=== PATIENT | female | born 1935 | race African-American/Black ===

== ENCOUNTER 2016-07-21 09:09 | Day surgery (SDC) | payer OTHER ==
[~2016-07-21] VITALS: Ht 167 cm; Wt 75.7 kg
[2016-07-21] MEDS: MEPERIDINE HCL/PF 100 MG/ML AMP ONE ×3 (10:08→10:15)
[2016-07-21] MEDS: MIDAZOLAM HCL 5 MG/5 ML VIAL ONE ×3 (10:08→10:18)
[2016-07-21 11:40] VITALS: BP_SYST 102
== END 2016-07-21 11:45 ==
LOC: SDS 09:09
PROVIDERS: ATTEND Internal Medicine Gastroenterology
DX: D12.3 Benign neoplasm of transverse colon (principal); K64.8 Other hemorrhoids
CPT/HCPCS: 45380; 88305; J2175; J2250; J7030

== ENCOUNTER 2016-12-11 23:31 | Emergency (ER) | payer OTHER, MEDICAID ==
[~2016-12-11] VITALS: Ht 160 cm; Wt 79.4 kg
[2016-12-11 23:31] VITALS: BP_SYST 122
--- NOTE | 2016-12-11 23:40 | NUR ---
Placed in hallway.
--- NOTE | 2016-12-11 23:40 | NUR ---
Pt is here for G tube replacement. [facility] stated that it leakes. Will continue to monitor.
--- NOTE | 2016-12-11 23:55 | NUR ---
ER Dr. Booker at bedside examining patient. Dr. Booker to replace G tube.
[2016-12-12 00:30] VITALS: BP_SYST 122
--- NOTE | 2016-12-12 00:30 | NUR ---
Patient given written and verbal discharge instructions and verbalizes understanding. ER MD discussed with patient the results and treatment provided. Patient in stable condition. ID arm band removed. Patient educated on pain management and to follow up with PMD. Pain Scale 0/10. Opportunity for questions provided and answered. Pt unable to sign due to baseline confusion. Transported back to [facility] by [facility]. Addendum: 12/12/16 at 0535 by ROSIO No adverse reactions noted.
[2016-12-12] MEDS ORDERED: GASTROGRAFIN 120 ML ONE (00:37)
== END 2016-12-12 00:30 | disposition home or self-care (01) ==
LOC: SED 23:31
DX: K94.23 Gastrostomy malfunction (principal); Y84.8 Other medical procedures as the cause of abnormal reaction of the patient, or of later complication, without mention of misadventure at the time of the procedure
CPT/HCPCS: 43760; 74240; 99284; Q9963

== ENCOUNTER 2017-02-10 08:54 | Outpatient (CLI) | payer OTHER, MEDICAID | END 2017-02-10 17:25 | disposition home or self-care (01) | LOC: SCT 08:54 | PROVIDERS: ATTEND Specialist | DX: K57.90 Diverticulosis of intestine, part unspecified, without perforation or abscess without bleeding (principal); I70.90 Unspecified atherosclerosis; Z93.1 Gastrostomy status ==

== ENCOUNTER 2018-08-03 12:56 | Inpatient (IN) | payer OTHER, MEDICAID ==
[~2018-08-03] VITALS: Ht 157.5 cm; Wt 92.7 kg
[2018-08-03] VITALS (15 sets, daily range): BP systolic 100–177
[2018-08-03] MEDS ORDERED: methylPREDNISolone SOD SUCC/PF 62.5 MG/ML VIAL IVP ONE (13:15)
[2018-08-03] MEDS ORDERED: IPRATROPIUM/ALBUTEROL SULFATE 3 ML AMPUL.NEB (DUONEB) INH ONE (13:15)
[2018-08-03] MEDS ORDERED: NOR10 PO (13:28)
[2018-08-03] MEDS ORDERED: LOSA50TA3 PO (13:28)
[2018-08-03] MEDS ORDERED: ISO10 PO (13:28)
[2018-08-03] MEDS ORDERED: DOCU-144 GT (13:28)
[2018-08-03] MEDS ORDERED: LEVE1000 GT (13:28)
[2018-08-03] MEDS ORDERED: ALBU2.5V7 INH ×2 (13:28)
[2018-08-03] MEDS ORDERED: TYLL650 GT (13:28)
[2018-08-03] MEDS ORDERED: MULT-1117 GT (13:28)
[2018-08-03] MEDS ORDERED: HYDR-3606 PO (13:28)
[2018-08-03] MEDS ORDERED: ASCO500T20 GT (13:28)
[2018-08-03] MEDS ORDERED: CRAN1CAP5 GT (13:28)
[2018-08-03] MEDS ORDERED: HYDR-4038 PO (13:28)
[2018-08-03] MEDS ORDERED: LISI30TA36 PO (13:28)
[2018-08-03] MEDS ORDERED: LIP10 GT (13:28)
[2018-08-03 13:51] LABS: BASOPHILS % (AUTO) 0.1 % (0.0-2.0); EOSINOPHILS % (AUTO) 0.1 % (0.0-4.0); HEMATOCRIT 45.8 % (36-48); HEMOGLOBIN 14.7 g/dL (12.0-16.0); LYMPHOCYTES # (AUTO) 0.7 K/uL (1.0-5.5); LYMPHOCYTES % (AUTO) 2.4 % (20.5-51.5); MEAN CORPUSCULAR HEMOGLOBIN 28 pg (27-31); MEAN CORPUSCULAR HGB CONC 32 % (32-36); MEAN CORPUSCULAR VOLUME 88 fL (79.0-98.0); MONOCYTES # (AUTO) 1.1 K/uL (0.0-1.0); MONOCYTES % (AUTO) 3.6 % (1.7-9.3); NEUTROPHILS # (AUTO) 27.4 K/uL (1.8-7.7); NEUTROPHILS % (AUTO) 93.8 % (40.0-70.0); PLATELET COUNT (AUTO) 273 K/uL (130-430); WHITE BLOOD COUNT (AUTO) 29.2 K/uL (4.8-10.8)
[2018-08-03 14:06] LABS: ANION GAP 12 (5-15); CALCIUM 9.9 mg/dL (8.4-11.0); CHLORIDE 98 mmol/L (98-107); CREATININE 1.12 mg/dL (0.55-1.30); GLUCOSE 253 mg/dL (70-99); POTASSIUM 4.4 mmol/L (3.5-5.1); SODIUM SERUM 132 mmol/L (136-145); UREA NITROGEN, BLOOD 21 mg/dL (8-21)
[2018-08-03 14:11] LABS: INR 0.9 (0.8-1.2); PROTHROMBIN TIME 9.6 SECS (9.5-12.5)
[2018-08-03 14:14] LABS: ALANINE AMINOTRANSFERASE 42 U/L (12-78); ALBUMIN 2.8 g/dL (3.4-4.8); ASPARTATE AMINOTRANSFERASE 36 U/L (10-37); TOTAL BILIRUBIN 0.6 mg/dL (0.0-1.0)
[2018-08-03] MEDS ORDERED: NACL 0.9% 1,000 ML IV ONE (14:15)
[2018-08-03] MEDS ORDERED: VANCOMYCIN HCL 1,000 MG in NS 250 ML IV ONE (14:15)
[2018-08-03] MEDS ORDERED: cefTRIAXone 1 GM in D5W 50 ML IV ONE (14:15)
[2018-08-03] MEDS ORDERED: POTASSIUM CHLORIDE 20 MEQ in D5/0.45 NS 1,000 ML IV SCH (14:50)
[2018-08-03] MEDS ORDERED: cefTRIAXone 1 GM VIAL ONE (15:20)
[2018-08-03] MEDS ORDERED: VANCOMYCIN HCL 1000 MG/VIAL IV ONE (15:20)
[2018-08-03] MEDS ORDERED: IOHEXOL 350 mgI/mL, 150 ML INFUS..BTL IV ONE (16:08)
[2018-08-03] MEDS ORDERED: IPRATROPIUM BROM 0.5 MG/2.5 ML VIAL.NEB (ATROVENT) INH PRN (17:30)
[2018-08-03] MEDS ORDERED: LevALBUTEROL HCL 1.25 MG/0.5 ML *CONC.* VIAL.NEB (XOPENEX CONC.) INH PRN (17:30)
[2018-08-03] MEDS ORDERED: HYDROcodone/ACETAMIN 5-325 MG TAB (NORCO/ VICODIN) PO PRN (18:15)
[2018-08-03] MEDS ORDERED: ALBUTEROL SULFATE 0.083% 2.5 MG/3 ML VIAL.NEB INH PRN (18:15)
[2018-08-03] MEDS ORDERED: PIPERACILLIN/TAZOBACTAM 2.25 GM VIAL IV ONE (21:15)
[2018-08-03] MEDS: levETIRAcetam 500 MG TABLET GT SCH (21:41)
[2018-08-03] MEDS: hydrALAZINE HCL 25 MG TABLET PO SCH (21:42)
[2018-08-03] MEDS: LOSARTAN POTASSIUM 50 MG TABLET (COZAAR) PO SCH (21:43)
[2018-08-03] MEDS: ISOSORBIDE DINITRATE 10 MG TABLET (ISORDIL) PO SCH (21:43)
[2018-08-03] MEDS: DOCUSATE SODIUM 100 MG CAPSULE PO SCH (21:43)
[2018-08-03] MEDS: ATORVASTATIN 10 MG TABLET GT SCH (21:44)
[2018-08-03] MEDS: PIPERACILLIN/TAZO 2.25G/DEX-IS 50 ML IV SCH (21:45)
[2018-08-04] VITALS (34 sets, daily range): BP systolic 96–149
[2018-08-04] MEDS ORDERED: ALBUTEROL SULFATE 0.083% 2.5 MG/3 ML VIAL.NEB INH SCH (01:00)
[2018-08-04] MEDS ORDERED: POTASSIUM CHLORIDE 20 MEQ in 0.45% NACL 1,000 ML IV SCH (01:00)
[2018-08-04] MEDS ORDERED: KCL 20 mEq in 0.45% NS 1000 mL 1,000 ML IV ONE (01:04)
[2018-08-04] MEDS: INSULIN REGULAR, HUMAN 100 UNITS/ML, 10 ML VIAL (novoLIN R) SUBCUT PRN ×4 (01:08→18:20)
[2018-08-04] MEDS: IPRATROPIUM BROM 0.5 MG/2.5 ML VIAL.NEB (ATROVENT) INH SCH ×4 (01:09→19:49)
[2018-08-04 06:07] LABS: BASOPHILS # (AUTO) 0.1 K/uL (0.0-0.2); BASOPHILS % (AUTO) 0.3 % (0.0-2.0); EOSINOPHILS % (AUTO) 0.1 % (0.0-4.0); HEMATOCRIT 44.8 % (36-48); HEMOGLOBIN 14.3 g/dL (12.0-16.0); LYMPHOCYTES # (AUTO) 0.9 K/uL (1.0-5.5); LYMPHOCYTES % (AUTO) 4.6 % (20.5-51.5); MEAN CORPUSCULAR HEMOGLOBIN 28 pg (27-31); MEAN CORPUSCULAR HGB CONC 32 % (32-36); MEAN CORPUSCULAR VOLUME 88 fL (79.0-98.0); MONOCYTES # (AUTO) 1.1 K/uL (0.0-1.0); MONOCYTES % (AUTO) 5.2 % (1.7-9.3); NEUTROPHILS # (AUTO) 18.1 K/uL (1.8-7.7); NEUTROPHILS % (AUTO) 89.8 % (40.0-70.0); PLATELET COUNT (AUTO) 223 K/uL (130-430); RED BLOOD CELL COUNT(AUTO) 5.08 MIL/uL (4.2-6.2); RED CELL DISTRIBUTION WIDTH 14.6 % (9.0-15.0); WHITE BLOOD COUNT (AUTO) 20.2 K/uL (4.8-10.8)
[2018-08-04] MEDS: PIPERACILLIN/TAZO 2.25G/DEX-IS 50 ML IV SCH ×3 (06:18→18:12)
[2018-08-04] MEDS: hydrALAZINE HCL 25 MG TABLET PO SCH ×3 (06:19→21:06)
[2018-08-04 06:27] LABS: ANION GAP 12 (5-15); CALCIUM 9.4 mg/dL (8.4-11.0); CHLORIDE 99 mmol/L (98-107); SODIUM SERUM 131 mmol/L (136-145); UREA NITROGEN, BLOOD 38 mg/dL (8-21)
[2018-08-04 06:41] LABS: ALANINE AMINOTRANSFERASE 53 U/L (12-78); ALBUMIN 2.5 g/dL (3.4-4.8); ASPARTATE AMINOTRANSFERASE 44 U/L (10-37); TOTAL BILIRUBIN 0.3 mg/dL (0.0-1.0)
[2018-08-04 07:03] LABS: GLUCOSE 420 mg/dL (70-99); POTASSIUM 6.3 mmol/L (3.5-5.1)
[2018-08-04] MEDS ORDERED: SODIUM POLYSTYRENE SULFONATE 15 GM/60 ML UDBTL PO ONE (07:30)
[2018-08-04] MEDS ORDERED: SODIUM POLYSTYRENE SULFONATE 15 GM/60 ML UDBTL ONE (07:42)
[2018-08-04] MEDS: LevALBUTEROL HCL 1.25 MG/0.5 ML *CONC.* VIAL.NEB (XOPENEX CONC.) INH SCH ×3 (07:53→19:49)
[2018-08-04] MEDS ORDERED: MULTIVITAMINS,THERAPEUTIC 5 ML UDC GT SCH (09:00)
[2018-08-04] MEDS: levETIRAcetam 500 MG TABLET GT SCH ×2 (09:48→21:15)
[2018-08-04] MEDS: LISINOPRIL 10 MG TABLET (PRINIVIL) PO SCH (09:49)
[2018-08-04] MEDS: LOSARTAN POTASSIUM 50 MG TABLET (COZAAR) PO SCH ×2 (09:49→21:04)
[2018-08-04] MEDS: ISOSORBIDE DINITRATE 10 MG TABLET (ISORDIL) PO SCH ×3 (09:50→21:03)
[2018-08-04] MEDS: ASCORBIC ACID 500 MG TABLET GT SCH (09:50)
[2018-08-04] MEDS: FAMOTIDINE PF 20 MG/2 ML VIAL IVP SCH (09:51)
[2018-08-04] MEDS: amLODIPine BESYLATE 10 MG TABLET PO SCH (09:51)
[2018-08-04] MEDS: DOCUSATE SODIUM 100 MG CAPSULE PO SCH ×3 (09:51→21:03)
[2018-08-04] MEDS: ENOXAPARIN SODIUM 40 MG/0.4 ML SYRINGE SUBCUT SCH (09:52)
[2018-08-04] MEDS ORDERED: MULTIVITAMINS TAB 1 TABLET GT SCH (10:00)
[2018-08-04] MEDS: 0.45% NACL 1,000 ML IV SCH (10:09)
[2018-08-04 12:01] LABS: POTASSIUM 4.4 mmol/L (3.5-5.1)
[2018-08-04 12:22] LABS: CREATINE KINASE MB 4.2 ng/mL (0-3.6)
[2018-08-04] MEDS ORDERED: SODIUM POLYSTYRENE SULFONATE 15 GM/60 ML UDBTL GT ONE (13:00)
[2018-08-04] MEDS: LEVOFLOXACIN 250 MG/D5W 50 ML IV SCH (16:50)
[2018-08-04 19:00] LABS: BILIRUBIN,URINE NEGATIVE (NEGATIVE); CLARITY/URINE CLEAR (CLEAR); COLOR,URINE YELLOW (YELLOW); GLUCOSE,URINE NEGATIVE (NEGATIVE); KETONES,URINE NEGATIVE (NEGATIVE); LEUKOCYTE ESTERASE ,URINE NEGATIVE (NEGATIVE); NITRITE, URINE NEGATIVE (NEGATIVE); PROTEIN URINE 1+ (NEGATIVE); UROBILINOGEN,URINE 0.2 (0.2-1.0)
[2018-08-04 19:15] LABS: BLOOD, URINE TRACE (NEGATIVE)
[2018-08-04 19:16] LABS: RBC,URINE 0-3 /HPF (0-3); WBC,URINE 0-3 /HPF (0-3)
[2018-08-04 19:17] LABS: BACTERIA,URINE FEW /HPF (None Seen); MUCUS,URINE None Seen /LPF (None Seen)
[2018-08-04] MEDS: ATORVASTATIN 10 MG TABLET GT SCH (21:04)
[2018-08-05] VITALS (31 sets, daily range): BP systolic 102–156
[2018-08-05] MEDS: 0.45% NACL 1,000 ML IV SCH ×2 (00:02→18:28)
[2018-08-05] MEDS: PIPERACILLIN/TAZO 2.25G/DEX-IS 50 ML IV SCH ×5 (00:02→23:51)
[2018-08-05] MEDS: INSULIN REGULAR, HUMAN 100 UNITS/ML, 10 ML VIAL (novoLIN R) SUBCUT PRN ×5 (00:22→23:50)
[2018-08-05] MEDS: IPRATROPIUM BROM 0.5 MG/2.5 ML VIAL.NEB (ATROVENT) INH SCH ×4 (01:07→19:42)
[2018-08-05] MEDS: LevALBUTEROL HCL 1.25 MG/0.5 ML *CONC.* VIAL.NEB (XOPENEX CONC.) INH SCH ×4 (01:07→19:42)
[2018-08-05] MEDS ORDERED: VANCOMYCIN HCL 1,000 MG in NS 250 ML IV SCH (03:00)
[2018-08-05] MEDS: hydrALAZINE HCL 25 MG TABLET PO SCH ×2 (06:23→14:32)
[2018-08-05 06:52] LABS: BASOPHILS # (AUTO) 0.1 K/uL (0.0-0.2); BASOPHILS % (AUTO) 0.4 % (0.0-2.0); EOSINOPHILS # (AUTO) 0.4 K/uL (0.0-0.4); EOSINOPHILS % (AUTO) 2.5 % (0.0-4.0); HEMATOCRIT 37.1 % (36-48); HEMOGLOBIN 11.9 g/dL (12.0-16.0); LYMPHOCYTES % (AUTO) 6.5 % (20.5-51.5); MEAN CORPUSCULAR HEMOGLOBIN 28 pg (27-31); MEAN CORPUSCULAR HGB CONC 32 % (32-36); MEAN CORPUSCULAR VOLUME 87 fL (79.0-98.0); MONOCYTES # (AUTO) 0.6 K/uL (0.0-1.0); NEUTROPHILS # (AUTO) 13.4 K/uL (1.8-7.7); NEUTROPHILS % (AUTO) 86.6 % (40.0-70.0); PLATELET COUNT (AUTO) 162 K/uL (130-430); RED BLOOD CELL COUNT(AUTO) 4.27 MIL/uL (4.2-6.2); RED CELL DISTRIBUTION WIDTH 14.7 % (9.0-15.0)
[2018-08-05 07:13] LABS: ANION GAP 12 (5-15); CALCIUM 8.3 mg/dL (8.4-11.0); CHLORIDE 101 mmol/L (98-107); CREATININE 1.12 mg/dL (0.55-1.30); GLUCOSE 264 mg/dL (70-99); POTASSIUM 3.5 mmol/L (3.5-5.1); SODIUM SERUM 138 mmol/L (136-145); UREA NITROGEN, BLOOD 29 mg/dL (8-21)
[2018-08-05 07:14] LABS: WHITE BLOOD COUNT (AUTO) 15.5 K/uL (4.8-10.8)
[2018-08-05] MEDS: DOCUSATE SODIUM 100 MG CAPSULE PO SCH ×2 (09:00→15:00)
[2018-08-05] MEDS: LOSARTAN POTASSIUM 50 MG TABLET (COZAAR) PO SCH (09:28)
[2018-08-05] MEDS: levETIRAcetam 500 MG TABLET GT SCH ×2 (09:29→20:51)
[2018-08-05] MEDS: amLODIPine BESYLATE 10 MG TABLET PO SCH (09:29)
[2018-08-05] MEDS: ASCORBIC ACID 500 MG TABLET GT SCH (09:30)
[2018-08-05] MEDS: LISINOPRIL 10 MG TABLET (PRINIVIL) PO SCH (09:30)
[2018-08-05] MEDS: FAMOTIDINE PF 20 MG/2 ML VIAL IVP SCH (09:31)
[2018-08-05] MEDS: ISOSORBIDE DINITRATE 10 MG TABLET (ISORDIL) PO SCH ×2 (09:31→15:38)
[2018-08-05] MEDS: LEVOFLOXACIN 250 MG/D5W 50 ML IV SCH (09:32)
[2018-08-05] MEDS: ENOXAPARIN SODIUM 40 MG/0.4 ML SYRINGE SUBCUT SCH (09:35)
[2018-08-05 11:26] LABS: PROTHROMBIN TIME 10.3 SECS (9.5-12.5)
[2018-08-05] MEDS: ACETAMINOPHEN 650 MG/20.3 ML UDC GT PRN (14:43)
[2018-08-05] MEDS ORDERED: HYDROcodone/ACETAMIN 5-325 MG TAB (NORCO/ VICODIN) GT PRN (16:36)
[2018-08-05] MEDS ORDERED: CLOPIDOGREL BISULFATE 75 MG TABLET PO ONE (16:45)
[2018-08-05] MEDS ORDERED: CLOPIDOGREL BISULFATE 75 MG TABLET GT ONE (16:45)
[2018-08-05] MEDS: ATORVASTATIN 20 MG TABLET GT SCH (20:51)
[2018-08-05] MEDS: ISOSORBIDE DINITRATE 10 MG TABLET (ISORDIL) GT SCH (20:52)
[2018-08-05] MEDS: LOSARTAN POTASSIUM 50 MG TABLET (COZAAR) GT SCH (20:52)
[2018-08-05] MEDS: DOCUSATE SODIUM 100 MG/10 ML UDC GT SCH (21:00)
[2018-08-05] MEDS: hydrALAZINE HCL 25 MG TABLET GT SCH (21:56)
[2018-08-06] VITALS (29 sets, daily range): BP systolic 113–150
[2018-08-06] MEDS: LevALBUTEROL HCL 1.25 MG/0.5 ML *CONC.* VIAL.NEB (XOPENEX CONC.) INH SCH ×3 (01:05→19:53)
[2018-08-06] MEDS: IPRATROPIUM BROM 0.5 MG/2.5 ML VIAL.NEB (ATROVENT) INH SCH ×3 (01:06→19:53)
[2018-08-06] MEDS: PIPERACILLIN/TAZO 2.25G/DEX-IS 50 ML IV SCH ×4 (05:16→23:18)
[2018-08-06] MEDS: hydrALAZINE HCL 25 MG TABLET GT SCH ×3 (05:20→21:45)
[2018-08-06] MEDS: INSULIN REGULAR, HUMAN 100 UNITS/ML, 10 ML VIAL (novoLIN R) SUBCUT PRN ×4 (05:42→23:24)
[2018-08-06 06:54] LABS: ANION GAP 7 (5-15); CALCIUM 8.3 mg/dL (8.4-11.0); CHLORIDE 100 mmol/L (98-107); CREATININE 0.84 mg/dL (0.55-1.30); GLUCOSE 261 mg/dL (70-99); POTASSIUM 3.9 mmol/L (3.5-5.1); SODIUM SERUM 133 mmol/L (136-145); UREA NITROGEN, BLOOD 17 mg/dL (8-21)
[2018-08-06 07:06] LABS: ALANINE AMINOTRANSFERASE 55 U/L (12-78); ALBUMIN 2.2 g/dL (3.4-4.8); ASPARTATE AMINOTRANSFERASE 41 U/L (10-37); TOTAL BILIRUBIN 0.3 mg/dL (0.0-1.0)
[2018-08-06] MEDS: DOCUSATE SODIUM 100 MG/10 ML UDC GT SCH ×3 (09:00→20:46)
[2018-08-06] MEDS: levETIRAcetam 500 MG TABLET GT SCH ×2 (09:21→20:44)
[2018-08-06] MEDS: FAMOTIDINE PF 20 MG/2 ML VIAL IVP SCH (09:21)
[2018-08-06] MEDS: CLOPIDOGREL BISULFATE 75 MG TABLET GT SCH (09:22)
[2018-08-06] MEDS: ENOXAPARIN SODIUM 40 MG/0.4 ML SYRINGE SUBCUT SCH (09:22)
[2018-08-06] MEDS: MULTIVITAMINS TAB 1 TABLET GT SCH (09:23)
[2018-08-06] MEDS: ISOSORBIDE DINITRATE 10 MG TABLET (ISORDIL) GT SCH ×3 (09:23→20:46)
[2018-08-06] MEDS: amLODIPine BESYLATE 10 MG TABLET GT SCH (09:24)
[2018-08-06] MEDS: LISINOPRIL 10 MG TABLET (PRINIVIL) GT SCH (09:25)
[2018-08-06] MEDS: LOSARTAN POTASSIUM 50 MG TABLET (COZAAR) GT SCH ×2 (09:25→20:45)
[2018-08-06] MEDS: ASCORBIC ACID 500 MG TABLET GT SCH (09:26)
[2018-08-06] MEDS: LEVOFLOXACIN 250 MG/D5W 50 ML IV SCH (09:26)
[2018-08-06] MEDS ORDERED: FUROSEMIDE 20 MG/2 ML VIAL IVP ONE (09:30)
[2018-08-06 11:38] LABS: BASOPHILS % (AUTO) 0.4 % (0.0-2.0); EOSINOPHILS # (AUTO) 0.3 K/uL (0.0-0.4); HEMATOCRIT 33.5 % (36-48); HEMOGLOBIN 10.9 g/dL (12.0-16.0); LYMPHOCYTES # (AUTO) 0.8 K/uL (1.0-5.5); LYMPHOCYTES % (AUTO) 7.2 % (20.5-51.5); MEAN CORPUSCULAR HEMOGLOBIN 29 pg (27-31); MEAN CORPUSCULAR HGB CONC 33 % (32-36); MEAN CORPUSCULAR VOLUME 87 fL (79.0-98.0); MONOCYTES # (AUTO) 0.7 K/uL (0.0-1.0); MONOCYTES % (AUTO) 6.8 % (1.7-9.3); NEUTROPHILS % (AUTO) 82.6 % (40.0-70.0); PLATELET COUNT (AUTO) 133 K/uL (130-430); RED BLOOD CELL COUNT(AUTO) 3.84 MIL/uL (4.2-6.2); RED CELL DISTRIBUTION WIDTH 14.5 % (9.0-15.0); WHITE BLOOD COUNT (AUTO) 10.9 K/uL (4.8-10.8)
[2018-08-06] MEDS: 0.45% NACL 1,000 ML IV SCH (17:19)
[2018-08-06] MEDS: ATORVASTATIN 20 MG TABLET GT SCH (20:46)
[2018-08-07] VITALS (30 sets, daily range): BP systolic 99–143
[2018-08-07] MEDS: IPRATROPIUM BROM 0.5 MG/2.5 ML VIAL.NEB (ATROVENT) INH SCH ×4 (00:48→19:27)
[2018-08-07] MEDS: LevALBUTEROL HCL 1.25 MG/0.5 ML *CONC.* VIAL.NEB (XOPENEX CONC.) INH SCH ×4 (00:48→19:27)
[2018-08-07] MEDS: PIPERACILLIN/TAZO 2.25G/DEX-IS 50 ML IV SCH (05:17)
[2018-08-07] MEDS: hydrALAZINE HCL 25 MG TABLET GT SCH ×3 (05:19→20:58)
[2018-08-07] MEDS: INSULIN REGULAR, HUMAN 100 UNITS/ML, 10 ML VIAL (novoLIN R) SUBCUT PRN ×4 (05:27→23:38)
[2018-08-07 06:17] LABS: BASOPHILS % (AUTO) 0.4 % (0.0-2.0); EOSINOPHILS # (AUTO) 0.5 K/uL (0.0-0.4); EOSINOPHILS % (AUTO) 4.5 % (0.0-4.0); LYMPHOCYTES % (AUTO) 8.8 % (20.5-51.5); MEAN CORPUSCULAR HEMOGLOBIN 28 pg (27-31); MEAN CORPUSCULAR HGB CONC 32 % (32-36); MEAN CORPUSCULAR VOLUME 87 fL (79.0-98.0); MONOCYTES # (AUTO) 0.9 K/uL (0.0-1.0); MONOCYTES % (AUTO) 8.1 % (1.7-9.3); NEUTROPHILS # (AUTO) 8.7 K/uL (1.8-7.7); NEUTROPHILS % (AUTO) 78.2 % (40.0-70.0); PLATELET COUNT (AUTO) 131 K/uL (130-430); RED BLOOD CELL COUNT(AUTO) 3.92 MIL/uL (4.2-6.2); RED CELL DISTRIBUTION WIDTH 14.5 % (9.0-15.0); WHITE BLOOD COUNT (AUTO) 11.2 K/uL (4.8-10.8)
[2018-08-07 06:37] LABS: ANION GAP 8 (5-15); CALCIUM 8.5 mg/dL (8.4-11.0); CHLORIDE 99 mmol/L (98-107); CREATININE 0.75 mg/dL (0.55-1.30); GLUCOSE 227 mg/dL (70-99); POTASSIUM 3.8 mmol/L (3.5-5.1); SODIUM SERUM 134 mmol/L (136-145); UREA NITROGEN, BLOOD 12 mg/dL (8-21)
[2018-08-07] MEDS: DOCUSATE SODIUM 100 MG/10 ML UDC GT SCH ×3 (08:35→20:58)
[2018-08-07] MEDS: FAMOTIDINE PF 20 MG/2 ML VIAL IVP SCH (08:36)
[2018-08-07] MEDS: amLODIPine BESYLATE 10 MG TABLET GT SCH (08:45)
[2018-08-07] MEDS: ENOXAPARIN SODIUM 40 MG/0.4 ML SYRINGE SUBCUT SCH (08:46)
[2018-08-07] MEDS: ISOSORBIDE DINITRATE 10 MG TABLET (ISORDIL) GT SCH ×3 (08:47→20:57)
[2018-08-07] MEDS: LISINOPRIL 10 MG TABLET (PRINIVIL) GT SCH (08:47)
[2018-08-07] MEDS: MULTIVITAMINS TAB 1 TABLET GT SCH (08:47)
[2018-08-07] MEDS: LOSARTAN POTASSIUM 50 MG TABLET (COZAAR) GT SCH ×2 (08:47→20:57)
[2018-08-07] MEDS: CLOPIDOGREL BISULFATE 75 MG TABLET GT SCH (08:47)
[2018-08-07] MEDS: ASCORBIC ACID 500 MG TABLET GT SCH (08:47)
[2018-08-07] MEDS: levETIRAcetam 500 MG TABLET GT SCH ×2 (08:48→20:56)
[2018-08-07] MEDS: PIPERACILLIN/TAZO 3.375/DEX-IS 50 ML IV SCH ×3 (11:38→23:36)
[2018-08-07] MEDS: 0.45% NACL 1,000 ML IV SCH (17:20)
[2018-08-07] MEDS: ATORVASTATIN 20 MG TABLET GT SCH (20:57)
[2018-08-08] VITALS (23 sets, daily range): BP systolic 103–137
[2018-08-08] MEDS: LevALBUTEROL HCL 1.25 MG/0.5 ML *CONC.* VIAL.NEB (XOPENEX CONC.) INH SCH ×4 (00:11→19:30)
[2018-08-08] MEDS: IPRATROPIUM BROM 0.5 MG/2.5 ML VIAL.NEB (ATROVENT) INH SCH ×4 (00:11→19:30)
[2018-08-08] MEDS: PIPERACILLIN/TAZO 3.375/DEX-IS 50 ML IV SCH ×3 (05:22→17:15)
[2018-08-08] MEDS: hydrALAZINE HCL 25 MG TABLET GT SCH ×3 (05:31→22:00)
[2018-08-08] MEDS: INSULIN REGULAR, HUMAN 100 UNITS/ML, 10 ML VIAL (novoLIN R) SUBCUT PRN ×3 (05:33→17:41)
[2018-08-08 06:29] LABS: BASOPHILS % (AUTO) 0.3 % (0.0-2.0); EOSINOPHILS # (AUTO) 0.5 K/uL (0.0-0.4); EOSINOPHILS % (AUTO) 4.1 % (0.0-4.0); HEMATOCRIT 34.1 % (36-48); HEMOGLOBIN 11.1 g/dL (12.0-16.0); LYMPHOCYTES # (AUTO) 0.8 K/uL (1.0-5.5); LYMPHOCYTES % (AUTO) 6.9 % (20.5-51.5); MEAN CORPUSCULAR HEMOGLOBIN 28 pg (27-31); MEAN CORPUSCULAR HGB CONC 33 % (32-36); MEAN CORPUSCULAR VOLUME 87 fL (79.0-98.0); MONOCYTES # (AUTO) 0.9 K/uL (0.0-1.0); MONOCYTES % (AUTO) 8.3 % (1.7-9.3); NEUTROPHILS # (AUTO) 9.1 K/uL (1.8-7.7); NEUTROPHILS % (AUTO) 80.4 % (40.0-70.0); PLATELET COUNT (AUTO) 138 K/uL (130-430); RED BLOOD CELL COUNT(AUTO) 3.93 MIL/uL (4.2-6.2); RED CELL DISTRIBUTION WIDTH 14.4 % (9.0-15.0); WHITE BLOOD COUNT (AUTO) 11.3 K/uL (4.8-10.8)
[2018-08-08 06:54] LABS: ANION GAP 9 (5-15); CALCIUM 8.9 mg/dL (8.4-11.0); CHLORIDE 98 mmol/L (98-107); CREATININE 0.68 mg/dL (0.55-1.30); GLUCOSE 237 mg/dL (70-99); POTASSIUM 3.9 mmol/L (3.5-5.1); SODIUM SERUM 132 mmol/L (136-145); UREA NITROGEN, BLOOD 11 mg/dL (8-21)
[2018-08-08] MEDS: ISOSORBIDE DINITRATE 10 MG TABLET (ISORDIL) GT SCH ×3 (08:15→20:12)
[2018-08-08] MEDS: FAMOTIDINE PF 20 MG/2 ML VIAL IVP SCH (08:15)
[2018-08-08] MEDS: LISINOPRIL 10 MG TABLET (PRINIVIL) GT SCH (08:16)
[2018-08-08] MEDS: CLOPIDOGREL BISULFATE 75 MG TABLET GT SCH (08:16)
[2018-08-08] MEDS: LOSARTAN POTASSIUM 50 MG TABLET (COZAAR) GT SCH ×2 (08:16→20:11)
[2018-08-08] MEDS: amLODIPine BESYLATE 10 MG TABLET GT SCH (08:17)
[2018-08-08] MEDS: MULTIVITAMINS TAB 1 TABLET GT SCH (08:17)
[2018-08-08] MEDS: levETIRAcetam 500 MG TABLET GT SCH ×2 (08:17→20:12)
[2018-08-08] MEDS: ASCORBIC ACID 500 MG TABLET GT SCH (08:17)
[2018-08-08] MEDS: DOCUSATE SODIUM 100 MG/10 ML UDC GT SCH ×3 (08:19→20:11)
[2018-08-08] MEDS: ENOXAPARIN SODIUM 40 MG/0.4 ML SYRINGE SUBCUT SCH (08:19)
[2018-08-08] MEDS ORDERED: FUROSEMIDE 20 MG/2 ML VIAL IVP ONE (09:30)
[2018-08-08] MEDS ORDERED: hydrALAZINE HCL 25 MG TABLET ONE (15:02)
[2018-08-08] MEDS: 0.45% NACL 1,000 ML IV SCH (16:50)
[2018-08-08] MEDS: ATORVASTATIN 20 MG TABLET GT SCH (20:12)
[2018-08-09] MEDS: LevALBUTEROL HCL 1.25 MG/0.5 ML *CONC.* VIAL.NEB (XOPENEX CONC.) INH SCH ×4 (00:35→19:40)
[2018-08-09] MEDS: IPRATROPIUM BROM 0.5 MG/2.5 ML VIAL.NEB (ATROVENT) INH SCH ×4 (00:36→19:42)
[2018-08-09 00:58] VITALS: BP_SYST 122
[2018-08-09] MEDS: PIPERACILLIN/TAZO 3.375/DEX-IS 50 ML IV SCH ×5 (01:05→23:17)
[2018-08-09] MEDS: INSULIN REGULAR, HUMAN 100 UNITS/ML, 10 ML VIAL (novoLIN R) SUBCUT PRN ×5 (01:09→23:14)
[2018-08-09] MEDS: hydrALAZINE HCL 25 MG TABLET GT SCH ×3 (06:05→21:23)
[2018-08-09 06:34] LABS: BASOPHILS # (AUTO) 0.1 K/uL (0.0-0.2); BASOPHILS % (AUTO) 0.4 % (0.0-2.0); EOSINOPHILS # (AUTO) 0.5 K/uL (0.0-0.4); EOSINOPHILS % (AUTO) 3.6 % (0.0-4.0); HEMATOCRIT 33.2 % (36-48); HEMOGLOBIN 10.8 g/dL (12.0-16.0); LYMPHOCYTES # (AUTO) 0.7 K/uL (1.0-5.5); LYMPHOCYTES % (AUTO) 4.4 % (20.5-51.5); MEAN CORPUSCULAR HEMOGLOBIN 29 pg (27-31); MEAN CORPUSCULAR HGB CONC 33 % (32-36); MEAN CORPUSCULAR VOLUME 87 fL (79.0-98.0); MONOCYTES # (AUTO) 1.1 K/uL (0.0-1.0); MONOCYTES % (AUTO) 7.4 % (1.7-9.3); NEUTROPHILS # (AUTO) 12.7 K/uL (1.8-7.7); NEUTROPHILS % (AUTO) 84.2 % (40.0-70.0); PLATELET COUNT (AUTO) 155 K/uL (130-430); RED CELL DISTRIBUTION WIDTH 14.3 % (9.0-15.0)
[2018-08-09 06:51] LABS: ANION GAP 2 (5-15); CALCIUM 8.9 mg/dL (8.4-11.0); CHLORIDE 103 mmol/L (98-107); CREATININE 0.63 mg/dL (0.55-1.30); GLUCOSE 212 mg/dL (70-99); SODIUM SERUM 130 mmol/L (136-145); UREA NITROGEN, BLOOD 12 mg/dL (8-21)
[2018-08-09 08:44] VITALS: BP_SYST 142
[2018-08-09] MEDS: FAMOTIDINE PF 20 MG/2 ML VIAL IVP SCH (09:24)
[2018-08-09] MEDS: LOSARTAN POTASSIUM 50 MG TABLET (COZAAR) GT SCH ×2 (09:25→21:24)
[2018-08-09] MEDS: LISINOPRIL 10 MG TABLET (PRINIVIL) GT SCH (09:25)
[2018-08-09] MEDS: amLODIPine BESYLATE 10 MG TABLET GT SCH (09:26)
[2018-08-09] MEDS: ASCORBIC ACID 500 MG TABLET GT SCH (09:26)
[2018-08-09] MEDS: CLOPIDOGREL BISULFATE 75 MG TABLET GT SCH (09:26)
[2018-08-09] MEDS: ISOSORBIDE DINITRATE 10 MG TABLET (ISORDIL) GT SCH ×3 (09:27→21:24)
[2018-08-09] MEDS: DOCUSATE SODIUM 100 MG/10 ML UDC GT SCH ×3 (09:27→21:00)
[2018-08-09] MEDS: levETIRAcetam 500 MG TABLET GT SCH ×2 (09:27→21:23)
[2018-08-09] MEDS: MULTIVITAMINS TAB 1 TABLET GT SCH (09:28)
[2018-08-09] MEDS: ENOXAPARIN SODIUM 40 MG/0.4 ML SYRINGE SUBCUT SCH (09:29)
[2018-08-09] MEDS: ACETAMINOPHEN 650 MG/20.3 ML UDC GT PRN ×2 (11:36→23:15)
[2018-08-09 12:45] VITALS: BP_SYST 136
[2018-08-09] MEDS: 0.45% NACL 1,000 ML IV SCH (14:54)
[2018-08-09 17:33] VITALS: BP_SYST 107
[2018-08-09] MEDS: TOBRAMYCIN 300MG/5ML INH AMPUL.NEB INH SCH (19:00)
[2018-08-09 20:00] VITALS: BP_SYST 146
[2018-08-09] MEDS: ATORVASTATIN 20 MG TABLET GT SCH (21:23)
[2018-08-10 00:45] VITALS: BP_SYST 133
[2018-08-10] MEDS: LevALBUTEROL HCL 1.25 MG/0.5 ML *CONC.* VIAL.NEB (XOPENEX CONC.) INH SCH ×3 (01:08→13:30)
[2018-08-10] MEDS: IPRATROPIUM BROM 0.5 MG/2.5 ML VIAL.NEB (ATROVENT) INH SCH ×3 (01:09→13:30)
[2018-08-10] MEDS: PIPERACILLIN/TAZO 3.375/DEX-IS 50 ML IV SCH ×3 (05:35→17:12)
[2018-08-10] MEDS: hydrALAZINE HCL 25 MG TABLET GT SCH ×2 (05:36→14:42)
[2018-08-10] MEDS: INSULIN REGULAR, HUMAN 100 UNITS/ML, 10 ML VIAL (novoLIN R) SUBCUT PRN ×3 (05:45→17:20)
[2018-08-10 06:28] LABS: BASOPHILS # (AUTO) 0.1 K/uL (0.0-0.2); BASOPHILS % (AUTO) 0.3 % (0.0-2.0); EOSINOPHILS # (AUTO) 0.8 K/uL (0.0-0.4); EOSINOPHILS % (AUTO) 3.5 % (0.0-4.0); HEMATOCRIT 34.4 % (36-48); HEMOGLOBIN 11.3 g/dL (12.0-16.0); LYMPHOCYTES # (AUTO) 0.8 K/uL (1.0-5.5); LYMPHOCYTES % (AUTO) 3.6 % (20.5-51.5); MEAN CORPUSCULAR HEMOGLOBIN 28 pg (27-31); MEAN CORPUSCULAR HGB CONC 33 % (32-36); MEAN CORPUSCULAR VOLUME 87 fL (79.0-98.0); MONOCYTES # (AUTO) 1.9 K/uL (0.0-1.0); MONOCYTES % (AUTO) 8.7 % (1.7-9.3); NEUTROPHILS # (AUTO) 18.1 K/uL (1.8-7.7); NEUTROPHILS % (AUTO) 83.9 % (40.0-70.0); PLATELET COUNT (AUTO) 192 K/uL (130-430); RED BLOOD CELL COUNT(AUTO) 3.96 MIL/uL (4.2-6.2); RED CELL DISTRIBUTION WIDTH 14.8 % (9.0-15.0); WHITE BLOOD COUNT (AUTO) 21.5 K/uL (4.8-10.8)
[2018-08-10 06:45] LABS: ANION GAP 7 (5-15); CALCIUM 8.9 mg/dL (8.4-11.0); CHLORIDE 98 mmol/L (98-107); CREATININE 0.84 mg/dL (0.55-1.30); GLUCOSE 208 mg/dL (70-99); POTASSIUM 4.1 mmol/L (3.5-5.1); SODIUM SERUM 134 mmol/L (136-145); UREA NITROGEN, BLOOD 13 mg/dL (8-21)
[2018-08-10] MEDS: TOBRAMYCIN 300MG/5ML INH AMPUL.NEB INH SCH (07:00)
[2018-08-10 07:30] VITALS: BP_SYST 138
[2018-08-10 07:59] VITALS: BP_SYST 138
[2018-08-10] MEDS: DOCUSATE SODIUM 100 MG/10 ML UDC GT SCH ×2 (09:00→14:11)
[2018-08-10] MEDS: FAMOTIDINE PF 20 MG/2 ML VIAL IVP SCH (09:27)
[2018-08-10] MEDS: ENOXAPARIN SODIUM 40 MG/0.4 ML SYRINGE SUBCUT SCH (09:29)
[2018-08-10] MEDS: levETIRAcetam 500 MG TABLET GT SCH (09:30)
[2018-08-10] MEDS: ASCORBIC ACID 500 MG TABLET GT SCH (09:30)
[2018-08-10] MEDS: CLOPIDOGREL BISULFATE 75 MG TABLET GT SCH (09:30)
[2018-08-10] MEDS: LOSARTAN POTASSIUM 50 MG TABLET (COZAAR) GT SCH (09:30)
[2018-08-10] MEDS: MULTIVITAMINS TAB 1 TABLET GT SCH (09:30)
[2018-08-10] MEDS: LISINOPRIL 10 MG TABLET (PRINIVIL) GT SCH (09:31)
[2018-08-10] MEDS: ISOSORBIDE DINITRATE 10 MG TABLET (ISORDIL) GT SCH ×2 (09:31→14:41)
[2018-08-10] MEDS: amLODIPine BESYLATE 10 MG TABLET GT SCH (10:33)
[2018-08-10 13:05] VITALS: BP_SYST 129
[2018-08-10 16:10] VITALS: BP_SYST 145
[2018-08-10 18:18] VITALS: BP_SYST 140
== END 2018-08-10 18:00 | DRG 870 ==
LOC: SED 12:56 → SIC 14:50 → STU 08-08 17:21
PROVIDERS: ADMIT Family Medicine; ATTEND Family Medicine
PROC: 5A1955Z Respiratory Ventilation, Greater than 96 Consecutive Hours (ICD-10-PCS; principal; 2018-08-03)
PROC: 02HV33Z Insertion of Infusion Device into Superior Vena Cava, Percutaneous Approach (ICD-10-PCS; 2018-08-05)
DX: A41.9 Sepsis, unspecified organism (principal); J69.0 Pneumonitis due to inhalation of food and vomit; J96.21 Acute and chronic respiratory failure with hypoxia; E43 Unspecified severe protein-calorie malnutrition; J15.1 Pneumonia due to Pseudomonas; I21.9 Acute myocardial infarction, unspecified; E87.2 Acidosis; G93.40 Encephalopathy, unspecified; N39.0 Urinary tract infection, site not specified; Z99.11 Dependence on respirator [ventilator] status; N17.9 Acute kidney failure, unspecified; I50.30 Unspecified diastolic (congestive) heart failure; E11.9 Type 2 diabetes mellitus without complications; E78.5 Hyperlipidemia, unspecified; I95.9 Hypotension, unspecified; F03.90 Unspecified dementia, unspecified severity, without behavioral disturbance, psychotic disturbance, mood disturbance, and anxiety; Z96.652 Presence of left artificial knee joint; G40.909 Epilepsy, unspecified, not intractable, without status epilepticus; I11.0 Hypertensive heart disease with heart failure; I25.10 Atherosclerotic heart disease of native coronary artery without angina pectoris; J44.9 Chronic obstructive pulmonary disease, unspecified; E86.0 Dehydration; Z86.718 Personal history of other venous thrombosis and embolism; Z86.73 Personal history of transient ischemic attack (TIA), and cerebral infarction without residual deficits; I25.2 Old myocardial infarction; Z87.891 Personal history of nicotine dependence; Z90.710 Acquired absence of both cervix and uterus; Z93.1 Gastrostomy status; Z98.2 Presence of cerebrospinal fluid drainage device; Z74.01 Bed confinement status; Z68.37 Body mass index [BMI] 37.0-37.9, adult; Z88.6 Allergy status to analgesic agent; Z88.2 Allergy status to sulfonamides; Z79.899 Other long term (current) drug therapy; Z79.51 Long term (current) use of inhaled steroids; Z93.0 Tracheostomy status
CPT/HCPCS: 36415; 36600; 71045; 71275; 80048; 80053; 81000-TC; 82550-TC; 82553-TC; 82803-TC; 82962; 83605; 83735-TC; 83874; 83880; 84132-TC; 84484; 85025; 85379; 85610-TC; 85730-TC; 87040-TC; 87070-TC; 87081; 87186-TC; 87205-TC; 93005; 93306; 94003; 94640; 94760; 96365; 96368; 96375; 99291; C1751; G0378; J0696; J1650; J1815; J1940; J1956; J2543; J2930; J3370; J3480; J3490; J7050; J7120; J7612; J7613; J7620; Q9967

== ENCOUNTER 2020-01-28 18:24 | Inpatient (IN) | payer OTHER, MEDICAID, SELFPAY ==
[~2020-01-28] VITALS: Ht 170.2 cm; Wt 80.7 kg
[~2020-01-28 18:24] MED LIST: ALBU2.5V7 INH; ASCO500T20 GT; CRAN1CAP5 GT; DOCU-144 GT; HYDR-3607 PO; HYDR-4038 PO; ISO10 PO; LEVE1000 GT; LIP10 GT; LISI30TA36 PO; LOSA50TA3 PO; MULT-1117 GT; NOR10 PO; TYLL650 GT
--- NOTE | 2020-01-28 18:24 | NUR ---
RT NOTE @1810 TRACH TO VENT PT RECEIVED AND PLACE ON AC 10 VT 500 PEEP+5 ON 30%. PT APPEARS TO TOLERATE WELL. ALARMS ARE SET AND AUDIBLE WILL ENDORSE TO CARE TO NOC SHIFT.
[2020-01-28 18:28] VITALS: BP_SYST 166
--- NOTE | 2020-01-28 18:28 | NUR ---
Placed in room 01 . Placed on laboratory monitor, blood pressure machine and pulse oximeter. To gown for exam. Side rails up.
--- NOTE | 2020-01-28 18:41 | NUR ---
Pt in [facility] with side rails up and gown on. Pt is a tracheostomy pt on Ventilator. Pt is awake and alert.
--- NOTE | 2020-01-28 19:12 | NUR ---
Received report from ZAN Mejía.
--- NOTE | 2020-01-28 19:15 | NUR ---
Iv access obtained. Pt is awake and responsive. Pt continues on Ventilator. Pt is being monitored.
[2020-01-28 19:18] LABS: BASOPHILS # (AUTO) 0.1 K/uL (0.0-0.2); BASOPHILS % (AUTO) 0.7 % (0.0-2.0); EOSINOPHILS # (AUTO) 0.3 K/uL (0.0-0.4); EOSINOPHILS % (AUTO) 3.3 % (0.0-4.0); HEMATOCRIT 35.2 % (36-48); HEMOGLOBIN 11.4 g/dL (12.0-16.0); LYMPHOCYTES # (AUTO) 1.2 K/uL (1.0-5.5); LYMPHOCYTES % (AUTO) 14.3 % (20.5-51.5); MEAN CORPUSCULAR HEMOGLOBIN 27 pg (27-31); MEAN CORPUSCULAR HGB CONC 32 % (32-36); MEAN CORPUSCULAR VOLUME 84 fL (79.0-98.0); MONOCYTES # (AUTO) 0.8 K/uL (0.0-1.0); MONOCYTES % (AUTO) 9.3 % (1.7-9.3); NEUTROPHILS % (AUTO) 72.4 % (40.0-70.0); PLATELET COUNT (AUTO) 257 K/uL (130-430); RED BLOOD CELL COUNT(AUTO) 4.21 MIL/uL (4.2-6.2); RED CELL DISTRIBUTION WIDTH 16.2 % (9.0-15.0); WHITE BLOOD COUNT (AUTO) 8.3 K/uL (4.8-10.8)
[2020-01-28] MEDS ORDERED: ASCO500T20 GT (19:25)
[2020-01-28] MEDS ORDERED: FER300L GT (19:25)
[2020-01-28] MEDS ORDERED: LIP10 GT (19:25)
[2020-01-28] MEDS ORDERED: LEVE100034 GT (19:25)
[2020-01-28] MEDS ORDERED: TYLL650 GT (19:25)
[2020-01-28] MEDS ORDERED: METF1000 GT (19:25)
[2020-01-28] MEDS ORDERED: DOCU-144 GT (19:25)
[2020-01-28] MEDS ORDERED: HYDR-4039 GT (19:25)
[2020-01-28] MEDS ORDERED: INSU100V11 SQ (19:25)
[2020-01-28] MEDS ORDERED: SSNOVOLOG SUBCUT (19:25)
[2020-01-28] MEDS ORDERED: VITD400 GT (19:25)
[2020-01-28] MEDS ORDERED: MULT-1279 GT (19:25)
[2020-01-28] MEDS ORDERED: HYDR-4038 GT (19:25)
[2020-01-28] MEDS ORDERED: [UNRECOGNIZED DRUG - CODE] GT (19:25)
[2020-01-28] MEDS ORDERED: APIX2.5T GT (19:25)
[2020-01-28] MEDS ORDERED: sodium chloride GT (19:25)
[2020-01-28] MEDS ORDERED: ALBMDI INH (19:25)
[2020-01-28] MEDS ORDERED: Uti-stat GT (19:25)
--- NOTE | 2020-01-28 19:25 | NUR ---
Medication reconciliation completed with information provided by patient . Any prior medication reconciliation on file was reviewed and corrected.
[2020-01-28 19:30] LABS: ANION GAP 6 (5-15); CALCIUM 9.6 mg/dL (8.4-11.0); CHLORIDE 101 mmol/L (98-107); CREATININE 0.48 mg/dL (0.55-1.30); GLUCOSE 123 mg/dL (70-99); POTASSIUM 3.8 mmol/L (3.5-5.1); SODIUM SERUM 135 mmol/L (136-145); UREA NITROGEN, BLOOD 12 mg/dL (8-21)
[2020-01-28 19:36] LABS: PROTHROMBIN TIME 10.3 SECS (9.5-12.5)
[2020-01-28 19:37] LABS: ALANINE AMINOTRANSFERASE 19 U/L (12-78); ALBUMIN 3.2 g/dL (3.4-4.8); ASPARTATE AMINOTRANSFERASE 12 U/L (10-37); TOTAL BILIRUBIN 0.3 mg/dL (0.0-1.0)
--- NOTE | 2020-01-28 19:40 | NUR ---
Patient BIB by ALS from [facility]. C/O abnormal labs and R/O Pulmonary Embolism today. Hx ME, MCI, COPD, Respiratory Failure, CHF, DM, A-Flutter, ADHD, G-tube and Trach -Vent AC VT FiO2 30.
--- NOTE | 2020-01-28 19:50 | NUR ---
Swabbed MRSA and Covid --19 and sent to lab.
--- NOTE | 2020-01-28 20:28 | NUR ---
ER Dr. Brower at bedside examining patient.
--- NOTE | 2020-01-28 20:30 | NUR ---
In and out cath and sent to lab.
[2020-01-28 20:51] LABS: BILIRUBIN,URINE NEGATIVE (NEGATIVE); BLOOD, URINE NEGATIVE (NEGATIVE); CLARITY/URINE CLEAR (CLEAR); COLOR,URINE YELLOW (YELLOW); GLUCOSE,URINE NEGATIVE (NEGATIVE); KETONES,URINE NEGATIVE (NEGATIVE); LEUKOCYTE ESTERASE ,URINE NEGATIVE (NEGATIVE); NITRITE, URINE NEGATIVE (NEGATIVE); PROTEIN URINE 2+ (NEGATIVE); UROBILINOGEN,URINE 0.2 (0.2-1.0)
[2020-01-28 21:05] LABS: RBC,URINE NONE SEEN /HPF (0-3); WBC,URINE 0-3 /HPF (0-3)
[2020-01-28 21:06] LABS: BACTERIA,URINE FEW /HPF (None Seen)
[2020-01-28] MEDS ORDERED: IOHEXOL 350 mgI/mL, 150 ML INFUS..BTL IV ONE (21:16)
--- NOTE | 2020-01-28 21:34 | NUR ---
Patient transported to radiology via gurney, accompanied by RT and Radio Tech and RN. IV clot , Dr. Brower notified, transfer patient back to bed .
--- NOTE | 2020-01-28 22:20 | NUR ---
Note alinone in EDM - 01/28/20 at 2233 by [email or web address] # 22 gauge angiocath placed to left hand. Use of asceptic technique. Opsite placed over site. Blood return noted. Blood for lab drawn from site. Flushed with 10 cc of normal saline. No evidence of infiltration noted. Patient tolerated well.
--- NOTE | 2020-01-28 22:20 | NUR ---
# 22 gauge angiocath placed to left hand by ZAN Rodriguez. Use of asceptic technique. Opsite placed over site. Blood return noted. Blood for lab drawn from site. Flushed with 10 cc of normal saline. No evidence of infiltration noted. Patient tolerated well.
--- NOTE | 2020-01-28 22:25 | NUR ---
# 22 gauge angiocath placed to right hand by ZAN Rodriguez. Use of asceptic technique. Opsite placed over site. Blood return noted. Blood for lab drawn from site. Flushed with 10 cc of normal saline. No evidence of infiltration noted. Patient tolerated well.
--- NOTE | 2020-01-28 22:37 | NUR ---
RT spoke with Dr. Brower about concern IV line for CT with contrast.
--- NOTE | 2020-01-28 23:54 | NUR ---
RT at bedside for ABG.
[2020-01-29] VITALS (32 sets, daily range): BP systolic 116–184
--- NOTE | 2020-01-29 00:29 | NUR ---
Patient resting quietly. No acute distress noted. HR 38.
--- NOTE | 2020-01-29 00:31 | NUR ---
Patient will be admitted to care of Dr. Pool. Admitted to ICU unit. Will go to room 5. Belongings list completed. Complete and up to date summary report printed. SBAR report to be given at bedside with opportunity for questions.
--- NOTE | 2020-01-29 00:51 | NUR ---
rt notes 0051 transported pt from ER1 to ICU 5. vent and alarms functioning well. (AC 10, VT 500, PEEP 5 , 30% FIO2)pt stable. trach secured. no resp distress noted. HR 50, sat 99%. transport with RECORDING STUDIO SETUP WORKER Morena. will continue to monitor pt.
--- NOTE | 2020-01-29 00:55 | NUR ---
Opening note Received report from ER nurse and assumed care. Patient transferred from [facility] to bed and connected to monitor. IV sites verified by flush to BL hands g#[address] and locked at this time. patient connected to vent via trach Portex #7. Settings AC 10, TV 500, FIO2 30%, Peep 5+. Heart rate noted to be bradycardic 40-50 and BP elevated 184/96 after a normal previous reading. MD will be called if BP continues to be elevated.
--- NOTE | 2020-01-29 01:47 | NUR ---
CONSULTATION PAGED/CALLED Reason for Consultation: ELEVATED TROPONIN Person Who was Notified: QI Consulting Physician: DR. HUGHES/ DR. LOCKE IS WIND [employer]URBINE SERVICE TECHNICIAN Radiologic Therapist Specialty: CARDIOLOGY Ordering Physician: DR. AMADOR STAT CONSULTATION NEEDED FOR ORDERS, DR. LOCKE DID NOT ASSEMBLER GOLD FRAME, PER QI WE WILL TRY AGAIN IN 15 MINS.
--- NOTE | 2020-01-29 02:10 | NUR ---
DR. LOCKE - PAGE #[address] LOCKE WITH NO ANSWER. SPOKE WITH QI AT THE EXCHANGE.
--- NOTE | 2020-01-29 02:25 | NUR ---
DR. LOCKE - PAGE #[address] LOCKE WITH NO ANSWER. SPOKE WITH QI AT THE EXCHANGE.
--- NOTE | 2020-01-29 03:00 | NUR ---
DR. LOCKE - PAGE #4 SPOKE WITH QI AT THE EXCHANGE, SHE WAS ABLE TO REACH DR. LOCKE AND GAVE HIM THE INFORMATION FOR A STAT CONSULT. PER QI LOCKE WILL CALL US BACK ON THE UNIT. WILL AWAIT MD CALL BACK.
--- NOTE | 2020-01-29 03:40 | NUR ---
DR. CORNELIA LOCKE HAS NOT CALLED BACK ON THE UNIT. PT SBP REMAINS IN THE 170s AND 180s AND HR REMAINS BRADYCARDIC IN THE 30s AND 40s. DR. AMADOR PAGED FOR ORDERS.
--- NOTE | 2020-01-29 03:42 | NUR ---
PAGED DR. AMADOR FOR ORDERS DIALED: [phone] SPOKE TO: AUTOMATED EXCHANGE
--- NOTE | 2020-01-29 03:45 | NUR ---
DR. PERRY HADDAD PAGED FOR ORDERS AT THIS TIME AND MADE AWARE OF PT SBP SUSTAINING IN THE 170s AND 180s. ORDERS RECEIVED FOR HYDRALAZINE 10 MG IVP Q4H PRN, CONTINUE ALL HOME MEDS, AND CONTINUE G-TUBE FEEDING AND H2O FLUSH AT THE SAME RATE. WILL CARRY OUT ORDERED.
--- NOTE | 2020-01-29 04:00 | NUR ---
Hydralazine 10 mg IVP given for BP 184/[address] Bobby orders received.
[2020-01-29] MEDS ORDERED: ALBUTEROL MDI INHALATION 8 GM INH INH PRN (04:02)
[2020-01-29] MEDS ORDERED: hydrALAZINE HCL 25 MG TABLET GT PRN (04:15)
[2020-01-29] MEDS ORDERED: hydrALAZINE HCL 20 MG/ML VIAL IVP PRN (04:15)
[2020-01-29] MEDS ORDERED: ACETAMINOPHEN 650 MG/20.3 ML UDC GT PRN (04:15)
[2020-01-29] MEDS ORDERED: hydrALAZINE HCL 20 MG/ML VIAL ONE (04:22)
[2020-01-29] MEDS ORDERED: INSULIN ASPART 100 UNITS/ML, 10 ML VIAL (NovoLOG) SUBCUT PRN (05:00)
--- NOTE | 2020-01-29 05:50 | NUR ---
PAGED FOR CONSULT DR. RUIZ REASON FOR CONSULT: ON VENT ORDERING PHYSICIAN: DR. AMADOR DIALED: [phone] SPOKE TO: QI
--- NOTE | 2020-01-29 07:30 | NUR ---
OPENING NOTE Received SBAR report from off coming RN for continuity of care. Pt laying in bed, no s/s of acute distress noted. Tracheostomy in place on ventilator with oxygen saturations above 90%. PEG tube in place with tube feeding infusing. Will continue to monitor and assess.
--- NOTE | 2020-01-29 08:36 | NUR ---
Nutrition Update Cr scale 11 noted. Pt admitted for abnormal labs. Diet: Tube Feeding Glucerna 1.2 @ 45 ml/hr. FWF 10 ml BMI: 28.1 kg/m2 RD to follow per nutrition care standards.
[2020-01-29] MEDS: FERROUS SULFATE 300 MG/5 ML UDC GT SCH ×3 (08:53→20:23)
[2020-01-29] MEDS: LANSOPRAZOLE 30 MG CAPSULE.DR GT SCH (08:54)
[2020-01-29] MEDS: SODIUM CHLORIDE 500 MG TABLET GT SCH (08:54)
[2020-01-29] MEDS: metFORMIN HCL 500 MG TABLET GT SCH ×2 (08:55→17:50)
[2020-01-29] MEDS: MULTIVITAMINS TAB 1 TABLET GT SCH (08:56)
[2020-01-29] MEDS ORDERED: ASCORBIC ACID 500 MG TABLET GT SCH (09:00)
[2020-01-29] MEDS ORDERED: levETIRAcetam 1,000 MG IV BAG 100 ML IV SCH (09:00)
[2020-01-29] MEDS: APIXABAN 2.5 MG TABLET GT SCH ×2 (09:02→20:34)
[2020-01-29] MEDS ORDERED: GLUCOSE (DEXTROSE) ORAL GEL -Adults PO PRN (09:15)
[2020-01-29] MEDS ORDERED: D5W 1,000 ML IV PRN (09:15)
[2020-01-29] MEDS: INSULIN GLARGINE 100 UNITS/ML 10 ML VIAL SQ SCH ×2 (09:53→20:34)
[2020-01-29] MEDS ORDERED: ALBUTEROL SULFATE 0.083% 2.5 MG/3 ML VIAL.NEB INH PRN (10:15)
[2020-01-29] MEDS: THEOPHYLLINE ANHYDROUS 200 MG CAP.ER.24H PO SCH ×2 (11:44→20:26)
[2020-01-29] MEDS: DOCUSATE SODIUM 100 MG/10 ML UDC GT SCH ×3 (11:44→20:22)
[2020-01-29] MEDS: LevETIRAcetam 500 MG/5 ML UDC ORAL LIQUID GT SCH ×2 (11:44→20:28)
[2020-01-29] MEDS: hydrALAZINE HCL 25 MG TABLET GT SCH (20:24)
[2020-01-29] MEDS: ATORVASTATIN 10 MG TABLET GT SCH (20:24)
[2020-01-30] VITALS (23 sets, daily range): BP systolic 124–183
[2020-01-30 05:34] LABS: BASOPHILS # (AUTO) 0.1 K/uL (0.0-0.2); BASOPHILS % (AUTO) 0.8 % (0.0-2.0); EOSINOPHILS # (AUTO) 0.4 K/uL (0.0-0.4); EOSINOPHILS % (AUTO) 4.4 % (0.0-4.0); HEMATOCRIT 32.3 % (36-48); HEMOGLOBIN 10.4 g/dL (12.0-16.0); LYMPHOCYTES # (AUTO) 1.1 K/uL (1.0-5.5); LYMPHOCYTES % (AUTO) 13.1 % (20.5-51.5); MEAN CORPUSCULAR HEMOGLOBIN 27 pg (27-31); MEAN CORPUSCULAR HGB CONC 32 % (32-36); MEAN CORPUSCULAR VOLUME 85 fL (79.0-98.0); MONOCYTES # (AUTO) 0.8 K/uL (0.0-1.0); NEUTROPHILS # (AUTO) 6.2 K/uL (1.8-7.7); NEUTROPHILS % (AUTO) 72.7 % (40.0-70.0); PLATELET COUNT (AUTO) 246 K/uL (130-430); RED BLOOD CELL COUNT(AUTO) 3.81 MIL/uL (4.2-6.2); RED CELL DISTRIBUTION WIDTH 16.2 % (9.0-15.0); WHITE BLOOD COUNT (AUTO) 8.5 K/uL (4.8-10.8)
[2020-01-30 06:17] LABS: ALANINE AMINOTRANSFERASE 17 U/L (12-78); ALBUMIN 2.7 g/dL (3.4-4.8); ANION GAP 7 (5-15); ASPARTATE AMINOTRANSFERASE 12 U/L (10-37); CALCIUM 8.9 mg/dL (8.4-11.0); CHLORIDE 105 mmol/L (98-107); CREATININE 0.65 mg/dL (0.55-1.30); GLUCOSE 76 mg/dL (70-99); PHOSPHORUS 3.4 mg/dL (2.7-4.5); POTASSIUM 4.6 mmol/L (3.5-5.1); SODIUM SERUM 139 mmol/L (136-145); THYROID STIMULATING HORMONE 2.15 uIu/mL (0.36-3.74); TOTAL BILIRUBIN 0.1 mg/dL (0.0-1.0); UREA NITROGEN, BLOOD 15 mg/dL (8-21)
--- NOTE | 2020-01-30 07:05 | NUR ---
Troponin 0.163 for [address] Gonzlaes to inform lab value. No new orders received. Will continue to monitor.
--- NOTE | 2020-01-30 07:20 | NUR ---
Opening Note Patient report received via SBAR from endorsing RN
--- NOTE | 2020-01-30 07:25 | NUR ---
CLOSING NOTE Endorsed SBAR report to oncoming RN for continuity of care. Pt resting in bed, opens eyes to verbal stimuli. No changes were made to ventilator settings. No s/s of acute distress noted.
--- NOTE | 2020-01-30 07:45 | NUR ---
ROUND Dr. Gonzales in to see patient, physician entered orders
[2020-01-30] MEDS ORDERED: ATROPINE SULFATE 1 MG/10 ML SYRINGE IVP ONE (07:58)
[2020-01-30] MEDS: LevETIRAcetam 500 MG/5 ML UDC ORAL LIQUID GT SCH ×2 (08:01→22:25)
[2020-01-30] MEDS: FERROUS SULFATE 300 MG/5 ML UDC GT SCH ×3 (08:01→22:27)
[2020-01-30] MEDS: DOCUSATE SODIUM 100 MG/10 ML UDC GT SCH ×3 (08:01→22:25)
[2020-01-30] MEDS: metFORMIN HCL 500 MG TABLET GT SCH ×2 (08:02→16:59)
[2020-01-30] MEDS: ASCORBIC ACID 500 MG TABLET GT SCH (08:02)
[2020-01-30] MEDS: SODIUM CHLORIDE 500 MG TABLET GT SCH (08:02)
[2020-01-30] MEDS: MULTIVITAMINS TAB 1 TABLET GT SCH (08:02)
[2020-01-30] MEDS: LANSOPRAZOLE 30 MG CAPSULE.DR GT SCH (08:02)
[2020-01-30] MEDS: APIXABAN 2.5 MG TABLET GT SCH ×2 (08:03→22:27)
[2020-01-30] MEDS: INSULIN GLARGINE 100 UNITS/ML 10 ML VIAL SQ SCH ×2 (08:04→22:45)
[2020-01-30 08:26] LABS: CHOLESTEROL 132 mg/dL (<200); HDL CHOLESTEROL 47 mg/dL (>55); TRIGLYCERIDES 79 mg/dL (30-150)
[2020-01-30 08:27] LABS: LDL CHOLESTEROL 79 mg/dL (<100)
[2020-01-30] MEDS ORDERED: PROPANTHELINE BROMIDE 15 MG PO SCH (09:00)
--- NOTE | 2020-01-30 10:10 | NUR ---
Nursing Note Patient repositioned in bed, patient tolerated well
[2020-01-30] MEDS: DEXTROSE 50%-WATER 50 ML DISP.SYRIN IVP PRN ×2 (12:01→17:05)
[2020-01-30] MEDS: THEOPHYLLINE ANHYDROUS 200 MG CAP.ER.24H PO SCH ×2 (12:55→22:25)
--- NOTE | 2020-01-30 13:15 | NUR ---
IV PLACEMENT: # 20 gauge angiocath placed to right forearm. Use of asceptic technique. Opsite placed over site. Blood return noted. Flushed with 10 cc of normal saline. No evidence of infiltration noted. Patient tolerated well.
--- NOTE | 2020-01-30 15:00 | NUR ---
ROUND Dr. Bobby in to see patient, new orders to be entered
--- NOTE | 2020-01-30 15:14 | NUR ---
Dietitian Recommendations * Recommend Glucerna 1.2 at 45 ml/hr, Prosource daily, Free Water Flush: 100 ml Q6h via GT Provides: 1356 kcal/day, 80 gm protein/day, and 1269 ml free water/day Meets: 101% of estimated caloric needs and 93% of lower end of estimated protein needs LP, RD Please refer to Nutrition Assessment for details. Addendum: 01/30/20 at [address] Amended: Links added.
--- NOTE | 2020-01-30 15:30 | NUR ---
Nursing Note Patient given CHG bath, linens changed, gown changed, patient repositioned in bed, patient tolerated well
[2020-01-30] MEDS: ATROPINE SULFATE 1 MG/10 ML SYRINGE IVP PRN ×3 (15:44→22:31)
--- NOTE | 2020-01-30 15:50 | NUR ---
Nursing Note Patient to be transferred to Telemetry unit when possible, patient being monitored on Tele status
--- NOTE | 2020-01-30 18:00 | NUR ---
Opening Notes Received patient from ICU, stable at this time. Pt is awake, alert and oriented x0-1. Patient is able to follow simple commands. No resp distress noted. Breathing is even and unlabored. Pt is noted with trach to vent, portex #7 (AC 10, TV 500, FiO2 30%, PEEP 5.0), tolerating well. Two IV sites: right hand, 22 gauge saline lock. Right FA, 22 gauge intact at this time, flushing well. IVF: D5W @ 30 cc/hr. ICU nurse endorsed that pts blood sugar was noted at 68 mg/dL earlier in shift. DW5 given and D5W IV started. Reassessed BS at 1815: BS at 141 mg/dL, no coverage at this time. GTUBE site intact at this time. Tube feed: Glucerna 1.2 @ 45 cc/hr, infusing well at this time. HOB at 30 degrees. All needs met at this time. Safety and fall precautions in place. Bed in lowest position, alarm on, locked. Will continue to monitor.
--- NOTE | 2020-01-30 18:05 | NUR ---
PT TRANSFERRED Report given to receiving nurse at bedside via SBAR. Patient transferred via hospital bed, accompanied by RN and RT, attached to kier tender. Patient transferred to room 105B, patient's belongings, medications, and chart transferred to Telemetry unit.
--- NOTE | 2020-01-30 18:26 | NUR ---
Closing Notes Patient is laying in bed at this time. No resp distress noted. Breathing is even and unlabored at this time. No signs of distress or hypoglycemia at this time. Pt is awake, alert and oriented x0-1. Patient is able to follow simple commands. No resp distress noted. Breathing is even and unlabored. Pt is noted with trach to vent, portex #7 (AC 10, TV 500, FiO2 30%, PEEP 5.0), tolerating well. Two IV sites: right hand, 22 gauge saline lock. Right FA, 22 gauge intact at this time, flushing well. IVF: D5W @ 30 cc/hr. ICU nurse endorsed that pts blood sugar was noted at 68 mg/dL earlier in shift. DW5 given and D5W IV started. Reassessed BS at 1815: BS at 141 mg/dL, no coverage at this time. GTUBE site intact at this time. Tube feed: Glucerna 1.2 @ 45 cc/hr, infusing well at this time. HOB at 30 degrees. All needs met at this time. Safety and fall precautions in place. Bed in lowest position, alarm on, locked. Will continue to monitor.
--- NOTE | 2020-01-30 19:15 | NUR ---
OPENING NOTES Patient is resting, no signs of resp distress noted. Breathing is even and unlabored at this time. No signs of distress or hypoglycemia at this time. Pt is noted with trach to vent, portex #7 (AC 10, TV 500, FiO2 30%, PEEP 5.0), tolerating well. IV site patent, dressings c/d/i, IVF running. GTUBE site intact at this time, Glucerna 1.2 @ 45 cc/hr, infusing well at this time, no residual. HOB elevated. Bed at lowest position, bed alarm on, will continue to monitor.
[2020-01-30] MEDS: hydrALAZINE HCL 25 MG TABLET GT SCH (22:26)
[2020-01-30] MEDS: ATORVASTATIN 10 MG TABLET GT SCH (22:27)
--- NOTE | 2020-01-31 00:06 | NUR ---
Incontinence care provided, skin intact. IV site patent, dressings c/d/i, IVF running. Will continue to monitor.
[2020-01-31 00:19] VITALS: BP_SYST 145
[2020-01-31] MEDS: ATROPINE SULFATE 1 MG/10 ML SYRINGE IVP PRN ×4 (03:05→21:55)
--- NOTE | 2020-01-31 03:15 | NUR ---
PATIENT'S HEART RATE CONTINUES TO SUSTAIN UNDER 60, PRN MEDICATION PROVIDED, PATIENT TOLERATED WELL. WILL CONTINUE TO MONITOR.
[2020-01-31] MEDS: THEOPHYLLINE ANHYDROUS 200 MG CAP.ER.24H PO SCH ×3 (06:33→22:31)
--- NOTE | 2020-01-31 07:09 | NUR ---
CLOSING NOTES Patient is resting, no signs of respiratory distress noted. Breathing is even and unlabored at this time. No signs of distress or hypoglycemia at this time. Pt is noted with trach to vent, portex #7 (AC 10, TV 500, FiO2 30%, PEEP 5.0), tolerating well. IV site patent, dressings c/d/i, IVF running. GTUBE site intact at this time, Glucerna 1.2 @ 45 cc/hr, infusing well at this time, no residual. HOB elevated. Heart rate monitored throughout shift. Bed at lowest position, bed alarm on, all needs met throughout shift. Will endorse care to oncoming shift.
[2020-01-31 07:51] VITALS: BP_SYST 178
--- NOTE | 2020-01-31 07:51 | NUR ---
INITIAL ROUNDS Received pt awake, confused and moving her right arm around. No s/s resp distress, no s/s pain or discomfort. IVF infusing well to RFA at ordered rate with no s/s infiltration to site. Glucerna infusing well via G-tube at ordered rate with no residual noted. HOB elevated for aspiration precautions. Pt repositioned with pillow support and heels off-loaded for skin care. Side rails up x3, bed alarm on and room close to nursing station for safety.
--- NOTE | 2020-01-31 08:15 | NUR ---
HEART RATE Pt's heart rate decreased, between 43-52 bpm. Pt awake. Pt given Atropine as ordered
[2020-01-31] MEDS: DOCUSATE SODIUM 100 MG/10 ML UDC GT SCH ×3 (08:18→21:44)
[2020-01-31] MEDS: FERROUS SULFATE 300 MG/5 ML UDC GT SCH ×3 (08:19→21:44)
[2020-01-31] MEDS: MULTIVITAMINS TAB 1 TABLET GT SCH (08:20)
[2020-01-31] MEDS: LANSOPRAZOLE 30 MG CAPSULE.DR GT SCH (08:20)
[2020-01-31] MEDS: ASCORBIC ACID 500 MG TABLET GT SCH (08:20)
[2020-01-31] MEDS: metFORMIN HCL 500 MG TABLET GT SCH ×2 (08:20→18:15)
[2020-01-31] MEDS: SODIUM CHLORIDE 500 MG TABLET GT SCH (08:20)
[2020-01-31] MEDS: LevETIRAcetam 500 MG/5 ML UDC ORAL LIQUID GT SCH ×2 (08:21→21:59)
[2020-01-31] MEDS: INSULIN GLARGINE 100 UNITS/ML 10 ML VIAL SQ SCH ×2 (08:23→21:00)
[2020-01-31] MEDS: APIXABAN 2.5 MG TABLET GT SCH ×2 (08:24→21:47)
[2020-01-31 12:00] VITALS: BP_SYST 168
--- NOTE | 2020-01-31 12:05 | NUR ---
ROUNDS Pt resting quietly in bed with no s/s resp distress, no s/s pain or discomfort. Pt suctioned with small amount of thick, white sputum. Oral care given. Pt repositioned with pillow support and heels off-loaded. All precautions remain in place.
--- NOTE | 2020-01-31 15:05 | NUR ---
HEART RATE Pt's heart rate 47 bpm, pt awake, remains confused. Pt given Atropine as ordered.
--- NOTE | 2020-01-31 15:55 | NUR ---
HEART RATE Pt's heart rate now 62-75.
[2020-01-31 16:00] VITALS: BP_SYST 150
--- NOTE | 2020-01-31 18:23 | NUR ---
CLOSING NOTE Pt resting quietly in bed with no s/s resp distress, no s/s pain or discomfort. IVF infusing well to RFA at ordered rate with no s/s infiltration to site. Glucerna infusing well via G-tube at ordered rate. HOB elevated for aspiration precautions. Pt repositioned with pillow support and heels off-loaded for skin care. Side rails up x3, bed alarm on and room close to nursing station for safety.
--- NOTE | 2020-01-31 19:35 | NUR ---
ROUNDS PATIENT IN BED, AWAKE, NON VERBAL, ON MECHANICAL VENTILATOR, VITALS STABLE. NO SIGNS OF PAIN AND DISCOMFORT NOTED. ASSESSMENT DONE AND DOCUMENTED. SEE FLOWSHEET. NEEDS ATTENDED TO. SECRETIONS SUCTIONED. TURNED AND REPOSITIONED TO PREVENT SKIN BREAKDOWN. SAFETY MEASURES IN PLACED. WILL CONTINUE TO MONITOR.
--- NOTE | 2020-01-31 21:15 | NUR ---
MEDICATION DUE MEDICATIONS GIVEN PER G TUBE ORDERED, TOLERATED WELL. WILL CONTINUE TO MONITOR.
[2020-01-31] MEDS: ATORVASTATIN 10 MG TABLET GT SCH (21:45)
[2020-01-31] MEDS: hydrALAZINE HCL 25 MG TABLET GT SCH (21:45)
--- NOTE | 2020-01-31 22:00 | NUR ---
NOTES PATIENT'S HEART RATE SUSTAINING ON THE 40'S, ATROPINE SULFATE 0.5 MG IVP GIVEN ORDERED PRN FOR HR<60. WILL CONTINUE TO MONITOR.
[2020-02-01] VITALS: BP_SYST 149
--- NOTE | 2020-02-01 00:12 | NUR ---
ROUNDS PATIENT ASLEEP, EYES CLOSED, RESPIRATIONS EVEN AND UNLABORED, NO SIGNS OF ANY PAIN AND DISCOMFORT NOTED. WILL CONTINUE TO MONITOR.
[2020-02-01] MEDS: ATROPINE SULFATE 1 MG/10 ML SYRINGE IVP PRN ×3 (02:44→18:27)
--- NOTE | 2020-02-01 02:51 | NUR ---
NOTES PATIENT'S HEART RATE SUSTAINING ON THE 40'S-50'S, ATROPINE SULFATE 0.5 MG IVP GIVEN ORDERED PRN. WILL CONTINUE TO MONITOR.
--- NOTE | 2020-02-01 04:13 | NUR ---
PATIENT RESTING: Patient resting quietly. No acute distress noted. Vital signs within normal range.
[2020-02-01] MEDS: THEOPHYLLINE ANHYDROUS 200 MG CAP.ER.24H PO SCH (05:54)
[2020-02-01 06:22] LABS: BASOPHILS # (AUTO) 0.1 K/uL (0.0-0.2); BASOPHILS % (AUTO) 0.7 % (0.0-2.0); EOSINOPHILS # (AUTO) 0.4 K/uL (0.0-0.4); EOSINOPHILS % (AUTO) 5.5 % (0.0-4.0); HEMATOCRIT 31.1 % (36-48); LYMPHOCYTES # (AUTO) 1.1 K/uL (1.0-5.5); MEAN CORPUSCULAR HEMOGLOBIN 27 pg (27-31); MEAN CORPUSCULAR HGB CONC 32 % (32-36); MEAN CORPUSCULAR VOLUME 84 fL (79.0-98.0); MONOCYTES # (AUTO) 0.6 K/uL (0.0-1.0); NEUTROPHILS # (AUTO) 5.8 K/uL (1.8-7.7); NEUTROPHILS % (AUTO) 71.8 % (40.0-70.0); PLATELET COUNT (AUTO) 265 K/uL (130-430); RED BLOOD CELL COUNT(AUTO) 3.68 MIL/uL (4.2-6.2); RED CELL DISTRIBUTION WIDTH 16.4 % (9.0-15.0)
--- NOTE | 2020-02-01 06:52 | NUR ---
CLOSING NOTES PATIENT RESTING COMFORTABLY IN BED, NO SOB NOR PAIN AND DISCOMFORT NOTED. ALL NEEDS ATTENDED TO. SAFETY MEASURES MAINTAINED. MADE CLEAN AND COMFORTABLE. WILL ENDORSE TO INCOMING SHIFT NURSE.
[2020-02-01 07:03] LABS: ANION GAP 5 (5-15); CHLORIDE 103 mmol/L (98-107); CREATININE 0.61 mg/dL (0.55-1.30); GLUCOSE 91 mg/dL (70-99); POTASSIUM 4.3 mmol/L (3.5-5.1); SODIUM SERUM 137 mmol/L (136-145); UREA NITROGEN, BLOOD 13 mg/dL (8-21)
[2020-02-01 07:45] VITALS: BP_SYST 155
--- NOTE | 2020-02-01 08:00 | NUR ---
AM NOTES RECEIVED PT IN BED.AWAKE MOVING HER RT ARM AROUND. RES EVEN AND UNLABORED. VITALS STABLE. HR 56 BPM CONTINUE ON VENT WITH SAME SETTING. TOLERATING WELL. G TUBE GLUCERNA CONTINUE ORDERED RATE.NO RESIDUAL NOTED. HOB ELEVATED. NOT IN ACUTE DISTRESS. ON AIR MATTRESS. HEELS OFF.LOADED.REPOSITIONED WITH PILLOW.SAFETY PRECAUTIONS IN PLACE.WILL CONTINUE TO MONITOR
[2020-02-01] MEDS: INSULIN GLARGINE 100 UNITS/ML 10 ML VIAL SQ SCH ×2 (09:00→21:00)
[2020-02-01] MEDS: LANSOPRAZOLE 30 MG CAPSULE.DR GT SCH (09:17)
[2020-02-01] MEDS: MULTIVITAMINS TAB 1 TABLET GT SCH (09:17)
[2020-02-01] MEDS: ASCORBIC ACID 500 MG TABLET GT SCH (09:17)
[2020-02-01] MEDS: metFORMIN HCL 500 MG TABLET GT SCH ×2 (09:17→18:12)
[2020-02-01] MEDS: SODIUM CHLORIDE 500 MG TABLET GT SCH (09:17)
[2020-02-01] MEDS: DOCUSATE SODIUM 100 MG/10 ML UDC GT SCH ×3 (09:17→20:27)
[2020-02-01] MEDS: APIXABAN 2.5 MG TABLET GT SCH ×2 (09:18→20:29)
[2020-02-01 09:25] VITALS: BP_SYST 155
[2020-02-01] MEDS: FERROUS SULFATE 300 MG/5 ML UDC GT SCH ×3 (09:26→20:28)
[2020-02-01] MEDS: LevETIRAcetam 500 MG/5 ML UDC ORAL LIQUID GT SCH ×2 (09:27→20:33)
--- NOTE | 2020-02-01 09:30 | NUR ---
MEDS DUE MEDS GIVEN VIS G TUBE. ORDERED. PT TOLERATED WELL NOT IN ACUTE DISTRESS. RESTING COMFORTABLY
[2020-02-01 12:00] VITALS: BP_SYST 152
--- NOTE | 2020-02-01 12:30 | NUR ---
ROUNDS PT STABLE NOT IN ACUTE DISTRESS. VITALS STABLE. REPOSITIONED WITH PILLOW. HR 52.WILL CONITNUE TO MONITOR
--- NOTE | 2020-02-01 13:45 | NUR ---
ELLEN RAZO DR, DINESH AT [phone] SPOKE WITH MARCEL.
--- NOTE | 2020-02-01 13:58 | NUR ---
LOW HEART RATE PT'S HEART RATE BETWEEN 48-54 SUSTAINING. ATROPINE 0.5 MG IVP GIVEN ORDERED .
[2020-02-01] MEDS ORDERED: THEOPHYLLINE ANHYDROUS 300 MG TAB.SR.12H PO SCH (14:00)
--- NOTE | 2020-02-01 14:05 | NUR ---
HEART RATE. PT HEART RATE INCREASED TO 72 BPM. PT STABLE NOTIN ACUTE DISTRESS. RESTING COMFORTABLEY.
[2020-02-01] MEDS: THEOPHYLLINE ANHYDROUS 80 MG/15 ML UDC GT SCH ×3 (14:56→23:58)
[2020-02-01 16:00] VITALS: BP_SYST 146
--- NOTE | 2020-02-01 16:26 | NUR ---
Nutrition F/U RD reviewed pt's current EMR record including diet Hx, physician notes, nursing notes, pertinent labs/meds/procedures, care trends, and care activity. Admission Dx: Abnormal labs PMH: HTN, DM, chronic respiratory failure, intracranial hemorrhage per physician notes Pt also found w/ episodes of bradycardia per physician notes SARS-CoV-2 g (Rapid) Negative 01/27 Current Diet Order/Nutrition Support: Glucerna 1.2 at 45 ml/hr, Prosource daily, Free Water Flush: 100 ml Q6h via GT Subjective Info: Per EMR review, pt was transferred out of ICU 01/29; TF has been ongoing and pt has been tolerating TF well; minimal residuals noted. Pt may benefit from increasing TF rate to better meet nutritional demands. Pertinent Labs/Meds: Reviewed Skin Integrity Comment: Cr scale: 13; skin intact per EMR review NEW Estimated Energy Expenditure (kcals/day) 3234-2697 kcal/day (30-35 kcal/kg Adj IBW for chronic respiratory failure on vent support) Estimated Protein Required (g/day) 86-132 gm/day (1.3-2 gm/kg Adj IBW for chronic respiratory failure) Estimated Fluid Required (l/day) 1.3 L/day (1 ml/kcal/day for maintenance) Problem/Etiology/Signs/Symptoms Inadequate protein intake related to metabolic demands as evidenced by estimated nutritional requirements for chronic respiratory failure. *ongoing Expected Outcomes/Goals - Monitor tolerance to EN support w/ goal of pt meeting at least 80% of estimated nutritional needs, labs trending WNL, normal GI function, and skin integrity/wt maintenance Dietitian Recommendations * Recommend Glucerna 1.2 at 65 ml/hr, Prosource daily, Free Water Flush: 100 ml Q6h via GT Provides: 1932 kcal/day, 109 gm protein/day, and 1656 ml free water/day Meets: 98% of lower end of estimated caloric needs and 83% of upper end of estimated protein needs Follow Up High Risk: F/U in 2-3 days Addendum: 02/01/20 at [address] CORRECTION: Estimated Fluid Required (l/day) 1.9-2.3 L/day (1 ml/kcal/day for maintenance) Addendum: 02/01/20 at [address] RD called pt's primary RN's phone to relay RD rec for TF rate increase -- no response.
--- NOTE | 2020-02-01 16:31 | NUR ---
Dietitian Recommendations * Recommend Glucerna 1.2 at 65 ml/hr, Prosource daily, Free Water Flush: 100 ml Q6h via GT Provides: 1932 kcal/day, 109 gm protein/day, and 1656 ml free water/day Meets: 98% of lower end of estimated caloric needs and 83% of upper end of estimated protein needs LP, RD Please refer to Nutrition F/U for details.
--- NOTE | 2020-02-01 17:39 | NUR ---
HIGH ALERT NOTE: Dr. STOCK HERE GAVE T/O ORDER FOR LANTUS . VERIFIED LANTUS DOSE WITH DR STOCK.ORDER ENTERED.
--- NOTE | 2020-02-01 18:30 | NUR ---
LOW PT'S HR 49-54 . ATROPINE 0.5 MG IVP GIVEN ORDERED. HR INCREASED TO 68 BPM. PT STABLE CONTINUE ON VENT. G TUBE FEEDING CONTINUE ORDERED. HOB ELEVATED. NO S/S OF PAIN OR DISTRESS NOTED. SAFETY AND FALL PRECAUTIONS MAINTAINED. [facility] ONITNUE TO MONITRO
--- NOTE | 2020-02-01 18:52 | NUR ---
CLOSING NOTES PT STABLE NOT IN ACUTE DISTRESS. HR 88 BPM. CONTINUE ON VENT.WILL ENDORSE TO NIGHT NURSE
--- NOTE | 2020-02-01 19:35 | NUR ---
ROUNDS PATIENT IN BED AWAKE, ON MECHANICAL VENTILATOR TO TRACH, RESPIRATIONS EVEN AND UNLABORED, VITALS STABLE. ASSESSMENT DONE AND DOCUMENTED. SEE FLOWSHEET. NEEDS ATTENDED TO. SAFETY MEASURES IN PLACED. BED IN LOW AND LOCKED POSITION. WILL CONTINUE TO MONITOR.
[2020-02-01] MEDS: ATORVASTATIN 10 MG TABLET GT SCH (20:25)
[2020-02-01] MEDS: hydrALAZINE HCL 25 MG TABLET GT SCH (20:27)
--- NOTE | 2020-02-01 21:10 | NUR ---
MEDICATION DUE MEDICATIONS GIVEN ORDERED PER G TUBE, TOLERATED WELL. WILL CONTINUE TO MONITOR.
[2020-02-02] VITALS: BP_SYST 149
--- NOTE | 2020-02-02 00:12 | NUR ---
PATIENT RESTING: Patient resting quietly. No acute distress noted. Vital signs within normal range.
--- NOTE | 2020-02-02 02:15 | NUR ---
ROUNDS PATIENT ASLEEP, RESPIRATIONS EVEN AND UNLABORED, NO SIGNS OF ANY PAIN AND DISCOMFORT NOTED. WILL CONTINUE TO MONITOR.
--- NOTE | 2020-02-02 04:17 | NUR ---
ROUNDS PATIENT ASLEEP, NO SIGNS OF ANY RESPIRATORY DISTRESS NOR PAIN AND DISCOMFORT NOTED. WILL CONTINUE TO MONITOR.
[2020-02-02] MEDS: THEOPHYLLINE ANHYDROUS 80 MG/15 ML UDC GT SCH ×4 (05:40→23:43)
--- NOTE | 2020-02-02 06:57 | NUR ---
CLOSING NOTES PATIENT STILL SLEEPING AT THIS TIME, VITALS STABLE, ALL NEEDS ATTENDED TO. SAFETY MEASURES MAINTAINED. MADE CLEAN AND COMFORTABLE. WILL ENDORSE TO INCOMING SHIFT NURSE.
--- NOTE | 2020-02-02 07:55 | NUR ---
INITIAL NOTE RECEIVED PT IN BED, NO S/S OF DISTRESS OR SOB NOTED, PT HAS NO FACIAL GRIMACING NOTED FOR PAIN AT THIS TIME, PT IN STABLE CONDITION, PT AAOX1, NONVERBAL, PROVIDED PT WITH REALITY ORIENTATION. IV CATHETER PATENT, NO SIGNS OF INFECTION OR INFILTRATION NOTED, SALINE LOCK. BED AT LOWEST POSITION, CALL LIGHT WITHIN REACH, WILL CONTINUE TO MONITOR PT FOR ANY CHANGES, FALL, SEIZURE AND ASPIRATION AND SAFETY PRECAUTIONS IN PLACE. PT HAS A G TUBE, FLUSHES AND PLACEMENT VERIFIED, TOLERATING FEEDINGS ORDERED. PT HAS A VENT AT PRESCRIBED SETTINGS.
[2020-02-02 08:40] VITALS: BP_SYST 141
[2020-02-02] MEDS: DOCUSATE SODIUM 100 MG/10 ML UDC GT SCH ×3 (08:53→20:53)
[2020-02-02] MEDS: metFORMIN HCL 500 MG TABLET GT SCH ×2 (08:54→17:03)
[2020-02-02] MEDS: ASCORBIC ACID 500 MG TABLET GT SCH (08:54)
[2020-02-02] MEDS: LANSOPRAZOLE 30 MG CAPSULE.DR GT SCH (08:54)
[2020-02-02] MEDS: MULTIVITAMINS TAB 1 TABLET GT SCH (08:54)
[2020-02-02] MEDS: SODIUM CHLORIDE 500 MG TABLET GT SCH (08:54)
[2020-02-02] MEDS: FERROUS SULFATE 300 MG/5 ML UDC GT SCH ×3 (08:54→20:53)
[2020-02-02] MEDS: APIXABAN 2.5 MG TABLET GT SCH ×2 (08:55→20:50)
[2020-02-02] MEDS: INSULIN GLARGINE 100 UNITS/ML 10 ML VIAL SQ SCH ×2 (08:56→20:52)
[2020-02-02] MEDS: LevETIRAcetam 500 MG/5 ML UDC ORAL LIQUID GT SCH ×2 (09:28→20:53)
--- NOTE | 2020-02-02 10:20 | NUR ---
ROUNDS PT IN BED, NO S/S OF DISTRESS OR SOB NOTED, PT HAS NO FACIAL GRIMACING NOTED FOR PAIN, PT IN STABLE CONDITION, PT RESTING COMFORTABLY, WILL CONTINUE TO MONITOR PT FOR ANY CHANGES.
[2020-02-02] MEDS: INSULIN LISPRO SLIDING SCALE 100 UNITS/ML VIAL (humaLOG) SUBCUT PRN ×2 (11:23→17:02)
[2020-02-02 11:36] VITALS: BP_SYST 134
[2020-02-02 15:13] VITALS: BP_SYST 140
--- NOTE | 2020-02-02 18:31 | NUR ---
CLOSING NOTE PT IN BED, NO S/S OF DISTRESS OR SOB NOTED, PT HAS NO FACIAL GRIMACING NOTED FOR PAIN AT THIS TIME, PT IN STABLE CONDITION, PT AAOX1, NONVERBAL. IV CATHETER PATENT, NO SIGNS OF INFECTION OR INFILTRATION NOTED, SALINE LOCK. BED AT LOWEST POSITION, CALL LIGHT WITHIN REACH, WILL ENDORSE CARE OF PT TO INCOMING NURSE, FALL, SEIZURE AND ASPIRATION AND SAFETY PRECAUTIONS IN PLACE. PT HAS A G TUBE, TOLERATING FEEDINGS ORDERED. PT HAS A VENT AT PRESCRIBED SETTINGS. NEEDS MET THROUGHOUT SHIFT.
--- NOTE | 2020-02-02 19:30 | NUR ---
ROUNDS PATIENT IN BED, ON MECHANICAL VENT TO TRACH, NO SOB NOR PAIN AND DISCOMFORT NOTED. ASSESSMENT DONE AND DOCUMENTED. SEE FLOWSHEET. NEEDS ATTENDED TO. SECRETIONS SUCTIONED. SAFETY MEASURES IN PLACED. WILL CONTINUE TO MONITOR.
[2020-02-02 20:00] VITALS: BP_SYST 135
[2020-02-02] MEDS: ATORVASTATIN 10 MG TABLET GT SCH (20:52)
[2020-02-02] MEDS: hydrALAZINE HCL 25 MG TABLET GT SCH (20:58)
--- NOTE | 2020-02-02 21:13 | NUR ---
MEDICATIONS DUE MEDICATIONS GIVEN PER G TUBE ORDERED, TOLERATED WELL. WILL CONTINUE TO MONITOR
[2020-02-03] VITALS: BP_SYST 127
--- NOTE | 2020-02-03 00:12 | NUR ---
PATIENT RESTING: Patient resting quietly. No acute distress noted. Vital signs within normal range.
--- NOTE | 2020-02-03 02:16 | NUR ---
ROUNDS PATIENT ASLEEP, RESPIRATIONS EVEN AND UNLABORED, WILL CONTINUE TO MONITOR.
--- NOTE | 2020-02-03 04:09 | NUR ---
PATIENT RESTING: Patient resting quietly. No acute distress noted. Vital signs within normal range.
[2020-02-03] MEDS: THEOPHYLLINE ANHYDROUS 80 MG/15 ML UDC GT SCH ×2 (05:11→12:23)
--- NOTE | 2020-02-03 06:52 | NUR ---
CLOSING NOTES PATIENT RESTING IN BED, EYES CLOSED, NOT IN DISTRESS, NO SIGNS OF ANY PAIN NOTED. ALL NEEDS ATTENDED TO. SAFETY MEASURES MAINTAINED. WILL ENDORSE TO INCOMING SHIFT NURSE.
--- NOTE | 2020-02-03 08:00 | NUR ---
AM ASSESSMENT. PT AWAKE, SHE SPEAKS WHEN APPROACHED, TRACH TO VENTILATOR, ORAL CARE DONE, SUCTIONED VIA TRACH, LARGE WHITISH SECRETIONS OBTAINED, TURNED PT TO HER SIDE, FEEDING VIA GTUBE, HEAD OF BED ELEVATED AT 35 DEGREE ANGLES, MOVES HER RIGHT ARM WHEN TURNING, WILL CONTINUE TO MONITOR PT.
[2020-02-03] MEDS: INSULIN GLARGINE 100 UNITS/ML 10 ML VIAL SQ SCH (09:04)
[2020-02-03] MEDS: APIXABAN 2.5 MG TABLET GT SCH (09:11)
[2020-02-03] MEDS: LANSOPRAZOLE 30 MG CAPSULE.DR GT SCH (09:12)
[2020-02-03] MEDS: DOCUSATE SODIUM 100 MG/10 ML UDC GT SCH ×2 (09:12→14:36)
[2020-02-03] MEDS: metFORMIN HCL 500 MG TABLET GT SCH (09:12)
[2020-02-03] MEDS: ASCORBIC ACID 500 MG TABLET GT SCH (09:12)
[2020-02-03] MEDS: MULTIVITAMINS TAB 1 TABLET GT SCH (09:12)
[2020-02-03] MEDS: SODIUM CHLORIDE 500 MG TABLET GT SCH (09:12)
[2020-02-03] MEDS: FERROUS SULFATE 300 MG/5 ML UDC GT SCH ×2 (09:13→14:37)
[2020-02-03] MEDS: LevETIRAcetam 500 MG/5 ML UDC ORAL LIQUID GT SCH (09:18)
[2020-02-03 11:27] VITALS: BP_SYST 155
--- NOTE | 2020-02-03 11:55 | NUR ---
Discharge Planning: DCP faxed pt referral to [facility] ([phone]) DCP to follow up Addendum: 02/03/20 at 1527 by Ambar Lancaster DP DCP followed up with John at [facility] ([phone]) [facility] transportation arranged with [facility] [phone] [facility] with RT trach/vent 5:00pm. Patient packet taken to nurse station.
--- NOTE | 2020-02-03 12:00 | NUR ---
WOUND CARE. DRESSING REMOVED FROM RIGHT FOREARM, SKIN TEAR , 1.5 CM X 0.4 CM, WOUND TISSUE RED 100%, NO BLEEDING, CLEANSED WITH SALINE, OIL EMULSION DRESSING AND NON ABSORBENT PAD TO COVER AND WRAPPED ARM WITH GABRIELE GAUZE, PT TOLERATED WELL.
--- NOTE | 2020-02-03 12:42 | NUR ---
Nutrition F/U RD reviewed pt's current EMR record including diet Hx, physician notes, nursing notes, pertinent labs/meds/procedures, care trends, and care activity. Admission Dx: Abnormal labs PMH: HTN, DM, chronic respiratory failure, intracranial hemorrhage per physician notes Pt also found w/ episodes of bradycardia per physician notes SARS-CoV-2 g (Rapid) Negative 01/27 Current Diet Order/Nutrition Support: Glucerna 1.2 at 65 ml/hr, Prosource daily, Free Water Flush: 100 ml Q6h via GT Subjective Info: Pt seen in bed, eyes opened, non-verbal. RN reported that EN has been well tolerated, no residuals this am. EN noted to be infusing as ordered. No EN issues. A/w discharge per Case Management. Pertinent Meds: Insulin, Keppra, VIT C, MVI, Eliquis, Colace, Metformin Pertinent Labs: Reviewed Skin Integrity Comment: Cr scale: 13; skin intact per EMR review Estimated Energy Expenditure (kcals/day) 8791-9286 kcal/day (30-35 kcal/kg Adj IBW for chronic respiratory failure on vent support) Estimated Protein Required (g/day) 86-132 gm/day (1.3-2 gm/kg Adj IBW for chronic respiratory failure) Estimated Fluid Required (l/day) 1.9-2.3 L/day (1 ml/kcal/day for maintenance) Problem/Etiology/Signs/Symptoms Inadequate protein intake related to metabolic demands as evidenced by estimated nutritional requirements for chronic respiratory failure. *ongoing Expected Outcomes/Goals - Monitor tolerance to EN support w/ goal of pt meeting at least 80% of estimated nutritional needs, labs trending WNL, normal GI function, and skin integrity/wt maintenance Dietitian Recommendations * Recommend continuing Glucerna 1.2 at 65 ml/hr, Prosource daily, Free Water Flush: 100 ml Q6h via GT Provides: 1932 kcal/day, 109 gm protein/day, and 1656 ml free water/day Meets: 98% of lower end of estimated caloric needs and 83% of upper end of estimated protein needs Follow Up High Risk: F/U in 2-3 days
--- NOTE | 2020-02-03 12:46 | NUR ---
Dietitian Recommendations * Recommend continuing Glucerna 1.2 at 65 ml/hr, Prosource daily, Free Water Flush: 100 ml Q6h via GT Provides: 1932 kcal/day, 109 gm protein/day, and 1656 ml free water/day Meets: 98% of lower end of estimated caloric needs and 83% of upper end of estimated protein needs Please see Nutrition F/U note for details. SEN[facility]IV[facility], RD
--- NOTE | 2020-02-03 13:05 | NUR ---
SWAB. REPEAT NASAL SWAB COLLECTED PER REQUEST OF PHYSIOTHERAPY ASSISTANT FOR COVID TEST.
--- NOTE | 2020-02-03 14:50 | NUR ---
DISCHARGE PLANNING Called & discussed discharge plan with Dr Bobby, gave ph order to dc back to SNF. Spoke with pt @ bedside, unable to speak has trach/vent. Informed of order & nodded yes agreeable with plan to discharge back to [facility]. Nodded yes, ok to call dtr Fernando. Called & left msg with Fernando Krause, ph [phone], that order to dc back to SNF to return call. Did not leave name of pt or SNF in msg.
[2020-02-03 15:36] VITALS: BP_SYST 159
[2020-02-03 16:37] VITALS: BP_SYST 159
--- NOTE | 2020-02-03 16:45 | NUR ---
FAMILY. ATTEMPTED TO REACH VIKTOR OROZCO, PT'S DAUGHTER, UNABLE TO LEAVE MESSAGE, VOICE MAIL BOX FULL.
--- NOTE | 2020-02-03 17:06 | NUR ---
REPORT. CALLED REPORT TO [facility], SPOKE TO ZAN XAVIER. PT WILL BE GOING TO ROOM 42.
--- NOTE | 2020-02-03 18:29 | NUR ---
AMBULANCE PT TRANSPORTED BY [facility] TO [facility].
== END 2020-02-03 18:30 | DRG 308 ==
LOC: SED 18:24 → SIC 23:21 → STU 01-30 17:58
PROVIDERS: ADMIT Family Medicine; ATTEND Family Medicine
PROC: 5A1955Z Respiratory Ventilation, Greater than 96 Consecutive Hours (ICD-10-PCS; principal; 2020-01-28)
DX: R00.1 Bradycardia, unspecified (principal); G82.50 Quadriplegia, unspecified; J96.10 Chronic respiratory failure, unspecified whether with hypoxia or hypercapnia; J98.11 Atelectasis; Z99.11 Dependence on respirator [ventilator] status; E11.65 Type 2 diabetes mellitus with hyperglycemia; G40.909 Epilepsy, unspecified, not intractable, without status epilepticus; I11.9 Hypertensive heart disease without heart failure; Z20.828 Contact with and (suspected) exposure to other viral communicable diseases; I25.10 Atherosclerotic heart disease of native coronary artery without angina pectoris; I25.2 Old myocardial infarction; Z79.4 Long term (current) use of insulin; Z86.73 Personal history of transient ischemic attack (TIA), and cerebral infarction without residual deficits; Z87.440 Personal history of urinary (tract) infections; Z87.891 Personal history of nicotine dependence; Z93.1 Gastrostomy status; Z98.2 Presence of cerebrospinal fluid drainage device; Z88.6 Allergy status to analgesic agent; Z88.2 Allergy status to sulfonamides; Z79.899 Other long term (current) drug therapy; Z93.0 Tracheostomy status
CPT/HCPCS: 36415; 71045; 80048; 80053; 80061; 81000-TC; 82803-TC; 82962; 83735-TC; 83880; 84100-TC; 84443-TC; 84484; 85025; 85379; 85610-TC; 85730-TC; 87081; 93005; 93306; 93970; 94002; 94003; 94760; 99285; G0378; J0360; J0461; J1815; J1953; J7060; Q9967

== ENCOUNTER 2020-04-05 19:06 | Inpatient (IN) | payer OTHER, MEDICAID, SELFPAY ==
[~2020-04-05] VITALS: Ht 170.2 cm; Wt 81.6 kg
[~2020-04-05 19:06] MED LIST changes: +ALBMDI INH; -ALBU2.5V7 INH; +APIX2.5T GT; -CRAN1CAP5 GT; +FER300L GT; -HYDR-3607 PO; +HYDR-4038 GT; -HYDR-4038 PO; +HYDR-4039 GT; +INSU100V11 SQ; -ISO10 PO; -LEVE1000 GT; +LEVE100034 GT; -LISI30TA36 PO; -LOSA50TA3 PO; +METF1000 GT; -MULT-1117 GT; +MULT-1279 GT; -NOR10 PO; +SSNOVOLOG SUBCUT; +Uti-stat GT; +VITD400 GT; +[UNRECOGNIZED DRUG - CODE] GT; +sodium chloride GT
[2020-04-05 19:20] VITALS: BP_SYST 186
[2020-04-05] MEDS ORDERED: DEXAMETHASONE SOD PHOSPHATE 4 MG/ML VIAL IVP ONE (20:45)
[2020-04-05] MEDS ORDERED: NACL 0.9% 1,000 ML IV ONE (20:45)
[2020-04-05] MEDS ORDERED: VANCOMYCIN HCL 1,000 MG in NS 250 ML IV ONE (20:45)
[2020-04-05] MEDS ORDERED: AZITHROMYCIN 500 MG in NS 250 ML IV ONE (20:45)
[2020-04-05 21:13] LABS: HEMATOCRIT 44.2 % (36-48); HEMOGLOBIN 13.9 g/dL (12.0-16.0); MEAN CORPUSCULAR HEMOGLOBIN 27 pg (27-31); MEAN CORPUSCULAR HGB CONC 31 % (32-36); MEAN CORPUSCULAR VOLUME 84 fL (79.0-98.0); PLATELET COUNT (AUTO) 323 K/uL (130-430); RED BLOOD CELL COUNT(AUTO) 5.24 MIL/uL (4.2-6.2); RED CELL DISTRIBUTION WIDTH 17.8 % (9.0-15.0); WHITE BLOOD COUNT (AUTO) 26.5 K/uL (4.8-10.8)
[2020-04-05 21:53] LABS: ANION GAP 13 (5-15); CALCIUM 9.3 mg/dL (8.4-11.0); CHLORIDE 99 mmol/L (98-107); GLUCOSE 248 mg/dL (70-99); POTASSIUM 4.1 mmol/L (3.5-5.1); SODIUM SERUM 134 mmol/L (136-145); UREA NITROGEN, BLOOD 21 mg/dL (8-21)
[2020-04-05 22:08] LABS: ALANINE AMINOTRANSFERASE 26 U/L (12-78); ASPARTATE AMINOTRANSFERASE 28 U/L (10-37); BAND % (MANUAL) 13 % (0-6); BASOPHILS % (MANUAL) 0 % (0-2); EOSINOPHILS % (MANUAL) 0 % (0-7); LYMPHOCYTES % (MANUAL) 4 % (20-46); MONOCYTES % (MANUAL) 8 % (0-11); TOTAL BILIRUBIN 0.4 mg/dL (0.0-1.0)
[2020-04-05 22:15] LABS: C-REACTIVE PROTEIN QUANT 3.1 mg/dL (0-0.5)
[2020-04-05 22:50] LABS: FIBRINOGEN 673 mg/dL (200-400)
[2020-04-06] VITALS (7 sets, daily range): BP systolic 149–178
[2020-04-06] MEDS ORDERED: DEXAMETHASONE SOD PHOSPHATE 4 MG/ML VIAL ONE (00:35)
[2020-04-06 00:36] LABS: BILIRUBIN,URINE NEGATIVE (NEGATIVE); BLOOD, URINE 2+ (NEGATIVE); COLOR,URINE YELLOW (YELLOW); GLUCOSE,URINE NEGATIVE (NEGATIVE); KETONES,URINE NEGATIVE (NEGATIVE); LEUKOCYTE ESTERASE ,URINE NEGATIVE (NEGATIVE); NITRITE, URINE NEGATIVE (NEGATIVE); PH,URINE 5.5 (5.0-8.0); PROTEIN URINE 3+ (NEGATIVE); UROBILINOGEN,URINE 0.2 (0.2-1.0)
[2020-04-06] MEDS ORDERED: AZITHROMYCIN 500 MG/VIAL (ZITHROMAX) IV ONE (00:37)
[2020-04-06 00:39] LABS: CLARITY/URINE HAZY (CLEAR)
[2020-04-06] MEDS ORDERED: VANCOMYCIN HCL 1000 MG/VIAL IV ONE (00:45)
[2020-04-06 00:59] LABS: BACTERIA,URINE FEW /HPF (None Seen); WBC,URINE 0-3 /HPF (0-3)
[2020-04-06 01:00] LABS: URINE AMORPHOUS URATE 2+ /HPF (None Seen)
[2020-04-06] MEDS ORDERED: hydrALAZINE HCL 20 MG/ML VIAL IVP ONE (01:45)
[2020-04-06] MEDS ORDERED: cefTRIAXone 1 GM IVPB PREMIX 50 ML IV SCH (01:45)
[2020-04-06] MEDS ORDERED: ENALAPRILAT DIHYDRATE 1.25 MG/ML VIAL IVP ONE (01:45)
[2020-04-06] MEDS ORDERED: NACL 0.9% 1,500 ML IV ONE (01:45)
[2020-04-06] MEDS ORDERED: ENALAPRILAT DIHYDRATE 1.25 MG/ML VIAL ONE (02:20)
[2020-04-06] MEDS ORDERED: PIPERACILLIN/TAZO 3.375/DEX-IS 50 ML IV ONE (02:30)
[2020-04-06] MEDS: NACL 0.9% 1,000 ML IV SCH ×3 (02:42→20:55)
[2020-04-06] MEDS ORDERED: THEO200C4 PO (03:02)
[2020-04-06] MEDS ORDERED: ASCO500T20 PO (03:07)
[2020-04-06] MEDS ORDERED: ACETAMINOPHEN 650 MG/20.3 ML UDC GT SCH (03:15)
[2020-04-06] MEDS ORDERED: INSULIN Lispro 100 UNITS/ML VIAL (humaLOG) ONE (05:54)
[2020-04-06] MEDS: INSULIN LISPRO SLIDING SCALE 100 UNITS/ML VIAL (humaLOG) SUBCUT PRN ×2 (05:58→19:26)
[2020-04-06] MEDS ORDERED: LEVOFLOXACIN 500 MG/D5W 100 ML IV SCH (07:00)
[2020-04-06] MEDS: IPRATROPIUM/ALBUTEROL SULFATE 3 ML AMPUL.NEB (DUONEB) INH SCH ×5 (07:00→23:00)
[2020-04-06] MEDS ORDERED: FERROUS SULFATE 300 MG/5 ML UDC GT SCH (09:00)
[2020-04-06] MEDS ORDERED: AZITHROMYCIN 500 MG in NS 250 ML IV SCH (09:00)
[2020-04-06] MEDS ORDERED: ASCORBIC ACID 500 MG TABLET GT SCH (09:00)
[2020-04-06] MEDS ORDERED: PANTOPRAZOLE GRANULES PACKET 40 MG GT SCH (09:00)
[2020-04-06] MEDS: levETIRAcetam 1,000 MG IV BAG 100 ML IV SCH ×2 (09:00→21:35)
[2020-04-06] MEDS ORDERED: PIPERACILLIN/TAZO 3.375/DEX-IS 50 ML IV SCH (10:00)
[2020-04-06] MEDS ORDERED: MEROPENEM 500 MG VIAL IV ONE ×2 (14:26→14:27)
[2020-04-06] MEDS: LANSOPRAZOLE 30 MG CAPSULE.DR GT SCH (14:47)
[2020-04-06] MEDS: ASCORBIC ACID 500 MG TABLET GT SCH (14:48)
[2020-04-06] MEDS: THEOPHYLLINE ANHYDROUS 200 MG CAP.ER.24H PO SCH (14:48)
[2020-04-06] MEDS: APIXABAN 2.5 MG TABLET GT SCH ×2 (14:48→20:53)
[2020-04-06] MEDS: MULTIVITAMINS TAB 1 TABLET GT SCH (14:48)
[2020-04-06] MEDS: MEROPENEM 500 MG in NS 50 ML IV SCH ×2 (14:49→20:56)
[2020-04-06] MEDS: FERROUS SULFATE 300 MG/5 ML UDC GT SCH ×2 (14:50→20:54)
[2020-04-06] MEDS: hydrALAZINE HCL 25 MG TABLET GT SCH (20:52)
[2020-04-06] MEDS: ATORVASTATIN 10 MG TABLET GT SCH (20:52)
[2020-04-07] MEDS: INSULIN LISPRO SLIDING SCALE 100 UNITS/ML VIAL (humaLOG) SUBCUT PRN ×5 (00:56→23:26)
[2020-04-07 01:27] LABS: BASOPHILS # (AUTO) 0.1 K/uL (0.0-0.2); BASOPHILS % (AUTO) 0.3 % (0.0-2.0); EOSINOPHILS # (AUTO) 0.2 K/uL (0.0-0.4); EOSINOPHILS % (AUTO) 0.8 % (0.0-4.0); HEMATOCRIT 40.3 % (36-48); HEMOGLOBIN 12.5 g/dL (12.0-16.0); LYMPHOCYTES % (AUTO) 3.9 % (20.5-51.5); MEAN CORPUSCULAR HEMOGLOBIN 26 pg (27-31); MEAN CORPUSCULAR HGB CONC 31 % (32-36); MEAN CORPUSCULAR VOLUME 84 fL (79.0-98.0); MONOCYTES # (AUTO) 1.9 K/uL (0.0-1.0); MONOCYTES % (AUTO) 7.8 % (1.7-9.3); NEUTROPHILS # (AUTO) 21.3 K/uL (1.8-7.7); NEUTROPHILS % (AUTO) 87.2 % (40.0-70.0); PLATELET COUNT (AUTO) 294 K/uL (130-430); RED CELL DISTRIBUTION WIDTH 17.7 % (9.0-15.0); WHITE BLOOD COUNT (AUTO) 24.4 K/uL (4.8-10.8)
[2020-04-07 01:48] LABS: ALANINE AMINOTRANSFERASE 31 U/L (12-78); ALBUMIN 2.5 g/dL (3.4-4.8); ANION GAP 9 (5-15); CHLORIDE 104 mmol/L (98-107); CREATININE 0.82 mg/dL (0.55-1.30); GLUCOSE 195 mg/dL (70-99); POTASSIUM 4.6 mmol/L (3.5-5.1); SODIUM SERUM 137 mmol/L (136-145); TOTAL BILIRUBIN 0.4 mg/dL (0.0-1.0); UREA NITROGEN, BLOOD 19 mg/dL (8-21)
[2020-04-07 01:51] LABS: ASPARTATE AMINOTRANSFERASE 69 U/L (10-37)
[2020-04-07] MEDS: IPRATROPIUM/ALBUTEROL SULFATE 3 ML AMPUL.NEB (DUONEB) INH SCH ×6 (03:00→22:37)
[2020-04-07] MEDS: MEROPENEM 500 MG in NS 50 ML IV SCH ×3 (05:01→21:19)
[2020-04-07 07:31] VITALS: BP_SYST 183
[2020-04-07] MEDS: NACL 0.9% 1,000 ML IV SCH ×2 (07:45→17:42)
[2020-04-07 08:40] LABS: ALANINE AMINOTRANSFERASE 30 U/L (12-78); ALBUMIN 2.5 g/dL (3.4-4.8); ANION GAP 12 (5-15); ASPARTATE AMINOTRANSFERASE 67 U/L (10-37); CALCIUM 9.3 mg/dL (8.4-11.0); CHLORIDE 103 mmol/L (98-107); GLUCOSE 211 mg/dL (70-99); POTASSIUM 4.3 mmol/L (3.5-5.1); SODIUM SERUM 135 mmol/L (136-145); TOTAL BILIRUBIN 0.5 mg/dL (0.0-1.0); UREA NITROGEN, BLOOD 18 mg/dL (8-21)
[2020-04-07 08:42] LABS: BASOPHILS % (AUTO) 0.2 % (0.0-2.0); EOSINOPHILS % (AUTO) 0.1 % (0.0-4.0); HEMATOCRIT 42.4 % (36-48); HEMOGLOBIN 13.3 g/dL (12.0-16.0); LYMPHOCYTES # (AUTO) 0.7 K/uL (1.0-5.5); LYMPHOCYTES % (AUTO) 3.1 % (20.5-51.5); MEAN CORPUSCULAR HEMOGLOBIN 26 pg (27-31); MEAN CORPUSCULAR HGB CONC 31 % (32-36); MEAN CORPUSCULAR VOLUME 84 fL (79.0-98.0); MONOCYTES # (AUTO) 1.6 K/uL (0.0-1.0); MONOCYTES % (AUTO) 7.3 % (1.7-9.3); NEUTROPHILS % (AUTO) 89.3 % (40.0-70.0); PLATELET COUNT (AUTO) 275 K/uL (130-430); RED BLOOD CELL COUNT(AUTO) 5.06 MIL/uL (4.2-6.2); RED CELL DISTRIBUTION WIDTH 18.4 % (9.0-15.0); WHITE BLOOD COUNT (AUTO) 22.4 K/uL (4.8-10.8)
[2020-04-07] MEDS: levETIRAcetam 1,000 MG IV BAG 100 ML IV SCH ×2 (09:00→21:19)
[2020-04-07] MEDS: FERROUS SULFATE 300 MG/5 ML UDC GT SCH ×3 (09:38→21:18)
[2020-04-07] MEDS: APIXABAN 2.5 MG TABLET GT SCH ×2 (09:38→21:18)
[2020-04-07] MEDS: LANSOPRAZOLE 30 MG CAPSULE.DR GT SCH (09:38)
[2020-04-07] MEDS: MULTIVITAMINS TAB 1 TABLET GT SCH (09:39)
[2020-04-07] MEDS: ASCORBIC ACID 500 MG TABLET GT SCH (09:39)
[2020-04-07] MEDS: THEOPHYLLINE ANHYDROUS 200 MG CAP.ER.24H PO SCH (09:39)
[2020-04-07 11:17] VITALS: BP_SYST 179
[2020-04-07] MEDS ORDERED: INSULIN NPH/REGULAR 70-30, 100 UNITS/ML, 10 ML VIAL ONE (11:59)
[2020-04-07 15:29] VITALS: BP_SYST 162
[2020-04-07 20:04] VITALS: BP_SYST 187
[2020-04-07] MEDS: ATORVASTATIN 10 MG TABLET GT SCH (21:18)
[2020-04-07] MEDS: hydrALAZINE HCL 25 MG TABLET GT SCH (21:18)
[2020-04-08] MEDS ORDERED: IPRATROPIUM/ALBUTEROL SULFATE 3 ML AMPUL.NEB (DUONEB) ONE (02:24)
[2020-04-08] MEDS: NACL 0.9% 1,000 ML IV SCH ×2 (03:45→20:40)
[2020-04-08 04:16] VITALS: BP_SYST 128
[2020-04-08] MEDS: MEROPENEM 500 MG in NS 50 ML IV SCH ×3 (06:05→21:10)
[2020-04-08] MEDS: INSULIN LISPRO SLIDING SCALE 100 UNITS/ML VIAL (humaLOG) SUBCUT PRN ×3 (06:07→18:01)
[2020-04-08 07:26] VITALS: BP_SYST 186
[2020-04-08] MEDS: IPRATROPIUM/ALBUTEROL SULFATE 3 ML AMPUL.NEB (DUONEB) INH SCH ×5 (07:26→23:30)
[2020-04-08] MEDS: THEOPHYLLINE ANHYDROUS 200 MG CAP.ER.24H PO SCH (08:39)
[2020-04-08] MEDS: ASCORBIC ACID 500 MG TABLET GT SCH (08:39)
[2020-04-08] MEDS: MULTIVITAMINS TAB 1 TABLET GT SCH (08:39)
[2020-04-08] MEDS: LANSOPRAZOLE 30 MG CAPSULE.DR GT SCH (08:39)
[2020-04-08] MEDS: FERROUS SULFATE 300 MG/5 ML UDC GT SCH ×3 (08:39→21:10)
[2020-04-08] MEDS: APIXABAN 2.5 MG TABLET GT SCH ×2 (08:41→21:09)
[2020-04-08] MEDS: LevETIRAcetam 500 MG/5 ML UDC ORAL LIQUID GT SCH ×2 (09:30→21:10)
[2020-04-08 11:25] VITALS: BP_SYST 177
[2020-04-08 14:30] VITALS: BP_SYST 140; BP_SYST 164
[2020-04-08 20:07] VITALS: BP_SYST 151
[2020-04-08] MEDS: hydrALAZINE HCL 25 MG TABLET GT SCH (21:09)
[2020-04-08] MEDS: ATORVASTATIN 10 MG TABLET GT SCH (21:10)
[2020-04-08 23:30] VITALS: BP_SYST 143
[2020-04-09] MEDS: NACL 0.9% 1,000 ML IV SCH ×3 (00:14→20:06)
[2020-04-09] MEDS: INSULIN LISPRO SLIDING SCALE 100 UNITS/ML VIAL (humaLOG) SUBCUT PRN ×4 (01:15→18:14)
[2020-04-09] MEDS: IPRATROPIUM/ALBUTEROL SULFATE 3 ML AMPUL.NEB (DUONEB) INH SCH ×6 (03:00→23:45)
[2020-04-09] MEDS: MEROPENEM 500 MG in NS 50 ML IV SCH ×3 (06:00→22:38)
[2020-04-09 06:02] VITALS: BP_SYST 160
[2020-04-09 07:13] LABS: BASOPHILS % (AUTO) 0.3 % (0.0-2.0); EOSINOPHILS # (AUTO) 0.3 K/uL (0.0-0.4); EOSINOPHILS % (AUTO) 1.8 % (0.0-4.0); HEMATOCRIT 36.8 % (36-48); HEMOGLOBIN 11.7 g/dL (12.0-16.0); LYMPHOCYTES # (AUTO) 0.7 K/uL (1.0-5.5); LYMPHOCYTES % (AUTO) 4.3 % (20.5-51.5); MEAN CORPUSCULAR HEMOGLOBIN 27 pg (27-31); MEAN CORPUSCULAR HGB CONC 32 % (32-36); MEAN CORPUSCULAR VOLUME 83 fL (79.0-98.0); MONOCYTES # (AUTO) 1.2 K/uL (0.0-1.0); MONOCYTES % (AUTO) 7.1 % (1.7-9.3); NEUTROPHILS # (AUTO) 14.2 K/uL (1.8-7.7); NEUTROPHILS % (AUTO) 86.5 % (40.0-70.0); PLATELET COUNT (AUTO) 258 K/uL (130-430); RED BLOOD CELL COUNT(AUTO) 4.41 MIL/uL (4.2-6.2); RED CELL DISTRIBUTION WIDTH 18.3 % (9.0-15.0); WHITE BLOOD COUNT (AUTO) 16.5 K/uL (4.8-10.8)
[2020-04-09 07:20] VITALS: BP_SYST 186
[2020-04-09 08:37] VITALS: BP_SYST 161
[2020-04-09] MEDS: FERROUS SULFATE 300 MG/5 ML UDC GT SCH ×3 (10:15→21:25)
[2020-04-09] MEDS: LANSOPRAZOLE 30 MG CAPSULE.DR GT SCH (10:15)
[2020-04-09] MEDS: APIXABAN 2.5 MG TABLET GT SCH ×2 (10:15→21:25)
[2020-04-09] MEDS: MULTIVITAMINS TAB 1 TABLET GT SCH (10:15)
[2020-04-09] MEDS: LevETIRAcetam 500 MG/5 ML UDC ORAL LIQUID GT SCH ×2 (10:15→21:26)
[2020-04-09] MEDS: ASCORBIC ACID 500 MG TABLET GT SCH (10:16)
[2020-04-09] MEDS: THEOPHYLLINE ANHYDROUS 200 MG CAP.ER.24H PO SCH (10:16)
[2020-04-09 13:40] VITALS: BP_SYST 184
[2020-04-09] MEDS: cloNIDine HCL 0.1 MG TABLET PO PRN (17:16)
[2020-04-09] MEDS ORDERED: cloNIDine HCL 0.1 MG TABLET ONE ×2 (17:18→23:19)
[2020-04-09] MEDS ORDERED: INSULIN REGULAR, HUMAN 10 UNITS/0.1 ML INJ ONE (18:11)
[2020-04-09 20:27] VITALS: BP_SYST 112
[2020-04-09] MEDS: hydrALAZINE HCL 25 MG TABLET GT SCH (21:23)
[2020-04-09] MEDS: ATORVASTATIN 10 MG TABLET GT SCH (21:26)
[2020-04-10 01:17] VITALS: BP_SYST 130
[2020-04-10] MEDS: IPRATROPIUM/ALBUTEROL SULFATE 3 ML AMPUL.NEB (DUONEB) INH SCH ×6 (03:01→23:03)
[2020-04-10] MEDS ORDERED: cloNIDine HCL 0.1 MG TABLET ONE (04:22)
[2020-04-10] MEDS ORDERED: traMADol HCL HCL 50 MG TABLET (ULTRAM) ONE ×2 (04:37→16:30)
[2020-04-10 04:46] VITALS: BP_SYST 121
[2020-04-10] MEDS: traMADol HCL HCL 50 MG TABLET (ULTRAM) GT PRN ×2 (04:53→16:27)
[2020-04-10 05:33] LABS: BASOPHILS # (AUTO) 0.1 K/uL (0.0-0.2); BASOPHILS % (AUTO) 0.6 % (0.0-2.0); EOSINOPHILS # (AUTO) 0.3 K/uL (0.0-0.4); EOSINOPHILS % (AUTO) 1.9 % (0.0-4.0); HEMOGLOBIN 11.4 g/dL (12.0-16.0); LYMPHOCYTES # (AUTO) 0.9 K/uL (1.0-5.5); LYMPHOCYTES % (AUTO) 6.2 % (20.5-51.5); MEAN CORPUSCULAR HEMOGLOBIN 27 pg (27-31); MEAN CORPUSCULAR HGB CONC 32 % (32-36); MEAN CORPUSCULAR VOLUME 84 fL (79.0-98.0); MONOCYTES # (AUTO) 0.9 K/uL (0.0-1.0); MONOCYTES % (AUTO) 5.9 % (1.7-9.3); NEUTROPHILS # (AUTO) 12.7 K/uL (1.8-7.7); NEUTROPHILS % (AUTO) 85.4 % (40.0-70.0); PLATELET COUNT (AUTO) 242 K/uL (130-430); RED CELL DISTRIBUTION WIDTH 18.1 % (9.0-15.0); WHITE BLOOD COUNT (AUTO) 14.9 K/uL (4.8-10.8)
[2020-04-10] MEDS: NACL 0.9% 1,000 ML IV SCH ×2 (05:57→16:26)
[2020-04-10] MEDS ORDERED: INSULIN REGULAR, HUMAN 10 UNITS/0.1 ML INJ ONE ×3 (05:58→18:21)
[2020-04-10] MEDS: MEROPENEM 500 MG in NS 50 ML IV SCH ×2 (06:18→13:41)
[2020-04-10 07:18] LABS: ALANINE AMINOTRANSFERASE 33 U/L (12-78); ASPARTATE AMINOTRANSFERASE 46 U/L (10-37); CALCIUM 8.1 mg/dL (8.4-11.0); CHLORIDE 112 mmol/L (98-107); CREATININE 1.15 mg/dL (0.55-1.30); GLUCOSE 250 mg/dL (70-99); PHOSPHORUS 3.1 mg/dL (2.7-4.5); POTASSIUM 3.5 mmol/L (3.5-5.1); SODIUM SERUM 145 mmol/L (136-145); TOTAL BILIRUBIN 0.5 mg/dL (0.0-1.0); UREA NITROGEN, BLOOD 23 mg/dL (8-21)
[2020-04-10 07:40] VITALS: BP_SYST 136
[2020-04-10 07:55] LABS: ANION GAP 13 (5-15)
[2020-04-10] MEDS: LANSOPRAZOLE 30 MG CAPSULE.DR GT SCH (08:50)
[2020-04-10] MEDS: MULTIVITAMINS TAB 1 TABLET GT SCH (08:50)
[2020-04-10] MEDS: ASCORBIC ACID 500 MG TABLET GT SCH (08:50)
[2020-04-10] MEDS: THEOPHYLLINE ANHYDROUS 200 MG CAP.ER.24H PO SCH (08:50)
[2020-04-10] MEDS: LevETIRAcetam 500 MG/5 ML UDC ORAL LIQUID GT SCH ×2 (08:52→21:56)
[2020-04-10] MEDS: FERROUS SULFATE 300 MG/5 ML UDC GT SCH ×3 (08:52→21:56)
[2020-04-10] MEDS: APIXABAN 2.5 MG TABLET GT SCH ×2 (08:53→21:55)
[2020-04-10 12:06] VITALS: BP_SYST 145
[2020-04-10] MEDS: INSULIN LISPRO SLIDING SCALE 100 UNITS/ML VIAL (humaLOG) SUBCUT PRN ×2 (13:43→18:14)
[2020-04-10 15:13] VITALS: BP_SYST 87
[2020-04-10] MEDS: hydrALAZINE HCL 25 MG TABLET GT SCH (21:49)
[2020-04-10] MEDS: ATORVASTATIN 10 MG TABLET GT SCH (21:56)
[2020-04-10] MEDS: metroNIDAZOLE 250 mg/NS 50 ML IV SCH (22:07)
[2020-04-10] MEDS: CEFEPIME 0.5 GM in D5W 50 ML IV SCH (22:25)
[2020-04-11] MEDS ORDERED: INSULIN Lispro 100 UNITS/ML VIAL (humaLOG) ONE ×2 (00:02→12:03)
[2020-04-11] MEDS: INSULIN LISPRO SLIDING SCALE 100 UNITS/ML VIAL (humaLOG) SUBCUT PRN ×3 (00:02→22:40)
[2020-04-11] MEDS: NACL 0.9% 1,000 ML IV SCH ×3 (02:23→22:10)
[2020-04-11] MEDS: IPRATROPIUM/ALBUTEROL SULFATE 3 ML AMPUL.NEB (DUONEB) INH SCH ×3 (07:00→16:13)
[2020-04-11 07:40] VITALS: BP_SYST 128
[2020-04-11] MEDS: FERROUS SULFATE 300 MG/5 ML UDC GT SCH ×3 (08:42→22:30)
[2020-04-11] MEDS: APIXABAN 2.5 MG TABLET GT SCH ×2 (08:42→22:30)
[2020-04-11] MEDS: ASCORBIC ACID 500 MG TABLET GT SCH (08:43)
[2020-04-11] MEDS: LANSOPRAZOLE 30 MG CAPSULE.DR GT SCH (08:43)
[2020-04-11] MEDS: LevETIRAcetam 500 MG/5 ML UDC ORAL LIQUID GT SCH ×2 (08:43→22:00)
[2020-04-11] MEDS: MULTIVITAMINS TAB 1 TABLET GT SCH (08:43)
[2020-04-11] MEDS: metroNIDAZOLE 250 mg/NS 50 ML IV SCH ×2 (08:44→23:30)
[2020-04-11] MEDS: THEOPHYLLINE ANHYDROUS 200 MG CAP.ER.24H PO SCH (08:44)
[2020-04-11] MEDS: CEFEPIME 0.5 GM in D5W 50 ML IV SCH ×2 (09:56→22:30)
[2020-04-11] MEDS: traMADol HCL HCL 50 MG TABLET (ULTRAM) GT PRN ×2 (10:12→16:40)
[2020-04-11 11:25] VITALS: BP_SYST 147
[2020-04-11 15:40] VITALS: BP_SYST 160
[2020-04-11] MEDS: cloNIDine HCL 0.1 MG TABLET PO PRN (17:04)
[2020-04-11] MEDS ORDERED: cloNIDine HCL 0.1 MG TABLET ONE (17:04)
[2020-04-11] MEDS ORDERED: hydrALAZINE HCL 25 MG TABLET ONE (18:02)
[2020-04-11 19:00] VITALS: BP_SYST 116
[2020-04-11 21:00] VITALS: BP_SYST 145
[2020-04-11] MEDS: ATORVASTATIN 10 MG TABLET GT SCH (22:30)
[2020-04-11] MEDS: hydrALAZINE HCL 25 MG TABLET GT SCH (22:30)
[2020-04-11 23:30] VITALS: BP_SYST 144
[2020-04-12] VITALS: BP_SYST 140
[2020-04-12] MEDS: INSULIN LISPRO SLIDING SCALE 100 UNITS/ML VIAL (humaLOG) SUBCUT PRN ×3 (06:30→19:10)
[2020-04-12 07:30] LABS: BASOPHILS # (AUTO) 0.1 K/uL (0.0-0.2); BASOPHILS % (AUTO) 0.4 % (0.0-2.0); EOSINOPHILS # (AUTO) 0.1 K/uL (0.0-0.4); EOSINOPHILS % (AUTO) 0.3 % (0.0-4.0); HEMATOCRIT 41.3 % (36-48); HEMOGLOBIN 12.8 g/dL (12.0-16.0); LYMPHOCYTES # (AUTO) 0.7 K/uL (1.0-5.5); LYMPHOCYTES % (AUTO) 3.4 % (20.5-51.5); MEAN CORPUSCULAR HEMOGLOBIN 26 pg (27-31); MEAN CORPUSCULAR HGB CONC 31 % (32-36); MEAN CORPUSCULAR VOLUME 85 fL (79.0-98.0); MONOCYTES # (AUTO) 1.3 K/uL (0.0-1.0); MONOCYTES % (AUTO) 6.8 % (1.7-9.3); NEUTROPHILS # (AUTO) 17.4 K/uL (1.8-7.7); NEUTROPHILS % (AUTO) 89.1 % (40.0-70.0); PLATELET COUNT (AUTO) 308 K/uL (130-430); RED BLOOD CELL COUNT(AUTO) 4.85 MIL/uL (4.2-6.2); RED CELL DISTRIBUTION WIDTH 18.9 % (9.0-15.0); WHITE BLOOD COUNT (AUTO) 19.5 K/uL (4.8-10.8)
[2020-04-12] MEDS: IPRATROPIUM/ALBUTEROL SULFATE 3 ML AMPUL.NEB (DUONEB) INH SCH ×7 (07:41→23:51)
[2020-04-12 07:59] LABS: ANION GAP 16 (5-15); CALCIUM 9.5 mg/dL (8.4-11.0); CHLORIDE 113 mmol/L (98-107); CREATININE 0.92 mg/dL (0.55-1.30); GLUCOSE 204 mg/dL (70-99); POTASSIUM 4.3 mmol/L (3.5-5.1); SODIUM SERUM 149 mmol/L (136-145); UREA NITROGEN, BLOOD 24 mg/dL (8-21)
[2020-04-12 08:00] VITALS: BP_SYST 162
[2020-04-12] MEDS: NACL 0.9% 1,000 ML IV SCH ×2 (09:30→19:08)
[2020-04-12] MEDS: LevETIRAcetam 500 MG/5 ML UDC ORAL LIQUID GT SCH ×2 (09:30→21:23)
[2020-04-12] MEDS: ASCORBIC ACID 500 MG TABLET GT SCH (09:40)
[2020-04-12] MEDS: FERROUS SULFATE 300 MG/5 ML UDC GT SCH ×3 (09:40→20:54)
[2020-04-12] MEDS: MULTIVITAMINS TAB 1 TABLET GT SCH (09:40)
[2020-04-12] MEDS: LANSOPRAZOLE 30 MG CAPSULE.DR GT SCH (09:40)
[2020-04-12] MEDS: metroNIDAZOLE 250 mg/NS 50 ML IV SCH ×2 (09:41→20:54)
[2020-04-12] MEDS: CEFEPIME 0.5 GM in D5W 50 ML IV SCH ×2 (09:41→20:54)
[2020-04-12] MEDS: THEOPHYLLINE ANHYDROUS 200 MG CAP.ER.24H PO SCH (09:48)
[2020-04-12] MEDS: APIXABAN 2.5 MG TABLET GT SCH ×2 (09:49→20:48)
[2020-04-12 12:00] VITALS: BP_SYST 150
[2020-04-12 20:52] VITALS: BP_SYST 157
[2020-04-12] MEDS: ATORVASTATIN 10 MG TABLET GT SCH (20:54)
[2020-04-12] MEDS: hydrALAZINE HCL 25 MG TABLET GT SCH (20:55)
[2020-04-13] VITALS: BP_SYST 179
[2020-04-13] MEDS: INSULIN LISPRO SLIDING SCALE 100 UNITS/ML VIAL (humaLOG) SUBCUT PRN ×4 (00:30→17:20)
[2020-04-13] MEDS: hydrALAZINE HCL 25 MG TABLET GT PRN ×3 (00:52→17:24)
[2020-04-13] MEDS: IPRATROPIUM/ALBUTEROL SULFATE 3 ML AMPUL.NEB (DUONEB) INH SCH ×5 (03:12→23:21)
[2020-04-13] MEDS: NACL 0.9% 1,000 ML IV SCH ×2 (03:45→09:26)
[2020-04-13 07:08] LABS: BASOPHILS # (AUTO) 0.1 K/uL (0.0-0.2); BASOPHILS % (AUTO) 0.4 % (0.0-2.0); EOSINOPHILS % (AUTO) 0.3 % (0.0-4.0); HEMATOCRIT 36.5 % (36-48); HEMOGLOBIN 11.3 g/dL (12.0-16.0); LYMPHOCYTES # (AUTO) 0.5 K/uL (1.0-5.5); LYMPHOCYTES % (AUTO) 3.6 % (20.5-51.5); MEAN CORPUSCULAR HEMOGLOBIN 26 pg (27-31); MEAN CORPUSCULAR HGB CONC 31 % (32-36); MEAN CORPUSCULAR VOLUME 85 fL (79.0-98.0); MONOCYTES # (AUTO) 1.1 K/uL (0.0-1.0); MONOCYTES % (AUTO) 7.7 % (1.7-9.3); NEUTROPHILS # (AUTO) 12.3 K/uL (1.8-7.7); PLATELET COUNT (AUTO) 258 K/uL (130-430); RED BLOOD CELL COUNT(AUTO) 4.29 MIL/uL (4.2-6.2); RED CELL DISTRIBUTION WIDTH 18.2 % (9.0-15.0)
[2020-04-13 07:45] VITALS: BP_SYST 164
[2020-04-13 07:49] LABS: ANION GAP 11 (5-15); CALCIUM 8.5 mg/dL (8.4-11.0); CHLORIDE 116 mmol/L (98-107); CREATININE 0.99 mg/dL (0.55-1.30); POTASSIUM 4.2 mmol/L (3.5-5.1); SODIUM SERUM 149 mmol/L (136-145); UREA NITROGEN, BLOOD 24 mg/dL (8-21)
[2020-04-13 09:04] LABS: GLUCOSE 262 mg/dL (70-99)
[2020-04-13] MEDS: CEFEPIME 0.5 GM in D5W 50 ML IV SCH ×2 (09:27→21:20)
[2020-04-13] MEDS: FERROUS SULFATE 300 MG/5 ML UDC GT SCH ×3 (09:27→21:18)
[2020-04-13] MEDS: LANSOPRAZOLE 30 MG CAPSULE.DR GT SCH (09:30)
[2020-04-13] MEDS: ASCORBIC ACID 500 MG TABLET GT SCH (09:30)
[2020-04-13] MEDS: MULTIVITAMINS TAB 1 TABLET GT SCH (09:30)
[2020-04-13] MEDS: metroNIDAZOLE 250 mg/NS 50 ML IV SCH ×2 (09:34→21:17)
[2020-04-13] MEDS: THEOPHYLLINE ANHYDROUS 200 MG CAP.ER.24H PO SCH (09:59)
[2020-04-13] MEDS: LevETIRAcetam 500 MG/5 ML UDC ORAL LIQUID GT SCH ×2 (09:59→21:18)
[2020-04-13] MEDS: APIXABAN 2.5 MG TABLET GT SCH ×2 (10:00→21:22)
[2020-04-13 11:50] VITALS: BP_SYST 157
[2020-04-13 16:34] VITALS: BP_SYST 159
[2020-04-13] MEDS ORDERED: MENTHOL/ZINC OXIDE 113 GM OINT. TP PRN (19:00)
[2020-04-13 20:00] VITALS: BP_SYST 162
[2020-04-13] MEDS: ATORVASTATIN 10 MG TABLET GT SCH (21:19)
[2020-04-13] MEDS: hydrALAZINE HCL 25 MG TABLET PO SCH (21:19)
[2020-04-14] MEDS ORDERED: cloNIDine HCL 0.1 MG TABLET ONE (00:33)
[2020-04-14] MEDS: cloNIDine HCL 0.1 MG TABLET PO PRN (00:33)
[2020-04-14 01:25] VITALS: BP_SYST 198
[2020-04-14 02:19] VITALS: BP_SYST 158
[2020-04-14] MEDS: IPRATROPIUM/ALBUTEROL SULFATE 3 ML AMPUL.NEB (DUONEB) INH SCH ×5 (03:34→23:04)
[2020-04-14] MEDS: INSULIN LISPRO SLIDING SCALE 100 UNITS/ML VIAL (humaLOG) SUBCUT PRN ×4 (05:28→17:36)
[2020-04-14] MEDS: hydrALAZINE HCL 25 MG TABLET PO SCH ×3 (05:29→22:00)
[2020-04-14] MEDS: NACL 0.9% 1,000 ML IV SCH (06:49)
[2020-04-14 08:00] VITALS: BP_SYST 151
[2020-04-14] MEDS: CEFEPIME 0.5 GM in D5W 50 ML IV SCH ×2 (08:52→21:38)
[2020-04-14] MEDS: MULTIVITAMINS TAB 1 TABLET GT SCH (09:02)
[2020-04-14] MEDS: FERROUS SULFATE 300 MG/5 ML UDC GT SCH ×3 (09:02→21:34)
[2020-04-14] MEDS: LevETIRAcetam 500 MG/5 ML UDC ORAL LIQUID GT SCH ×2 (09:02→21:37)
[2020-04-14] MEDS: THEOPHYLLINE ANHYDROUS 200 MG CAP.ER.24H PO SCH (09:02)
[2020-04-14] MEDS: ASCORBIC ACID 500 MG TABLET GT SCH (09:02)
[2020-04-14] MEDS: LANSOPRAZOLE 30 MG CAPSULE.DR GT SCH (09:02)
[2020-04-14] MEDS: APIXABAN 2.5 MG TABLET GT SCH ×2 (09:04→21:36)
[2020-04-14] MEDS: BALSAM PERU/CASTOR OIL 60 GM OINT...G. TP SCH (09:05)
[2020-04-14] MEDS: metroNIDAZOLE 250 mg/NS 50 ML IV SCH ×2 (09:14→22:03)
[2020-04-14 12:16] VITALS: BP_SYST 163
[2020-04-14 16:13] VITALS: BP_SYST 139
[2020-04-14 21:30] VITALS: BP_SYST 111
[2020-04-14] MEDS: ATORVASTATIN 10 MG TABLET GT SCH (21:35)
[2020-04-15] MEDS: INSULIN LISPRO SLIDING SCALE 100 UNITS/ML VIAL (humaLOG) SUBCUT PRN ×5 (00:19→23:20)
[2020-04-15 04:00] VITALS: BP_SYST 139
[2020-04-15] MEDS: hydrALAZINE HCL 25 MG TABLET PO SCH ×3 (05:50→22:09)
[2020-04-15] MEDS: NACL 0.9% 1,000 ML IV SCH ×2 (05:53→22:13)
[2020-04-15 07:38] LABS: ANION GAP 8 (5-15); CALCIUM 8.4 mg/dL (8.4-11.0); CHLORIDE 115 mmol/L (98-107); CREATININE 0.88 mg/dL (0.55-1.30); GLUCOSE 219 mg/dL (70-99); POTASSIUM 4.1 mmol/L (3.5-5.1); SODIUM SERUM 149 mmol/L (136-145); UREA NITROGEN, BLOOD 23 mg/dL (8-21)
[2020-04-15 07:52] LABS: BASOPHILS # (AUTO) 0.1 K/uL (0.0-0.2); BASOPHILS % (AUTO) 0.5 % (0.0-2.0); EOSINOPHILS # (AUTO) 0.3 K/uL (0.0-0.4); EOSINOPHILS % (AUTO) 2.3 % (0.0-4.0); HEMATOCRIT 33.7 % (36-48); HEMOGLOBIN 10.5 g/dL (12.0-16.0); LYMPHOCYTES # (AUTO) 0.7 K/uL (1.0-5.5); LYMPHOCYTES % (AUTO) 6.7 % (20.5-51.5); MEAN CORPUSCULAR HEMOGLOBIN 26 pg (27-31); MEAN CORPUSCULAR HGB CONC 31 % (32-36); MEAN CORPUSCULAR VOLUME 85 fL (79.0-98.0); MONOCYTES # (AUTO) 0.8 K/uL (0.0-1.0); MONOCYTES % (AUTO) 7.3 % (1.7-9.3); NEUTROPHILS # (AUTO) 9.2 K/uL (1.8-7.7); NEUTROPHILS % (AUTO) 83.2 % (40.0-70.0); PLATELET COUNT (AUTO) 247 K/uL (130-430); RED BLOOD CELL COUNT(AUTO) 3.99 MIL/uL (4.2-6.2); RED CELL DISTRIBUTION WIDTH 18.8 % (9.0-15.0)
[2020-04-15 08:17] VITALS: BP_SYST 135
[2020-04-15] MEDS: IPRATROPIUM/ALBUTEROL SULFATE 3 ML AMPUL.NEB (DUONEB) INH SCH ×5 (10:00→23:50)
[2020-04-15 12:42] VITALS: BP_SYST 151
[2020-04-15] MEDS: MULTIVITAMINS TAB 1 TABLET GT SCH (12:46)
[2020-04-15] MEDS: ASCORBIC ACID 500 MG TABLET GT SCH (12:47)
[2020-04-15] MEDS: LevETIRAcetam 500 MG/5 ML UDC ORAL LIQUID GT SCH ×2 (12:47→22:07)
[2020-04-15] MEDS: THEOPHYLLINE ANHYDROUS 200 MG CAP.ER.24H PO SCH (12:47)
[2020-04-15] MEDS: metroNIDAZOLE 250 mg/NS 50 ML IV SCH ×2 (12:48→22:13)
[2020-04-15] MEDS: FERROUS SULFATE 300 MG/5 ML UDC GT SCH ×3 (12:51→22:08)
[2020-04-15] MEDS: APIXABAN 2.5 MG TABLET GT SCH ×2 (12:53→22:12)
[2020-04-15] MEDS: BALSAM PERU/CASTOR OIL 60 GM OINT...G. TP SCH (12:55)
[2020-04-15] MEDS: LANSOPRAZOLE 30 MG CAPSULE.DR GT SCH (12:59)
[2020-04-15] MEDS: CEFEPIME 0.5 GM in D5W 50 ML IV SCH ×2 (13:05→22:07)
[2020-04-15 13:06] VITALS: BP_SYST 151
[2020-04-15 17:10] VITALS: BP_SYST 163
[2020-04-15 20:00] VITALS: BP_SYST 136
[2020-04-15] MEDS: ATORVASTATIN 10 MG TABLET GT SCH (22:07)
[2020-04-16] VITALS (7 sets, daily range): BP systolic 146–188
[2020-04-16] MEDS: IPRATROPIUM/ALBUTEROL SULFATE 3 ML AMPUL.NEB (DUONEB) INH SCH ×4 (04:18→16:06)
[2020-04-16] MEDS: hydrALAZINE HCL 25 MG TABLET PO SCH ×2 (05:41→13:55)
[2020-04-16] MEDS: INSULIN LISPRO SLIDING SCALE 100 UNITS/ML VIAL (humaLOG) SUBCUT PRN ×3 (05:47→16:34)
[2020-04-16 07:02] LABS: BASOPHILS # (AUTO) 0.1 K/uL (0.0-0.2); BASOPHILS % (AUTO) 0.5 % (0.0-2.0); EOSINOPHILS # (AUTO) 0.3 K/uL (0.0-0.4); HEMATOCRIT 38.3 % (36-48); HEMOGLOBIN 11.9 g/dL (12.0-16.0); LYMPHOCYTES # (AUTO) 1.1 K/uL (1.0-5.5); MEAN CORPUSCULAR HEMOGLOBIN 27 pg (27-31); MEAN CORPUSCULAR HGB CONC 31 % (32-36); MEAN CORPUSCULAR VOLUME 85 fL (79.0-98.0); MONOCYTES # (AUTO) 1.1 K/uL (0.0-1.0); MONOCYTES % (AUTO) 7.2 % (1.7-9.3); NEUTROPHILS # (AUTO) 12.7 K/uL (1.8-7.7); NEUTROPHILS % (AUTO) 83.3 % (40.0-70.0); PLATELET COUNT (AUTO) 321 K/uL (130-430); RED BLOOD CELL COUNT(AUTO) 4.49 MIL/uL (4.2-6.2); RED CELL DISTRIBUTION WIDTH 18.6 % (9.0-15.0); WHITE BLOOD COUNT (AUTO) 15.3 K/uL (4.8-10.8)
[2020-04-16 07:10] LABS: ANION GAP 10 (5-15); CALCIUM 8.5 mg/dL (8.4-11.0); CHLORIDE 110 mmol/L (98-107); CREATININE 0.86 mg/dL (0.55-1.30); GLUCOSE 231 mg/dL (70-99); POTASSIUM 4.5 mmol/L (3.5-5.1); SODIUM SERUM 145 mmol/L (136-145); UREA NITROGEN, BLOOD 22 mg/dL (8-21)
[2020-04-16] MEDS ORDERED: levETIRAcetam 500 MG TABLET ONE (08:46)
[2020-04-16] MEDS: FERROUS SULFATE 300 MG/5 ML UDC GT SCH ×2 (09:08→14:05)
[2020-04-16] MEDS: LANSOPRAZOLE 30 MG CAPSULE.DR GT SCH (09:10)
[2020-04-16] MEDS: LevETIRAcetam 500 MG/5 ML UDC ORAL LIQUID GT SCH (09:10)
[2020-04-16] MEDS: APIXABAN 2.5 MG TABLET GT SCH (09:10)
[2020-04-16] MEDS: BALSAM PERU/CASTOR OIL 60 GM OINT...G. TP SCH (09:11)
[2020-04-16] MEDS: MULTIVITAMINS TAB 1 TABLET GT SCH (09:11)
[2020-04-16] MEDS: ASCORBIC ACID 500 MG TABLET GT SCH (09:11)
[2020-04-16] MEDS: THEOPHYLLINE ANHYDROUS 200 MG CAP.ER.24H PO SCH (09:11)
[2020-04-16] MEDS: CEFEPIME 0.5 GM in D5W 50 ML IV SCH (09:11)
[2020-04-16] MEDS: metroNIDAZOLE 250 mg/NS 50 ML IV SCH (09:12)
[2020-04-16] MEDS ORDERED: FLUCONAZOLE 100 mg/ NS 50 ML IV SCH (12:00)
[2020-04-16] MEDS ORDERED: cloNIDine HCL 0.1 MG TABLET ONE (12:13)
[2020-04-16] MEDS: cloNIDine HCL 0.1 MG TABLET PO PRN (12:16)
== END 2020-04-16 19:15 | DRG 870 ==
LOC: SED 19:06 → SIC 04-06 01:45 → STU 04-11 20:02
PROVIDERS: ADMIT Internal Medicine; ATTEND Internal Medicine
PROC: 5A1955Z Respiratory Ventilation, Greater than 96 Consecutive Hours (ICD-10-PCS; principal; 2020-04-06)
PROC: 02HV33Z Insertion of Infusion Device into Superior Vena Cava, Percutaneous Approach (ICD-10-PCS; 2020-04-06)
DX: A41.9 Sepsis, unspecified organism (principal); J15.9 Unspecified bacterial pneumonia; J96.20 Acute and chronic respiratory failure, unspecified whether with hypoxia or hypercapnia; N39.0 Urinary tract infection, site not specified; E87.2 Acidosis; Z99.11 Dependence on respirator [ventilator] status; E11.9 Type 2 diabetes mellitus without complications; R65.20 Severe sepsis without septic shock; G40.909 Epilepsy, unspecified, not intractable, without status epilepticus; Z20.822 Contact with and (suspected) exposure to COVID-19; I50.9 Heart failure, unspecified; R00.1 Bradycardia, unspecified; I11.0 Hypertensive heart disease with heart failure; Z86.73 Personal history of transient ischemic attack (TIA), and cerebral infarction without residual deficits; Z88.0 Allergy status to penicillin; Z93.1 Gastrostomy status; Z98.2 Presence of cerebrospinal fluid drainage device; Z88.2 Allergy status to sulfonamides; Z88.6 Allergy status to analgesic agent; Z88.8 Allergy status to other drugs, medicaments and biological substances; Z79.899 Other long term (current) drug therapy; Z93.0 Tracheostomy status
CPT/HCPCS: 36415; 36600; 71045; 80048; 80053; 81000-TC; 82728; 82803-TC; 82962; 83605; 83735-TC; 84100-TC; 85007; 85025; 85027; 85379; 85384-TC; 86140; 87040-TC; 87081; 93005; 94002; 94003; 94640; 94760; 96361; 96365; 96367; 96375; 99291; G0378; J0360; J0456; J0692; J0696; J1100; J1450; J1815; J1953; J1956; J2185; J2543; J3370; J3490; J7030; J7050; J7060; U0003

== ENCOUNTER 2021-07-31 22:57 | Inpatient (IN) | payer OTHER, MEDICAID ==
[~2021-07-31] VITALS: Ht 165.1 cm; Wt 102.2 kg
[~2021-07-31 22:57] MED LIST changes: +ASCO500T20 PO; -LEVE100034 GT; -METF1000 GT; +THEO200C4 PO; -VITD400 GT
[2021-07-31 22:58] VITALS: BP_SYST 152
--- NOTE | 2021-07-31 23:02 | NUR ---
Placed in room 06 . Placed on environmental monitoring technician, blood pressure machine and pulse oximeter. To gown for exam. Side rails up. Report given to ZAN COOPER
[2021-07-31] MEDS ORDERED: ACETAMINOPHEN 650 MG SUPP.RECT RC PRN (23:15)
[2021-07-31] MEDS ORDERED: CEFEPIME 1 GM in D5W 50 ML IV ONE (23:15)
[2021-07-31] MEDS ORDERED: VANCOMYCIN HCL 1,000 MG in NS 250 ML IV ONE (23:15)
--- NOTE | 2021-07-31 23:30 | NUR ---
INITIAL ASSESSMENT NON VERBAL, CONTRACTED, BUE,NO SEDATION, WITHDRAWS TO PAIN,TRACHE TO VENT ON AC MOVE AT 40%, AC-15,PEEP-5 TV 500, HOOKED TO MONITOR AT BEDSIDE, VS FOLOWS BP98/60, SATS-100 HR-63, RATE-15, TEMP-97.7 INCONTINENT, WITH PEG IN PLACED CLAMP.
--- NOTE | 2021-07-31 23:37 | NUR ---
COVID JACOB done at bedside
[2021-08-01] VITALS (21 sets, daily range): BP systolic 98–169
[2021-08-01] MEDS ORDERED: NACL 0.9% 2,000 ML IV ONE
[2021-08-01] MEDS ORDERED: CIPROFLOXACIN LACT 400 MG/D5W 200 ML IV SCH ×2
[2021-08-01 00:04] LABS: BASOPHILS # (AUTO) 0.1 K/uL (0.0-0.2); BASOPHILS % (AUTO) 0.6 % (0.0-2.0); EOSINOPHILS # (AUTO) 0.1 K/uL (0.0-0.4); EOSINOPHILS % (AUTO) 0.6 % (0.0-4.0); HEMATOCRIT 33.9 % (36-48); HEMOGLOBIN 11.6 g/dL (12.0-16.0); LYMPHOCYTES # (AUTO) 1.4 K/uL (1.0-5.5); LYMPHOCYTES % (AUTO) 15.6 % (20.5-51.5); MEAN CORPUSCULAR HEMOGLOBIN 34 pg (27-31); MEAN CORPUSCULAR HGB CONC 34 % (32-36); MEAN CORPUSCULAR VOLUME 100 fL (79.0-98.0); MONOCYTES # (AUTO) 1.1 K/uL (0.0-1.0); MONOCYTES % (AUTO) 12.7 % (1.7-9.3); NEUTROPHILS # (AUTO) 6.3 K/uL (1.8-7.7); NEUTROPHILS % (AUTO) 70.5 % (40.0-70.0); PLATELET COUNT (AUTO) 227 K/uL (130-430); RED CELL DISTRIBUTION WIDTH 14.3 % (9.0-15.0)
[2021-08-01 00:09] LABS: ANION GAP 10 (5-15); CHLORIDE 96 mmol/L (98-107); CREATININE 1.11 mg/dL (0.55-1.30); GLUCOSE 124 mg/dL (70-99); POTASSIUM 4.9 mmol/L (3.5-5.1); SODIUM SERUM 131 mmol/L (136-145); UREA NITROGEN, BLOOD 41 mg/dL (8-21)
[2021-08-01 00:17] LABS: ALANINE AMINOTRANSFERASE 17 U/L (12-78); ALBUMIN 2.9 g/dL (3.4-4.8); ASPARTATE AMINOTRANSFERASE 28 U/L (10-37); TOTAL BILIRUBIN 0.3 mg/dL (0.0-1.0)
[2021-08-01] MEDS ORDERED: CEFEPIME 1 GM/VIAL (MAXIPIME) ONE (00:19)
[2021-08-01] MEDS ORDERED: VANCOMYCIN HCL 1000 MG/VIAL IV ONE (00:21)
[2021-08-01] MEDS ORDERED: ASPIRIN 325 MG TABLET GT ONE (00:30)
--- NOTE | 2021-08-01 00:30 | NUR ---
IV N/S 2L BOLUS RUNNING AND IV MAXIPIME GIVEN 1 GM IV PGB
--- NOTE | 2021-08-01 00:57 | NUR ---
0055 IV CIPRO 400MG IV RUNNING
--- NOTE | 2021-08-01 01:34 | NUR ---
IV VANCOMYCIN 1 GM INFUSING VIA IVPGB
--- NOTE | 2021-08-01 03:00 | NUR ---
MD AYALA IN SERTED IV AT [place] [id number]
--- NOTE | 2021-08-01 03:42 | NUR ---
LAB CALLED FOR CRIRICAL VALUE TROPONIN-372 MD AYALA AWARE NO FURTHER ORDERS ITS TRENDING DOWN.
--- NOTE | 2021-08-01 03:55 | NUR ---
[address] HENDERSON FOR ORDERS AWAITING TO CALL MAYLIN. [address] DR HENDERSON CALLED WITH ORDERS MADE FOR ADMIT TO TELEPlaidFOR CONSULT TO PULMONOLOGY AND ID TO BE DONE IN AM. Addendum: 08/01/21 at 0601 by [email or web address] ORDERS FOR WRONG PATIENT
--- NOTE | 2021-08-01 04:37 | NUR ---
Note undone in ED - 08/01/21 at 0600 by [email or web address] Admit bed requested Patient will be admitted to care of . Admitted to MST unit. Diagnosis SEPSIS PNEUMONIA Inpatient (Yes or No) Y Observation (Yes or No) N Orientation concerns or request close to nursing station (Yes or No) N Covid Status N On vent or bipap Y Isolation requirements N Needs a sitter N From Home (Yes or if No enter name of facility) N FROM SN[facility] Requires Dialysis (Yes or No) N Med Rec Completed (Yes of No) Y Addendum: 08/01/21 at 0558 by [email or web address] Amendment undone in ED - 08/01/21 at 0600 by [email or web address] Admit bed requested Patient will be admitted to care of . Admitted to ICU unit. Diagnosis CHRIS PNEUMONIA Inpatient (Yes or No) Y Observation (Yes or No) Y Orientation concerns or request close to nursing station (Yes or No) N Covid Status N On vent or bipap Y Isolation requirements N Needs a sitter N From Home (Yes or if No enter name of facility) N FROM [facility] Requires Dialysis (Yes or No) N Med Rec Completed (Yes of No) Y
--- NOTE | 2021-08-01 06:01 | NUR ---
0500 DR AMADOR CALLED ORDERS MADE AND CARRIED OUT SEE CPOE.
[2021-08-01] MEDS: NACL 0.9% 1,000 ML IV SCH ×2 (06:19→17:55)
[2021-08-01] MEDS: ALBUTEROL SULFATE 0.083% 2.5 MG/3 ML VIAL.NEB INH SCH ×3 (07:42→15:22)
[2021-08-01 07:46] LABS: INR 1.1 (0.8-1.2); PROTHROMBIN TIME 10.7 SECS (9.5-12.5)
--- NOTE | 2021-08-01 07:51 | NUR ---
callaway placed and urine obtained for lab, also MRSA swab sent
--- NOTE | 2021-08-01 07:55 | NUR ---
pt. incontinent of urine, callaway placed to obtain urine sample, well repositoned pt. noted dressing to left buttocks for wound that is packed with a wick, circular in shape approx. 1 x 1 cm, no reddness around edges. also noted circular wound to right husam of forehead 1 x 1 cm
[2021-08-01 08:12] LABS: BILIRUBIN,URINE NEGATIVE (NEGATIVE); CLARITY/URINE CLEAR (CLEAR); COLOR,URINE YELLOW (YELLOW); GLUCOSE,URINE NEGATIVE (NEGATIVE); KETONES,URINE NEGATIVE (NEGATIVE); LEUKOCYTE ESTERASE ,URINE NEGATIVE (NEGATIVE); NITRITE, URINE NEGATIVE (NEGATIVE); PH,URINE 6.5 (5.0-8.0); PROTEIN URINE NEGATIVE (NEGATIVE); UROBILINOGEN,URINE 0.2 (0.2-1.0)
[2021-08-01 08:16] LABS: BLOOD, URINE TRACE (NEGATIVE)
[2021-08-01] MEDS ORDERED: FER300L GT (08:24)
[2021-08-01] MEDS ORDERED: CHLO118L PO (08:24)
[2021-08-01] MEDS ORDERED: HYDR100T25 GT (08:24)
[2021-08-01] MEDS ORDERED: ALBU90AE2 ENDO ×2 (08:24)
[2021-08-01] MEDS ORDERED: CLON0.1T GT (08:24)
[2021-08-01] MEDS ORDERED: ATOR10TA68 GT (08:24)
[2021-08-01] MEDS ORDERED: APIX2.5T GT (08:24)
[2021-08-01] MEDS ORDERED: ACET160S3 GT (08:24)
[2021-08-01] MEDS ORDERED: FLEET RC (08:24)
--- NOTE | 2021-08-01 08:27 | NUR ---
Admit bed requested Patient will be admitted to care of . Admitted to ICU unit. Diagnosis bilateral pneomonia Inpatient (Yes or No) in pt. Observation (Yes or No) no Orientation concerns or request close to nursing station (Yes or No) no Covid Status negative On vent or bipap vent Isolation requirements standard Needs a sitter no From Home (Yes or if No enter name of facility) [facility] Requires Dialysis (Yes or No) no Med Rec Completed (Yes of No) no
[2021-08-01] MEDS ORDERED: LANS30CA56 GT (08:49)
[2021-08-01] MEDS ORDERED: SODI1TAB3 GT (08:49)
[2021-08-01] MEDS ORDERED: INSU100I56 (08:49)
[2021-08-01] MEDS ORDERED: DULR10 RC (08:49)
[2021-08-01] MEDS ORDERED: DOCU-159 GT (08:49)
[2021-08-01] MEDS ORDERED: VALP250S3 GT (08:49)
[2021-08-01] MEDS ORDERED: TRAM50TA2 GT (08:49)
[2021-08-01] MEDS ORDERED: POTA20LI25 GT (08:49)
[2021-08-01] MEDS ORDERED: MINO30 GT (08:49)
[2021-08-01] MEDS ORDERED: FOLI0.8T2 GT (08:49)
[2021-08-01] MEDS ORDERED: DOXY100C GT (08:49)
[2021-08-01] MEDS ORDERED: THEO80SO4 GT (08:49)
[2021-08-01] MEDS ORDERED: CRAN1POW3 GT (08:49)
[2021-08-01] MEDS ORDERED: LEVO25CA4 GT (08:49)
[2021-08-01] MEDS ORDERED: LISI20TA GT (08:49)
[2021-08-01] MEDS ORDERED: FURO-149 GT (08:49)
[2021-08-01] MEDS ORDERED: LEVE100S GT (08:49)
[2021-08-01 08:50] LABS: BACTERIA,URINE RARE /HPF (None Seen); RBC,URINE 0-3 /HPF (0-3); WBC,URINE NONE SEEN /HPF (0-3)
--- NOTE | 2021-08-01 08:50 | NUR ---
Medication reconciliation completed with information provided by FACILITY. Any prior medication reconciliation on file was reviewed and corrected.
--- NOTE | 2021-08-01 09:20 | NUR ---
RT NOTE: 919 Pt transported with ZAN Bullock and arrived in ICU 8. Transported with vent, no issues and vitals were stable during transport. Pt was set up on charted settings. Once in ICU room vent was plugged on to red outlet, BVM at bedside, back up trach (portex 7) at bedside, and suction is available. Will continue to monitor and continue treatments as ordered. Addendum: 08/01/21 at 0951 by Priya Santos RT Amended: Links added.
--- NOTE | 2021-08-01 09:25 | NUR ---
Patient will be admitted to care of . Admitted to ICU unit. Will go to room 8. Belongings list completed. Complete and up to date summary report printed. SBAR report given at bedside with Nixon opportunity for questions.
--- NOTE | 2021-08-01 11:00 | NUR ---
MANGO GOMEZ RN IS NURSE FOR THIS PATIENT//MW
[2021-08-01] MEDS ORDERED: BISACODYL 10 MG/SUPPOSITORY RC PRN (11:15)
[2021-08-01] MEDS ORDERED: THEOPHYLLINE ANHYDROUS 200 MG CAP.ER.24H PO ONE (12:30)
[2021-08-01] MEDS: LevETIRAcetam 500 MG/5 ML UDC ORAL LIQUID GT SCH ×2 (14:26→23:59)
[2021-08-01] MEDS: VALPROIC ACID ORAL SYRUP 250 MG/5 ML UDC GT SCH ×2 (14:27→18:11)
[2021-08-01] MEDS: hydrALAZINE HCL 25 MG TABLET GT SCH ×2 (15:00→21:00)
--- NOTE | 2021-08-01 19:20 | NUR ---
Opening Notes: Received bedside report from Alejandro, patient is A&O X 0, NS running at 75 mL/hr, AIDA 22 G, L Hand 22 G saline locked both clean and dry. Patient is needing a PICC will call family to get consent. Patient has a G-tube , Alejandro unable to find feeding pump has been administering 80 cc every 4 hours. Patient trached with AC 16, 500, 40%, 5. Patient has healed buttocks and head wound. suction working, bed at the lowest level, brakes are locked, appropriate side rails up, call light within reach.
[2021-08-01] MEDS: ATORVASTATIN 10 MG TABLET GT SCH (20:03)
[2021-08-01] MEDS: FERROUS SULFATE 300 MG/5 ML UDC GT SCH (20:03)
[2021-08-01] MEDS: FUROSEMIDE 40 MG TABLET GT SCH (20:03)
[2021-08-01] MEDS: VANCOMYCIN HCL 1,000 MG in NS 250 ML IV SCH (20:04)
[2021-08-01] MEDS: THEOPHYLLINE ANHYDROUS 200 MG CAP.ER.24H PO SCH (20:05)
[2021-08-01] MEDS: APIXABAN 2.5 MG TABLET GT SCH (20:05)
[2021-08-01] MEDS ORDERED: hydrALAZINE HCL 25 MG TABLET GT SCH (21:00)
--- NOTE | 2021-08-01 21:00 | NUR ---
Got consent for PICC from patients daughter, Solitario was my second nurse for the phone consent.
--- NOTE | 2021-08-01 21:45 | NUR ---
PICC was placed, flushed with NS and got blood return.
[2021-08-02] VITALS (29 sets, daily range): BP systolic 89–161
[2021-08-02] MEDS: NACL 0.9% 1,000 ML IV SCH ×2 (01:21→20:33)
[2021-08-02] MEDS: VALPROIC ACID ORAL SYRUP 250 MG/5 ML UDC GT SCH ×3 (04:09→19:18)
[2021-08-02] MEDS: ALBUTEROL SULFATE 0.083% 2.5 MG/3 ML VIAL.NEB INH SCH ×5 (06:12→17:12)
[2021-08-02 07:17] LABS: ANION GAP 11 (5-15); CALCIUM 8.9 mg/dL (8.4-11.0); CHLORIDE 105 mmol/L (98-107); CREATININE 1.23 mg/dL (0.55-1.30); GLUCOSE 174 mg/dL (70-99); POTASSIUM 4.1 mmol/L (3.5-5.1); SODIUM SERUM 137 mmol/L (136-145); UREA NITROGEN, BLOOD 27 mg/dL (8-21)
[2021-08-02 07:32] LABS: ALANINE AMINOTRANSFERASE 11 U/L (12-78); ALBUMIN 2.1 g/dL (3.4-4.8); ASPARTATE AMINOTRANSFERASE 31 U/L (10-37); THYROID STIMULATING HORMONE 2.42 uIu/mL (0.36-3.74); TOTAL BILIRUBIN 0.4 mg/dL (0.0-1.0)
--- NOTE | 2021-08-02 07:37 | NUR ---
Endorsed patient to Nixon
--- NOTE | 2021-08-02 07:46 | NUR ---
CALLED TO CONFIRM CONSULT CANCELLED SPOKE TO EXCHANGE TO CONFIRM CONSULT CANCELLATION. NO MORE CONSULT FOR
--- NOTE | 2021-08-02 07:50 | NUR ---
NOTIFIED OF CONSULT ORDERING PHY: REASON FOR CONSULT: CHRIS PNEUMONIA DIALED: [phone] SPOKE TO: LIBRADO
[2021-08-02 08:07] LABS: BASOPHILS # (AUTO) 0.1 K/uL (0.0-0.2); BASOPHILS % (AUTO) 0.5 % (0.0-2.0); EOSINOPHILS # (AUTO) 0.1 K/uL (0.0-0.4); EOSINOPHILS % (AUTO) 0.6 % (0.0-4.0); HEMATOCRIT 34.8 % (36-48); HEMOGLOBIN 11.3 g/dL (12.0-16.0); LYMPHOCYTES # (AUTO) 0.9 K/uL (1.0-5.5); MEAN CORPUSCULAR HEMOGLOBIN 33 pg (27-31); MEAN CORPUSCULAR HGB CONC 33 % (32-36); MEAN CORPUSCULAR VOLUME 102 fL (79.0-98.0); MONOCYTES # (AUTO) 1.3 K/uL (0.0-1.0); MONOCYTES % (AUTO) 5.3 % (1.7-9.3); NEUTROPHILS # (AUTO) 21.5 K/uL (1.8-7.7); PLATELET COUNT (AUTO) 215 K/uL (130-430); RED BLOOD CELL COUNT(AUTO) 3.42 MIL/uL (4.2-6.2); RED CELL DISTRIBUTION WIDTH 14.6 % (9.0-15.0); WHITE BLOOD COUNT (AUTO) 23.9 K/uL (4.8-10.8)
[2021-08-02] MEDS: FUROSEMIDE 40 MG TABLET GT SCH ×2 (09:00→20:13)
[2021-08-02] MEDS ORDERED: THEOPHYLLINE ANHYDROUS 200 MG CAP.ER.24H PO SCH (09:00)
[2021-08-02] MEDS: hydrALAZINE HCL 25 MG TABLET GT SCH ×3 (09:00→20:32)
[2021-08-02] MEDS: LEVOTHYROXINE SODIUM 0.025 MG TABLET GT SCH (09:00)
[2021-08-02] MEDS: FERROUS SULFATE 300 MG/5 ML UDC GT SCH ×2 (09:00→20:14)
[2021-08-02] MEDS: ASCORBIC ACID 500 MG TABLET GT SCH (09:00)
[2021-08-02] MEDS: NEPHROVITE, (FOLIC ACID/VITAMIN B COMP W-C 1 TAB) GT SCH (09:00)
[2021-08-02] MEDS: lisinopriL 20 MG TABLET GT SCH (09:00)
[2021-08-02] MEDS: MULTIVITAMINS TAB 1 TABLET GT SCH (09:00)
[2021-08-02] MEDS ORDERED: NON-FORMULARY MEDICATION (Multivitamin 1 TAB) GT SCH (09:00)
[2021-08-02] MEDS: THEOPHYLLINE ANHYDROUS 200 MG CAP.ER.24H PO SCH ×2 (09:00→20:13)
[2021-08-02] MEDS: APIXABAN 2.5 MG TABLET GT SCH ×2 (09:20→20:16)
[2021-08-02 09:25] LABS: CHOLESTEROL 139 mg/dL (<200); HDL CHOLESTEROL 44 mg/dL (>55); LDL CHOLESTEROL 75 mg/dL (<100); TRIGLYCERIDES 157 mg/dL (30-150)
--- NOTE | 2021-08-02 10:14 | NUR ---
SPOKE TO DR GOMEZ, ORDERS TAKEN, REPORTED ABNORMAL LABS (WBC AND TROPONIN)//MW
--- NOTE | 2021-08-02 10:15 | NUR ---
MANGO GOMEZ IS THE RN FOR THIS PATIENT//MW
[2021-08-02] MEDS: LevETIRAcetam 500 MG/5 ML UDC ORAL LIQUID GT SCH ×2 (11:15→23:24)
[2021-08-02] MEDS: FLUCONAZOLE 200 mg/ NS 100 ML IV SCH (12:00)
[2021-08-02] MEDS: AZTREONAM 1 GM in NS 50 ML IV SCH ×2 (14:03→21:21)
[2021-08-02 14:09] LABS: NEUTROPHILS % (AUTO) 89.6 % (40.0-70.0)
--- NOTE | 2021-08-02 16:40 | NUR ---
OBTAINED SPUTUM SAMPLE AND SENT TO THE LAB.
--- NOTE | 2021-08-02 19:20 | NUR ---
Opening Notes: Received bedside report from Nixon, patient is awake with eyes open but not tracking A&O X 0. SR, Right upper arm PICC with NS running at 75 ml/hr. Patient on tube feeding Glucerna 1.2 at 50 cc/hr. Patient has healed sacral and head wound. Trach setting at AC 16, 500, 30%, 5. Bed is at the lowest level, brakes are locked, appropriate side rails up, and call light within reach.
[2021-08-02] MEDS: ATORVASTATIN 10 MG TABLET GT SCH (20:14)
[2021-08-02] MEDS: VANCOMYCIN HCL 1,000 MG in NS 250 ML IV SCH (20:14)
[2021-08-02] MEDS ORDERED: LevETIRAcetam 500 MG/5 ML UDC ORAL LIQUID ONE (23:22)
[2021-08-03] VITALS (29 sets, daily range): BP systolic 96–158
[2021-08-03] MEDS: VALPROIC ACID ORAL SYRUP 250 MG/5 ML UDC GT SCH ×3 (03:14→20:29)
[2021-08-03] MEDS: ALBUTEROL SULFATE 0.083% 2.5 MG/3 ML VIAL.NEB INH SCH ×6 (06:10→20:17)
[2021-08-03 06:51] LABS: ALANINE AMINOTRANSFERASE 11 U/L (12-78); ALBUMIN 2.1 g/dL (3.4-4.8); ANION GAP 12 (5-15); ASPARTATE AMINOTRANSFERASE 24 U/L (10-37); CALCIUM 8.9 mg/dL (8.4-11.0); CHLORIDE 104 mmol/L (98-107); CREATININE 1.43 mg/dL (0.55-1.30); GLUCOSE 171 mg/dL (70-99); POTASSIUM 4.2 mmol/L (3.5-5.1); SODIUM SERUM 135 mmol/L (136-145); TOTAL BILIRUBIN 0.2 mg/dL (0.0-1.0); UREA NITROGEN, BLOOD 30 mg/dL (8-21)
[2021-08-03] MEDS: AZTREONAM 1 GM in NS 50 ML IV SCH ×3 (06:59→22:31)
--- NOTE | 2021-08-03 07:11 | NUR ---
Endorsed patient to Erinn.
--- NOTE | 2021-08-03 07:15 | NUR ---
OPENING NOTE: REPORT RC'VD FROM OUTGOING NOC RN, ALL CARES ASSUMED (ZAN SORENSEN)
--- NOTE | 2021-08-03 07:41 | NUR ---
DR. HUGHES MAKING ROUNDS, BEDSIDE REPORT GIVEN NO NEW ORDERS AT THIS TIME.
--- NOTE | 2021-08-03 08:00 | NUR ---
WOUND NOTED TO RIGHT TEMPORAL, CIRCULAR INDENTED SCAB WITH RED OPEN AREA. WOUND CONSULT WILL BE PLACED.
--- NOTE | 2021-08-03 08:01 | NUR ---
PHOTOS OF WOUNDS TAKEN AND PLACED INTO CHART, CHARGE AWARE.
[2021-08-03] MEDS: FERROUS SULFATE 300 MG/5 ML UDC GT SCH ×2 (08:35→22:31)
[2021-08-03] MEDS: MULTIVITAMINS TAB 1 TABLET GT SCH (08:35)
[2021-08-03] MEDS: APIXABAN 2.5 MG TABLET GT SCH ×2 (08:36→22:28)
[2021-08-03] MEDS: ASCORBIC ACID 500 MG TABLET GT SCH (08:36)
[2021-08-03] MEDS: FUROSEMIDE 40 MG TABLET GT SCH ×2 (08:36→22:28)
[2021-08-03] MEDS: NEPHROVITE, (FOLIC ACID/VITAMIN B COMP W-C 1 TAB) GT SCH (08:36)
[2021-08-03] MEDS: LEVOTHYROXINE SODIUM 0.025 MG TABLET GT SCH (08:36)
[2021-08-03] MEDS: lisinopriL 20 MG TABLET GT SCH (08:37)
[2021-08-03] MEDS: hydrALAZINE HCL 25 MG TABLET GT SCH ×3 (08:39→22:27)
[2021-08-03] MEDS: THEOPHYLLINE ANHYDROUS 200 MG CAP.ER.24H PO SCH ×2 (08:41→22:29)
[2021-08-03] MEDS: NACL 0.9% 1,000 ML IV SCH (08:42)
[2021-08-03 09:10] LABS: HEMATOCRIT 32.1 % (36-48); HEMOGLOBIN 10.2 g/dL (12.0-16.0); MEAN CORPUSCULAR HEMOGLOBIN 33 pg (27-31); MEAN CORPUSCULAR HGB CONC 32 % (32-36); MEAN CORPUSCULAR VOLUME 103 fL (79.0-98.0); PLATELET COUNT (AUTO) 208 K/uL (130-430); RED BLOOD CELL COUNT(AUTO) 3.13 MIL/uL (4.2-6.2); RED CELL DISTRIBUTION WIDTH 14.9 % (9.0-15.0)
--- NOTE | 2021-08-03 09:52 | NUR ---
IDT MEETING DONE AT BEDSIDE, ALL DISCIPLINES AWARE AND UPDATED
--- NOTE | 2021-08-03 11:00 | NUR ---
DR. NICE MAKING ROUNDS, REPORT GIVEN, TO REVIEW CHART.
[2021-08-03] MEDS: LevETIRAcetam 500 MG/5 ML UDC ORAL LIQUID GT SCH (11:21)
[2021-08-03] MEDS: FLUCONAZOLE 200 mg/ NS 100 ML IV SCH (11:22)
--- NOTE | 2021-08-03 12:00 | NUR ---
TEMP 99.5, COOLING MEASURES IMPLEMENTED.
--- NOTE | 2021-08-03 12:51 | NUR ---
URINE COLLECTED AND BROUGHT TO LAB PER DR. TEX ESTRADA.
--- NOTE | 2021-08-03 13:59 | NUR ---
Dietitian Recommendation Continue Glucerna 1.2 @50 mL/hr. Specify free water flush frequency, recommend 100 mL Q4h. Provides: 1440 kcals/day, 72 g protein/day and 1566 mL free water/day. Meets: 95% of kcal needs, 114% of lower protein needs and 98% of lower fluid needs. Please refer to nutrition assessment for details. Signed: 08/03/21 at 1400 by Libby VALENCIA <Co-Signature Required> Co-Signed: 08/03/21 at [address] Addendum: 08/03/21 at 1400 by Libby VALENCIA Amended: Links added.
[2021-08-03] MEDS: metroNIDAZOLE 250 mg/NS 50 ML IV SCH ×2 (15:46→23:00)
[2021-08-03 15:50] LABS: BAND % (MANUAL) 25 % (0-6); BASOPHILS % (MANUAL) 0 % (0-2); EOSINOPHILS % (MANUAL) 1 % (0-7); LYMPHOCYTES % (MANUAL) 7 % (20-46); METAMYELOCYTES % 7 % (0-0); MONOCYTES % (MANUAL) 11 % (0-11)
--- NOTE | 2021-08-03 16:12 | NUR ---
TYLENOL GIVEN FOR TEMP OF 100.9, COOLING MEASURES REMAIN IN PLACE.
--- NOTE | 2021-08-03 16:45 | NUR ---
TYLENOL EFFECTIVE, 98.7 TEMPORAL - MONITORING.
--- NOTE | 2021-08-03 18:15 | NUR ---
PAGED DR. AMADOR R/T LOW BP, PENDING RETURN CALL AT THIS TIME.
--- NOTE | 2021-08-03 20:00 | NUR ---
RECEIVED REPORT FROM OFFGOING RN, ASSUMED CARE, AND STARTED ASSESSMENT.
[2021-08-03] MEDS: ATORVASTATIN 10 MG TABLET GT SCH (22:28)
[2021-08-04] VITALS (32 sets, daily range): BP systolic 94–153
[2021-08-04] MEDS: ALBUTEROL SULFATE 0.083% 2.5 MG/3 ML VIAL.NEB INH SCH ×7 (00:14→22:55)
[2021-08-04] MEDS: LevETIRAcetam 500 MG/5 ML UDC ORAL LIQUID GT SCH ×2 (00:49→11:44)
[2021-08-04] MEDS: VALPROIC ACID ORAL SYRUP 250 MG/5 ML UDC GT SCH ×3 (04:00→20:23)
--- NOTE | 2021-08-04 04:30 | NUR ---
PATIENT HAD A LARGE LOOSE BOWEL MOVEMENT. COMPLETE BED BATH AND LINEN CHANGE GIVEN.
[2021-08-04] MEDS: AZTREONAM 1 GM in NS 50 ML IV SCH (06:29)
[2021-08-04] MEDS: metroNIDAZOLE 250 mg/NS 50 ML IV SCH ×2 (06:30→16:23)
[2021-08-04 07:05] LABS: ANION GAP 14 (5-15); CALCIUM 9.4 mg/dL (8.4-11.0); CHLORIDE 108 mmol/L (98-107); CREATININE 1.58 mg/dL (0.55-1.30); GLUCOSE 151 mg/dL (70-99); POTASSIUM 4.1 mmol/L (3.5-5.1); SODIUM SERUM 138 mmol/L (136-145); UREA NITROGEN, BLOOD 35 mg/dL (8-21)
[2021-08-04 07:25] LABS: BASOPHILS # (AUTO) 0.1 K/uL (0.0-0.2); BASOPHILS % (AUTO) 0.5 % (0.0-2.0); EOSINOPHILS # (AUTO) 0.5 K/uL (0.0-0.4); EOSINOPHILS % (AUTO) 1.7 % (0.0-4.0); HEMATOCRIT 33.4 % (36-48); HEMOGLOBIN 10.4 g/dL (12.0-16.0); LYMPHOCYTES # (AUTO) 1.2 K/uL (1.0-5.5); LYMPHOCYTES % (AUTO) 3.8 % (20.5-51.5); MEAN CORPUSCULAR HEMOGLOBIN 33 pg (27-31); MEAN CORPUSCULAR HGB CONC 31 % (32-36); MEAN CORPUSCULAR VOLUME 105 fL (79.0-98.0); MONOCYTES # (AUTO) 2.5 K/uL (0.0-1.0); MONOCYTES % (AUTO) 7.8 % (1.7-9.3); NEUTROPHILS # (AUTO) 27.8 K/uL (1.8-7.7); NEUTROPHILS % (AUTO) 86.2 % (40.0-70.0); PLATELET COUNT (AUTO) 206 K/uL (130-430); RED BLOOD CELL COUNT(AUTO) 3.18 MIL/uL (4.2-6.2); RED CELL DISTRIBUTION WIDTH 15.6 % (9.0-15.0)
--- NOTE | 2021-08-04 07:30 | NUR ---
RECEIVED PT FROM ZAN ABDUL. ASSUMED ALL CARE.
[2021-08-04 07:33] LABS: WHITE BLOOD COUNT (AUTO) 32.2 K/uL (4.8-10.8)
--- NOTE | 2021-08-04 07:34 | NUR ---
REORT GIVEN TO ZAN CISNEROS, AND CARE WAS TURNED OVER TO HIM.
--- NOTE | 2021-08-04 07:41 | NUR ---
REPORT GIVEN TO ZAN GUERRERO AND CARE WAS TURNED OVER TO HER.
--- NOTE | 2021-08-04 08:17 | NUR ---
DR. NICE PAGED TO REPORT WBC 32.2. AWAITING CALL BACK.
--- NOTE | 2021-08-04 08:38 | NUR ---
REPORTED TO DR. AMADOR PT HAS LUE NONPITTING UNILATERAL EDEMA, BLE 1+ EDEMA, WBC 32.2, PT B/P LABILE AT TIMES HYPOTENSIVE. RECEIVED ORDER FOR LEVOPHED DRIP PRN TO MAINTAIN SBP <65MMHG. ORDER CARRIED OUT.
[2021-08-04] MEDS ORDERED: NOREPINEPHRINE BITARTRATE 8 MG in D5W 242 ML IV PRN (08:45)
[2021-08-04] MEDS: FERROUS SULFATE 300 MG/5 ML UDC GT SCH ×2 (09:54→20:26)
[2021-08-04] MEDS: MULTIVITAMINS TAB 1 TABLET GT SCH (09:55)
[2021-08-04] MEDS: FUROSEMIDE 40 MG TABLET GT SCH (10:01)
[2021-08-04] MEDS: NEPHROVITE, (FOLIC ACID/VITAMIN B COMP W-C 1 TAB) GT SCH (10:01)
[2021-08-04] MEDS: hydrALAZINE HCL 25 MG TABLET GT SCH ×3 (10:01→21:00)
[2021-08-04] MEDS: ASCORBIC ACID 500 MG TABLET GT SCH (10:02)
[2021-08-04] MEDS: lisinopriL 20 MG TABLET GT SCH (10:02)
[2021-08-04] MEDS: LEVOTHYROXINE SODIUM 0.025 MG TABLET GT SCH (10:03)
[2021-08-04] MEDS: APIXABAN 2.5 MG TABLET GT SCH ×2 (10:04→20:25)
--- NOTE | 2021-08-04 10:07 | NUR ---
REPORTED TO DR. NICE WBC 32.2, PT HAS R ARM NONPITTING EDEMA (UNILATERAL). RECEIVED ORDER TO D/C IVF, DR. NICE STATED HE WILL CX ABT. ORDER CARRIED OUT.
[2021-08-04] MEDS: THEOPHYLLINE ANHYDROUS 200 MG CAP.ER.24H PO SCH ×2 (10:24→20:23)
--- NOTE | 2021-08-04 11:16 | NUR ---
Nutrition Consult received 08/03/21 3197 for Reese Hankins. Please refer to Nutritional Assessment Note on 08/03/21 for details and recommendations. RU, RD
[2021-08-04] MEDS: FLUCONAZOLE 200 mg/ NS 100 ML IV SCH (11:45)
--- NOTE | 2021-08-04 12:25 | NUR ---
REPORTED TO DR. AMADOR PT HAS RUQ UNILATERAL 3+ EDEMA. RECEIVED ORDER FOR STAT US VENOUS LUE TO R/O DVT. ORDER CARRIED OUT .
[2021-08-04] MEDS: MEROPENEM 500 MG in NS 50 ML IV SCH ×2 (16:22→21:37)
--- NOTE | 2021-08-04 18:44 | NUR ---
REPORTED TO DR. AMADOR PT HAS REDNESS THROUGH OUT BODY, PT U/O 350. HE STATED HE WILL ORDER BENEDRYL AND TO RESTART IVF. ORDERS CARRIED OUT. WOUND CARE COMPLETED. PT GIVEN PARTIAL BED BATH AND LINEN CX.
[2021-08-04] MEDS: NACL 0.9% 1,000 ML IV SCH (18:45)
[2021-08-04] MEDS ORDERED: DIPHENHYDRAMINE INJ 50 MG/ML VIAL IVP ONE (19:00)
--- NOTE | 2021-08-04 19:25 | NUR ---
RECEIVED PT FROM ZAN ABDUL. ASSUMED ALL CARE.
--- NOTE | 2021-08-04 19:26 | NUR ---
ENDORSED PT TO ZAN MAGDALENO. ALL QUESTIONS AND CONCERNS ADDRESSED.
--- NOTE | 2021-08-04 20:00 | NUR ---
Received report from Anitra ZULUAGA. PT received in stated condition. pt closes eyes tightly when trying to assess her pupils, but noted pt eyes open wide and watching every thing about her.
[2021-08-04] MEDS: ATORVASTATIN 10 MG TABLET GT SCH (20:26)
--- NOTE | 2021-08-04 23:15 | NUR ---
2315 pt was started on levophed because her map dropped to 60. bp [id number]. pt proved to be very sensitive to the medication . she was started at .01mcg.kg/minm the levophed was truned off [id number] map was 80 and restarted again at 0217 because her map dropped to 59 and her bp 90/48.
[2021-08-05] VITALS (55 sets, daily range): BP systolic 79–225
[2021-08-05] MEDS: metroNIDAZOLE 250 mg/NS 50 ML IV SCH ×2 (00:23→08:10)
[2021-08-05] MEDS: ALBUTEROL SULFATE 0.083% 2.5 MG/3 ML VIAL.NEB INH SCH ×7 (03:05→23:15)
--- NOTE | 2021-08-05 03:33 | NUR ---
report given to Jack ZULUAGA
--- NOTE | 2021-08-05 03:33 | NUR ---
Pt report received. Eyes open, moves head with tactile stimuli. Vent settings: A/C, 16, 500, 30%, 5. PICC ALEYDA patent and secure with NS at 75 mL/hr and Levophed at 0.1 mcg/kg/min. G-tube secure with no residual, Glucerna at 50 mL/hr. F/C secure draining rsuty urine. Contractures and generalized 2-3+ pitting edema to all extremities. Redness noted to BUE. 1.5cm x 1 cm scab to right temporal area, scant amount of serous drainage noted. Site cleaned with NS, pat dry, foam dsg applied.
--- NOTE | 2021-08-05 04:00 | NUR ---
Moderate brown and loose stool noted. Sacral dsg changed, skin appears red but intact, cleaned with NS, pat dry, Z-guard applied, and new foam dsg to site. Pt cleaned, fresh linens and gown applied. Skin noted to be sloughing to back, slightly moist to touch.
[2021-08-05] MEDS: LevETIRAcetam 500 MG/5 ML UDC ORAL LIQUID GT SCH ×3 (05:49→23:32)
[2021-08-05] MEDS: VALPROIC ACID ORAL SYRUP 250 MG/5 ML UDC GT SCH ×3 (05:52→21:24)
[2021-08-05] MEDS: MEROPENEM 500 MG in NS 50 ML IV SCH ×3 (05:52→22:06)
[2021-08-05 05:56] LABS: ANION GAP 13 (5-15); CALCIUM 9.1 mg/dL (8.4-11.0); CHLORIDE 111 mmol/L (98-107); CREATININE 1.75 mg/dL (0.55-1.30); GLUCOSE 134 mg/dL (70-99); POTASSIUM 3.6 mmol/L (3.5-5.1); SODIUM SERUM 141 mmol/L (136-145); UREA NITROGEN, BLOOD 41 mg/dL (8-21)
[2021-08-05 07:10] LABS: BASOPHILS # (AUTO) 0.1 K/uL (0.0-0.2); BASOPHILS % (AUTO) 0.2 % (0.0-2.0); EOSINOPHILS # (AUTO) 0.8 K/uL (0.0-0.4); LYMPHOCYTES % (AUTO) 2.7 % (20.5-51.5); MEAN CORPUSCULAR HEMOGLOBIN 33 pg (27-31); MEAN CORPUSCULAR HGB CONC 32 % (32-36); MEAN CORPUSCULAR VOLUME 104 fL (79.0-98.0); MONOCYTES # (AUTO) 3.1 K/uL (0.0-1.0); MONOCYTES % (AUTO) 8.1 % (1.7-9.3); NEUTROPHILS # (AUTO) 33.4 K/uL (1.8-7.7); PLATELET COUNT (AUTO) 234 K/uL (130-430); RED CELL DISTRIBUTION WIDTH 15.5 % (9.0-15.0)
--- NOTE | 2021-08-05 07:15 | NUR ---
Pt report given ZAN Wilder.
[2021-08-05] MEDS ORDERED: NS 500 ML IV ONE (08:00)
[2021-08-05] MEDS: lisinopriL 20 MG TABLET GT SCH (09:00)
[2021-08-05] MEDS: hydrALAZINE HCL 25 MG TABLET GT SCH ×3 (09:00→21:21)
[2021-08-05 09:08] LABS: WHITE BLOOD COUNT (AUTO) 38.4 K/uL (4.8-10.8)
[2021-08-05] MEDS: FERROUS SULFATE 300 MG/5 ML UDC GT SCH ×2 (09:31→21:20)
[2021-08-05] MEDS: NEPHROVITE, (FOLIC ACID/VITAMIN B COMP W-C 1 TAB) GT SCH (09:32)
[2021-08-05] MEDS: traMADol HCL HCL 50 MG TABLET (ULTRAM) GT SCH (09:34)
[2021-08-05] MEDS: MULTIVITAMINS TAB 1 TABLET GT SCH (09:35)
[2021-08-05] MEDS: LEVOTHYROXINE SODIUM 0.025 MG TABLET GT SCH (09:35)
[2021-08-05] MEDS: APIXABAN 2.5 MG TABLET GT SCH ×2 (09:39→21:22)
[2021-08-05] MEDS: THEOPHYLLINE ANHYDROUS 200 MG CAP.ER.24H PO SCH ×2 (09:59→21:21)
[2021-08-05] MEDS: ASCORBIC ACID 500 MG TABLET GT SCH (10:00)
[2021-08-05] MEDS: NACL 0.9% 1,000 ML IV SCH ×3 (10:06→21:35)
[2021-08-05] MEDS: FLUCONAZOLE 200 mg/ NS 100 ML IV SCH (11:00)
[2021-08-05] MEDS: ALBUMIN HUMAN 25% 50 ML IV SCH ×3 (12:00→21:41)
[2021-08-05] MEDS ORDERED: VANCOMYCIN HCL 1,000 MG in NS 250 ML IV ONE (12:00)
[2021-08-05] MEDS ORDERED: MENTHOL/ZINC OXIDE 113 GM OINT. TP PRN (14:45)
[2021-08-05] MEDS ORDERED: BALSAM PERU/CASTOR OIL 56.7 GM OINT...G. TP ONE (16:00)
--- NOTE | 2021-08-05 17:00 | NUR ---
WOUND EVALUATION: Late note for 08/05/21 at 1700 secondary to patient care. Wound Consult received from Dr. Bobby. Thank you, Dr. Bobby, for the consult. Patient received in a [place] Bed, nonverbal, nonresponsive to verbal commands. Patient is unable to turn in bed independently. Cr Score is a . Past Medical History: Chronic Respiratory Failure, Hypertension, Seizure disorder, Chronic Encephalopathy, Stroke, G-tube placement, Tracheostomy. Recent Labs: WBC 38.4, RBC 2.70, hemoglobin 9.0, hematocrit 28.0, chloride 111, BUN 41, creatinine 1.75, glucose 134, albumin 2.1. Microbiology: Blood culture results x2 negative. Tracheal aspirate sputum culture results not performed secondary to saliva contamination. MRSA screen results negative. Second tracheal aspirate culture results not performed secondary to saliva contamination. Urine culture results negative. New set of blood culture results x2 in progress. Intrinsic factors that delay wound healing: Chronic Respiratory Failure, Hypertension, Seizure disorder, Chronic Encephalopathy, Stroke, Hypoalbuminemia, Hyperglycemia. Extrinsic factors that delay wound healing: Immobility. Wound Assessment: 1. Right Lateral Congregation: Acute on chronic wound of unknown etiology, present on admission. Wound bed has 100% brown scab. No odor, scant yellow drainage. Periwound intact. Wound measures 1.7 cm x 1.5 cm. Recommend: Cleanse wound with normal saline. Apply Sureprep to periwound. Apply Venelex ointment to wound bed. Cover with foam dressing. Perform wound care daily, and as needed for dressing soiling or dislodgment. 2. Left Outer Buttock: Scar tissue with blanchable red erythema, present on admission. Site measures 6.3 cm x 5.9 cm. Recommend: Cleanse involved area with mild soap and water. Pat dry. Apply Calmoseptine cream to involved area. Perform site care 4 times daily and as needed for soiling. 3. General body: Dry flaky skin, present on admission. Recommend: Cleanse involved areas with mild soap and water. Pat dry. Apply Eucerin cream to involved areas. Perform site care twice daily. Also recommend: Reposition patient side to side only every 2 hours with pillow support and off-load pressure areas with pillows for pressure re-distribution. Offload, elevate and float bilateral heels with pillows. Perform skin care and monitor skin integrity Q shift. Use Calmoseptine cream on buttocks and other moisture susceptible areas QID and as needed for soiling. Place patient on a low air-loss mattress.
--- NOTE | 2021-08-05 19:00 | NUR ---
0800- RECEIVED PATIENT ON LEVO GTT 0.51 SEE TITRATION FOR THIS MEDICATION 0830- BP HIGH AFTER REPOSITIONING AND CONFIRMING PROPER CUFF PLACEMENT OF THE R LEG. WEANING DOWN LEVO GTT 0930- LEVO GTT HIGH 200S, WEANING ONGOING. 0945- LEVO GT OFF PER REQUEST BY HOTEL VALET ATTENDANT. 1200- DR HUGHES CALLED ABOUT THE BOLUS ORDER , HE WANTED TO PROCEED. ALBUMIN ALSO ORDERED TO HELP SHIFT FLUID. DR HUGHES WANT LEVO GTT DOUBLE CONCENTRATION NOT HIGHER THAN THAT IF NEEDED. 1430- WOUND CARE NURSE IN TO EVALUATE PATIENT FOR BED SOARS, ORDER VENELEX, CLAMOSEPTINE, WOUND CARE TREATMENT 1630- EXTENSIVE SKIN CARE DONE. JAMES LEAKING ADDED 5CC AFTER TROUBLE SHOOTING IT. 1830- COMPLETED LINEN CHANGED. 1900- DR STOCK IN TO SEE PATIENT AND UPDATED ON JAMES- UROLOGY TO SEE PATIENT MAY NEED SUPRAPUBIC CATHETER.
--- NOTE | 2021-08-05 19:30 | NUR ---
RECEIVED REPORT ON PATIENT FROM ZAN RIVAS, ASSUMED CARE AND STARTED ASSESSMENT.
--- NOTE | 2021-08-05 20:20 | NUR ---
RESPIRATORY THERAPIST AT THE BEDSIDE ASSESSING PATIENT. HE REPORTED THAT HE TURNED THE FIO2 UP TO 60%. WILL CONTINUE TO MONITOR AND ASSESS PATIENT FOR SAFETY AND COMFORT.
[2021-08-05] MEDS: ATORVASTATIN 10 MG TABLET GT SCH (21:23)
[2021-08-06] VITALS (34 sets, daily range): BP systolic 122–166
[2021-08-06] MEDS: ALBUTEROL SULFATE 0.083% 2.5 MG/3 ML VIAL.NEB INH SCH ×6 (03:07→23:35)
[2021-08-06] MEDS: NACL 0.9% 1,000 ML IV SCH ×4 (03:14→22:15)
[2021-08-06] MEDS: VALPROIC ACID ORAL SYRUP 250 MG/5 ML UDC GT SCH ×3 (03:18→19:44)
[2021-08-06] MEDS: MEROPENEM 500 MG in NS 50 ML IV SCH ×3 (06:28→21:11)
[2021-08-06 06:29] LABS: BASOPHILS # (AUTO) 0.1 K/uL (0.0-0.2); BASOPHILS % (AUTO) 0.5 % (0.0-2.0); EOSINOPHILS # (AUTO) 0.7 K/uL (0.0-0.4); EOSINOPHILS % (AUTO) 2.9 % (0.0-4.0); HEMATOCRIT 27.7 % (36-48); HEMOGLOBIN 8.7 g/dL (12.0-16.0); LYMPHOCYTES # (AUTO) 1.2 K/uL (1.0-5.5); LYMPHOCYTES % (AUTO) 5.2 % (20.5-51.5); MEAN CORPUSCULAR HEMOGLOBIN 33 pg (27-31); MEAN CORPUSCULAR HGB CONC 31 % (32-36); MEAN CORPUSCULAR VOLUME 104 fL (79.0-98.0); MONOCYTES % (AUTO) 8.8 % (1.7-9.3); NEUTROPHILS # (AUTO) 18.7 K/uL (1.8-7.7); PLATELET COUNT (AUTO) 185 K/uL (130-430); RED BLOOD CELL COUNT(AUTO) 2.65 MIL/uL (4.2-6.2); RED CELL DISTRIBUTION WIDTH 15.1 % (9.0-15.0); WHITE BLOOD COUNT (AUTO) 22.6 K/uL (4.8-10.8)
[2021-08-06 06:50] LABS: ALANINE AMINOTRANSFERASE 13 U/L (12-78); ALBUMIN 1.9 g/dL (3.4-4.8); ANION GAP 9 (5-15); ASPARTATE AMINOTRANSFERASE 25 U/L (10-37); CALCIUM 8.9 mg/dL (8.4-11.0); CHLORIDE 117 mmol/L (98-107); CREATININE 1.37 mg/dL (0.55-1.30); GLUCOSE 175 mg/dL (70-99); POTASSIUM 3.7 mmol/L (3.5-5.1); SODIUM SERUM 146 mmol/L (136-145); TOTAL BILIRUBIN 0.2 mg/dL (0.0-1.0); UREA NITROGEN, BLOOD 40 mg/dL (8-21)
--- NOTE | 2021-08-06 08:00 | NUR ---
REDUCE NS TO 100ML/HR PER DR ISAURA RUIZ AT BEDSIDE DURING MORNING ASSESSMENT
[2021-08-06 08:02] LABS: NEUTROPHILS % (AUTO) 82.6 % (40.0-70.0)
--- NOTE | 2021-08-06 09:04 | NUR ---
CALLED Kristen HUYNH WITH A CONSULT. SPOKE WITH FABRICE FROM [facility]ORS OFFICE
[2021-08-06] MEDS: LEVOTHYROXINE SODIUM 0.025 MG TABLET GT SCH (09:51)
[2021-08-06] MEDS: lisinopriL 20 MG TABLET GT SCH (09:52)
[2021-08-06] MEDS: ASCORBIC ACID 500 MG TABLET GT SCH (09:52)
[2021-08-06] MEDS: NEPHROVITE, (FOLIC ACID/VITAMIN B COMP W-C 1 TAB) GT SCH (09:53)
[2021-08-06] MEDS: MULTIVITAMINS TAB 1 TABLET GT SCH (09:53)
[2021-08-06] MEDS: hydrALAZINE HCL 25 MG TABLET GT SCH ×3 (09:53→21:13)
[2021-08-06] MEDS: APIXABAN 2.5 MG TABLET GT SCH ×2 (09:55→21:14)
[2021-08-06] MEDS: FLUCONAZOLE 200 mg/ NS 100 ML IV SCH (10:17)
[2021-08-06] MEDS: THEOPHYLLINE ANHYDROUS 200 MG CAP.ER.24H PO SCH ×2 (10:17→21:12)
[2021-08-06] MEDS: VANCOMYCIN HCL 1,000 MG in NS 250 ML IV SCH (10:18)
--- NOTE | 2021-08-06 10:39 | NUR ---
REQUEST VENECLEX AND FERROUS SULFATE FROM PHARMACY
--- NOTE | 2021-08-06 10:40 | NUR ---
REQUEST VENECLEX AND FERROUS SULFATE FROM PHARMACY
[2021-08-06] MEDS: FERROUS SULFATE 300 MG/5 ML UDC GT SCH ×2 (11:29→21:12)
[2021-08-06] MEDS: BALSAM PERU/CASTOR OIL 56.7 GM OINT...G. TP SCH (11:30)
[2021-08-06] MEDS: LevETIRAcetam 500 MG/5 ML UDC ORAL LIQUID GT SCH ×2 (11:34→23:38)
--- NOTE | 2021-08-06 19:47 | NUR ---
Received bedside report from ZAN Alicea. Assumed care.
[2021-08-06] MEDS: ATORVASTATIN 10 MG TABLET GT SCH (21:12)
[2021-08-07] VITALS (33 sets, daily range): BP systolic 128–175
[2021-08-07] MEDS: ALBUTEROL SULFATE 0.083% 2.5 MG/3 ML VIAL.NEB INH SCH ×6 (03:17→23:34)
[2021-08-07] MEDS: VALPROIC ACID ORAL SYRUP 250 MG/5 ML UDC GT SCH ×3 (03:40→19:11)
[2021-08-07] MEDS: NACL 0.9% 1,000 ML IV SCH ×3 (04:00→10:55)
[2021-08-07] MEDS: MEROPENEM 500 MG in NS 50 ML IV SCH ×3 (05:26→21:20)
[2021-08-07 06:50] LABS: BASOPHILS # (AUTO) 0.1 K/uL (0.0-0.2); BASOPHILS % (AUTO) 0.5 % (0.0-2.0); EOSINOPHILS # (AUTO) 0.3 K/uL (0.0-0.4); EOSINOPHILS % (AUTO) 2.2 % (0.0-4.0); HEMOGLOBIN 7.2 g/dL (12.0-16.0); LYMPHOCYTES # (AUTO) 1.7 K/uL (1.0-5.5); LYMPHOCYTES % (AUTO) 10.7 % (20.5-51.5); MEAN CORPUSCULAR HEMOGLOBIN 33 pg (27-31); MEAN CORPUSCULAR HGB CONC 31 % (32-36); MEAN CORPUSCULAR VOLUME 104 fL (79.0-98.0); MONOCYTES # (AUTO) 2.1 K/uL (0.0-1.0); MONOCYTES % (AUTO) 13.3 % (1.7-9.3); NEUTROPHILS # (AUTO) 11.4 K/uL (1.8-7.7); NEUTROPHILS % (AUTO) 73.3 % (40.0-70.0); PLATELET COUNT (AUTO) 175 K/uL (130-430); RED BLOOD CELL COUNT(AUTO) 2.21 MIL/uL (4.2-6.2); RED CELL DISTRIBUTION WIDTH 15.3 % (9.0-15.0); WHITE BLOOD COUNT (AUTO) 15.5 K/uL (4.8-10.8)
[2021-08-07 08:14] LABS: ALANINE AMINOTRANSFERASE 12 U/L (12-78); ALBUMIN 1.6 g/dL (3.4-4.8); ANION GAP 10 (5-15); ASPARTATE AMINOTRANSFERASE 24 U/L (10-37); CALCIUM 8.2 mg/dL (8.4-11.0); CHLORIDE 118 mmol/L (98-107); CREATININE 0.95 mg/dL (0.55-1.30); GLUCOSE 205 mg/dL (70-99); POTASSIUM 3.4 mmol/L (3.5-5.1); SODIUM SERUM 146 mmol/L (136-145); TOTAL BILIRUBIN 0.2 mg/dL (0.0-1.0); UREA NITROGEN, BLOOD 39 mg/dL (8-21)
[2021-08-07] MEDS: traMADol HCL HCL 50 MG TABLET (ULTRAM) GT SCH (08:34)
[2021-08-07] MEDS: NEPHROVITE, (FOLIC ACID/VITAMIN B COMP W-C 1 TAB) GT SCH (08:35)
[2021-08-07] MEDS: hydrALAZINE HCL 25 MG TABLET GT SCH ×3 (08:50→20:27)
[2021-08-07] MEDS: lisinopriL 20 MG TABLET GT SCH (08:51)
[2021-08-07] MEDS: FERROUS SULFATE 300 MG/5 ML UDC GT SCH ×2 (08:52→20:26)
[2021-08-07] MEDS: MULTIVITAMINS TAB 1 TABLET GT SCH (08:53)
[2021-08-07] MEDS: APIXABAN 2.5 MG TABLET GT SCH ×2 (08:53→20:29)
[2021-08-07] MEDS: LEVOTHYROXINE SODIUM 0.025 MG TABLET GT SCH (08:53)
[2021-08-07] MEDS: ASCORBIC ACID 500 MG TABLET GT SCH (08:53)
[2021-08-07] MEDS: THEOPHYLLINE ANHYDROUS 200 MG CAP.ER.24H PO SCH ×2 (08:54→20:29)
[2021-08-07] MEDS: FUROSEMIDE 20 MG/2 ML VIAL IVP SCH (08:55)
[2021-08-07] MEDS: BALSAM PERU/CASTOR OIL 56.7 GM OINT...G. TP SCH (08:55)
[2021-08-07] MEDS: VANCOMYCIN HCL 1,000 MG in NS 250 ML IV SCH (09:48)
[2021-08-07] MEDS: FLUCONAZOLE 200 mg/ NS 100 ML IV SCH (10:56)
[2021-08-07] MEDS: LevETIRAcetam 500 MG/5 ML UDC ORAL LIQUID GT SCH ×2 (10:56→23:56)
--- NOTE | 2021-08-07 14:16 | NUR ---
Nutrition F/U Admitting Diagnosis Sepsis, PNA Reviewed Pertinent Medical/Surgical Hx Medical Record RN Medical History Comment: Per EMR review, PMH includes COPD, chronic respiratory failure, seizures, HTN, CVA, T2DM. Pt is bedbound, extremity contractures, s/p trach & PEG. SARS-CoV-2 Ag (Rapid) Negative 07/31. Subjective Information Pt remains obtunded, extremities contracted, trach to vent, continues to tolerate GTF of Glucerna 1.2 @ goal rate of 50 ml/ h. RN reports G-tube flush of 100 ml q6h, last BM was today, loose although manageable. Per MD note, bilat PNA, GARRETT R/T ATN->improving, elevated troponin R/T demand ischemia. Current Diet Order/Nutrition Support Glucerna 1.2 @50 mL/hr, w/ 100 mL free water flush Q6H Patient/Significant Other Unable To Verbalize Education Provided Not Indicated Pertinent Medications Multivitamin, Nephrovite, vitamin C, iron sulfate, Lasix, Keppra, PRN Dulcolax-not given, loose BM Pertinent Labs BG 151 H, BUN 35 H, Cr 1.58 H Height (Feet) 5 feet Height (Inches) 5.00 inches Weight (Pounds) 180 pounds Weight (Calculated Kilograms) 81.124943 kilograms Patient Weight 81.647 kg Body Mass Index 29.95 kg/m2 %IBW 144 [place]/Adjusted Body Weight 125#/56.8 kg; AdjBW 139#/63 kg Recent Weight Change unable to verify Weight Status Overweight (may be R/T fluid status vs. adiposity) Food Allergies unable to verify Usual Diet At Home unable to verify Skin Integrity Comment: Cr score 9, sacrum wound/tear. Estimated Energy Expenditure (kcals/day) 1541 kcals/day (PSU 2009, Ve 11.3, Tmax 98.8 F) Estimated Protein Required (g/day) 63-95 g/day (1-1.5 g/kg AdjBW d/t overweight, COPD, respiratory failure) Estimated Fluid Required (l/day) 1.6-1.9 L/day (25-30 mL/kg AdjBW for maintenance or per MD discretion) Problem/Etiology/Signs/Symptoms Increased nutritional needs R/T physiological demands AEB estimated Nutritional requirements for COPD/respiratory failure. Expected Outcomes/Goals Monitor TF tolerance and intakes w/ goal of pt meeting more than 90% of estimated nutritional needs, labs trending WNL, normal GI function, skin integrity. Dietitian Recommendations 1) Continue Glucerna 1.2 @50 mL/h to provide 1440 Kcals/d, 72 gm protein/d, 966 ml free water/d (total volume 1200 ml/d) to meet 93% min Kcal need, 114% of min protein need. 2) Continue 100 mL G-tube flush Q6h (total 400 ml in 24 hours)->consider increase to 120 ml q6h as appropriate (hx renal compromise). 3) Suggest to DC multivitamin, continue Nephrovite. Follow Up Mod Risk: F/U in 3-5 days Follow Up By August 12, 2021 Alert Not Indicated
--- NOTE | 2021-08-07 19:10 | NUR ---
OPENING NOTE SBAR report received from Nixon ZULUAGA, all cares assumed. Pt trach to vent, AC 16, 500, 30%, 5. Bed in low, locked position.
--- NOTE | 2021-08-07 19:40 | NUR ---
REG NURSE MANGO GOMEZ RN FOR THIS PATIENT//MW
[2021-08-07] MEDS: ATORVASTATIN 10 MG TABLET GT SCH (20:27)
[2021-08-08] VITALS (33 sets, daily range): BP systolic 128–179
--- NOTE | 2021-08-08 02:00 | NUR ---
Bed bath given, wound care completed, new dressings applied. Generalized skin slough noted. Weeping of left upper extremity noted. VSS. Heels floating, left arm elevated.
[2021-08-08] MEDS: VALPROIC ACID ORAL SYRUP 250 MG/5 ML UDC GT SCH ×3 (03:58→21:08)
[2021-08-08] MEDS: ALBUTEROL SULFATE 0.083% 2.5 MG/3 ML VIAL.NEB INH SCH ×6 (04:14→23:10)
[2021-08-08] MEDS: MEROPENEM 500 MG in NS 50 ML IV SCH ×3 (06:15→22:49)
[2021-08-08 06:40] LABS: BASOPHILS # (AUTO) 0.1 K/uL (0.0-0.2); BASOPHILS % (AUTO) 0.5 % (0.0-2.0); EOSINOPHILS # (AUTO) 0.4 K/uL (0.0-0.4); EOSINOPHILS % (AUTO) 2.6 % (0.0-4.0); HEMATOCRIT 26.8 % (36-48); HEMOGLOBIN 8.4 g/dL (12.0-16.0); LYMPHOCYTES # (AUTO) 2.1 K/uL (1.0-5.5); MEAN CORPUSCULAR HEMOGLOBIN 33 pg (27-31); MEAN CORPUSCULAR HGB CONC 32 % (32-36); MEAN CORPUSCULAR VOLUME 105 fL (79.0-98.0); MONOCYTES # (AUTO) 2.2 K/uL (0.0-1.0); MONOCYTES % (AUTO) 14.7 % (1.7-9.3); NEUTROPHILS # (AUTO) 10.3 K/uL (1.8-7.7); NEUTROPHILS % (AUTO) 68.2 % (40.0-70.0); PLATELET COUNT (AUTO) 205 K/uL (130-430); RED BLOOD CELL COUNT(AUTO) 2.55 MIL/uL (4.2-6.2); RED CELL DISTRIBUTION WIDTH 15.7 % (9.0-15.0); WHITE BLOOD COUNT (AUTO) 15.1 K/uL (4.8-10.8)
[2021-08-08 07:36] LABS: ALANINE AMINOTRANSFERASE 14 U/L (12-78); ALBUMIN 1.6 g/dL (3.4-4.8); ANION GAP 9 (5-15); ASPARTATE AMINOTRANSFERASE 32 U/L (10-37); CALCIUM 8.5 mg/dL (8.4-11.0); CHLORIDE 119 mmol/L (98-107); CREATININE 0.85 mg/dL (0.55-1.30); GLUCOSE 247 mg/dL (70-99); POTASSIUM 3.5 mmol/L (3.5-5.1); SODIUM SERUM 147 mmol/L (136-145); TOTAL BILIRUBIN 0.2 mg/dL (0.0-1.0); UREA NITROGEN, BLOOD 31 mg/dL (8-21)
[2021-08-08] MEDS: APIXABAN 2.5 MG TABLET GT SCH ×2 (09:00→21:10)
[2021-08-08] MEDS: NEPHROVITE, (FOLIC ACID/VITAMIN B COMP W-C 1 TAB) GT SCH (10:01)
[2021-08-08] MEDS: LEVOTHYROXINE SODIUM 0.025 MG TABLET GT SCH (10:01)
[2021-08-08] MEDS: MULTIVITAMINS TAB 1 TABLET GT SCH (10:01)
[2021-08-08] MEDS: FERROUS SULFATE 300 MG/5 ML UDC GT SCH ×2 (10:06→21:11)
[2021-08-08] MEDS: ASCORBIC ACID 500 MG TABLET GT SCH (10:07)
[2021-08-08] MEDS: lisinopriL 20 MG TABLET GT SCH (10:08)
[2021-08-08] MEDS: hydrALAZINE HCL 25 MG TABLET GT SCH ×3 (10:09→21:09)
[2021-08-08] MEDS: FUROSEMIDE 20 MG/2 ML VIAL IVP SCH (10:11)
[2021-08-08] MEDS: THEOPHYLLINE ANHYDROUS 200 MG CAP.ER.24H PO SCH ×2 (10:12→21:12)
[2021-08-08] MEDS: VANCOMYCIN HCL 1,000 MG in NS 250 ML IV SCH (10:55)
[2021-08-08] MEDS: 0.45% NACL 1,000 ML IV SCH (11:00)
[2021-08-08] MEDS: BALSAM PERU/CASTOR OIL 56.7 GM OINT...G. TP SCH (11:00)
[2021-08-08] MEDS: LevETIRAcetam 500 MG/5 ML UDC ORAL LIQUID GT SCH ×2 (15:00→22:49)
[2021-08-08] MEDS: FLUCONAZOLE 200 mg/ NS 100 ML IV SCH (15:01)
[2021-08-08] MEDS: ATORVASTATIN 10 MG TABLET GT SCH (21:12)
[2021-08-09] VITALS (37 sets, daily range): BP systolic 126–163
[2021-08-09] MEDS: VALPROIC ACID ORAL SYRUP 250 MG/5 ML UDC GT SCH ×3 (03:18→19:20)
[2021-08-09] MEDS: ALBUTEROL SULFATE 0.083% 2.5 MG/3 ML VIAL.NEB INH SCH ×6 (03:28→23:10)
[2021-08-09] MEDS: 0.45% NACL 1,000 ML IV SCH ×2 (05:45→19:19)
[2021-08-09 06:10] LABS: HEMATOCRIT 26.1 % (36-48); HEMOGLOBIN 8.2 g/dL (12.0-16.0); MEAN CORPUSCULAR HEMOGLOBIN 33 pg (27-31); MEAN CORPUSCULAR HGB CONC 32 % (32-36); MEAN CORPUSCULAR VOLUME 104 fL (79.0-98.0); PLATELET COUNT (AUTO) 190 K/uL (130-430); RED BLOOD CELL COUNT(AUTO) 2.52 MIL/uL (4.2-6.2); RED CELL DISTRIBUTION WIDTH 15.5 % (9.0-15.0); WHITE BLOOD COUNT (AUTO) 12.8 K/uL (4.8-10.8)
[2021-08-09] MEDS: MEROPENEM 500 MG in NS 50 ML IV SCH ×3 (06:49→21:21)
[2021-08-09 07:04] LABS: ALANINE AMINOTRANSFERASE 18 U/L (12-78); ALBUMIN 1.6 g/dL (3.4-4.8); ANION GAP 8 (5-15); ASPARTATE AMINOTRANSFERASE 36 U/L (10-37); CALCIUM 8.4 mg/dL (8.4-11.0); CHLORIDE 119 mmol/L (98-107); GLUCOSE 209 mg/dL (70-99); POTASSIUM 3.3 mmol/L (3.5-5.1); SODIUM SERUM 148 mmol/L (136-145); TOTAL BILIRUBIN 0.2 mg/dL (0.0-1.0); UREA NITROGEN, BLOOD 23 mg/dL (8-21)
--- NOTE | 2021-08-09 08:00 | NUR ---
ON DUTY RECEIVED THIS PT ON VENT: [id number]. NO SEDATION. VS STABLE. PT WAS LETHARGIC. NEAR COMATOSE. RESPONSE ONLY TO DEEP STIMULI. GTUBE FEEDING GLUCERNA ON 50ML/HR.
[2021-08-09] MEDS: APIXABAN 2.5 MG TABLET GT SCH ×2 (08:31→20:12)
[2021-08-09] MEDS: FUROSEMIDE 20 MG/2 ML VIAL IVP SCH (08:32)
[2021-08-09] MEDS: FERROUS SULFATE 300 MG/5 ML UDC GT SCH ×2 (08:33→20:08)
[2021-08-09] MEDS: MULTIVITAMINS TAB 1 TABLET GT SCH (08:34)
[2021-08-09] MEDS: THEOPHYLLINE ANHYDROUS 200 MG CAP.ER.24H PO SCH ×2 (08:34→20:09)
[2021-08-09] MEDS: LEVOTHYROXINE SODIUM 0.025 MG TABLET GT SCH (08:35)
[2021-08-09] MEDS: hydrALAZINE HCL 25 MG TABLET GT SCH ×3 (08:35→20:09)
[2021-08-09] MEDS: ASCORBIC ACID 500 MG TABLET GT SCH (08:36)
[2021-08-09] MEDS: lisinopriL 20 MG TABLET GT SCH (08:36)
[2021-08-09] MEDS: BALSAM PERU/CASTOR OIL 56.7 GM OINT...G. TP SCH (08:37)
[2021-08-09] MEDS: PEG 400/HYPROMELLOSE/GLYCERIN 15 ML DROPS OP SCH ×4 (08:38→20:10)
[2021-08-09] MEDS: NEPHROVITE, (FOLIC ACID/VITAMIN B COMP W-C 1 TAB) GT SCH (08:39)
[2021-08-09] MEDS: VANCOMYCIN HCL 1,000 MG in NS 250 ML IV SCH (08:41)
[2021-08-09] MEDS ORDERED: POTASSIUM CHLORIDE 40 MEQ in 0.45% NS 250 ML IV ONE (09:30)
[2021-08-09] MEDS: FLUCONAZOLE 200 mg/ NS 100 ML IV SCH (10:22)
[2021-08-09 10:31] LABS: BAND % (MANUAL) 4 % (0-6); BASOPHILS % (MANUAL) 0 % (0-2)
[2021-08-09 10:37] LABS: EOSINOPHILS % (MANUAL) 3 % (0-7); LYMPHOCYTES % (MANUAL) 15 % (20-46); MONOCYTES % (MANUAL) 8 % (0-11)
[2021-08-09] MEDS: LevETIRAcetam 500 MG/5 ML UDC ORAL LIQUID GT SCH ×2 (12:06→22:54)
[2021-08-09] MEDS ORDERED: POTASSIUM CHLORIDE 20 MEQ/PKT PACKET GT ONE (16:45)
--- NOTE | 2021-08-09 19:15 | NUR ---
Opening notes: Received bedside report from Ronnie, patient is A&O X0, vent setting AC 16,500,30,5. Gtube with Glucerna running at 50 ml hr. R Picc with 1/2 NS running at 50 ml/hr. Sacral wound covered with foam dressing by day shift, both heels sloughing, back mild sloughing, skin is flaking with pitting edema. bed is at the lowest level, brakes are locked, appropriate side rails up.
[2021-08-09] MEDS: ATORVASTATIN 10 MG TABLET GT SCH (20:09)
[2021-08-09] MEDS: EMOLLIENT COMBINATION NO.73 78 GM CREAM..G. TP SCH (20:11)
[2021-08-10] VITALS (35 sets, daily range): BP systolic 121–149
[2021-08-10] MEDS: VALPROIC ACID ORAL SYRUP 250 MG/5 ML UDC GT SCH ×3 (03:09→17:47)
[2021-08-10] MEDS: ALBUTEROL SULFATE 0.083% 2.5 MG/3 ML VIAL.NEB INH SCH ×6 (03:26→23:58)
[2021-08-10 05:58] LABS: HEMATOCRIT 24.2 % (36-48); HEMOGLOBIN 7.9 g/dL (12.0-16.0); MEAN CORPUSCULAR HEMOGLOBIN 34 pg (27-31); MEAN CORPUSCULAR HGB CONC 33 % (32-36); MEAN CORPUSCULAR VOLUME 104 fL (79.0-98.0); PLATELET COUNT (AUTO) 179 K/uL (130-430); RED BLOOD CELL COUNT(AUTO) 2.34 MIL/uL (4.2-6.2); RED CELL DISTRIBUTION WIDTH 15.5 % (9.0-15.0); WHITE BLOOD COUNT (AUTO) 10.7 K/uL (4.8-10.8)
[2021-08-10] MEDS: MEROPENEM 500 MG in NS 50 ML IV SCH (06:15)
[2021-08-10 06:18] LABS: ALANINE AMINOTRANSFERASE 15 U/L (12-78); ALBUMIN 1.6 g/dL (3.4-4.8); ASPARTATE AMINOTRANSFERASE 38 U/L (10-37); CALCIUM 8.2 mg/dL (8.4-11.0); CREATININE 0.71 mg/dL (0.55-1.30); GLUCOSE 239 mg/dL (70-99); POTASSIUM 4.8 mmol/L (3.5-5.1); SODIUM SERUM 146 mmol/L (136-145); TOTAL BILIRUBIN 0.1 mg/dL (0.0-1.0); UREA NITROGEN, BLOOD 22 mg/dL (8-21)
[2021-08-10 07:19] LABS: ANION GAP 2 (5-15); CHLORIDE 120 mmol/L (98-107)
--- NOTE | 2021-08-10 07:30 | NUR ---
INITIAL SHIFT REPORT RECEIVED FROM NIGHT RN FOR CONTINUITY OF CARE
--- NOTE | 2021-08-10 08:07 | NUR ---
PAGED FOR ORDERS SPOKE TO: OMARI
[2021-08-10] MEDS: lisinopriL 20 MG TABLET GT SCH (09:00)
[2021-08-10] MEDS: FUROSEMIDE 20 MG/2 ML VIAL IVP SCH (09:06)
[2021-08-10] MEDS: APIXABAN 2.5 MG TABLET GT SCH ×2 (09:07→21:30)
[2021-08-10] MEDS: LEVOTHYROXINE SODIUM 0.025 MG TABLET GT SCH (09:07)
[2021-08-10] MEDS: NEPHROVITE, (FOLIC ACID/VITAMIN B COMP W-C 1 TAB) GT SCH (09:07)
[2021-08-10] MEDS: MULTIVITAMINS TAB 1 TABLET GT SCH (09:07)
[2021-08-10] MEDS: FERROUS SULFATE 300 MG/5 ML UDC GT SCH ×2 (09:08→21:26)
[2021-08-10] MEDS: VANCOMYCIN HCL 1,000 MG in NS 250 ML IV SCH (09:11)
[2021-08-10] MEDS: THEOPHYLLINE ANHYDROUS 200 MG CAP.ER.24H PO SCH ×2 (09:11→21:31)
[2021-08-10] MEDS: PEG 400/HYPROMELLOSE/GLYCERIN 15 ML DROPS OP SCH ×4 (09:12→21:36)
[2021-08-10] MEDS: EMOLLIENT COMBINATION NO.73 78 GM CREAM..G. TP SCH ×2 (09:13→21:36)
[2021-08-10] MEDS: BALSAM PERU/CASTOR OIL 56.7 GM OINT...G. TP SCH (09:14)
--- NOTE | 2021-08-10 10:09 | NUR ---
Dental Lab Technician In an effort to obtain information on patient's decision maker and family contacts, RO Bustillos reviewed patient notes and contacted Next of Kin on face sheet. The following was found: Fernando Mohann (patient's daughter, according to patient's son she currently makes decisions on care and has POA) Kenneth Moraes Voicemail was left for daughter, SPECIAL ASSETS OFFICER spoke to patient's son and provided him contact info for social work and ICU. SPECIAL ASSETS OFFICER will continue to be available as needed.
[2021-08-10] MEDS: D5W 1,000 ML IV SCH (10:12)
[2021-08-10] MEDS: FLUCONAZOLE 200 mg/ NS 100 ML IV SCH (10:13)
[2021-08-10] MEDS: hydrALAZINE HCL 25 MG TABLET GT SCH ×3 (10:14→21:28)
[2021-08-10] MEDS ORDERED: ASCORBIC ACID 500 MG TABLET GT ONE (10:15)
[2021-08-10] MEDS: LevETIRAcetam 500 MG/5 ML UDC ORAL LIQUID GT SCH (12:18)
[2021-08-10 14:47] LABS: BAND % (MANUAL) 18 % (0-6); BASOPHILS % (MANUAL) 0 % (0-2); EOSINOPHILS % (MANUAL) 2 % (0-7); LYMPHOCYTES % (MANUAL) 12 % (20-46); METAMYELOCYTES % 2 % (0-0); MONOCYTES % (MANUAL) 13 % (0-11)
--- NOTE | 2021-08-10 17:38 | NUR ---
PAGED FOR ORDERS SPOKE TO: YADIRA
--- NOTE | 2021-08-10 19:25 | NUR ---
ENDORSEMENT BEDSIDE SHIFT REPORT GIVEN TO NIGHT RN FOR CONTINUATION OF CARE
--- NOTE | 2021-08-10 19:30 | NUR ---
Assumed pt care report received from Karen ZULUAGA, updates at the bedside vent settings, all IV infusion, pt skin assessment, tube feeding rate, pt's assessment, awake eyes open not tracking nor able to follow command, moves her head from side to side, no movement in left upper extremities decerebrate, right upper arm contracted trace of movement noted, bilateral lower extremities flaccid, generalized skin dryness/flaky right feet wound noted, right side of the head also with open wound right parietal covered with foam, decub on the coccyx stage two, trach to vent a/c mode rate 16/TV 500, FIO2 30% peep 5 tolerating well O2 sat 97% scant secretions, oral care, ongoing tube feeding Glucerna 1.2@50m/hr residual checked <30ml callaway to gravity some urine noted. Will continue to monitor and treat as per care plan
--- NOTE | 2021-08-10 19:46 | NUR ---
Dr Wise and Lynnette visit at the bedside no new order received and no changes in care plan.
[2021-08-10] MEDS: ATORVASTATIN 10 MG TABLET GT SCH (21:30)
[2021-08-10] MEDS: CEFEPIME 2 GM in D5W 100 ML IV SCH (21:35)
[2021-08-10] MEDS: 0.45% NACL 1,000 ML IV SCH (21:45)
[2021-08-10] MEDS: ACETAMINOPHEN 650 MG/20.3 ML UDC GT PRN (22:24)
[2021-08-11] VITALS (34 sets, daily range): BP systolic 98–165
[2021-08-11] MEDS: ACETAMINOPHEN 650 MG/20.3 ML UDC GT PRN ×2 (00:02→00:05)
[2021-08-11] MEDS: LevETIRAcetam 500 MG/5 ML UDC ORAL LIQUID GT SCH ×3 (00:02→23:08)
[2021-08-11 01:03] LABS: BILIRUBIN,URINE NEGATIVE (NEGATIVE); BLOOD, URINE NEGATIVE (NEGATIVE); CLARITY/URINE CLEAR (CLEAR); COLOR,URINE YELLOW (YELLOW); GLUCOSE,URINE NEGATIVE (NEGATIVE); KETONES,URINE TRACE (NEGATIVE); LEUKOCYTE ESTERASE ,URINE TRACE (NEGATIVE); NITRITE, URINE NEGATIVE (NEGATIVE); PROTEIN URINE NEGATIVE (NEGATIVE); UROBILINOGEN,URINE 0.2 (0.2-1.0)
[2021-08-11 01:14] LABS: BACTERIA,URINE MODERATE /HPF (None Seen)
[2021-08-11] MEDS ORDERED: MORPHINE 2 MG/ML INJ. SYRINGE IVP PRN (01:45)
--- NOTE | 2021-08-11 02:30 | NUR ---
Complete bed bath given with CHG, lotion applied all pt's skin very dry flaky tolerated well with mild discomfort was restless tachypneic, body stiffness noted, Dr Church notified called about pt's condition order received Benadryl 25mg ivp Q6HR PRN for itching, and Morphine 1mg ivp Q4hr PRN for pain.
[2021-08-11] MEDS: DIPHENHYDRAMINE INJ 50 MG/ML VIAL IVP PRN (03:17)
[2021-08-11] MEDS: VALPROIC ACID ORAL SYRUP 250 MG/5 ML UDC GT SCH ×3 (03:18→20:12)
[2021-08-11] MEDS: D5W 1,000 ML IV SCH (03:18)
--- NOTE | 2021-08-11 03:50 | NUR ---
PICC LINE dressing done, both luer lock caps changed and primary IV lines. All lines flushed and patent with good blood return.
[2021-08-11] MEDS: ALBUTEROL SULFATE 0.083% 2.5 MG/3 ML VIAL.NEB INH SCH ×5 (03:54→23:20)
[2021-08-11 05:58] LABS: BASOPHILS # (AUTO) 0.1 K/uL (0.0-0.2); BASOPHILS % (AUTO) 0.8 % (0.0-2.0); EOSINOPHILS # (AUTO) 0.2 K/uL (0.0-0.4); EOSINOPHILS % (AUTO) 1.8 % (0.0-4.0); HEMATOCRIT 25.6 % (36-48); HEMOGLOBIN 8.1 g/dL (12.0-16.0); LYMPHOCYTES # (AUTO) 1.6 K/uL (1.0-5.5); LYMPHOCYTES % (AUTO) 11.7 % (20.5-51.5); MEAN CORPUSCULAR HEMOGLOBIN 33 pg (27-31); MEAN CORPUSCULAR HGB CONC 31 % (32-36); MEAN CORPUSCULAR VOLUME 106 fL (79.0-98.0); MONOCYTES # (AUTO) 1.6 K/uL (0.0-1.0); MONOCYTES % (AUTO) 11.7 % (1.7-9.3); NEUTROPHILS # (AUTO) 10.3 K/uL (1.8-7.7); PLATELET COUNT (AUTO) 181 K/uL (130-430); RED BLOOD CELL COUNT(AUTO) 2.42 MIL/uL (4.2-6.2); RED CELL DISTRIBUTION WIDTH 15.6 % (9.0-15.0)
[2021-08-11 06:23] LABS: ALANINE AMINOTRANSFERASE 20 U/L (12-78); ALBUMIN 1.5 g/dL (3.4-4.8); ANION GAP 8 (5-15); ASPARTATE AMINOTRANSFERASE 44 U/L (10-37); CALCIUM 8.1 mg/dL (8.4-11.0); CHLORIDE 116 mmol/L (98-107); CREATININE 0.97 mg/dL (0.55-1.30); GLUCOSE 295 mg/dL (70-99); POTASSIUM 4.9 mmol/L (3.5-5.1); SODIUM SERUM 144 mmol/L (136-145); TOTAL BILIRUBIN 0.2 mg/dL (0.0-1.0); UREA NITROGEN, BLOOD 22 mg/dL (8-21)
--- NOTE | 2021-08-11 07:25 | NUR ---
Change of shift report given to RAUL RN as at this time pt resting peacefully vitals signs stable no changes in pt's condition and care plan
[2021-08-11 08:08] LABS: TOTAL IRON BIND. CAPACITY 126 ug/dL (250-450)
[2021-08-11 08:45] LABS: WHITE BLOOD COUNT (AUTO) 13.9 K/uL (4.8-10.8)
[2021-08-11] MEDS: hydrALAZINE HCL 25 MG TABLET GT SCH ×3 (09:00→20:21)
[2021-08-11] MEDS: VANCOMYCIN HCL 1,000 MG in NS 250 ML IV SCH (09:41)
[2021-08-11] MEDS: CEFEPIME 2 GM in D5W 100 ML IV SCH ×2 (09:41→20:21)
[2021-08-11] MEDS: PEG 400/HYPROMELLOSE/GLYCERIN 15 ML DROPS OP SCH ×4 (09:42→20:23)
[2021-08-11] MEDS: APIXABAN 2.5 MG TABLET GT SCH ×2 (09:43→20:20)
[2021-08-11] MEDS: BALSAM PERU/CASTOR OIL 56.7 GM OINT...G. TP SCH (09:44)
[2021-08-11] MEDS: EMOLLIENT COMBINATION NO.73 78 GM CREAM..G. TP SCH ×2 (09:44→20:23)
[2021-08-11] MEDS: MULTIVITAMINS TAB 1 TABLET GT SCH (09:45)
[2021-08-11] MEDS: ASCORBIC ACID 500 MG TABLET GT SCH (09:45)
[2021-08-11] MEDS: LEVOTHYROXINE SODIUM 0.025 MG TABLET GT SCH (09:45)
[2021-08-11] MEDS: THEOPHYLLINE ANHYDROUS 200 MG CAP.ER.24H PO SCH ×2 (09:45→20:22)
[2021-08-11] MEDS: NEPHROVITE, (FOLIC ACID/VITAMIN B COMP W-C 1 TAB) GT SCH (09:45)
[2021-08-11] MEDS: lisinopriL 20 MG TABLET GT SCH (09:47)
[2021-08-11] MEDS: FUROSEMIDE 20 MG/2 ML VIAL IVP SCH (09:50)
[2021-08-11] MEDS: FERROUS SULFATE 300 MG/5 ML UDC GT SCH ×2 (11:59→20:20)
[2021-08-11] MEDS: FLUCONAZOLE 200 mg/ NS 100 ML IV SCH (12:00)
--- NOTE | 2021-08-11 14:12 | NUR ---
wound cleansed and cream applied per wound care nurse recommendation.photos taken and placed at the chart.
--- NOTE | 2021-08-11 19:05 | NUR ---
all needs mets, vital sign stable, afebrile. no s/s of distress, on trach to vent ac16, tv 500, fio2 30% peep 5. saturation 100%. g-tube feeding glucerna 1.2@ 50ml/hr new bottle hanged. no residual noted. generalized dry and flaky , hx of aubrey wallace syndrome. photos taken and placed at the chart. callaway catheter draining via gravity. hob elevated to prevent aspiration. bed is low and lock position.
--- NOTE | 2021-08-11 19:11 | NUR ---
Titrate levophed drip to 0.16mcg/kg/min bp 74/23, pulse 116. report given to je penny.
--- NOTE | 2021-08-11 19:15 | NUR ---
Opening notes Received report from endorsing morning shift RN for continuity of care. Patient is lying in bed in no signs of distress with IVF D5W @ 50mL/hr. Patient's vital signs blood pressure 114/48, heart rate 74, respirations 21, SPO2 100% on vent. Vent settings AC 16, tidal volume 500, FIO2 30%, and peep of 5. Escalante catheter is in place draining to gravity. Bed is locked and in lowest position, fall and safety precautions is in place.
[2021-08-11] MEDS: ATORVASTATIN 10 MG TABLET GT SCH (20:22)
--- NOTE | 2021-08-11 23:32 | NUR ---
MD Dr. Church is in the unit rounding on patient. Gave verbal report, no new order given.
[2021-08-12] VITALS (7 sets, daily range): BP systolic 114–154
[2021-08-12] MEDS: D5W 1,000 ML IV SCH ×2 (00:16→21:02)
--- NOTE | 2021-08-12 00:21 | NUR ---
Received call from [facility], patient will be transferred to room 118A when room ready. waiting for call back.
--- NOTE | 2021-08-12 01:00 | NUR ---
pt.received transfer icu.krys;rn provided pt's report/data.pt.presents stable status.v/s assessed values stable status.pt.presents trach/vent.vent settings;tv;500,fio2%:30%,a/c;12,p;5.02-sat%=100%.pt.presents picc line;location.rt.bicept.intact.pt.presents g-tube intact g-tube feed;glucerna;1,2.PT.PRsesnts JAMES CATH.INtACT.PT.presents CUTANEOUS ISSUEs;FLAKY,profound distribution.call light/telephone placed w/in access of the pt.
--- NOTE | 2021-08-12 01:00 | NUR ---
RT NOTES ASSISTED WITH TRANSFERING PT TO [facility]. TRACH IS SECURE AND INTACT. NO RESPIRATORY DISTRESS NOTED. Addendum: 08/12/21 at 0143 by Tk Doan RT Amended: Links added.
--- NOTE | 2021-08-12 01:00 | NUR ---
Transfer Transferred patient to [facility]. Gave SBAR report to ZAN Delgadillo.
[2021-08-12] MEDS: VALPROIC ACID ORAL SYRUP 250 MG/5 ML UDC GT SCH ×4 (03:35→20:55)
[2021-08-12] MEDS: ALBUTEROL SULFATE 0.083% 2.5 MG/3 ML VIAL.NEB INH SCH ×6 (03:47→23:33)
--- NOTE | 2021-08-12 04:00 | NUR ---
PT.ASSESSED.TRACH INTACT.I HaVE ATTENDED TO THE ORAL/TRACH CARE/SUCTION.O2-DUX=595%.PICC LINE INTACT IV FLUIDS INFUSING.JAMES CATH INTACT.G-TUBE INTACT G0-TUBE FFED INFUSING.PER FLACC PAIN MGX PT.ABSENT FACIAL GRIMACES/BODY POSTURING.PT.ASSESSED FOR CLEANLINESS.PT.REPOSITIONED.CALL LIGHT/TELEPHONE PLACED W/IN ACCESS OF THE PT.
--- NOTE | 2021-08-12 06:06 | NUR ---
pt.assessed.pt.cleaned.i have attended to the oral/trach care/suction.02-mon%=98%.i have attended to the dsg changes.call light/telephone placed w/in access of the pt.
[2021-08-12 06:28] LABS: BASOPHILS # (AUTO) 0.1 K/uL (0.0-0.2); BASOPHILS % (AUTO) 0.8 % (0.0-2.0); EOSINOPHILS # (AUTO) 0.5 K/uL (0.0-0.4); EOSINOPHILS % (AUTO) 3.2 % (0.0-4.0); HEMATOCRIT 24.1 % (36-48); LYMPHOCYTES # (AUTO) 1.6 K/uL (1.0-5.5); LYMPHOCYTES % (AUTO) 11.1 % (20.5-51.5); MEAN CORPUSCULAR HEMOGLOBIN 34 pg (27-31); MEAN CORPUSCULAR HGB CONC 32 % (32-36); MEAN CORPUSCULAR VOLUME 105 fL (79.0-98.0); MONOCYTES # (AUTO) 1.3 K/uL (0.0-1.0); MONOCYTES % (AUTO) 9.1 % (1.7-9.3); NEUTROPHILS % (AUTO) 75.8 % (40.0-70.0); RED BLOOD CELL COUNT(AUTO) 2.29 MIL/uL (4.2-6.2); RED CELL DISTRIBUTION WIDTH 15.5 % (9.0-15.0); WHITE BLOOD COUNT (AUTO) 14.5 K/uL (4.8-10.8)
[2021-08-12 06:51] LABS: ALANINE AMINOTRANSFERASE 22 U/L (12-78); ALBUMIN 1.4 g/dL (3.4-4.8); ANION GAP 10 (5-15); ASPARTATE AMINOTRANSFERASE 62 U/L (10-37); CALCIUM 8.1 mg/dL (8.4-11.0); CHLORIDE 113 mmol/L (98-107); CREATININE 1.07 mg/dL (0.55-1.30); GLUCOSE 290 mg/dL (70-99); POTASSIUM 5.4 mmol/L (3.5-5.1); SODIUM SERUM 143 mmol/L (136-145); TOTAL BILIRUBIN 0.2 mg/dL (0.0-1.0); UREA NITROGEN, BLOOD 25 mg/dL (8-21)
--- NOTE | 2021-08-12 08:00 | NUR ---
OPENING NOTES: PATIENT RESTING IN BED. BREATHING EVEN AND NON LABORED. TRACH IN PLACED. PICC LINE AND G TUBE IN PLACED AND INFUSING WELL. JAMES CATHETER IN PLACED AND DRAINING BY GRAVITY. FALL AND ASPIRATION MEASURES REINFORCED. BED LOCKED, ALARM ON AND IN LOWEST POSITION.
[2021-08-12 08:23] LABS: HEMOGLOBIN 7.7 g/dL (12.0-16.0)
[2021-08-12 08:24] LABS: PLATELET COUNT (AUTO) 175 K/uL (130-430)
[2021-08-12] MEDS ORDERED: SODIUM ZIRCONIUM CYCLOSILICATE 10 GM POWD.PACK PO ONE (09:00)
[2021-08-12 09:07] LABS: FOLATE (FOLIC ACID) >20.0 ng/mL (>3.0)
[2021-08-12] MEDS: FERROUS SULFATE 300 MG/5 ML UDC GT SCH (09:37)
[2021-08-12] MEDS: ASCORBIC ACID 500 MG TABLET GT SCH (09:38)
[2021-08-12] MEDS: lisinopriL 20 MG TABLET GT SCH (09:38)
[2021-08-12] MEDS: LEVOTHYROXINE SODIUM 0.025 MG TABLET GT SCH (09:38)
[2021-08-12] MEDS: NEPHROVITE, (FOLIC ACID/VITAMIN B COMP W-C 1 TAB) GT SCH (09:39)
[2021-08-12] MEDS: FUROSEMIDE 20 MG/2 ML VIAL IVP SCH (09:39)
[2021-08-12] MEDS: hydrALAZINE HCL 25 MG TABLET GT SCH ×3 (09:40→20:54)
[2021-08-12] MEDS: CEFEPIME 2 GM in D5W 100 ML IV SCH ×2 (09:41→21:01)
[2021-08-12] MEDS: APIXABAN 2.5 MG TABLET GT SCH ×2 (09:44→21:23)
[2021-08-12] MEDS: MULTIVITAMINS TAB 1 TABLET GT SCH (10:04)
[2021-08-12] MEDS: PEG 400/HYPROMELLOSE/GLYCERIN 15 ML DROPS OP SCH ×4 (10:05→21:04)
[2021-08-12] MEDS: BALSAM PERU/CASTOR OIL 56.7 GM OINT...G. TP SCH (10:05)
[2021-08-12] MEDS: EMOLLIENT COMBINATION NO.73 78 GM CREAM..G. TP SCH ×2 (10:05→21:03)
[2021-08-12] MEDS: THEOPHYLLINE ANHYDROUS 200 MG CAP.ER.24H PO SCH ×2 (10:06→20:54)
--- NOTE | 2021-08-12 11:00 | NUR ---
RN NOTES/ INCONTINENT AND WC DONE: INCONTINENT AND WOUND CARE DONE. NO S/S OF ACUTE DISTRESS NOTED.
[2021-08-12] MEDS: MICAFUNGIN SODIUM 100 MG in NS 100 ML IV SCH (11:50)
[2021-08-12] MEDS: LevETIRAcetam 500 MG/5 ML UDC ORAL LIQUID GT SCH ×2 (13:17→20:56)
[2021-08-12] MEDS: SOD FERRIC GLUC COMPLEX/SUC 125 MG in NS 100 ML IV SCH (17:01)
--- NOTE | 2021-08-12 17:11 | NUR ---
Nutrition F/U Admitting Diagnosis Sepsis, PNA Reviewed Pertinent Medical/Surgical Hx Medical Record RN Medical History Comment: Per EMR review, PMH includes COPD, chronic respiratory failure, seizures, HTN, CVA, T2DM. Pt is bedbound, extremity contractures, s/p trach & PEG. SARS-CoV-2 Ag (Rapid) Negative 07/31. Subjective Information: Nutrition Consult received d/t Reese Hankins 08/11/[address] rounded to pt's bedside earlier today. Witnessed TF infusing Glucerna 1.2 at 50 ml/hr w/ 271 ml infused, providing 325 kcal. Bedscale was not working. Pt appeared to have cracked/peeling skin throughout body. RD spoke w/ pt's primary RN at [facility]. She reported that pt has been tolerating TF well, w/ about 30 ml GRV this morning. She also reported that pt is receiving water flush of [address] reviewed pt's hard chart for wound photos. Per EMR review, pt is comatose on chronic vent therapy; Glucerna 1.2 TF formula noted 08/12; TF Rate: 50 ml/hr 08/12; GRV: 100 ml 08/12; TF Intakes: 50 ml 08/12; abd is distended and firm w/ hypoactive bowel sounds; LBM x1 08/12; Cr scale: 9 -- Metalworking Specialist note 08/05 revealed 1. Right Lateral Hindu: Acute on chronic wound of unknown etiology, present on admission. 2. Left Outer Buttock: Scar tissue with blanchable red erythema, present on admission. 3. General body: Dry flaky skin, present on admission; 2+ pitting edema to BLE and BUE. Pt is not yet meeting optimal nutritional needs. Current Diet Order/Nutrition Support: Glucerna 1.2 at 50 ml/hr, Free Water Flush: 300 ml q 8 hrs via GT x1 day Patient/Significant Other Unable To Verbalize Education Provided Not Indicated Pertinent Medications: MVI, nephrovite, VIT C, iron sulfate, lasix, keppra, synthroid, eliquis, D5%W IV at 50 ml/hr (204 kcal/day) Pertinent Labs: BG 290 H, BUN 25 H, CRE 1.07 WNL, K 5.4 H, WBC 14.5 H Height (Feet) 5 feet Height (Inches) 5.00 inches Weight (Pounds) 180 pounds (08/07); NEW WT: 210#/95.3 kg (08/12) -- up 30# within 5 days, likely r/t edema Patient Weight 81.647 kg Body Mass Index 29.95 kg/m2 %IBW 144 [place]/Adjusted Body Weight 125#/56.8 kg; AdjBW 139#/63 kg Recent Weight Change unable to verify Weight Status Overweight (may be R/T fluid status vs. adiposity) Food Allergies unable to verify Usual Diet At Home unable to verify NEW Estimated Energy Expenditure (kcals/day) 2898-1363 (30-35 kcal/kg Adj IBW d/t chronic vent/respiratory failure, wound healing) Estimated Protein Required (g/day) 63-95 g/day (1-1.5 g/kg AdjBW d/t overweight, COPD, respiratory failure, wound healing) Estimated Fluid Required (l/day) 1.6-1.9 L/day (25-30 mL/kg AdjBW for maintenance or per MD discretion) Problem/Etiology/Signs/Symptoms Increased nutritional needs R/T physiological demands AEB estimated Nutritional requirements for COPD/respiratory failure. *ONGOING Expected Outcomes/Goals Monitor TF tolerance and intakes w/ goal of pt meeting more than 90% of estimated nutritional needs, labs trending WNL, normal GI function, skin integrity. Dietitian Recommendations * Glucerna 1.2 at 50 ml/hr, Simon BID, Free Water Flush: 300 ml q 8 hrs via GT Provides: 1888 kcal/day, 95 gm protein/day, and 2166 ml free water/day Meets: 99% of lower end of estimated caloric needs and 95% of upper end of estimated protein needs * Consider D/C MVI and continue Nephrovite Follow Up Mod Risk: F/U in 3-5 days
--- NOTE | 2021-08-12 17:25 | NUR ---
Dietitian Recommendations * Glucerna 1.2 at 50 ml/hr, Simon BID, Free Water Flush: 300 ml q 8 hrs via GT Provides: 1888 kcal/day, 95 gm protein/day, and 2166 ml free water/day Meets: 99% of lower end of estimated caloric needs and 95% of upper end of estimated protein needs * Consider D/C MVI and continue Nephrovite LP, RD Please refer to Nutrition F/U for details.
--- NOTE | 2021-08-12 19:20 | NUR ---
CLOSING NOTES: PATIENT RESTING IN BED. NO S/S OF ACUTE DISTRESS NOTED. TRACH IN PLACED. G TUBE AND IV INFUSING WELL. JAMES IN PLACED AND DRAINING BY GRAVITY. NEEDS MET THROUGHOUT SHIFT. ENDORSED TO PC SUPPORT SPECIALIST RN.
[2021-08-12] MEDS: VANCOMYCIN HCL 750 MG in NS 250 ML IV SCH (20:57)
[2021-08-12] MEDS: ATORVASTATIN 10 MG TABLET GT SCH (21:02)
[2021-08-13] VITALS (7 sets, daily range): BP systolic 93–151
[2021-08-13] MEDS: ALBUTEROL SULFATE 0.083% 2.5 MG/3 ML VIAL.NEB INH SCH ×6 (03:25→23:37)
--- NOTE | 2021-08-13 08:00 | NUR ---
OPENING NOTES: PATIENT RESTING IN BED. BREATHING EVEN AND NON LABORED. TRACH IN PLACED. VENTILATOR SAME SETTINGS. PICC LINE AND G TUBE IN PLACED AND INFUSING WELL. JAMES CATHETER IN PLACED AND DRAINING BY GRAVITY. FALL AND ASPIRATION MEASURES REINFORCED. BED LOCKED, ALARM ON AND IN LOWEST POSITION.
[2021-08-13 08:31] LABS: ALANINE AMINOTRANSFERASE 33 U/L (12-78); ALBUMIN 1.1 g/dL (3.4-4.8); ANION GAP 16 (5-15); ASPARTATE AMINOTRANSFERASE 73 U/L (10-37); CALCIUM 8.1 mg/dL (8.4-11.0); CHLORIDE 111 mmol/L (98-107); CREATININE 0.99 mg/dL (0.55-1.30); GLUCOSE 388 mg/dL (70-99); SODIUM SERUM 145 mmol/L (136-145); TOTAL BILIRUBIN 0.4 mg/dL (0.0-1.0); UREA NITROGEN, BLOOD 28 mg/dL (8-21)
[2021-08-13] MEDS ORDERED: SODIUM POLYSTYRENE SULFONATE 15 GM/60 ML UDBTL GT ONE (09:15)
--- NOTE | 2021-08-13 09:15 | NUR ---
RN NOTES / SPOKE TO DR. NARANJO (RE: ELEVATED K): SPOKE TO DR. NARANJO WHILE DOING HIS ROUNDS REGARDING ELEVATED POTASSIUM(6). DR. NARANJO PUT NEW ORDER.
[2021-08-13] MEDS: hydrALAZINE HCL 25 MG TABLET GT SCH ×3 (09:44→21:00)
[2021-08-13] MEDS: NEPHROVITE, (FOLIC ACID/VITAMIN B COMP W-C 1 TAB) GT SCH (09:45)
[2021-08-13] MEDS: FUROSEMIDE 20 MG/2 ML VIAL IVP SCH (09:45)
[2021-08-13] MEDS: MULTIVITAMINS TAB 1 TABLET GT SCH (09:45)
[2021-08-13] MEDS: ASCORBIC ACID 500 MG TABLET GT SCH (09:46)
[2021-08-13] MEDS: LEVOTHYROXINE SODIUM 0.025 MG TABLET GT SCH (09:46)
[2021-08-13] MEDS: lisinopriL 20 MG TABLET GT SCH (09:46)
[2021-08-13] MEDS: APIXABAN 2.5 MG TABLET GT SCH ×2 (09:47→20:44)
[2021-08-13] MEDS: EMOLLIENT COMBINATION NO.73 78 GM CREAM..G. TP SCH ×2 (09:49→20:34)
[2021-08-13] MEDS: BALSAM PERU/CASTOR OIL 56.7 GM OINT...G. TP SCH (09:49)
[2021-08-13] MEDS: PEG 400/HYPROMELLOSE/GLYCERIN 15 ML DROPS OP SCH ×4 (09:50→20:34)
[2021-08-13 09:51] LABS: HEMATOCRIT 23.5 % (36-48); HEMOGLOBIN 7.6 g/dL (12.0-16.0); MEAN CORPUSCULAR HEMOGLOBIN 35 pg (27-31); MEAN CORPUSCULAR HGB CONC 33 % (32-36); MEAN CORPUSCULAR VOLUME 108 fL (79.0-98.0); PLATELET COUNT (AUTO) 247 K/uL (130-430); RED BLOOD CELL COUNT(AUTO) 2.18 MIL/uL (4.2-6.2); RED CELL DISTRIBUTION WIDTH 16.3 % (9.0-15.0); WHITE BLOOD COUNT (AUTO) 16.6 K/uL (4.8-10.8)
[2021-08-13] MEDS: CEFEPIME 2 GM in D5W 100 ML IV SCH ×2 (09:57→20:40)
[2021-08-13] MEDS: THEOPHYLLINE ANHYDROUS 200 MG CAP.ER.24H PO SCH ×2 (09:57→20:44)
--- NOTE | 2021-08-13 10:00 | NUR ---
INCONTINENT AND WOUND CARE DONE: INCONTINENT CARE AND WOUND CARE/ DRESSING CHANGED DONE.
[2021-08-13] MEDS ORDERED: SODIUM POLYSTYRENE SULFONATE 15 GM/60 ML UDBTL PO ONE (10:30)
--- NOTE | 2021-08-13 10:30 | NUR ---
SPOKE TO DR. HUGHES (RE: KAYEXALATE): SPOKE TO DR. HUGHES REGARDING THE KAYEXALATE. PER DR. HUGHES DONT GIVE THE SECOND ORDER IF THE FIRST ONE WAS ALREADY GIVEN.
[2021-08-13] MEDS: LevETIRAcetam 500 MG/5 ML UDC ORAL LIQUID GT SCH ×2 (12:17→22:57)
[2021-08-13] MEDS: VALPROIC ACID ORAL SYRUP 250 MG/5 ML UDC GT SCH ×2 (12:18→18:18)
[2021-08-13 12:19] LABS: BAND % (MANUAL) 14 % (0-6); BASOPHILS % (MANUAL) 0 % (0-2); EOSINOPHILS % (MANUAL) 4 % (0-7); LYMPHOCYTES % (MANUAL) 4 % (20-46); MONOCYTES % (MANUAL) 11 % (0-11)
[2021-08-13] MEDS: MICAFUNGIN SODIUM 100 MG in NS 100 ML IV SCH (12:19)
--- NOTE | 2021-08-13 14:31 | NUR ---
DISCHARGE PLANNING Order for LTAC. Discussed with Dr Bobby in nsg station pt a BPCI pt, no LTAC.
[2021-08-13] MEDS: D5W 1,000 ML IV SCH (16:31)
[2021-08-13] MEDS: SOD FERRIC GLUC COMPLEX/SUC 125 MG in NS 100 ML IV SCH (16:47)
--- NOTE | 2021-08-13 18:47 | NUR ---
CLOSING NOTES: PATIENT RESTING IN BED. NO S/S OF ACUTE DISTRESS NOTED. TRACH IN PLACED. VENTILATOR SAME SETTINGS. PICC LINE AND G TUBE IN PLACED AND INFUSING WELL. JAMES CATHETER IN PLACED AND DRAINING BY GRAVITY. FALL AND ASPIRATION MEASURES PROVIDED. NEEDS MET THROUGHOUT SHIFT. WILL CONTINUE MONITOR UNTIL ENDORSE TO POLICE CADET RN.
[2021-08-13] MEDS: VANCOMYCIN HCL 750 MG in NS 250 ML IV SCH (20:40)
[2021-08-13] MEDS: ATORVASTATIN 10 MG TABLET GT SCH (20:40)
--- NOTE | 2021-08-13 21:38 | NUR ---
Blood pressure 93/44 mmHg right forearm lying. Page to provider Doctor Diamante's via answering service for hold hydralazine at this time. Gerardo Cardoza RN
[2021-08-14] VITALS: BP_SYST 136
[2021-08-14] MEDS: VALPROIC ACID ORAL SYRUP 250 MG/5 ML UDC GT SCH ×3 (03:27→19:15)
[2021-08-14] MEDS: ALBUTEROL SULFATE 0.083% 2.5 MG/3 ML VIAL.NEB INH SCH ×5 (03:41→23:24)
[2021-08-14 07:00] VITALS: BP_SYST 90
[2021-08-14 07:04] LABS: BASOPHILS # (AUTO) 0.1 K/uL (0.0-0.2); BASOPHILS % (AUTO) 0.5 % (0.0-2.0); EOSINOPHILS # (AUTO) 0.3 K/uL (0.0-0.4); EOSINOPHILS % (AUTO) 2.3 % (0.0-4.0); HEMATOCRIT 24.1 % (36-48); HEMOGLOBIN 7.6 g/dL (12.0-16.0); LYMPHOCYTES # (AUTO) 1.2 K/uL (1.0-5.5); LYMPHOCYTES % (AUTO) 9.2 % (20.5-51.5); MEAN CORPUSCULAR HEMOGLOBIN 33 pg (27-31); MEAN CORPUSCULAR HGB CONC 31 % (32-36); MEAN CORPUSCULAR VOLUME 106 fL (79.0-98.0); MONOCYTES # (AUTO) 1.1 K/uL (0.0-1.0); MONOCYTES % (AUTO) 8.4 % (1.7-9.3); NEUTROPHILS # (AUTO) 10.3 K/uL (1.8-7.7); PLATELET COUNT (AUTO) 189 K/uL (130-430); RED BLOOD CELL COUNT(AUTO) 2.27 MIL/uL (4.2-6.2); RED CELL DISTRIBUTION WIDTH 16.2 % (9.0-15.0); WHITE BLOOD COUNT (AUTO) 12.9 K/uL (4.8-10.8)
[2021-08-14 07:31] LABS: ALANINE AMINOTRANSFERASE 26 U/L (12-78); ALBUMIN 1.3 g/dL (3.4-4.8); ANION GAP 10 (5-15); ASPARTATE AMINOTRANSFERASE 49 U/L (10-37); CALCIUM 8.3 mg/dL (8.4-11.0); CHLORIDE 109 mmol/L (98-107); CREATININE 1.36 mg/dL (0.55-1.30); GLUCOSE 399 mg/dL (70-99); SODIUM SERUM 139 mmol/L (136-145); TOTAL BILIRUBIN 0.4 mg/dL (0.0-1.0); UREA NITROGEN, BLOOD 29 mg/dL (8-21)
[2021-08-14 07:33] LABS: NEUTROPHILS % (AUTO) 79.6 % (40.0-70.0)
[2021-08-14] MEDS ORDERED: predniSONE 20 MG TABLET GT ONE (12:00)
[2021-08-14] MEDS ORDERED: FAMOTIDINE 20 MG TABLET PO ONE (12:00)
[2021-08-14 12:46] VITALS: BP_SYST 119
[2021-08-14] MEDS: NEPHROVITE, (FOLIC ACID/VITAMIN B COMP W-C 1 TAB) GT SCH (13:22)
[2021-08-14] MEDS: ASCORBIC ACID 500 MG TABLET GT SCH (13:23)
[2021-08-14] MEDS: LEVOTHYROXINE SODIUM 0.025 MG TABLET GT SCH (13:23)
[2021-08-14] MEDS: MICAFUNGIN SODIUM 100 MG in NS 100 ML IV SCH (13:23)
[2021-08-14] MEDS: MULTIVITAMINS TAB 1 TABLET GT SCH (13:23)
[2021-08-14] MEDS: APIXABAN 2.5 MG TABLET GT SCH ×2 (13:25→21:00)
[2021-08-14] MEDS: hydrALAZINE HCL 25 MG TABLET GT SCH ×3 (15:00→20:46)
[2021-08-14] MEDS: FUROSEMIDE 20 MG/2 ML VIAL IVP SCH (15:40)
[2021-08-14] MEDS: THEOPHYLLINE ANHYDROUS 200 MG CAP.ER.24H PO SCH ×2 (15:40→20:47)
[2021-08-14] MEDS: LevETIRAcetam 500 MG/5 ML UDC ORAL LIQUID GT SCH ×2 (15:41→23:17)
[2021-08-14] MEDS: CEFEPIME 2 GM in D5W 100 ML IV SCH ×2 (15:43→20:14)
[2021-08-14] MEDS: D5W 1,000 ML IV SCH (15:44)
[2021-08-14] MEDS: PEG 400/HYPROMELLOSE/GLYCERIN 15 ML DROPS OP SCH ×4 (15:44→20:42)
[2021-08-14] MEDS: EMOLLIENT COMBINATION NO.73 78 GM CREAM..G. TP SCH ×2 (15:45→20:47)
[2021-08-14] MEDS: BALSAM PERU/CASTOR OIL 56.7 GM OINT...G. TP SCH (15:45)
[2021-08-14 18:03] VITALS: BP_SYST 119
[2021-08-14] MEDS: SOD FERRIC GLUC COMPLEX/SUC 125 MG in NS 100 ML IV SCH (18:14)
[2021-08-14 19:48] VITALS: BP_SYST 99
[2021-08-14] MEDS: LINEZOLID 300 ML IV SCH (20:46)
[2021-08-14] MEDS: ATORVASTATIN 10 MG TABLET GT SCH (21:01)
[2021-08-15 00:05] VITALS: BP_SYST 128
[2021-08-15] MEDS: D5W 1,000 ML IV SCH (02:06)
[2021-08-15] MEDS: VALPROIC ACID ORAL SYRUP 250 MG/5 ML UDC GT SCH ×3 (02:58→21:14)
[2021-08-15] MEDS: ALBUTEROL SULFATE 0.083% 2.5 MG/3 ML VIAL.NEB INH SCH ×6 (03:25→23:46)
[2021-08-15 07:14] LABS: BASOPHILS % (AUTO) 0.2 % (0.0-2.0); HEMATOCRIT 23.9 % (36-48); HEMOGLOBIN 7.6 g/dL (12.0-16.0); LYMPHOCYTES # (AUTO) 0.6 K/uL (1.0-5.5); LYMPHOCYTES % (AUTO) 5.7 % (20.5-51.5); MEAN CORPUSCULAR HEMOGLOBIN 34 pg (27-31); MEAN CORPUSCULAR HGB CONC 32 % (32-36); MEAN CORPUSCULAR VOLUME 107 fL (79.0-98.0); MONOCYTES # (AUTO) 0.2 K/uL (0.0-1.0); NEUTROPHILS # (AUTO) 9.1 K/uL (1.8-7.7); PLATELET COUNT (AUTO) 193 K/uL (130-430); RED BLOOD CELL COUNT(AUTO) 2.25 MIL/uL (4.2-6.2); RED CELL DISTRIBUTION WIDTH 16.5 % (9.0-15.0); WHITE BLOOD COUNT (AUTO) 9.9 K/uL (4.8-10.8)
[2021-08-15 07:16] LABS: ALANINE AMINOTRANSFERASE 18 U/L (12-78); ALBUMIN 1.2 g/dL (3.4-4.8); ANION GAP 10 (5-15); ASPARTATE AMINOTRANSFERASE 33 U/L (10-37); CALCIUM 8.2 mg/dL (8.4-11.0); CHLORIDE 107 mmol/L (98-107); CREATININE 1.41 mg/dL (0.55-1.30); POTASSIUM 5.7 mmol/L (3.5-5.1); SODIUM SERUM 136 mmol/L (136-145); TOTAL BILIRUBIN 0.2 mg/dL (0.0-1.0); UREA NITROGEN, BLOOD 29 mg/dL (8-21)
[2021-08-15 07:40] LABS: GLUCOSE 456 mg/dL (70-99)
[2021-08-15 08:00] VITALS: BP_SYST 114
[2021-08-15 08:29] LABS: NEUTROPHILS % (AUTO) 92.1 % (40.0-70.0)
[2021-08-15] MEDS ORDERED: INSULIN LISPRO SLIDING SCALE 100 UNITS/ML VIAL (humaLOG) SUBCUT PRN (09:45)
[2021-08-15] MEDS: LINEZOLID 300 ML IV SCH ×2 (10:57→22:14)
[2021-08-15] MEDS: MICAFUNGIN SODIUM 100 MG in NS 100 ML IV SCH (10:57)
[2021-08-15] MEDS: CEFEPIME 2 GM in D5W 100 ML IV SCH ×2 (10:58→21:09)
[2021-08-15 12:00] VITALS: BP_SYST 131
[2021-08-15] MEDS ORDERED: SODIUM POLYSTYRENE SULFONATE 15 GM/60 ML UDBTL GT ONE (12:30)
[2021-08-15] MEDS: THEOPHYLLINE ANHYDROUS 200 MG CAP.ER.24H PO SCH ×2 (12:40→21:14)
[2021-08-15] MEDS: PEG 400/HYPROMELLOSE/GLYCERIN 15 ML DROPS OP SCH ×4 (12:41→21:09)
[2021-08-15] MEDS: EMOLLIENT COMBINATION NO.73 78 GM CREAM..G. TP SCH ×2 (12:42→21:09)
[2021-08-15] MEDS: BALSAM PERU/CASTOR OIL 56.7 GM OINT...G. TP SCH (12:42)
[2021-08-15] MEDS: FUROSEMIDE 20 MG/2 ML VIAL IVP SCH (12:43)
[2021-08-15] MEDS: ASCORBIC ACID 500 MG TABLET GT SCH (12:44)
[2021-08-15] MEDS: predniSONE 20 MG TABLET GT SCH (12:44)
[2021-08-15] MEDS: MULTIVITAMINS TAB 1 TABLET GT SCH (12:44)
[2021-08-15] MEDS: NEPHROVITE, (FOLIC ACID/VITAMIN B COMP W-C 1 TAB) GT SCH (12:44)
[2021-08-15] MEDS: FAMOTIDINE 20 MG TABLET GT SCH (12:45)
[2021-08-15] MEDS: APIXABAN 2.5 MG TABLET GT SCH ×2 (12:47→21:30)
[2021-08-15] MEDS: hydrALAZINE HCL 25 MG TABLET GT SCH ×3 (12:49→22:46)
[2021-08-15] MEDS: LEVOTHYROXINE SODIUM 0.025 MG TABLET GT SCH (13:22)
[2021-08-15 16:00] VITALS: BP_SYST 134
[2021-08-15] MEDS: LevETIRAcetam 500 MG/5 ML UDC ORAL LIQUID GT SCH ×2 (18:02→23:26)
[2021-08-15] MEDS: DIPHENHYDRAMINE INJ 50 MG/ML VIAL IVP PRN (18:03)
[2021-08-15] MEDS: SOD FERRIC GLUC COMPLEX/SUC 125 MG in NS 100 ML IV SCH (18:04)
[2021-08-15 19:33] VITALS: BP_SYST 116
[2021-08-15] MEDS: ATORVASTATIN 10 MG TABLET GT SCH (21:28)
--- NOTE | 2021-08-15 23:00 | NUR ---
pt.re-assigned.i have assumed the care of the pt.for the remainder of the shift.luis m has provided the pt's report/data. pt.presents trach/vent;settings;tv;500,fio2%:30%,a/c;16.p:5.02-sat%=100%.pt.presents picc line;location rt.bicept. iv fluids infusing.pt.presents g-tube intact g-tube feed;glucerna;1.2 infusing rate;60ml/hr.pt.presents callaway cath intact. call light/telephone w/in access of the pt.
--- NOTE | 2021-08-16 | NUR ---
pt.assessed.v/s assessed values wnl.oral/trach care/suction attended to.o2-sat%100%.picc line,g-tube,callaway cath intact . per flacc pain mgx pt.absent facial grimaces/body posturing.pt.assessed for cleanliness.pt.repositioned.call light/telephone placed w/in access of the pt.
[2021-08-16 00:15] VITALS: BP_SYST 136
--- NOTE | 2021-08-16 02:00 | NUR ---
pt.assessed.oral/trach care/suction attended to.02-sat%=100%.picc line,g-tube,callaway cath intact.per flacc pain mgx pt.absent facial grimaces/body posturing.pt.assessed for cleanliness.pt.repositioned.call light/telephone placed w/in access of the pt.
[2021-08-16] MEDS: ALBUTEROL SULFATE 0.083% 2.5 MG/3 ML VIAL.NEB INH SCH ×6 (03:27→23:58)
--- NOTE | 2021-08-16 04:00 | NUR ---
pt.assessed.oral/trach care/suction attended to.o2-sat%=100%.picc line,g-tube,callaway cath intact.per flacc pain mgx pt.absent facial grimaces/body posturing.pt.assessed for cleanliness.pt.repositioned.call light/telephone placed w/in access of the pt.
[2021-08-16] MEDS: D5W 1,000 ML IV SCH (05:31)
[2021-08-16] MEDS: VALPROIC ACID ORAL SYRUP 250 MG/5 ML UDC GT SCH ×3 (05:33→21:20)
--- NOTE | 2021-08-16 06:14 | NUR ---
pt.assessed.oral/trach care/suction attended to.02-sat%=100%.i have attended to the dsg changes;wound,g-tube. pt.cleaned/repositioned.call light/telephone placed w/in access of the pt.
--- NOTE | 2021-08-16 07:40 | NUR ---
RECEIVED PATIENT FROM OUTGOING NURSE, RESTING IN BED. NO DISTRESS OBSERVED, TRACH IN PLACE. PICC LINE AND G TUBE PATENT AND INFUSING WELL. JAMES CATHETER IN PLACE AND DRAINING BY GRAVITY. WILL ASSUME ALL CARE OF PATIENT
[2021-08-16 08:00] VITALS: BP_SYST 148
[2021-08-16 08:29] LABS: ALANINE AMINOTRANSFERASE 24 U/L (12-78); ALBUMIN 1.2 g/dL (3.4-4.8); ANION GAP 12 (5-15); ASPARTATE AMINOTRANSFERASE 31 U/L (10-37); CALCIUM 8.6 mg/dL (8.4-11.0); CHLORIDE 105 mmol/L (98-107); CREATININE 1.51 mg/dL (0.55-1.30); POTASSIUM 5.1 mmol/L (3.5-5.1); SODIUM SERUM 135 mmol/L (136-145); TOTAL BILIRUBIN 0.1 mg/dL (0.0-1.0); UREA NITROGEN, BLOOD 37 mg/dL (8-21)
[2021-08-16 08:38] LABS: GLUCOSE 655 mg/dL (70-99)
--- NOTE | 2021-08-16 08:48 | NUR ---
ATTENDING MD DR AMADOR WAS CALLED, RE: CRITICAL BS OF 650.
[2021-08-16] MEDS: THEOPHYLLINE ANHYDROUS 200 MG CAP.ER.24H PO SCH ×2 (09:00→21:19)
--- NOTE | 2021-08-16 09:00 | NUR ---
TELEPHONE CALL FROM LAB REPORTING PATIENTS BLOOD SUGAR 655, ORDERS OBTAINED FROM DR. AMADOR FOR 10 UNITS IV INSULIN, SLIDING SCALE, BLOOD SUGARS AC HS, DC D5NS AND START PATIENT ON NS FOR FLUIDS
[2021-08-16] MEDS ORDERED: INSULIN REGULAR, HUMAN 100 UNITS/ML, 10 ML VIAL IVP ONE (09:15)
[2021-08-16] MEDS ORDERED: INSULIN REGULAR, HUMAN 100 UNITS/ML, 10 ML VIAL (humuLIN R) SUBCUT PRN (09:15)
[2021-08-16] MEDS ORDERED: GLUCOSE (DEXTROSE) ORAL GEL -Adults PO PRN (09:15)
[2021-08-16] MEDS ORDERED: D5W 1,000 ML IV PRN (09:15)
[2021-08-16] MEDS ORDERED: DEXTROSE 50% JECT 50 ML DISP.SYRIN IVP PRN (09:15)
[2021-08-16] MEDS: NEPHROVITE, (FOLIC ACID/VITAMIN B COMP W-C 1 TAB) GT SCH (09:41)
[2021-08-16] MEDS: MULTIVITAMINS TAB 1 TABLET GT SCH (09:41)
[2021-08-16] MEDS: predniSONE 20 MG TABLET GT SCH (09:41)
[2021-08-16] MEDS: APIXABAN 2.5 MG TABLET GT SCH ×2 (09:42→21:29)
[2021-08-16] MEDS: ASCORBIC ACID 500 MG TABLET GT SCH (09:42)
[2021-08-16] MEDS: FAMOTIDINE 20 MG TABLET GT SCH (09:42)
[2021-08-16] MEDS: LEVOTHYROXINE SODIUM 0.025 MG TABLET GT SCH (09:42)
[2021-08-16] MEDS: CEFEPIME 2 GM in D5W 100 ML IV SCH ×2 (09:43→21:15)
[2021-08-16] MEDS: LINEZOLID 300 ML IV SCH (09:43)
[2021-08-16] MEDS: PEG 400/HYPROMELLOSE/GLYCERIN 15 ML DROPS OP SCH ×4 (09:43→21:23)
[2021-08-16] MEDS: EMOLLIENT COMBINATION NO.73 78 GM CREAM..G. TP SCH ×2 (09:44→21:27)
[2021-08-16] MEDS: NACL 0.9% 1,000 ML IV SCH (09:44)
[2021-08-16] MEDS: BALSAM PERU/CASTOR OIL 56.7 GM OINT...G. TP SCH (09:44)
[2021-08-16] MEDS: hydrALAZINE HCL 25 MG TABLET GT SCH ×3 (10:39→21:22)
[2021-08-16] MEDS: FUROSEMIDE 20 MG/2 ML VIAL IVP SCH (10:40)
--- NOTE | 2021-08-16 11:13 | NUR ---
Discharge Planning: DCP faxed pt referral to [facility] to follow up.
--- NOTE | 2021-08-16 11:30 | NUR ---
BLOOD SUGAR 553, 12 UNITS INSULIN ADMINISTERED PER EMAR
[2021-08-16 12:00] VITALS: BP_SYST 154
[2021-08-16] MEDS: LevETIRAcetam 500 MG/5 ML UDC ORAL LIQUID GT SCH (12:03)
[2021-08-16 15:37] VITALS: BP_SYST 120
--- NOTE | 2021-08-16 16:00 | NUR ---
daughter at bedside, provided update
[2021-08-16] MEDS: SOD FERRIC GLUC COMPLEX/SUC 125 MG in NS 100 ML IV SCH (16:13)
[2021-08-16 16:41] VITALS: BP_SYST 140
[2021-08-16] MEDS ORDERED: INSULIN REGULAR, HUMAN 100 UNITS/ML, 10 ML VIAL SUBCUT ONE (17:45)
--- NOTE | 2021-08-16 18:13 | NUR ---
TELEPHONE CALL TO DR. AMADOR TO REPORT PATIENTS BLOOD SUGAR 513, ORDERS OBTAINED TO ADMINISTER 15U REG INSULIN NOW, LANTUS 10 UNITS BID, ACCUCHECKS Q 4 HRS AND IF BLOOD SUGAR ABOVE 400 ADMINISTER 15UNITS REG INSULIN,
[2021-08-16 21:00] VITALS: BP_SYST 143
[2021-08-16] MEDS: INSULIN REGULAR, HUMAN 100 UNITS/ML, 10 ML VIAL SUBCUT PRN (21:04)
[2021-08-16] MEDS: INSULIN GLARGINE 100 UNITS/ML 10 ML VIAL SUBCUT SCH (21:05)
[2021-08-16] MEDS: ATORVASTATIN 10 MG TABLET GT SCH (21:21)
--- NOTE | 2021-08-16 21:31 | NUR ---
Patient BSG elevated @ [address] PERRY HADDAD updated and aware , new orders carried out per .
[2021-08-17 00:13] VITALS: BP_SYST 110
[2021-08-17] MEDS: INSULIN REGULAR, HUMAN 100 UNITS/ML, 10 ML VIAL SUBCUT PRN ×2 (00:57→03:41)
[2021-08-17] MEDS: LevETIRAcetam 500 MG/5 ML UDC ORAL LIQUID GT SCH ×3 (01:00→23:02)
--- NOTE | 2021-08-17 01:43 | NUR ---
DR PERRY HADDAD UPDATED & AWARE OF ELEVATED BSG / .
[2021-08-17] MEDS: ALBUTEROL SULFATE 0.083% 2.5 MG/3 ML VIAL.NEB INH SCH ×5 (02:46→23:27)
[2021-08-17] MEDS: VALPROIC ACID ORAL SYRUP 250 MG/5 ML UDC GT SCH ×3 (03:39→20:49)
[2021-08-17] MEDS: NACL 0.9% 1,000 ML IV SCH ×2 (03:40→12:45)
[2021-08-17] MEDS: INSULIN REGULAR, HUMAN 100 UNITS/ML, 10 ML VIAL (humuLIN R) SUBCUT PRN ×3 (06:39→23:10)
--- NOTE | 2021-08-17 06:43 | NUR ---
ZAN ABREU WAS INFORMED SEVERAL TIMES THAT THE PATIENT HAS BEEN OFF THE TELE MONITOR FOR 45 MINUTES
[2021-08-17 08:00] VITALS: BP_SYST 128
--- NOTE | 2021-08-17 08:00 | NUR ---
Initial Notes Patient is awake, nonverbal. Pt is on vent/ trach. SPo2 at 99%. No respiratory distress noted. No facial grimace. In high Fowlers position. GT feeding is on. Patient has been suctioned, oral care done. Safety precautions in place, bed alarm is on.
[2021-08-17] MEDS: FAMOTIDINE 20 MG TABLET GT SCH (09:21)
[2021-08-17] MEDS: ASCORBIC ACID 500 MG TABLET GT SCH (09:21)
[2021-08-17] MEDS: hydrALAZINE HCL 25 MG TABLET GT SCH ×3 (09:22→20:50)
[2021-08-17] MEDS: predniSONE 20 MG TABLET GT SCH (09:22)
[2021-08-17] MEDS: MULTIVITAMINS TAB 1 TABLET GT SCH (09:22)
[2021-08-17] MEDS: NEPHROVITE, (FOLIC ACID/VITAMIN B COMP W-C 1 TAB) GT SCH (09:23)
[2021-08-17] MEDS: LEVOTHYROXINE SODIUM 0.025 MG TABLET GT SCH (09:23)
[2021-08-17] MEDS: THEOPHYLLINE ANHYDROUS 200 MG CAP.ER.24H PO SCH ×2 (09:23→20:51)
[2021-08-17] MEDS: APIXABAN 2.5 MG TABLET GT SCH ×2 (09:25→21:01)
[2021-08-17] MEDS: INSULIN GLARGINE 100 UNITS/ML 10 ML VIAL SUBCUT SCH ×2 (09:26→21:03)
[2021-08-17] MEDS: PEG 400/HYPROMELLOSE/GLYCERIN 15 ML DROPS OP SCH ×4 (09:28→20:52)
[2021-08-17] MEDS: BALSAM PERU/CASTOR OIL 56.7 GM OINT...G. TP SCH (09:28)
[2021-08-17] MEDS: EMOLLIENT COMBINATION NO.73 78 GM CREAM..G. TP SCH ×2 (09:28→20:53)
[2021-08-17] MEDS: CEFEPIME 2 GM in D5W 100 ML IV SCH (09:30)
[2021-08-17] MEDS: FUROSEMIDE 20 MG/2 ML VIAL IVP SCH (09:31)
[2021-08-17 11:27] VITALS: BP_SYST 128
--- NOTE | 2021-08-17 12:30 | NUR ---
Notes Patient has been cleaned and repositioned. No s/s of respiratory distress. Has been suctioned. GT feeding on, HOB elevated. Safety precautions in place and bed alarm is on.
--- NOTE | 2021-08-17 12:44 | NUR ---
Discharge Planning: DCP followed up with pt referral to [facility] still can not take pt, [facility] to [facility]. Family does not want to switch facilitie. Per daughter she only wants pt sent to [facility]. DCP made CM aware.
--- NOTE | 2021-08-17 15:08 | NUR ---
Spoke w/patient's daughter. She stated she will not allow her mother to go to any subacute but [facility]. She stated the patient is too medically fragile to go anywhere but [facility].
--- NOTE | 2021-08-17 15:14 | NUR ---
Nutrition F/U Admitting Diagnosis Sepsis, PNA Reviewed Pertinent Medical/Surgical Hx Medical Record RN Medical History Comment: Per EMR review, PMH includes COPD, chronic respiratory failure, seizures, HTN, CVA, T2DM. Pt is bedbound, extremity contractures, s/p trach & PEG. Car Dryer note 08/05 revealed 1. Right Lateral Anabaptist: Acute on chronic wound of unknown etiology, present on admission. 2. Left Outer Buttock: Scar tissue with blanchable red erythema, present on admission. 3. General body: Dry flaky skin, present on admission; 2+ pitting edema to BLE and BUE. SARS-CoV-2 Ag (Rapid) Negative 07/31. Subjective Information: RD bedside visit deferred d/t high workload. Per EMR review, pt is comatose on chronic vent therapy; Glucerna 1.2 TF formula noted 08/17; TF Rate: 60 ml/hr 08/17; GRV: 10 ml 08/17; abd is distended and firm w/ hypoactive bowel sounds; Last BM x2 08/15; Cr scale: 13 wound to lateral R. temporal, erythema medial abd. folds, sacral wound; 2+ pitting edema to BLE and BUE; abd. is soft and non-distended w/ active bowel sounds; BG >600 mg/dl 08/16, Lantus ordered, BG improving, <200 mg/dl 08/17. TF is appropriate and meeting nutritional needs. Current Diet Order/Nutrition Support: Glucerna 1.2 at 60 ml/hr, Simon BID Free Water Flush: 300 ml q 8 hrs via GT x4 days Patient/Significant Other Unable To Verbalize Education Provided Not Indicated Pertinent Medications: MVI, nephrovite, VIT C, ferric sodium gluconate, lasix, eliquis, D5%W IV at 30 ml/hr (170 kcal/day), lantus, SSI, Pepcid, prednisone, lipitor Pertinent Labs: 08/16: Na 135 L, BUN 37 H, Cr 1.51 H, BG 655 H, POC BG 585 H, 08/17: POC BG 185 H Height (Feet) 5 feet Height (Inches) 5.00 inches Weight (Pounds) 180 pounds (08/07); NEW WT: 210#/95.3 kg (5/12) -- up 30# within 5 days, likely r/t edema; 225#/102.2 kg (08/16) increased 15# in 4 days, likely r/t fluid retention, CHF Patient Weight 81.647 kg Body Mass Index 29.95 kg/m2 %IBW 144 [place]/Adjusted Body Weight 125#/56.8 kg; AdjBW 139#/63 kg Recent Weight Change unable to verify Weight Status Overweight (may be R/T fluid status vs. adiposity) Food Allergies unable to verify Usual Diet At Home unable to verify *Ongoing Estimated Energy Expenditure (kcals/day) 7225-4562 (30-35 kcal/kg Adj IBW d/t chronic vent/respiratory failure, wound healing) Estimated Protein Required (g/day) 63-95 g/day (1-1.5 g/kg AdjBW d/t overweight, COPD, respiratory failure, wound healing) Estimated Fluid Required (l/day) 1.6-1.9 L/day (25-30 mL/kg AdjBW for maintenance or per MD discretion) Problem/Etiology/Signs/Symptoms Increased nutritional needs R/T physiological demands AEB estimated Nutritional requirements for COPD/respiratory failure. *ONGOING Expected Outcomes/Goals Monitor TF tolerance and intakes w/ goal of pt meeting more than 90% of estimated nutritional needs, labs trending WNL, normal GI function, skin integrity. Dietitian Recommendations * Glucerna 1.2 at 60 ml/hr, Simon BID, Free Water Flush: 300 ml q 8 hrs via GT Provides: 1888 kcal/day, 85 gm protein/day, and 2166 ml free water/day Meets: 99% of lower end of estimated caloric needs and 89% of upper end of estimated protein needs * Consider D/C MVI and continue Nephrovite Follow Up Mod Risk: F/U in 3-5 days
--- NOTE | 2021-08-17 15:14 | NUR ---
Dietitian Recommendations * Glucerna 1.2 at 60 ml/hr, Simon BID, Free Water Flush: 300 ml q 8 hrs via GT Provides: 1888 kcal/day, 85 gm protein/day, and 2166 ml free water/day Meets: 99% of lower end of estimated caloric needs and 89% of upper end of estimated protein needs * Consider D/C MVI and continue Nephrovite Please refer to Nutrition F/U for details.
[2021-08-17 15:51] VITALS: BP_SYST 110
--- NOTE | 2021-08-17 16:00 | NUR ---
Notes Patient is resting, eyes closed. No change in assessment. Spo2 at 99%. HOB elevated, GT feeding on.
[2021-08-17] MEDS: SOD FERRIC GLUC COMPLEX/SUC 125 MG in NS 100 ML IV SCH (17:30)
--- NOTE | 2021-08-17 18:25 | NUR ---
Closing Notes No change in assessment. HOB elevated, GT feeding on.
[2021-08-17 20:00] VITALS: BP_SYST 114
[2021-08-17 20:15] VITALS: BP_SYST 114
[2021-08-17] MEDS: ATORVASTATIN 10 MG TABLET GT SCH (20:51)
[2021-08-18] VITALS: BP_SYST 116
[2021-08-18] MEDS: INSULIN REGULAR, HUMAN 100 UNITS/ML, 10 ML VIAL (humuLIN R) SUBCUT PRN ×4 (02:42→14:51)
[2021-08-18] MEDS: ALBUTEROL SULFATE 0.083% 2.5 MG/3 ML VIAL.NEB INH SCH ×4 (03:33→15:36)
[2021-08-18] MEDS: VALPROIC ACID ORAL SYRUP 250 MG/5 ML UDC GT SCH ×2 (03:36→11:37)
[2021-08-18 04:11] VITALS: BP_SYST 116
--- NOTE | 2021-08-18 05:57 | NUR ---
0540 Patient is unresponsive. Non verbal. Flat affect. With severe contractures. Remains on vent with same settings. Tolerated settings well. PICC line to ALEYDA in place and intact. Afebrile the whole shift. GT in place and connected to feeding with set settings. Tolerated well with minimal residuals. Repositioned every 2 hours. Changed and cleaned at 0500. Tolerated well. FSBS done as scheduled. Please see glucose trends. Kept warm and comfortable. All needs attended. Monitored closely.
[2021-08-18 07:15] LABS: ALANINE AMINOTRANSFERASE 21 U/L (12-78); ALBUMIN 1.4 g/dL (3.4-4.8); ANION GAP 14 (5-15); ASPARTATE AMINOTRANSFERASE 28 U/L (10-37); CALCIUM 8.8 mg/dL (8.4-11.0); CHLORIDE 106 mmol/L (98-107); CREATININE 1.25 mg/dL (0.55-1.30); GLUCOSE 218 mg/dL (70-99); POTASSIUM 3.4 mmol/L (3.5-5.1); SODIUM SERUM 140 mmol/L (136-145); TOTAL BILIRUBIN 0.1 mg/dL (0.0-1.0); UREA NITROGEN, BLOOD 40 mg/dL (8-21)
[2021-08-18 08:00] VITALS: BP_SYST 132
--- NOTE | 2021-08-18 08:00 | NUR ---
Initial Notes Patient is nonverbal, lethargic. Pt on vent/ trach. Spo2 100%. No facial grimace noted. No s/s of respiratory distress noted. Patient has been repositioned. HOB elevated. GT feeding on. Bed alarm on. Safety precautions in place.
[2021-08-18] MEDS: hydrALAZINE HCL 25 MG TABLET GT SCH ×2 (08:59→14:47)
[2021-08-18] MEDS: LEVOTHYROXINE SODIUM 0.025 MG TABLET GT SCH (08:59)
[2021-08-18] MEDS: MULTIVITAMINS TAB 1 TABLET GT SCH (08:59)
[2021-08-18] MEDS: THEOPHYLLINE ANHYDROUS 200 MG CAP.ER.24H PO SCH (09:00)
[2021-08-18] MEDS: APIXABAN 2.5 MG TABLET GT SCH (09:00)
[2021-08-18] MEDS: INSULIN GLARGINE 100 UNITS/ML 10 ML VIAL SUBCUT SCH (09:01)
[2021-08-18] MEDS: predniSONE 20 MG TABLET GT SCH (09:01)
[2021-08-18] MEDS: FUROSEMIDE 20 MG/2 ML VIAL IVP SCH (09:02)
[2021-08-18] MEDS: NEPHROVITE, (FOLIC ACID/VITAMIN B COMP W-C 1 TAB) GT SCH (09:02)
[2021-08-18] MEDS: ASCORBIC ACID 500 MG TABLET GT SCH (09:02)
[2021-08-18] MEDS: PEG 400/HYPROMELLOSE/GLYCERIN 15 ML DROPS OP SCH ×3 (09:04→17:09)
[2021-08-18] MEDS: EMOLLIENT COMBINATION NO.73 78 GM CREAM..G. TP SCH (09:05)
[2021-08-18] MEDS: BALSAM PERU/CASTOR OIL 56.7 GM OINT...G. TP SCH (09:05)
[2021-08-18] MEDS: FAMOTIDINE 20 MG TABLET GT SCH (09:06)
[2021-08-18] MEDS: NACL 0.9% 1,000 ML IV SCH (09:19)
[2021-08-18] MEDS ORDERED: POTASSIUM CHLORIDE 20 MEQ/PKT PACKET GT ONE (09:30)
[2021-08-18] MEDS: LevETIRAcetam 500 MG/5 ML UDC ORAL LIQUID GT SCH (11:36)
--- NOTE | 2021-08-18 12:00 | NUR ---
Notes No change in reassessment. Pt has been repositioned, resting and eyes closed. HOB elevated. GT running. Safety precautions in place.
[2021-08-18 12:07] VITALS: BP_SYST 123
--- NOTE | 2021-08-18 15:08 | NUR ---
I notiied the patient's daughter , Yeimy Krause,of her transfer to [facility] this evening. She agreed to the transfer.
[2021-08-18 16:17] VITALS: BP_SYST 126
[2021-08-18] MEDS: SOD FERRIC GLUC COMPLEX/SUC 125 MG in NS 100 ML IV SCH (17:12)
[2021-08-18 17:23] VITALS: BP_SYST 126
--- NOTE | 2021-08-18 18:45 | NUR ---
DISCHARGE NOTE DISCHARGE PATIENT TO [facility]. PATIENT IS TRACH TO VENT. NON VERBAL, DOES NOT FOLLOW COMMANDS. TOLERATING WELL. NO DISTRESS. DISCHARGE PACKET GIVEN TO AMBULANCE STAFF. DRESSING CHANGE DONE AT [facility] SHAILA, RUA. JACOB KAPLAN. NO BELONGINGS.
== END 2021-08-18 18:45 | DRG 870 ==
LOC: SED 22:57 → SIC 08-01 03:55 → STU 08-01 03:59 → SIC 08-01 09:27 → STU 08-12 01:05
PROVIDERS: ADMIT Family Medicine; ATTEND Family Medicine
PROC: 5A1955Z Respiratory Ventilation, Greater than 96 Consecutive Hours (ICD-10-PCS; principal; 2021-07-31)
PROC: 02HV33Z Insertion of Infusion Device into Superior Vena Cava, Percutaneous Approach (ICD-10-PCS; 2021-08-01)
PROC: B548ZZA Ultrasonography of Superior Vena Cava, Guidance (ICD-10-PCS; 2021-08-01)
DX: A41.9 Sepsis, unspecified organism (principal); G82.50 Quadriplegia, unspecified; R65.21 Severe sepsis with septic shock; N17.0 Acute kidney failure with tubular necrosis; E43 Unspecified severe protein-calorie malnutrition; J15.6 Pneumonia due to other Gram-negative bacteria; J96.11 Chronic respiratory failure with hypoxia; Z99.11 Dependence on respirator [ventilator] status; I24.8 Other forms of acute ischemic heart disease; N39.0 Urinary tract infection, site not specified; L51.1 Stevens-Johnson syndrome; Y95 Nosocomial condition; G40.909 Epilepsy, unspecified, not intractable, without status epilepticus; I25.10 Atherosclerotic heart disease of native coronary artery without angina pectoris; E87.5 Hyperkalemia; D64.9 Anemia, unspecified; E88.09 Other disorders of plasma-protein metabolism, not elsewhere classified; Z20.822 Contact with and (suspected) exposure to COVID-19; E11.9 Type 2 diabetes mellitus without complications; I25.2 Old myocardial infarction; Z98.2 Presence of cerebrospinal fluid drainage device; Z93.1 Gastrostomy status; Z93.0 Tracheostomy status; Z90.710 Acquired absence of both cervix and uterus; Z88.2 Allergy status to sulfonamides; Z87.891 Personal history of nicotine dependence; Z87.440 Personal history of urinary (tract) infections; Z87.01 Personal history of pneumonia (recurrent); Z86.73 Personal history of transient ischemic attack (TIA), and cerebral infarction without residual deficits; Z74.01 Bed confinement status; Z88.6 Allergy status to analgesic agent; Z88.8 Allergy status to other drugs, medicaments and biological substances; Z79.899 Other long term (current) drug therapy; Z79.01 Long term (current) use of anticoagulants; Z68.37 Body mass index [BMI] 37.0-37.9, adult
CPT/HCPCS: 36415; 36600; 70250-TC; 71045; 76770; 76856-TC; 80048; 80053; 80061; 80202; 81000; 82607; 82746; 82803-TC; 82962; 83540; 83550; 83605; 83735; 83880; 84443; 84484; 85007; 85025; 85027; 85610-TC; 85651-TC; 85730-TC; 86140; 87040; 87070-TC; 87081; 87086; 87205-TC; 93005; 93971; 94003; 94640; 94760; 96365; 96367; 96368; 99291; G0378; J0692; J0744; J1200; J1450; J1815; J1940; J2020; J2185; J2248; J2916; J3370; J3480; J3490; J7050; J7060; J7512; J7613; P9046

== ENCOUNTER 2021-09-14 04:25 | Inpatient (IN) | payer OTHER, MEDICAID ==
[2021-09-14] VITALS (20 sets, daily range): BP systolic 76–183
[~2021-09-14] VITALS: Ht 160 cm; Wt 95.5 kg
[~2021-09-14 04:25] MED LIST changes: +ACET160S3 GT; +ALBU90AE2 ENDO; +ATOR10TA68 GT; +CHLO118L PO; +CLON0.1T GT; +CRAN1POW3 GT; +DOCU-159 GT; +DOXY100C GT; +DULR10 RC; +FLEET RC; +FOLI0.8T2 GT; +FURO-149 GT; +HYDR100T25 GT; +INSU100I56; +LANS30CA56 GT; +LEVE100S GT; +LEVO25CA4 GT; +LISI20TA GT; +MINO30 GT; +POTA20LI25 GT; +SODI1TAB3 GT; +THEO80SO4 GT; +TRAM50TA2 GT; +VALP250S3 GT
[2021-09-14] MEDS ORDERED: FUROSEMIDE 100 MG/10 ML VIAL IVP ONE (04:30)
[2021-09-14] MEDS ORDERED: NOREPINEPHRINE BITARTRATE 4 MG in NS 246 ML IV ONE (04:30)
--- NOTE | 2021-09-14 04:30 | NUR ---
PT TO BED 7. DR. MARRERO, RESPIRATORY THERAPY, PRIMARY RN ADILSON AT BEDSIDE. CRASH CART AT BEDSIDE PT IS AGONAL BREATHING. PT IS ON A VENT WITH TRACHYOSTOMY UPON ARRIVAL. SEE ASSESSMENT. WILL FOLLOW THROUGH WITH ORDERS.
--- NOTE | 2021-09-14 04:30 | NUR ---
XRAY AT BEDSIDE.
[2021-09-14] MEDS ORDERED: FUROSEMIDE 40 MG/4 ML VIAL ONE (04:31)
[2021-09-14] MEDS ORDERED: NOREPINEPHRINE 4 MG/4 ML VIAL IV ONE ×2 (04:31→06:14)
--- NOTE | 2021-09-14 04:40 | NUR ---
LEVOPHED DRIP STARTED PER ER MD ORDER.
[2021-09-14 05:15] LABS: PLATELET COUNT (AUTO) 105 K/uL (130-430); RED BLOOD CELL COUNT(AUTO) 2.36 MIL/uL (4.2-6.2)
--- NOTE | 2021-09-14 05:20 | NUR ---
ABLE TO FIND PEDAL PULSES WITH DOPPLER. DR. MARRERO AT BEDSIDE.
[2021-09-14 05:23] LABS: BASOPHILS % (AUTO) 0.3 % (0.0-2.0); EOSINOPHILS % (AUTO) 0.1 % (0.0-4.0); HEMATOCRIT 25.4 % (36-48); HEMOGLOBIN 8.4 g/dL (12.0-16.0); LYMPHOCYTES # (AUTO) 0.1 K/uL (1.0-5.5); LYMPHOCYTES % (AUTO) 1.8 % (20.5-51.5); MEAN CORPUSCULAR HEMOGLOBIN 36 pg (27-31); MEAN CORPUSCULAR HGB CONC 33 % (32-36); MEAN CORPUSCULAR VOLUME 108 fL (79.0-98.0); MONOCYTES # (AUTO) 0.6 K/uL (0.0-1.0); MONOCYTES % (AUTO) 7.8 % (1.7-9.3); NEUTROPHILS # (AUTO) 7.4 K/uL (1.8-7.7); RED CELL DISTRIBUTION WIDTH 20.2 % (9.0-15.0); WHITE BLOOD COUNT (AUTO) 8.2 K/uL (4.8-10.8)
--- NOTE | 2021-09-14 05:25 | NUR ---
EPI DRIP STARTED PER ER MD ORDER.
--- NOTE | 2021-09-14 05:26 | NUR ---
DR. MARRERO AT BEDSIDE FOR CENTRAL LINE PLACEMENT
[2021-09-14 05:28] LABS: ANION GAP 11 (5-15); CALCIUM 8.2 mg/dL (8.4-11.0); CHLORIDE 97 mmol/L (98-107); GLUCOSE 89 mg/dL (70-99); POTASSIUM 4.9 mmol/L (3.5-5.1); SODIUM SERUM 131 mmol/L (136-145)
[2021-09-14 05:29] LABS: INR 1.1 (0.8-1.2); PROTHROMBIN TIME 11.2 SECS (9.5-12.5)
[2021-09-14] MEDS ORDERED: EPINEPHrine HCL 5 MG in NS 245 ML IV PRN ×2 (05:30→07:00)
[2021-09-14] MEDS ORDERED: EPINEPHRINE HCL/PF 1 MG/ML AMP ONE (05:37)
[2021-09-14 05:47] LABS: ALANINE AMINOTRANSFERASE 29 U/L (12-78); ASPARTATE AMINOTRANSFERASE 58 U/L (10-37); TOTAL BILIRUBIN 0.2 mg/dL (0.0-1.0)
[2021-09-14] MEDS ORDERED: VANCOMYCIN HCL 1,000 MG in NS 250 ML IV ONE (06:00)
[2021-09-14] MEDS ORDERED: MEROPENEM 1 GM IVPB PREMIX 50 ML IV ONE ×2 (06:00→09:15)
[2021-09-14] MEDS ORDERED: ACETAMINOPHEN 650 MG/20.3 ML UDC GT PRN ×2 (06:00→10:30)
[2021-09-14 06:11] LABS: UREA NITROGEN, BLOOD 171 mg/dL (8-21)
[2021-09-14] MEDS ORDERED: VANCOMYCIN HCL 1000 MG/VIAL IV ONE (06:14)
[2021-09-14] MEDS: LevALBUTEROL HCL 1.25 MG/0.5 ML *CONC.* VIAL.NEB (XOPENEX CONC.) INH SCH ×5 (07:00→23:47)
--- NOTE | 2021-09-14 07:00 | NUR ---
ENDORSEMENT PATIENT CARE ENDORSED TO MEHDI ZULUAGA.
[2021-09-14 07:19] LABS: BILIRUBIN,URINE NEGATIVE (NEGATIVE); BLOOD, URINE 3+ (NEGATIVE); CLARITY/URINE CLOUDY (CLEAR); COLOR,URINE YELLOW (YELLOW); GLUCOSE,URINE NEGATIVE (NEGATIVE); KETONES,URINE NEGATIVE (NEGATIVE); LEUKOCYTE ESTERASE ,URINE 3+ (NEGATIVE); NITRITE, URINE NEGATIVE (NEGATIVE); PROTEIN URINE 2+ (NEGATIVE); UROBILINOGEN,URINE 0.2 (0.2-1.0)
[2021-09-14 07:27] LABS: BACTERIA,URINE MANY /HPF (None Seen); MUCUS,URINE 1+ /LPF (None Seen); WBC,URINE >100 /HPF (0-3)
--- NOTE | 2021-09-14 07:29 | NUR ---
Critical Lab Value reported of Troponin High Sensitivity 819. Dr. Jones made aware.
--- NOTE | 2021-09-14 08:00 | NUR ---
MRSA swab endorsed to Valdemar ZULUAGA
--- NOTE | 2021-09-14 08:00 | NUR ---
Pt transported to ICU rm 126 with RN/RT. Report given at bedside to Valdemar ZULUAGA.
--- NOTE | 2021-09-14 08:00 | NUR ---
TRANSPORTED PATIENT TO ROOM 126A FROM ER 7 VIA AMBU BAG 15LPM. PLACED BACK TO VENT WITH PREVIOUS SETTINGS, AC16, VT450, PEEP+5,FIO2 1005. SPO2 100%, HR 77. NO RESPIRATORY DISTRESS NOTED.
[2021-09-14] MEDS ORDERED: D5NS 1,000 ML IV SCH (09:15)
[2021-09-14] MEDS ORDERED: BISACODYL 10 MG/SUPPOSITORY RC PRN (10:30)
[2021-09-14] MEDS ORDERED: DEXTROSE 50% JECT 50 ML DISP.SYRIN ONE (10:39)
[2021-09-14] MEDS ORDERED: GLUCAGON,HUMAN RECOMBINANT 1 MG VIAL SUBCUT PRN (10:45)
[2021-09-14] MEDS ORDERED: DEXTROSE 50% JECT 50 ML DISP.SYRIN IVP ONE (10:45)
[2021-09-14] MEDS ORDERED: LORazepam 2 MG/ML VIAL IVP PRN (11:00)
[2021-09-14] MEDS ORDERED: GLUCOSE (DEXTROSE) ORAL GEL -Adults PO PRN (11:00)
[2021-09-14] MEDS: D5NS 1,000 ML IV SCH (11:00)
[2021-09-14] MEDS ORDERED: D5W 1,000 ML IV PRN (11:00)
--- NOTE | 2021-09-14 11:05 | NUR ---
TITRATED FIO2 DOWN TO 70%. SPO2 97%, HR 67.
--- NOTE | 2021-09-14 11:13 | NUR ---
NOTIFIED OF CONSULT ORDERING PHY: REASON FOR CONSULT: RESPIRATORY FAILURE DIALED: [phone] SPOKE TO: CESAR
--- NOTE | 2021-09-14 11:17 | NUR ---
NOTIFIED OF CONSULT ORDERING PHY: REASON FOR CONSULT: RENAL FAILURE DIALED: [phone] SPOKE TO: DANNY
[2021-09-14 11:28] LABS: INR 1.1 (0.8-1.2); PROTHROMBIN TIME 11.9 SECS (9.5-12.5)
[2021-09-14] MEDS ORDERED: SODIUM BICARBONATE 8.4% JECT 50 MEQ/50 ML SYRINGE ONE (11:29)
[2021-09-14] MEDS ORDERED: levETIRAcetam 1,000 MG in NS 100 ML IV ONE (11:30)
--- NOTE | 2021-09-14 12:03 | NUR ---
NOTIFIED OF CONSULT ORDERING PHY: REASON FOR CONSULT: SEPTIC SHOCK DIALED: [phone] SPOKE TO: BRADLY
[2021-09-14] MEDS: VALPROIC ACID ORAL SYRUP 250 MG/5 ML UDC GT SCH ×2 (12:08→20:44)
--- NOTE | 2021-09-14 19:00 | NUR ---
Blood sugar 48 dextrose given MD order increase d5 NS to 80 ml/hr
--- NOTE | 2021-09-14 19:15 | NUR ---
Opening notes Received report from endorsing morning shift ZAN Aldrich for continuity of care. Patient is lying in bed in no signs of distress with IVF D5NS @ 80mlL/hr, levophed drip @ 0.05 mcg/kg/min, and epinephrine @ 0.1 mcg/kg/min. Patient's vital signs blood pressure 147/40, respirations 24, heart rate 58, and SPO2 94% on ventilator. Patient's vent settings AC 16, tidal volume 450, FIO2 60%, and peep of 5. Escalante catheter is in place draining to gravity. Bed is locked and in lowest position, fall and safety precautions is in place.
[2021-09-14] MEDS: THEOPHYLLINE ANHYDROUS 80 MG/15 ML UDC GT SCH (20:44)
[2021-09-14] MEDS: levETIRAcetam 1,000 MG in NS 100 ML IV SCH (20:45)
[2021-09-14] MEDS ORDERED: PANTOPRAZOLE SODIUM 40 MG/VIAL (PROTONIX) IVP SCH (21:00)
[2021-09-15] VITALS (32 sets, daily range): BP systolic 80–145
[2021-09-15] MEDS: NOREPINEPHRINE BITARTRATE 4 MG in NS 246 ML IV PRN ×2 (02:55→22:00)
[2021-09-15] MEDS: D5NS 1,000 ML IV SCH ×2 (02:56→15:57)
[2021-09-15] MEDS: LevALBUTEROL HCL 1.25 MG/0.5 ML *CONC.* VIAL.NEB (XOPENEX CONC.) INH SCH ×5 (03:48→23:17)
[2021-09-15] MEDS: VALPROIC ACID ORAL SYRUP 250 MG/5 ML UDC GT SCH ×3 (04:07→19:57)
[2021-09-15 06:20] LABS: BASOPHILS % (AUTO) 0.1 % (0.0-2.0); EOSINOPHILS % (AUTO) 0.3 % (0.0-4.0); HEMOGLOBIN 7.9 g/dL (12.0-16.0); LYMPHOCYTES # (AUTO) 0.1 K/uL (1.0-5.5); LYMPHOCYTES % (AUTO) 2.1 % (20.5-51.5); MEAN CORPUSCULAR HEMOGLOBIN 36 pg (27-31); MEAN CORPUSCULAR HGB CONC 33 % (32-36); MEAN CORPUSCULAR VOLUME 109 fL (79.0-98.0); MONOCYTES # (AUTO) 0.5 K/uL (0.0-1.0); MONOCYTES % (AUTO) 7.4 % (1.7-9.3); NEUTROPHILS % (AUTO) 90.1 % (40.0-70.0); PLATELET COUNT (AUTO) 76 K/uL (130-430); RED BLOOD CELL COUNT(AUTO) 2.21 MIL/uL (4.2-6.2); RED CELL DISTRIBUTION WIDTH 20.6 % (9.0-15.0); WHITE BLOOD COUNT (AUTO) 6.7 K/uL (4.8-10.8)
[2021-09-15 06:48] LABS: CHLORIDE 98 mmol/L (98-107); GLUCOSE 75 mg/dL (70-99); SODIUM SERUM 136 mmol/L (136-145)
--- NOTE | 2021-09-15 07:12 | NUR ---
RT NOTES There appears to be a large leak coming from pt's trach, added air in cuff, appears to improve leak issue. Found PIP in the high 40s low 50s, will notify RN. No resistance when sxn via trach tube was noted. Pt's chest area appears swollen, no crepitus noted.
--- NOTE | 2021-09-15 07:15 | NUR ---
RECEIVED PATIENT IN BED #2, STABLE, REMAINS ON TRACH TO VENT, EYES OPEN, RESPONSIVE TO SUCTIONING, VSS, NAD, REMAINS ON LEVOPHED AT 0.13 MCG/KG/MIN. PT WEAPING, F/C DRAINING, AND FEEDING AT GOAL. AWAITING ADDITIONAL MD ASSESSMENTS FOR PLAN OF CARE WITH DISPOSITION.
[2021-09-15 08:27] LABS: ANION GAP 19 (5-15); CALCIUM 7.9 mg/dL (8.4-11.0); CREATININE 2.26 mg/dL (0.55-1.30); POTASSIUM 4.3 mmol/L (3.5-5.1)
[2021-09-15 08:31] LABS: UREA NITROGEN, BLOOD 168 mg/dL (8-21)
[2021-09-15] MEDS: CHLORHEXIDINE GLUC 0.12% 15 ML MOUTHWASH UDC MM SCH ×2 (09:17→20:03)
[2021-09-15] MEDS: THEOPHYLLINE ANHYDROUS 80 MG/15 ML UDC GT SCH ×2 (09:17→20:02)
[2021-09-15] MEDS: levETIRAcetam 1,000 MG in NS 100 ML IV SCH ×2 (09:17→20:03)
[2021-09-15 09:51] LABS: TOTAL IRON BIND. CAPACITY 188 ug/dL (250-450)
[2021-09-15] MEDS ORDERED: PANTOPRAZOLE SODIUM 40 MG/VIAL (PROTONIX) ONE (10:05)
[2021-09-15] MEDS: PANTOPRAZOLE SODIUM 40 MG/VIAL (PROTONIX) IVP SCH (10:09)
--- NOTE | 2021-09-15 10:35 | NUR ---
RT NOTES Per Dr Church's order, vent to PC, PC was adjusted slowly to reach target Vt 400-450 RR 24, decreased PEEP to 3, FIO2 65%. PC currently @ 30 Vt remains in the 300s. Sat 93%. PIP 30-33. Will monitor pt. Rn notified.
[2021-09-15] MEDS ORDERED: HEPARIN SODIUM,PORCINE 5,000 UNITS/ML VIAL ONE ×2 (12:50→15:07)
--- NOTE | 2021-09-15 13:05 | NUR ---
RT NOTES Unable to draw ABG at this time, pt underwent fawn cath placement, was on her back t/o the procedure, low exh Vt, low sat. Rn agreed to hold off on ABG as well. FIO2 to 0.75. A/w remains secure/patent.
[2021-09-15] MEDS: MEROPENEM 500 MG in NS 50 ML IV SCH (13:24)
[2021-09-15] MEDS: LEVOFLOXACIN 250 MG/D5W 50 ML IV SCH (14:19)
--- NOTE | 2021-09-15 15:15 | NUR ---
RT NOTES Pt is about to undergo dialysis, RN agreed ABG to be drawn after dialysis is over.
[2021-09-15] MEDS: VANCOMYCIN HCL 1,250 MG in NS 250 ML IV SCH (16:50)
--- NOTE | 2021-09-15 17:24 | NUR ---
RT NOTES Pt is still undergoing dialysis. Will endorse to NOC RT regarding ABG, RN is aware. Lung expansion appears to be improving, exh Vt in the mid 300s.
[2021-09-16] VITALS (40 sets, daily range): BP systolic 89–156
[2021-09-16] MEDS: LevALBUTEROL HCL 1.25 MG/0.5 ML *CONC.* VIAL.NEB (XOPENEX CONC.) INH SCH ×6 (02:30→23:15)
--- NOTE | 2021-09-16 03:30 | NUR ---
ALL CARES DONE, COMPLETE BED BATH DONE, CHG BATH GIVEN, ALL EXTREMETIES AND BODY WEEPING A LOT, LINEN CHANGED AND SKIN CARE DONE, LEVOPHED AT 0.2 MCG. AFEBRILE WARM BLANKET ON. CONT CARE.
[2021-09-16] MEDS: MEROPENEM 500 MG in NS 50 ML IV SCH ×2 (04:29→12:29)
[2021-09-16] MEDS: VALPROIC ACID ORAL SYRUP 250 MG/5 ML UDC GT SCH ×3 (04:29→20:03)
[2021-09-16] MEDS: D5NS 1,000 ML IV SCH ×2 (04:30→17:46)
[2021-09-16] MEDS: NOREPINEPHRINE BITARTRATE 4 MG in NS 246 ML IV PRN ×2 (04:31→22:14)
[2021-09-16 05:55] LABS: MEAN CORPUSCULAR HEMOGLOBIN 35 pg (27-31); MEAN CORPUSCULAR HGB CONC 32 % (32-36); MEAN CORPUSCULAR VOLUME 109 fL (79.0-98.0); PLATELET COUNT (AUTO) 63 K/uL (130-430); RED CELL DISTRIBUTION WIDTH 20.7 % (9.0-15.0); WHITE BLOOD COUNT (AUTO) 12.5 K/uL (4.8-10.8)
[2021-09-16] MEDS: INSULIN REGULAR, HUMAN 100 UNITS/ML, 10 ML VIAL (humuLIN R) SUBCUT PRN (05:56)
[2021-09-16 06:15] LABS: ALANINE AMINOTRANSFERASE 28 U/L (12-78); ALBUMIN 1.3 g/dL (3.4-4.8); ANION GAP 12 (5-15); ASPARTATE AMINOTRANSFERASE 84 U/L (10-37); CALCIUM 7.4 mg/dL (8.4-11.0); CHLORIDE 101 mmol/L (98-107); CREATININE 1.63 mg/dL (0.55-1.30); GLUCOSE 147 mg/dL (70-99); POTASSIUM 4.5 mmol/L (3.5-5.1); SODIUM SERUM 137 mmol/L (136-145); TOTAL BILIRUBIN 0.2 mg/dL (0.0-1.0); UREA NITROGEN, BLOOD 97 mg/dL (8-21)
[2021-09-16 06:45] LABS: RED BLOOD CELL COUNT(AUTO) 1.95 MIL/uL (4.2-6.2)
[2021-09-16 06:47] LABS: HEMOGLOBIN 6.9 g/dL (12.0-16.0)
[2021-09-16 06:48] LABS: HEMATOCRIT 21.2 % (36-48)
[2021-09-16 07:07] LABS: FOLATE (FOLIC ACID) >20.0 ng/mL (>3.0)
--- NOTE | 2021-09-16 07:15 | NUR ---
RECEIVED PATIENT IN BED #2, STABLE, REMAINS ON TRACH TO VENT, EYES OPEN, RESPONSIVE TO SUCTIONING, VSS, NAD, REMAINS ON LEVOPHED AT 0.2 MCG/KG/MIN. PT WEAPING, F/C DRAINING, AND FEEDING OFF CURRENTLY. AWAITING ADDITIONAL MD ASSESSMENTS FOR PLAN OF CARE WITH DISPOSITION.
--- NOTE | 2021-09-16 07:20 | NUR ---
RT NOTES Pt is agonal breathing, a/w is secure/patent. Rn is aware. @[id number] charge nurse made aware of agonal breathing.
[2021-09-16] MEDS ORDERED: PANTOPRAZOLE SODIUM 40 MG/VIAL (PROTONIX) ONE (08:12)
[2021-09-16] MEDS: PANTOPRAZOLE SODIUM 40 MG/VIAL (PROTONIX) IVP SCH (08:33)
[2021-09-16] MEDS: CHLORHEXIDINE GLUC 0.12% 15 ML MOUTHWASH UDC MM SCH ×2 (08:33→20:04)
[2021-09-16] MEDS: levETIRAcetam 1,000 MG in NS 100 ML IV SCH ×2 (08:33→20:04)
[2021-09-16] MEDS: THEOPHYLLINE ANHYDROUS 80 MG/15 ML UDC GT SCH ×2 (08:33→20:03)
[2021-09-16] MEDS ORDERED: HEPARIN SODIUM,PORCINE 5,000 UNITS/ML VIAL ONE (12:09)
[2021-09-16 12:41] LABS: BAND % (MANUAL) 26 % (0-6); BASOPHILS % (MANUAL) 0 % (0-2); CORRECTED WHITE BLOOD COUNT 11.5 K/uL (4.5-11.0); EOSINOPHILS % (MANUAL) 0 % (0-7); LYMPHOCYTES % (MANUAL) 4 % (20-46); METAMYELOCYTES % 6 % (0-0); MONOCYTES % (MANUAL) 6 % (0-11)
[2021-09-16] MEDS: LEVOFLOXACIN 250 MG/D5W 50 ML IV SCH (12:43)
[2021-09-16 13:08] LABS: FERRITIN 3160 ng/mL (15-150)
[2021-09-16] MEDS ORDERED: HEPARIN SODIUM,PORCINE 5,000 UNITS/ML VIAL IV ONE (13:15)
--- NOTE | 2021-09-16 14:37 | NUR ---
Dietitian Recommendations * Nepro at 35 ml/hr (goal rate), Free Water Flush: 225 ml Q6h (per physician) via GT Provides: 1512 kcal/day, 68 gm protein/day, and 1511 ml free water/day Meets: 96% of lower end of estimated caloric needs and 87% of upper end of estimated protein needs LP, RD Please refer to Nutrition Assessment for details. Addendum: 09/16/21 at [address] Amended: Links added.
--- NOTE | 2021-09-16 15:00 | NUR ---
WOUND EVALUATION: Late note for 09/16/21 at 1500 secondary to patient care. Wound Consult received from Dr. Bobby. Thank you, Dr. Bobby, for the consult. Patient received in a [place] In Touch Bed, nonverbal, nonresponsive to verbal commands. Patient is unable to turn in bed independently. Cr Score is a 10. Past Medical History: Chronic Respiratory Failure, Hypertension, Seizure disorder, Chronic Encephalopathy, Stroke, Diabetes Mellitus, CVA/Stroke, Chronic Anemia, Tracheostomy, G-tube placement. Recent Labs: WBC 12.5, corrected WBC 11.5, RBC 1.95, hemoglobin 6.9, hematocrit 21.2, BUN 97, creatinine 1.63, glucose 147, POC glucose 144, calcium 7.4, AST 84, ALT 28, serum total protein 5.6, albumin 1.3. Microbiology: Blood culture results x2 in progress. Urine culture results positive for Klebsiella pneumonia (ESBL, MDRO). Endotracheal sputum culture results in progress. MRSA screen is results in progress. Intrinsic factors that delay wound healing: Chronic Respiratory Failure, Chronic Encephalopathy, Stroke, severe Hypoalbuminemia, Hyperglycemia, severe anemia. Extrinsic factors that delay wound healing: Immobility. Wound Assessment: 1. Right Sacral area: Unstageable pressure ulcer, present on admission. Wound bed has 55% yellow tissue, 5% dark discolored wound tissue, 40% dark red tissue. No odor, no drainage. Periwound intact. Wound measures 3.0 cm x 3.0 cm. 2. Right Buttock, Inferior to Site 1: Unstageable pressure ulcer, present on admission. Wound bed has 95% yellow tissue, 5% dark red tissue. No odor, no drainage. Periwound intact. Wound measures 0.7 cm x 0.5 cm. 3. Left Buttock: Stage III pressure ulcer, present on admission. Wound bed has 90% pink tissue, 10% dark discolored wound tissue. No odor, no drainage. Periwound intact. Wound measures 2.4 cm x 2.1 cm. 4. Intergluteal Cleft: Stage III pressure ulcer, present on admission. Wound bed has 95% pink tissue, 5% red tissue. No odor, small sanguineous drainage. Periwound intact. Wound measures 1.9 cm x 1.0 cm. 5. Left Outer Buttock: Skin tear. Site has 90% red tissue, 10% pink tissue. No odor, scant sanguineous drainage. Periwound intact. Skin tear measures 2.6 cm x 0.9 cm. Recommend: Cleanse wounds with normal saline. Apply moisture barrier cream to periwounds. Apply Venelex ointment to wound beds. Cover with nonadhesive foam dressings. Secure with transparent dressings. Perform wound care daily, and as needed for dressing soiling or dislodgment. 6. Left Anterior Medial Great Toe: Unstageable pressure ulcer, present on admission. Wound bed has 95% yellow slough, 5% pink tissue. No odor, no drainage. Periwound intact. Wound measures 2.5 cm x 1.6 cm. Recommend: Cleanse wound with normal saline. Apply moisture barrier cream to periwound. Apply Venelex ointment to wound bed. Cover with nonadhesive foam dressing. Wrap with Maurice wrap and secure with tape. Perform wound care daily, and as needed for dressing soiling or dislodgment. 7. Right Posterior Medial Foot, Inferior to First Metatarsal Head: Unstageable pressure ulcer, present on admission. Wound bed has 95% yellow slough, 5% pink tissue. No odor, no drainage. Periwound intact, white. Wound measures 2.7 cm x 2.3 cm. Recommend: Cleanse wound with normal saline. Apply moisture barrier cream to periwound. Apply Venelex ointment to wound bed. Cover with nonadhesive foam dressing. Wrap with Maurice wrap and secure with tape. Perform wound care daily, and as needed for dressing soiling or dislodgment. 8. Bilateral Upper Extremities and Hands: Sites have 4+ pitting edema with a moderate amount of weeping. 9. Bilateral Lower Extremities and Feet: Sites have 4+ pitting edema with a moderate amount of weeping. Recommend: Cleanse involved areas with mild soap and water. Gently pat dry. Wrap extremities with chucks to absorb weeping. Perform site care twice daily and as needed for check soiling. Also recommend: Reposition patient side to side only every 2 hours with pillow support and off-load pressure areas with pillows for pressure re-distribution. Offload, elevate and float bilateral heels with one pillow lengthwise under each extremity. Perform skin care and monitor skin integrity Q shift. Use moisture barrier cream on buttocks and other moisture susceptible areas QID and as needed for soiling. Place patient on a P500 low air-loss mattress.
--- NOTE | 2021-09-16 17:22 | NUR ---
RT NOTES pt not agonal breathing at this time.
[2021-09-17] VITALS (36 sets, daily range): BP systolic 101–146
[2021-09-17] MEDS: INSULIN REGULAR, HUMAN 100 UNITS/ML, 10 ML VIAL (humuLIN R) SUBCUT PRN ×3 (00:14→11:18)
[2021-09-17] MEDS: MEROPENEM 500 MG in NS 50 ML IV SCH ×2 (00:15→13:00)
--- NOTE | 2021-09-17 01:00 | NUR ---
1 unit of prbc transfusing,no untowards reaction noted
--- NOTE | 2021-09-17 02:45 | NUR ---
aboved unit of prbc finished, no reaction noted.
[2021-09-17] MEDS: LevALBUTEROL HCL 1.25 MG/0.5 ML *CONC.* VIAL.NEB (XOPENEX CONC.) INH SCH ×6 (03:09→23:35)
[2021-09-17] MEDS: VALPROIC ACID ORAL SYRUP 250 MG/5 ML UDC GT SCH ×3 (03:28→21:03)
[2021-09-17] MEDS: NOREPINEPHRINE BITARTRATE 4 MG in NS 246 ML IV PRN ×4 (03:31→23:00)
--- NOTE | 2021-09-17 05:30 | NUR ---
complete bed bath done, chg bath given, oral care and pericare done, linen changed and kept dry all over body weeping a lot.
[2021-09-17 06:26] LABS: ALANINE AMINOTRANSFERASE 28 U/L (12-78); ALBUMIN 1.5 g/dL (3.4-4.8); ANION GAP 8 (5-15); ASPARTATE AMINOTRANSFERASE 93 U/L (10-37); CALCIUM 7.9 mg/dL (8.4-11.0); CHLORIDE 103 mmol/L (98-107); CREATININE 1.52 mg/dL (0.55-1.30); GLUCOSE 206 mg/dL (70-99); POTASSIUM 3.6 mmol/L (3.5-5.1); SODIUM SERUM 136 mmol/L (136-145); TOTAL BILIRUBIN 0.4 mg/dL (0.0-1.0); UREA NITROGEN, BLOOD 59 mg/dL (8-21)
[2021-09-17] MEDS: D5NS 1,000 ML IV SCH ×2 (06:40→16:21)
[2021-09-17 07:20] LABS: HEMATOCRIT 28.2 % (36-48); HEMOGLOBIN 9.5 g/dL (12.0-16.0); MEAN CORPUSCULAR HEMOGLOBIN 34 pg (27-31); MEAN CORPUSCULAR HGB CONC 34 % (32-36); MEAN CORPUSCULAR VOLUME 101 fL (79.0-98.0); RED BLOOD CELL COUNT(AUTO) 2.79 MIL/uL (4.2-6.2); RED CELL DISTRIBUTION WIDTH 25.2 % (9.0-15.0); WHITE BLOOD COUNT (AUTO) 11.3 K/uL (4.8-10.8)
--- NOTE | 2021-09-17 08:00 | NUR ---
MANGO GOMEZ REG NURSE IS IN CHARGE OF THIS PATIENT//MW
[2021-09-17] MEDS: PANTOPRAZOLE SODIUM 40 MG/VIAL (PROTONIX) IVP SCH (09:00)
[2021-09-17 09:03] LABS: PLATELET COUNT (AUTO) 47 K/uL (130-430)
[2021-09-17] MEDS: CHLORHEXIDINE GLUC 0.12% 15 ML MOUTHWASH UDC MM SCH ×2 (10:04→21:07)
[2021-09-17] MEDS: BALSAM PERU/CASTOR OIL 56.7 GM OINT...G. TP SCH (10:05)
[2021-09-17] MEDS: THEOPHYLLINE ANHYDROUS 80 MG/15 ML UDC GT SCH ×2 (10:13→21:04)
[2021-09-17] MEDS: levETIRAcetam 1,000 MG in NS 100 ML IV SCH ×2 (10:13→21:06)
--- NOTE | 2021-09-17 10:27 | NUR ---
Nutrition F/U Admitting Diagnosis Septic shock Reviewed Pertinent Medical/Surgical Hx Medical Record Other-ICU rounds and primary RN Medical History Comment: PMH: HTN, DM, seizure disorder, stroke, chronic respiratory failure, and chronic anemia per physician notes Pt also found w/ acute on chronic renal failure per physician notes SARS-CoV-2 Ag (Rapid) Negative 09/14 Subjective Information Pt remains w/ trach to vent, G-tube feeding of Nepro infusing at goal rate of 35 ml/h (provides 1512 kcals, 68 gm protein, 611 ml free water) to meet 96% of lower end of estimated caloric needs and 87% of upper end of estimated protein needs, no GRV. Last BM 09/16 x2, per primary RN large BM. HD started, per MD note 2L removed on 09/16. Pt is meeting optimal nutritional needs Cr score 7 on 09/17 @ 0400. Per [facility] RN note (09/16 @ 1500): Wound Assessment: 1. Right Sacral area: Unstageable pressure ulcer, present on admission. Wound bed has 55% yellow tissue, 5% dark discolored wound tissue, 40% dark red tissue. No odor, no drainage. Periwound intact. Wound measures 3.0 cm x 3.0 cm. 2. Right Buttock, Inferior to Site 1: Unstageable pressure ulcer, present on admission. Wound bed has 95% yellow tissue, 5% dark red tissue. No odor, no drainage. Periwound intact. Wound measures 0.7 cm x 0.5 cm. 3. Left Buttock: Stage III pressure ulcer, present on admission. Wound bed has 90% pink tissue, 10% dark discolored wound tissue. No odor, no drainage. Periwound intact. Wound measures 2.4 cm x 2.1 cm. 4. Intergluteal Cleft: Stage III pressure ulcer, present on admission. Wound bed has 95% pink tissue, 5% red tissue. No odor, small sanguineous drainage. Periwound intact. Wound measures 1.9 cm x 1.0 cm. 5. Left Outer Buttock: Skin tear. Site has 90% red tissue, 10% pink tissue. No odor, scant sanguineous drainage. Periwound intact. Skin tear measures 2.6 cm x 0.9 cm. Recommend: Cleanse wounds with normal saline. Apply moisture barrier cream to periwounds. Apply Venelex ointment to wound beds. Cover with nonadhesive foam dressings. Secure with transparent dressings. Perform wound care daily, and as needed for dressing soiling or dislodgment. 6. Left Anterior Medial Great Toe: Unstageable pressure ulcer, present on admission. Wound bed has 95% yellow slough, 5% pink tissue. No odor, no drainage. Periwound intact. Wound measures 2.5 cm x 1.6 cm. 7. Right Posterior Medial Foot, Inferior to First Metatarsal Head: Unstageable pressure ulcer, present on admission. Wound bed has 95% yellow slough, 5% pink tissue. No odor, no drainage. Periwound intact, white. Wound measures 2.7 cm x 2.3 cm. 8. Bilateral Upper Extremities and Hands: Sites have 4+ pitting edema with a moderate amount of weeping. 9. Bilateral Lower Extremities and Feet: Sites have 4+ pitting edema with a moderate amount of weeping. Current Diet Order/Nutrition Support Nepro at 35 ml/hr, Free Water Flush: 225ML q 6hrs via GT x2 days Patient/Significant Other Unable To Verbalize Education Provided Not Indicated Pertinent Medications vancomycin, protonix IV, D5%NS at 80 ml/hr Pertinent Labs BG 149 H, POC BG 144 H, BUN 97 H, CRE 1.63 H, WBC 12.5 H, ALB 1.3 L Height (Feet) 5 feet Height (Inches) 3.00 inches Weight (Pounds) 280 pounds Weight (Calculated Kilograms) 127.821486 kilograms Patient Weight 127.006 kg Body Mass Index 49.59 kg/m2 %IBW 243 [place]/Adjusted Body Weight 115#/52.3 kg. 156#/71 kg Recent Weight Change Unable to verify Weight Status Morbidly Obese Food Allergies Unable to verify Usual Diet At Home Unable to verify Estimated Energy Expenditure (kcals/day) 3467-8257 (30-35 kcal/kg IBW d/t morbid obesity, HD, sepsis) Estimated Protein Required (g/day) 52-78 (1.2-1.5 gm/kg IBW d/t morbid obesity, HD, sepsis) Estimated Fluid Required (l/day) Per physician d/t renal failure Problem/Etiology/Signs/Symptoms Increased nutritional needs R/T metabolic demands AEB estimated nutritional requirements for HD, sepsis and compromised skin integrity w/ Cr score 7 Altered nutrition-related labs R/T endocrine and renal dysfunction AEB abnormal BG/POC BG/BUN/CRE lab values. Malnutrition R/T morbid obesity AEB BMI: 49.59 kg/m2 and 243% of IBW. Expected Outcomes/Goals - Monitor tolerance to EN support w/ goal of pt meeting >80% of estimated nutritional needs, labs trending WNL, normal GI function, and skin integrity/wt maintenance Dietitian Recommendations * Nepro at 35 ml/hr (goal rate), Free Water Flush: 225 ml Q6h (per physician) via GT Provides: 1512 kcal/day, 68 gm protein/day, and 1511 ml free water/day Meets: 96% of lower end of estimated caloric needs and 87% of upper end of estimated protein needs Follow Up High Risk: F/U in 2-3days Follow Up By Sep 20, 2021 Alert Indicated Risk of Malnutrition Related to Morbid Obesity Weight 200% of ideal Wt. Risk of Malnutrition Related to Morbid Obesity Yes
--- NOTE | 2021-09-17 10:54 | NUR ---
Dietitian Recommendation * Please consider Nephrovite Please refer to RD assessment for details. PS, RD
[2021-09-17] MEDS ORDERED: HEPARIN SODIUM,PORCINE 5,000 UNITS/ML VIAL ONE (12:19)
[2021-09-17 12:24] LABS: BAND % (MANUAL) 34 % (0-6); BASOPHILS % (MANUAL) 0 % (0-2); CORRECTED WHITE BLOOD COUNT 10.5 K/uL (4.5-11.0); EOSINOPHILS % (MANUAL) 1 % (0-7); LYMPHOCYTES % (MANUAL) 2 % (20-46); METAMYELOCYTES % 10 % (0-0); MONOCYTES % (MANUAL) 10 % (0-11)
[2021-09-17] MEDS: LEVOFLOXACIN 250 MG/D5W 50 ML IV SCH (13:00)
[2021-09-17] MEDS: VANCOMYCIN HCL 1,250 MG in NS 250 ML IV SCH (17:00)
[2021-09-17] MEDS ORDERED: NOREPINEPHRINE 4 MG/4 ML VIAL IV ONE ×2 (18:31→22:51)
--- NOTE | 2021-09-17 21:29 | NUR ---
CONSULTATION PAGED/CALLED Reason for Consultation: THROMBOCYTOPENIA Person Who was Notified: ARY Consulting Physician: DR. ART Alarm Field Technician Specialty: HEMATOLOGY Ordering Physician: DR. AMADOR
[2021-09-18] VITALS (26 sets, daily range): BP systolic 101–149
[2021-09-18] MEDS: MEROPENEM 500 MG in NS 50 ML IV SCH ×2 (01:15→13:22)
[2021-09-18] MEDS: LevALBUTEROL HCL 1.25 MG/0.5 ML *CONC.* VIAL.NEB (XOPENEX CONC.) INH SCH ×6 (03:48→23:05)
[2021-09-18] MEDS ORDERED: NOREPINEPHRINE 4 MG/4 ML VIAL IV ONE (03:50)
[2021-09-18] MEDS: VALPROIC ACID ORAL SYRUP 250 MG/5 ML UDC GT SCH ×3 (04:02→22:13)
[2021-09-18] MEDS: D5NS 1,000 ML IV SCH (04:41)
[2021-09-18] MEDS: NOREPINEPHRINE BITARTRATE 4 MG in NS 246 ML IV PRN (06:02)
[2021-09-18 06:40] LABS: BASOPHILS % (AUTO) 0.3 % (0.0-2.0); EOSINOPHILS # (AUTO) 0.1 K/uL (0.0-0.4); EOSINOPHILS % (AUTO) 0.6 % (0.0-4.0); HEMATOCRIT 29.2 % (36-48); LYMPHOCYTES # (AUTO) 0.5 K/uL (1.0-5.5); LYMPHOCYTES % (AUTO) 4.9 % (20.5-51.5); MEAN CORPUSCULAR HEMOGLOBIN 34 pg (27-31); MEAN CORPUSCULAR HGB CONC 34 % (32-36); MEAN CORPUSCULAR VOLUME 99 fL (79.0-98.0); MONOCYTES # (AUTO) 0.6 K/uL (0.0-1.0); MONOCYTES % (AUTO) 5.6 % (1.7-9.3); NEUTROPHILS % (AUTO) 88.6 % (40.0-70.0); RED BLOOD CELL COUNT(AUTO) 2.94 MIL/uL (4.2-6.2); RED CELL DISTRIBUTION WIDTH 24.5 % (9.0-15.0); WHITE BLOOD COUNT (AUTO) 10.2 K/uL (4.8-10.8)
[2021-09-18 07:00] LABS: ALANINE AMINOTRANSFERASE 35 U/L (12-78); ALBUMIN 1.4 g/dL (3.4-4.8); ANION GAP 9 (5-15); ASPARTATE AMINOTRANSFERASE 86 U/L (10-37); CALCIUM 8.2 mg/dL (8.4-11.0); CHLORIDE 105 mmol/L (98-107); CREATININE 1.21 mg/dL (0.55-1.30); GLUCOSE 246 mg/dL (70-99); POTASSIUM 3.4 mmol/L (3.5-5.1); SODIUM SERUM 138 mmol/L (136-145); TOTAL BILIRUBIN 0.5 mg/dL (0.0-1.0); UREA NITROGEN, BLOOD 37 mg/dL (8-21)
[2021-09-18 07:32] LABS: PLATELET COUNT (AUTO) 49 K/uL (130-430)
[2021-09-18] MEDS: INSULIN REGULAR, HUMAN 100 UNITS/ML, 10 ML VIAL (humuLIN R) SUBCUT PRN ×3 (07:57→17:48)
[2021-09-18] MEDS ORDERED: POTASSIUM CHLORIDE 20 MEQ/PKT PACKET GT ONE (09:30)
[2021-09-18] MEDS: THEOPHYLLINE ANHYDROUS 80 MG/15 ML UDC GT SCH ×2 (09:55→22:13)
[2021-09-18] MEDS: levETIRAcetam 1,000 MG in NS 100 ML IV SCH ×2 (10:04→22:14)
[2021-09-18] MEDS: BALSAM PERU/CASTOR OIL 56.7 GM OINT...G. TP SCH (10:06)
[2021-09-18] MEDS: CHLORHEXIDINE GLUC 0.12% 15 ML MOUTHWASH UDC MM SCH ×2 (10:06→22:36)
[2021-09-18] MEDS: FUROSEMIDE 100 MG in D5W 90 ML IV SCH (11:25)
[2021-09-18] MEDS: PANTOPRAZOLE SODIUM 40 MG/VIAL (PROTONIX) IVP SCH (11:26)
[2021-09-18] MEDS ORDERED: FOLIC ACID 1 MG TABLET GT ONE (12:00)
[2021-09-18] MEDS: LEVOFLOXACIN 250 MG/D5W 50 ML IV SCH (13:21)
[2021-09-18] MEDS: methylPREDNISolone SOD SUCC/PF 62.5 MG/ML VIAL IVP SCH ×2 (13:46→22:35)
[2021-09-18] MEDS: EPOETIN ALFA-EPBX 3,000 UNITS/ML VIAL SUBCUT SCH (17:38)
--- NOTE | 2021-09-18 20:41 | NUR ---
DR. PERRY HADDAD PAGED AT [phone] FOR ORDERS. WILL AWAIT MD CALL BACK.
--- NOTE | 2021-09-18 22:47 | NUR ---
DR. KARLEY HADDAD PAGED AT THIS TIME FOR ORDERS. SPOKE WITH ALFREDO AT THE EXCHANGE.
[2021-09-19] VITALS (24 sets, daily range): BP systolic 104–148
[2021-09-19] MEDS: D5NS 1,000 ML IV SCH ×2 (02:28→20:28)
[2021-09-19] MEDS: MEROPENEM 500 MG in NS 50 ML IV SCH ×2 (02:29→13:00)
[2021-09-19] MEDS: INSULIN REGULAR, HUMAN 100 UNITS/ML, 10 ML VIAL (humuLIN R) SUBCUT PRN ×3 (02:42→23:12)
[2021-09-19] MEDS: LevALBUTEROL HCL 1.25 MG/0.5 ML *CONC.* VIAL.NEB (XOPENEX CONC.) INH SCH ×6 (03:05→23:10)
[2021-09-19] MEDS: VALPROIC ACID ORAL SYRUP 250 MG/5 ML UDC GT SCH ×3 (07:00→20:21)
[2021-09-19 07:11] LABS: PROTHROMBIN TIME 10.4 SECS (9.5-12.5)
[2021-09-19 07:15] LABS: ALANINE AMINOTRANSFERASE 41 U/L (12-78); ALBUMIN 1.4 g/dL (3.4-4.8); ANION GAP 13 (5-15); ASPARTATE AMINOTRANSFERASE 63 U/L (10-37); CALCIUM 8.4 mg/dL (8.4-11.0); CHLORIDE 107 mmol/L (98-107); CREATININE 1.37 mg/dL (0.55-1.30); GLUCOSE 283 mg/dL (70-99); POTASSIUM 3.4 mmol/L (3.5-5.1); SODIUM SERUM 140 mmol/L (136-145); TOTAL BILIRUBIN 0.2 mg/dL (0.0-1.0); UREA NITROGEN, BLOOD 41 mg/dL (8-21)
[2021-09-19] MEDS: methylPREDNISolone SOD SUCC/PF 62.5 MG/ML VIAL IVP SCH ×3 (07:32→22:55)
[2021-09-19] MEDS: NOREPINEPHRINE BITARTRATE 4 MG in NS 246 ML IV PRN ×2 (07:37→15:36)
[2021-09-19 08:51] LABS: HEMATOCRIT 30.4 % (36-48); HEMOGLOBIN 10.1 g/dL (12.0-16.0); MEAN CORPUSCULAR HEMOGLOBIN 34 pg (27-31); MEAN CORPUSCULAR HGB CONC 33 % (32-36); MEAN CORPUSCULAR VOLUME 102 fL (79.0-98.0); PLATELET COUNT (AUTO) 63 K/uL (130-430); RED BLOOD CELL COUNT(AUTO) 2.98 MIL/uL (4.2-6.2); RED CELL DISTRIBUTION WIDTH 24.2 % (9.0-15.0); WHITE BLOOD COUNT (AUTO) 8.5 K/uL (4.8-10.8)
[2021-09-19] MEDS: levETIRAcetam 1,000 MG in NS 100 ML IV SCH ×2 (09:00→20:24)
[2021-09-19] MEDS: BALSAM PERU/CASTOR OIL 56.7 GM OINT...G. TP SCH (09:00)
[2021-09-19] MEDS: CHLORHEXIDINE GLUC 0.12% 15 ML MOUTHWASH UDC MM SCH ×2 (09:00→20:23)
[2021-09-19] MEDS: FOLIC ACID 1 MG TABLET GT SCH (09:00)
[2021-09-19] MEDS: PANTOPRAZOLE SODIUM 40 MG/VIAL (PROTONIX) IVP SCH (09:00)
[2021-09-19] MEDS: THEOPHYLLINE ANHYDROUS 80 MG/15 ML UDC GT SCH ×2 (09:00→20:22)
[2021-09-19] MEDS ORDERED: POTASSIUM CHLORIDE 20 MEQ/PKT PACKET GT ONE (10:45)
[2021-09-19] MEDS: FUROSEMIDE 100 MG in D5W 90 ML IV SCH (11:00)
[2021-09-19] MEDS: LEVOFLOXACIN 250 MG/D5W 50 ML IV SCH (13:00)
[2021-09-19 14:22] LABS: BAND % (MANUAL) 14 % (0-6); BASOPHILS % (MANUAL) 0 % (0-2); CORRECTED WHITE BLOOD COUNT 7.7 K/uL (4.5-11.0); EOSINOPHILS % (MANUAL) 0 % (0-7); LYMPHOCYTES % (MANUAL) 2 % (20-46); METAMYELOCYTES % 1 % (0-0); MONOCYTES % (MANUAL) 1 % (0-11)
[2021-09-19] MEDS: EPOETIN ALFA-EPBX 3,000 UNITS/ML VIAL SUBCUT SCH (17:00)
[2021-09-19] MEDS: VANCOMYCIN HCL 1,250 MG in NS 250 ML IV SCH (17:00)
--- NOTE | 2021-09-19 17:00 | NUR ---
PT POSITIVE ON RIGHT5 JUGULAR, SUBCLAVIAN AND BRCHIAL VEINS FOR DVT/REMOVED ALEYDA PICC LINE, LOVENOX ORDERED//PT DENIES PAIN AT SITE OR SOB//VS STABLE BUT TACHY//NEW PICC ORDERED//MD HUGHES AWARE//MW
--- NOTE | 2021-09-19 19:15 | NUR ---
change of shift.pt.presents quiescent affect;calm.pt.presents trach/vent.vent settings;pressure control;30,fio2%:50%,a/c 24,peep:3.02-sat%=98%. pt.presents iv access central line:location rt.jugular.iv fluids/drips;levophed;conc-rate;0.08mcq/kg/min:rate;231ml/hr.lkacix;5mg /hr=5ml/hr.pt.prwset g[tube;g-tu befeed.nerpoi;1.8 infpan gfpot.,pr foely actrh ictt;patety mpt./prwehgm eo=-islyusis hx;h/d aces locairo;lty.injugul;ar. inact.calljugfhbt w/ikaces of thpt.
[2021-09-19] MEDS ORDERED: ENOXAPARIN SODIUM 120 MG/0.8 ML SYRINGE SQ ONE (19:30)
--- NOTE | 2021-09-19 19:55 | NUR ---
ORDERED LOVENOX FOR THIS PATIENT IN ERROR/BUT CANNOT DC TIL PHARMACY COMES IN A.M./PLEASE BE SURE TO DC LOVENOX ON THIS PT UNLESS MD WANTS TO KEEP IT/THANKS//SINDHU
--- NOTE | 2021-09-19 20:00 | NUR ---
pt.assessed.v/s assessed values wnl.trach intact.i have attended to the oral/trach care/suction.02-sat%=98%.rt.inj intact iv fluids/drips infusing.g-tube intact g-tube feed infusing.callaway cath intact;patent.per flacc pain mgx pt.absent facial grimaces/ body posturing.pt.assessed for cleanliness.pt.repositioned.call light placed w/in access of the pt.
[2021-09-19] MEDS: HEPARIN SODIUM,PORCINE 5,000 UNITS/ML VIAL SUBCUT SCH (20:27)
--- NOTE | 2021-09-19 21:00 | NUR ---
2100p medications administered;administered via g-tube.g-tube residuals assessed;note 10ml.g-tube flushed w/out resistance.per flacc pain mgx pt.absent facial grimaces/body posturing.call light w/in access of the pt.
--- NOTE | 2021-09-19 22:00 | NUR ---
pt.assessed.trach intact.i havew attended to the oral/trach care/suction.02-sat%=98%.picc line intact iv fluids drips:levophed/lasix infusing.g-tube intact g-tube feed infusing.callaway cath intact;patent.per flacc pain mgx pt.absent facial grimaces/body posturing.call light placed w/in access of the pt.
[2021-09-19] MEDS ORDERED: ENOXAPARIN SODIUM 120 MG/0.8 ML SYRINGE ONE (23:20)
--- NOTE | 2021-09-19 23:30 | NUR ---
blood glucose assessed value:167mg/dl. Addendum: 09/19/21 at 2334 by Elie Sloan RN i have administered lovenox:120mg sq initial dose.
[2021-09-20] VITALS (35 sets, daily range): BP systolic 92–154
--- NOTE | 2021-09-20 | NUR ---
pt.assessed.v/s assessed values wnl.trach intact.i have attended to the oral/trach care/suction.02-sat%=98%.rt.inj intact iv fluids/drips;levophed,lasix infusing.g-tube intact g-tube infusing.callaway cath intact;patent.per flacc pain mgx pt.absent facial grimaces/body posturing.pt.assessed for cleanliness.pt.repositioned.call light placed w/in access of the pt.
[2021-09-20 01:06] LABS: BILIRUBIN,URINE NEGATIVE (NEGATIVE); BLOOD, URINE 1+ (NEGATIVE); CLARITY/URINE CLEAR (CLEAR); COLOR,URINE YELLOW (YELLOW); GLUCOSE,URINE NEGATIVE (NEGATIVE); KETONES,URINE NEGATIVE (NEGATIVE); LEUKOCYTE ESTERASE ,URINE 1+ (NEGATIVE); NITRITE, URINE NEGATIVE (NEGATIVE); PROTEIN URINE NEGATIVE (NEGATIVE); UROBILINOGEN,URINE 0.2 (0.2-1.0)
[2021-09-20 01:50] LABS: BACTERIA,URINE MODERATE /HPF (None Seen)
[2021-09-20 01:51] LABS: MUCUS,URINE 2+ /LPF (None Seen); YEAST,URINE Moderate /HPF (None Seen)
--- NOTE | 2021-09-20 02:00 | NUR ---
pt.assesSED.v/s assessed values wnl.trach intact.i have attended to the oral/trach care/suction.02-mon%=98%.rt.inj iv access iNtaCT;IV FlUIDS/DRIPS:LEVOPHED/LASIX INFUSING.g-tube intact g-tube feed infusing.callaway cath intact;patent.per flacc pain mgx pt.absent facial grimaces/body posturing.pt.assessed for cleanliness.pt.repositioned.call light pLaCED W/IN ACcESs OF THe PT.
[2021-09-20] MEDS: MEROPENEM 500 MG in NS 50 ML IV SCH ×2 (02:07→15:52)
[2021-09-20] MEDS: LevALBUTEROL HCL 1.25 MG/0.5 ML *CONC.* VIAL.NEB (XOPENEX CONC.) INH SCH ×6 (03:10→23:05)
--- NOTE | 2021-09-20 04:00 | NUR ---
pt.assessed.v/s assessed values wnl.trach intact.i have attended to the oral/trach care/suction.02-mon%=100%.rt.inj intact iv fluids/drip infusing.lt.inj h/d access intact.g-tube intact g-tube feed infusing.callaway cath intact;patent.per flacc pain mgx pt. absent facial grimaces/body posturing.pt.assessed for cleanliness.pt.repositioned.call light placed w/in access of the pt.
[2021-09-20] MEDS: VALPROIC ACID ORAL SYRUP 250 MG/5 ML UDC GT SCH ×3 (04:01→21:17)
[2021-09-20] MEDS: methylPREDNISolone SOD SUCC/PF 62.5 MG/ML VIAL IVP SCH ×3 (05:29→21:17)
[2021-09-20] MEDS: D5NS 1,000 ML IV SCH (05:34)
--- NOTE | 2021-09-20 06:30 | NUR ---
pt.assessed.v/s assessed values wnl.trach intact.i have attended to the oral/trach care/suction.02-sat%=98%.rt.inj intct iv fluids infusing.lt.inj:h/d access intact.g-tube intact;g-tube feed infusing.callaway cath intact;patent.i have attended to the wound care/dsg changes.g-tube dsg changed.per flacc pain mgx pt.absent facial grimaces/body posturing.pt.assessed for cleanliness.pt.repositioned.call light placed w/in access of the pt.
[2021-09-20 06:54] LABS: ALANINE AMINOTRANSFERASE 51 U/L (12-78); ALBUMIN 1.6 g/dL (3.4-4.8); ANION GAP 13 (5-15); ASPARTATE AMINOTRANSFERASE 64 U/L (10-37); CALCIUM 9.1 mg/dL (8.4-11.0); CHLORIDE 108 mmol/L (98-107); CREATININE 1.31 mg/dL (0.55-1.30); GLUCOSE 106 mg/dL (70-99); POTASSIUM 3.4 mmol/L (3.5-5.1); SODIUM SERUM 142 mmol/L (136-145); TOTAL BILIRUBIN 0.2 mg/dL (0.0-1.0); UREA NITROGEN, BLOOD 47 mg/dL (8-21)
[2021-09-20 07:02] LABS: BASOPHILS % (AUTO) 0.2 % (0.0-2.0); HEMATOCRIT 32.7 % (36-48); HEMOGLOBIN 10.7 g/dL (12.0-16.0); LYMPHOCYTES # (AUTO) 0.3 K/uL (1.0-5.5); LYMPHOCYTES % (AUTO) 2.3 % (20.5-51.5); MEAN CORPUSCULAR HEMOGLOBIN 33 pg (27-31); MEAN CORPUSCULAR HGB CONC 33 % (32-36); MEAN CORPUSCULAR VOLUME 101 fL (79.0-98.0); MONOCYTES # (AUTO) 0.6 K/uL (0.0-1.0); NEUTROPHILS # (AUTO) 13.7 K/uL (1.8-7.7); NEUTROPHILS % (AUTO) 93.5 % (40.0-70.0); RED BLOOD CELL COUNT(AUTO) 3.23 MIL/uL (4.2-6.2); RED CELL DISTRIBUTION WIDTH 23.8 % (9.0-15.0); WHITE BLOOD COUNT (AUTO) 14.6 K/uL (4.8-10.8)
--- NOTE | 2021-09-20 07:30 | NUR ---
OPENING NOTE RECEIVED BEDSIDE REPORT FROM NIGHT RN. PT IS SITTING WITH HOB ELEVATED AT 45 DEGREES. SHILEY TRACH 8.0 PRESENT. PT ON VENT SETTINGS PC AT 25, 40% FI02, AND A PEEP OF 3. RIGHT IJ TRIPLE LUMEN PRESENT WITH D5 NS RUNNING AT 50MLS/HR, LEVOPHED AT 0.08 MCG/KG/MIN, AND LASIX DRIP AT 5MLS/HR. L IJ ONEIL CATH PRESENT. JAMES WITH YELLOW URINE DRAINING TO GRAVITY. GTUBE WITH LEPRO 1.8 RUNNING AT 35MLS/HR. ACCU-CHECKS Q6HRS. BED IN LOWEST POSITION, BED BRAKES ON, BED RAILS UP, CALL LIGHT WITHIN REACH.
[2021-09-20 07:39] LABS: PLATELET COUNT (AUTO) 43 K/uL (130-430)
--- NOTE | 2021-09-20 08:30 | NUR ---
DR ART AT BEDSIDE ADVISED PLATELET IS 43. SUGGESTED TO D/C LOVENOX AND HEPARIN. ORDERED TO D/C LOVENOX AND HEPARIN.
[2021-09-20] MEDS: levETIRAcetam 1,000 MG in NS 100 ML IV SCH ×2 (08:54→21:16)
[2021-09-20] MEDS: PANTOPRAZOLE SODIUM 40 MG/VIAL (PROTONIX) IVP SCH (08:55)
[2021-09-20] MEDS: BALSAM PERU/CASTOR OIL 56.7 GM OINT...G. TP SCH (08:55)
[2021-09-20] MEDS: THEOPHYLLINE ANHYDROUS 80 MG/15 ML UDC GT SCH ×2 (08:56→21:21)
[2021-09-20] MEDS: CHLORHEXIDINE GLUC 0.12% 15 ML MOUTHWASH UDC MM SCH ×2 (08:56→21:16)
[2021-09-20] MEDS: FOLIC ACID 1 MG TABLET GT SCH (08:57)
[2021-09-20] MEDS ORDERED: ENOXAPARIN SODIUM 120 MG/0.8 ML SYRINGE SQ SCH (09:00)
[2021-09-20] MEDS: HEPARIN SODIUM,PORCINE 5,000 UNITS/ML VIAL SUBCUT SCH (09:00)
[2021-09-20] MEDS: POTASSIUM CHLORIDE 20 MEQ/PKT PACKET GT ONE ×2 (09:02→09:04)
[2021-09-20] MEDS ORDERED: POTASSIUM CHLORIDE 20 MEQ/PKT PACKET ONE (09:03)
[2021-09-20] MEDS: FUROSEMIDE 100 MG in D5W 90 ML IV SCH (10:28)
--- NOTE | 2021-09-20 11:00 | NUR ---
Nutrition F/U Admitting Diagnosis Septic shock Reviewed Pertinent Medical/Surgical Hx Medical Record Other-ICU rounds and primary RN Medical History Comment: PMH: HTN, DM, seizure disorder, stroke, chronic respiratory failure, and chronic anemia per physician notes Pt also found w/ acute on chronic renal failure per physician notes SARS-CoV-2 Ag (Rapid) Negative 09/14 Per [facility] RN note (09/16 @ 1500): Wound Assessment: 1. Right Sacral area: Unstageable pressure ulcer, present on admission. Wound bed has 55% yellow tissue, 5% dark discolored wound tissue, 40% dark red tissue. No odor, no drainage. Periwound intact. Wound measures 3.0 cm x 3.0 cm. 2. Right Buttock, Inferior to Site 1: Unstageable pressure ulcer, present on admission. Wound bed has 95% yellow tissue, 5% dark red tissue. No odor, no drainage. Periwound intact. Wound measures 0.7 cm x 0.5 cm. 3. Left Buttock: Stage III pressure ulcer, present on admission. Wound bed has 90% pink tissue, 10% dark discolored wound tissue. No odor, no drainage. Periwound intact. Wound measures 2.4 cm x 2.1 cm. 4. Intergluteal Cleft: Stage III pressure ulcer, present on admission. Wound bed has 95% pink tissue, 5% red tissue. No odor, small sanguineous drainage. Periwound intact. Wound measures 1.9 cm x 1.0 cm. 5. Left Outer Buttock: Skin tear. Site has 90% red tissue, 10% pink tissue. No odor, scant sanguineous drainage. Periwound intact. Skin tear measures 2.6 cm x 0.9 cm. 6. Left Anterior Medial Great Toe: Unstageable pressure ulcer, present on admission. Wound bed has 95% yellow slough, 5% pink tissue. No odor, no drainage. Periwound intact. Wound measures 2.5 cm x 1.6 cm. 7. Right Posterior Medial Foot, Inferior to First Metatarsal Head: Unstageable pressure ulcer, present on admission. Wound bed has 95% yellow slough, 5% pink tissue. No odor, no drainage. Periwound intact, white. Wound measures 2.7 cm x 2.3 cm. 8. Bilateral Upper Extremities and Hands: Sites have 4+ pitting edema with a moderate amount of weeping. 9. Bilateral Lower Extremities and Feet: Sites have 4+ pitting edema with a moderate amount of weeping. Subjective Information Rd attended IC rounds this AM. TF infusing Nepro at 35 ml/hr. Per physician notes, pt is comatose w/ quadriplegia; was found to have fluid overload, pt receiving HD. Per EMR review, pt remains w/ trach to vent; Last BM 09/20 x1; abd is firm and distended w/ hypoactive bowel sounds; Cr score 9 - see WCN note; TF Nepro at 35 ml/hr via GT (09/20), GRV: 0 ml (09/19). HD ordered for 09/20 and 09/21, last HD 09/18. Pt is meeting optimal nutritional needs. Current Diet Order/Nutrition Support Nepro at 35 ml/hr, Free Water Flush: 225ML q 6hrs via GT x2 days Patient/Significant Other Unable To Verbalize Education Provided Not Indicated Pertinent Medications vancomycin, protonix IV, D5%NS at 50 ml/hr, Lovenox, Heparin, Folic Acid, Retacrit, Solu-Mederol, furosemide/D5W at 5 ml/hr, SSI Pertinent Labs WBC 14.6 H, K 3.4 L, BUN 47 H, Cr 1.31 H BG 106 H, POC BG 102 HAlb 1.6 L, AST 64 H, ALP 161 H Height (Feet) 5 feet Height (Inches) 3.00 inches Weight (Pounds) 280 pounds - NEW WT: (09/20) 210# 9 oz/95.51 kg - Initial wt was estimated by staff. Weight (Calculated Kilograms) 127.392135 kilograms Patient Weight 127.006 kg Body Mass Index 49.59 kg/m2 - NEW BMI: (09/20) 37.3 kg/m2 %IBW 243 [place]/Adjusted Body Weight 115#/52.3 kg. 156#/71 kg Recent Weight Change Unable to verify Weight Status Morbidly Obese Food Allergies Unable to verify Usual Diet At Home Unable to verify Estimated Energy Expenditure (kcals/day) *ONGOING [id number] (30-35 kcal/kg IBW d/t morbid obesity, HD, sepsis) Estimated Protein Required (g/day) 52-78 (1.2-1.5 gm/kg IBW d/t morbid obesity, HD, sepsis) Estimated Fluid Required (l/day) Per physician d/t renal failure Problem/Etiology/Signs/Symptoms Increased nutritional needs R/T metabolic demands AEB estimated nutritional requirements for HD, sepsis and compromised skin integrity w/ Cr score 7 (*Ongoing) Altered nutrition-related labs R/T endocrine and renal dysfunction AEB abnormal BG/POC BG/BUN/CRE lab values. (*ongoing) Malnutrition R/T morbid obesity AEB BMI: 49.59 kg/m2 and 243% of IBW. (*N/A - initial wt was estimated) Expected Outcomes/Goals - Monitor tolerance to EN support w/ goal of pt meeting >80% of estimated nutritional needs, labs trending WNL, normal GI function, and skin integrity/wt maintenance Dietitian Recommendations * Nepro at 35 ml/hr (goal rate), Free Water Flush: 225 ml Q6h (per physician) via GT Provides: 1512 kcal/day, 68 gm protein/day, and 1511 ml free water/day Meets: 96% of lower end of estimated caloric needs and 87% of upper end of estimated protein needs Follow Up High Risk: F/U in 2-3days
--- NOTE | 2021-09-20 11:01 | NUR ---
Dietitian Recommendations * Nepro at 35 ml/hr (goal rate), Free Water Flush: 225 ml Q6h (per physician) via GT Provides: 1512 kcal/day, 68 gm protein/day, and 1511 ml free water/day Meets: 96% of lower end of estimated caloric needs and 87% of upper end of estimated protein needs Please refer to Nutrition F/U for details.
[2021-09-20] MEDS: INSULIN REGULAR, HUMAN 100 UNITS/ML, 10 ML VIAL (humuLIN R) SUBCUT PRN ×2 (11:28→18:38)
--- NOTE | 2021-09-20 12:35 | NUR ---
MAINTENANCE EQUIPMENT OPERATOR MARTIN AT BEDSIDE MARTIN ADVISED ME TO NOT GIVE ANTIBIOTICS WHILE THE PT IS RECEIVING DIALYSIS. MEROPENEM AND LEVOFLOXACIN DUE AT 1300. WILL GIVE MEDS AFTER DIALYSIS IS COMPLETE.
--- NOTE | 2021-09-20 13:38 | NUR ---
HIGH ALERT NOTE: HEPARIN 5,000 x2 ORDERED BY HEATER OPERATOR AT BEDSIDE.
[2021-09-20] MEDS ORDERED: HEPARIN SODIUM,PORCINE 5,000 UNITS/ML VIAL MC ONE ×2 (13:45)
--- NOTE | 2021-09-20 15:41 | NUR ---
DIALYSIS COMPLETE. 3.6 LITERS REMOVED.
[2021-09-20] MEDS: LEVOFLOXACIN 250 MG/D5W 50 ML IV SCH (15:52)
[2021-09-20] MEDS ORDERED: EPOETIN ALFA-EPBX 3,000 UNITS/ML VIAL SUBCUT SCH (16:15)
--- NOTE | 2021-09-20 19:08 | NUR ---
Change of shift report received from KIERAN RN at the bedside met pt awake alert eyes open non tracking unable to follow command trach to vent A/C P/C 24/25 40% tolerating well O2 SAT 100%, calm no sign of agitation vitals signs stable, HR 75 SR generalized edema, ongoing Levophed drip, tube feeding checked NEPHRO 1.8 @35ml/hr callaway to gravity, oral care done and repositioned for comfort will continue to monitor and treat as per care plan.
--- NOTE | 2021-09-20 19:47 | NUR ---
CLARIFICATION OF ORDERS As per report received from Cristy ZULUAGA she received orders from Dr DIETRICH about discontinuing HEPARIN and Lovenox due to low platelets. Dr Dietrich called back and order received to discontinue Heparin and Lovenox
[2021-09-20] MEDS: NOREPINEPHRINE BITARTRATE 4 MG in NS 246 ML IV PRN (20:05)
--- NOTE | 2021-09-20 22:00 | NUR ---
@2000 During assessment skin tear noted on the left forearm upper extremity picture take and foam dressing applied.
[2021-09-21] VITALS (36 sets, daily range): BP systolic 91–139
[2021-09-21] MEDS: INSULIN REGULAR, HUMAN 100 UNITS/ML, 10 ML VIAL (humuLIN R) SUBCUT PRN ×4 (00:19→17:34)
[2021-09-21] MEDS: MEROPENEM 500 MG in NS 50 ML IV SCH ×3 (00:20→23:42)
[2021-09-21] MEDS: LevALBUTEROL HCL 1.25 MG/0.5 ML *CONC.* VIAL.NEB (XOPENEX CONC.) INH SCH ×6 (03:02→23:10)
--- NOTE | 2021-09-21 04:15 | NUR ---
@0300 am Levophed drip turned off vitals being stable. @0400 Complete bed bath given linen changed, wound/ skin care done pt tolerated well no problem encountered oral care and pt repositioned for comfort.
[2021-09-21] MEDS: D5NS 1,000 ML IV SCH (04:39)
[2021-09-21] MEDS: VALPROIC ACID ORAL SYRUP 250 MG/5 ML UDC GT SCH (04:39)
[2021-09-21] MEDS: FUROSEMIDE 100 MG in D5W 90 ML IV SCH (04:41)
[2021-09-21 06:06] LABS: BASOPHILS % (AUTO) 0.1 % (0.0-2.0); HEMATOCRIT 28.6 % (36-48); HEMOGLOBIN 9.5 g/dL (12.0-16.0); LYMPHOCYTES # (AUTO) 0.4 K/uL (1.0-5.5); LYMPHOCYTES % (AUTO) 5.7 % (20.5-51.5); MEAN CORPUSCULAR HEMOGLOBIN 34 pg (27-31); MEAN CORPUSCULAR HGB CONC 33 % (32-36); MEAN CORPUSCULAR VOLUME 102 fL (79.0-98.0); MONOCYTES # (AUTO) 0.5 K/uL (0.0-1.0); MONOCYTES % (AUTO) 7.1 % (1.7-9.3); NEUTROPHILS # (AUTO) 5.9 K/uL (1.8-7.7); RED BLOOD CELL COUNT(AUTO) 2.82 MIL/uL (4.2-6.2); RED CELL DISTRIBUTION WIDTH 23.3 % (9.0-15.0); WHITE BLOOD COUNT (AUTO) 6.8 K/uL (4.8-10.8)
[2021-09-21] MEDS: methylPREDNISolone SOD SUCC/PF 62.5 MG/ML VIAL IVP SCH ×2 (06:14→13:09)
[2021-09-21 06:23] LABS: ALANINE AMINOTRANSFERASE 45 U/L (12-78); ALBUMIN 1.5 g/dL (3.4-4.8); ANION GAP 16 (5-15); ASPARTATE AMINOTRANSFERASE 49 U/L (10-37); CALCIUM 8.7 mg/dL (8.4-11.0); CHLORIDE 107 mmol/L (98-107); CREATININE 1.52 mg/dL (0.55-1.30); GLUCOSE 260 mg/dL (70-99); POTASSIUM 3.8 mmol/L (3.5-5.1); SODIUM SERUM 141 mmol/L (136-145); TOTAL BILIRUBIN 0.4 mg/dL (0.0-1.0); UREA NITROGEN, BLOOD 53 mg/dL (8-21)
--- NOTE | 2021-09-21 07:06 | NUR ---
Change of shift bedside report to KIERAN ZULUAGA for continuity of care as at this time vitals signs stable no changes in care plan and pt's condition
--- NOTE | 2021-09-21 07:30 | NUR ---
OPENING NOTE RECEIVED BEDSIDE REPORT FROM NIGHT RN ISABEL. PT IN BED WITH HOB ELEVATED AT 45 DEGREES. SHILEY TRACH 8.[address]. PT ON VENT SETTINGS PC AT 25, 40% FI02, AND A PEEP OF 3. RIGHT IJ TRIPLE LUMEN PRESENT WITH D5 NS RUNNING AT 50MLS/HR, LEVOPHED D/C'D AT 0300 ACCORDING TO NIGHT RN, AND LASIX DRIP AT 5MLS/HR. VITAL SIGNS ARE STABLE, L IJ ONEIL CATH IN PLACE. JAMES WITH YELLOW URINE DRAINING TO GRAVITY. GTUBE WITH LEPRO 1.8 RUNNING AT 35MLS/HR. ACCU-CHECKS Q6HRS. BED IN LOWEST POSITION, BED BRAKES ON, BED RAILS UP, CALL LIGHT WITHIN REACH.
--- NOTE | 2021-09-21 08:07 | NUR ---
CENTRAL LINE DRESSING CHANGED USING STERILE TECHNIQUE. BIO BATCH IN PLACE WITH INITIAL, DATE AND TIME.
[2021-09-21 08:46] LABS: PLATELET COUNT (AUTO) 27 K/uL (130-430)
--- NOTE | 2021-09-21 08:46 | NUR ---
PAGED DR ROBLEDO TO GIVE ABG RESULTS AT [address] ART AT BEDSIDE. ADVISED OF CRITICAL PLATELET RESULTS OF 27. DR ART WILL PUT IN ORDERS.
[2021-09-21 08:47] LABS: NEUTROPHILS % (AUTO) 87.1 % (40.0-70.0)
--- NOTE | 2021-09-21 08:55 | NUR ---
SPOKE WITH DR HOUSTON ADVISED PH IS 7.460, PC02 26.2, P02 99.6, HC03 18.2, BASE EXCESS -4.1, AND SAT 97.8%. DR HOUSTON STATED NOTHING IS TO BE DONE.
[2021-09-21] MEDS: PANTOPRAZOLE SODIUM 40 MG/VIAL (PROTONIX) IVP SCH (09:06)
[2021-09-21] MEDS: FOLIC ACID 1 MG TABLET GT SCH (09:07)
[2021-09-21] MEDS: CHLORHEXIDINE GLUC 0.12% 15 ML MOUTHWASH UDC MM SCH ×2 (09:07→21:47)
[2021-09-21] MEDS: THEOPHYLLINE ANHYDROUS 80 MG/15 ML UDC GT SCH ×2 (09:07→21:48)
[2021-09-21] MEDS: levETIRAcetam 1,000 MG in NS 100 ML IV SCH ×2 (09:08→21:53)
[2021-09-21] MEDS: BALSAM PERU/CASTOR OIL 56.7 GM OINT...G. TP SCH (09:10)
--- NOTE | 2021-09-21 09:28 | NUR ---
RT NOTES PC to 24 per target Vt order. No adverse reactions noted. Will monitor pt.
--- NOTE | 2021-09-21 12:20 | NUR ---
SPOKE WITH DR ART. ADVISED PT IS ON VALPROIC ACID. ORDERED TO D/C VALPROIC ACID DUE TO PLATELET LEVEL 27.
[2021-09-21] MEDS: LEVOFLOXACIN 250 MG/D5W 50 ML IV SCH (13:11)
[2021-09-21] MEDS: VANCOMYCIN HCL 1,250 MG in NS 250 ML IV SCH (17:28)
[2021-09-21] MEDS: DEXAMETHASONE SOD PHOSPHATE 10 MG/ML VIAL IVP SCH ×2 (17:28→23:46)
[2021-09-21] MEDS: INSULIN GLARGINE 100 UNITS/ML 10 ML VIAL SUBCUT SCH (21:51)
[2021-09-22] VITALS (29 sets, daily range): BP systolic 91–135
[2021-09-22] MEDS: LevALBUTEROL HCL 1.25 MG/0.5 ML *CONC.* VIAL.NEB (XOPENEX CONC.) INH SCH ×5 (03:10→21:00)
[2021-09-22] MEDS: DEXAMETHASONE SOD PHOSPHATE 10 MG/ML VIAL IVP SCH ×3 (05:19→18:40)
[2021-09-22] MEDS: INSULIN REGULAR, HUMAN 100 UNITS/ML, 10 ML VIAL (humuLIN R) SUBCUT PRN (05:58)
[2021-09-22 05:59] LABS: BASOPHILS % (AUTO) 0.1 % (0.0-2.0); HEMATOCRIT 30.2 % (36-48); HEMOGLOBIN 10.1 g/dL (12.0-16.0); LYMPHOCYTES # (AUTO) 0.3 K/uL (1.0-5.5); LYMPHOCYTES % (AUTO) 5.8 % (20.5-51.5); MEAN CORPUSCULAR HEMOGLOBIN 34 pg (27-31); MEAN CORPUSCULAR HGB CONC 34 % (32-36); MEAN CORPUSCULAR VOLUME 102 fL (79.0-98.0); MONOCYTES # (AUTO) 0.3 K/uL (0.0-1.0); MONOCYTES % (AUTO) 6.9 % (1.7-9.3); NEUTROPHILS # (AUTO) 4.4 K/uL (1.8-7.7); NEUTROPHILS % (AUTO) 87.2 % (40.0-70.0); RED BLOOD CELL COUNT(AUTO) 2.97 MIL/uL (4.2-6.2); RED CELL DISTRIBUTION WIDTH 23.2 % (9.0-15.0)
[2021-09-22 06:22] LABS: ALANINE AMINOTRANSFERASE 46 U/L (12-78); ALBUMIN 1.6 g/dL (3.4-4.8); ANION GAP 15 (5-15); ASPARTATE AMINOTRANSFERASE 46 U/L (10-37); CALCIUM 8.9 mg/dL (8.4-11.0); CHLORIDE 110 mmol/L (98-107); GLUCOSE 280 mg/dL (70-99); POTASSIUM 3.9 mmol/L (3.5-5.1); SODIUM SERUM 143 mmol/L (136-145); TOTAL BILIRUBIN 0.4 mg/dL (0.0-1.0); UREA NITROGEN, BLOOD 60 mg/dL (8-21)
[2021-09-22 07:10] LABS: PLATELET COUNT (AUTO) 26 K/uL (130-430)
[2021-09-22] MEDS: THEOPHYLLINE ANHYDROUS 80 MG/15 ML UDC GT SCH ×2 (09:07→21:26)
[2021-09-22] MEDS: CHLORHEXIDINE GLUC 0.12% 15 ML MOUTHWASH UDC MM SCH ×2 (09:17→21:26)
[2021-09-22] MEDS: levETIRAcetam 1,000 MG in NS 100 ML IV SCH ×2 (09:17→21:33)
[2021-09-22] MEDS: FOLIC ACID 1 MG TABLET GT SCH (09:18)
[2021-09-22] MEDS: BALSAM PERU/CASTOR OIL 56.7 GM OINT...G. TP SCH (09:18)
--- NOTE | 2021-09-22 09:38 | NUR ---
RT NOTES Vent to Rate of [address] Church's order. No adverse reactions noted. Will monitor pt. RN made aware. Pt is about to undergo dialysis
[2021-09-22] MEDS: MEROPENEM 500 MG in NS 50 ML IV SCH (13:58)
[2021-09-22] MEDS: NOREPINEPHRINE BITARTRATE 4 MG in NS 246 ML IV PRN (18:54)
[2021-09-22] MEDS: INSULIN GLARGINE 100 UNITS/ML 10 ML VIAL SUBCUT SCH (21:31)
[2021-09-23] VITALS (25 sets, daily range): BP systolic 86–132
[2021-09-23] MEDS: DEXAMETHASONE SOD PHOSPHATE 10 MG/ML VIAL IVP SCH ×5 (00:57→23:59)
[2021-09-23] MEDS: MEROPENEM 500 MG in NS 50 ML IV SCH ×2 (00:58→12:47)
[2021-09-23] MEDS: INSULIN REGULAR, HUMAN 100 UNITS/ML, 10 ML VIAL (humuLIN R) SUBCUT PRN ×4 (01:03→17:51)
[2021-09-23] MEDS: LevALBUTEROL HCL 1.25 MG/0.5 ML *CONC.* VIAL.NEB (XOPENEX CONC.) INH SCH ×6 (01:53→22:21)
[2021-09-23] MEDS: NOREPINEPHRINE BITARTRATE 4 MG in NS 246 ML IV PRN (03:02)
[2021-09-23 06:21] LABS: ALANINE AMINOTRANSFERASE 55 U/L (12-78); ALBUMIN 1.8 g/dL (3.4-4.8); ANION GAP 14 (5-15); ASPARTATE AMINOTRANSFERASE 74 U/L (10-37); CALCIUM 8.7 mg/dL (8.4-11.0); CHLORIDE 104 mmol/L (98-107); CREATININE 1.53 mg/dL (0.55-1.30); GLUCOSE 298 mg/dL (70-99); POTASSIUM 3.6 mmol/L (3.5-5.1); SODIUM SERUM 138 mmol/L (136-145); TOTAL BILIRUBIN 0.5 mg/dL (0.0-1.0); UREA NITROGEN, BLOOD 45 mg/dL (8-21)
[2021-09-23] MEDS: BALSAM PERU/CASTOR OIL 56.7 GM OINT...G. TP SCH (07:34)
[2021-09-23] MEDS: CHLORHEXIDINE GLUC 0.12% 15 ML MOUTHWASH UDC MM SCH ×2 (07:35→21:11)
[2021-09-23 07:56] LABS: HEMATOCRIT 33.2 % (36-48); MEAN CORPUSCULAR HEMOGLOBIN 34 pg (27-31); MEAN CORPUSCULAR HGB CONC 33 % (32-36); MEAN CORPUSCULAR VOLUME 102 fL (79.0-98.0); PLATELET COUNT (AUTO) 51 K/uL (130-430); RED BLOOD CELL COUNT(AUTO) 3.26 MIL/uL (4.2-6.2); RED CELL DISTRIBUTION WIDTH 22.5 % (9.0-15.0); WHITE BLOOD COUNT (AUTO) 8.3 K/uL (4.8-10.8)
--- NOTE | 2021-09-23 08:00 | NUR ---
MANGO GOMEZ REG NURSE IS IN CHARGE OF THIS PT/TIME TO WEAN?.WILL SEE//MW TF RESTARTED AT 35CC/H//MW
[2021-09-23] MEDS: THEOPHYLLINE ANHYDROUS 80 MG/15 ML UDC GT SCH ×2 (09:00→21:11)
[2021-09-23] MEDS: levETIRAcetam 1,000 MG in NS 100 ML IV SCH ×2 (09:00→21:12)
[2021-09-23] MEDS: FOLIC ACID 1 MG TABLET GT SCH (09:00)
--- NOTE | 2021-09-23 09:30 | NUR ---
FIO2 DECREASED TO 30%/PT TOLERATING WELL//MW
[2021-09-23 10:07] LABS: HEPATITIS A AB, IgM Negative (Negative); HEPATITIS B CORE AB, IgM Negative (Negative); HEPATITIS B SURFACE AG Negative (Negative)
[2021-09-23] MEDS ORDERED: FLUCONAZOLE 100 MG TABLET (DIFLUCAN) PO ONE (11:30)
[2021-09-23] MEDS ORDERED: LORazepam 2 MG/ML VIAL IVP PRN (11:45)
--- NOTE | 2021-09-23 11:48 | NUR ---
Nutrition F/U Admitting Diagnosis Septic shock Reviewed Pertinent Medical/Surgical Hx Medical Record Other-ICU rounds and primary RN Medical History Comment: PMH: HTN, DM, seizure disorder, stroke, chronic respiratory failure, and chronic anemia per physician notes Pt also found w/ acute on chronic renal failure per physician notes SARS-CoV-2 Ag (Rapid) Negative 09/14 Per Asset Protection Representative note 09/16: 1. Right Sacral area: Unstageable pressure ulcer, present on admission. 2. Right Buttock, Inferior to Site 1: Unstageable pressure ulcer, present on admission. 3. Left Buttock: Stage III pressure ulcer, present on admission. 4. Intergluteal Cleft: Stage III pressure ulcer, present on admission. 5. Left Outer Buttock: Skin tear. 6. Left Anterior Medial Great Toe: Unstageable pressure ulcer, present on admission. 7. Right Posterior Medial Foot, Inferior to First Metatarsal Head: Unstageable pressure ulcer, present on admission. 8. Bilateral Upper Extremities and Hands: Sites have 4+ pitting edema with a moderate amount of weeping. 9. Bilateral Lower Extremities and Feet: Sites have 4+ pitting edema with a moderate amount of weeping. Subjective Information: RD attended ICU rounds this morning. Primary RN and student nurse reported that pt is receiving bolus feeds of 35 ml Q4h d/t no available working TF pump, no GRV -- ICU Director stated to find out out on the units as pt should not be bolus fed without an order for bolus feeding -- pt is receiving daily dialysis, no fluid removed yesterday; Doppler done today revealed no DVT to both legs. Per EMR review, pt has bilat generalized 4+ pitting edema; Nepro TF noted 09/26; GRV: 0 ml 09/22; abd is soft w/ hyperactive bowel sounds; LBM x1 09/23. Pt is not yet meeting nutritional needs at this time as bolus feed of 35 ml Q4h yields 210 ml/day, 378kcal/day, 17 gm protein/day, and 153 ml free water/day, which meets 24% of lower end of estimated caloric needs and 33% of lower end of estimated protein needs. Current Diet Order/Nutrition Support: Nepro at 35 ml/hr, Free Water Flush: 225 ml Q6h (per physician) via GT x7 days Patient/Significant Other Unable To Verbalize Education Provided Not Indicated Pertinent Medications: lantus, decadron, folic acid, SSI, levophed Pertinent Labs: WBC 8.3 WNL, K 3.6 WNL, BUN 45 H, CRE 1.53 H, BG 298 H, POC BG 260 H, ALB 1.8 L, AST 74 H, ALP 281 H Height (Feet) 5 feet Height (Inches) 3.00 inches Weight (Pounds) 280 pounds - NEW WT: (09/20) 210#/95.51 kg - Initial wt was estimated by staff. Patient Weight 127.006 kg Body Mass Index 49.59 kg/m2 - NEW BMI: (09/20) 37.3 kg/m2 %IBW 243 [place]/Adjusted Body Weight 115#/52.3 kg. 156#/71 kg Recent Weight Change Unable to verify Weight Status Morbidly Obese Food Allergies Unable to verify Usual Diet At Home Unable to verify Estimated Energy Expenditure (kcals/day) *ONGOING 2712-1710 (30-35 kcal/kg IBW d/t morbid obesity, HD, sepsis) Estimated Protein Required (g/day) 52-78 (1.2-1.5 gm/kg IBW d/t morbid obesity, HD, sepsis) Estimated Fluid Required (l/day) Per physician d/t renal failure Problem/Etiology/Signs/Symptoms Increased nutritional needs R/T metabolic demands AEB estimated nutritional requirements for HD, sepsis and compromised skin integrity w/ Cr score 7 (*Ongoing) Altered nutrition-related labs R/T endocrine and renal dysfunction AEB abnormal BG/POC BG/BUN/CRE lab values. (*Ongoing) Malnutrition R/T morbid obesity AEB BMI: 49.59 kg/m2 and 243% of IBW. (*N/A - initial wt was estimated) Expected Outcomes/Goals - Monitor tolerance to EN support w/ goal of pt meeting >80% of estimated nutritional needs, labs trending WNL, normal GI function, and skin integrity/wt maintenance Dietitian Recommendations * Resume continuous EN support once TF pump is available for use Nepro at 35 ml/hr (goal rate), Free Water Flush: 225 ml Q6h (per physician) via GT Provides: 1512 kcal/day, 68 gm protein/day, and 1511 ml free water/day Meets: 96% of lower end of estimated caloric needs and 87% of upper end of estimated protein needs * If bolus feeding continues: Nepro 140 ml Q4h (840 ml/day), Free Water Flush: 225 ml Q6h (per physician) via GT Provides: 1512 kcal/day, 68 gm protein/day, and 1511 ml free water/day Meets: 96% of lower end of estimated caloric needs and 87% of upper end of estimated protein needs Follow Up High Risk: F/U in 2-3 days
--- NOTE | 2021-09-23 11:59 | NUR ---
Dietitian Recommendations * Resume continuous EN support once TF pump is available for use Nepro at 35 ml/hr (goal rate), Free Water Flush: 225 ml Q6h (per physician) via GT Provides: 1512 kcal/day, 68 gm protein/day, and 1511 ml free water/day Meets: 96% of lower end of estimated caloric needs and 87% of upper end of estimated protein needs * If bolus feeding continues: Nepro 140 ml Q4h (840 ml/day), Free Water Flush: 225 ml Q6h (per physician) via GT Provides: 1512 kcal/day, 68 gm protein/day, and 1511 ml free water/day Meets: 96% of lower end of estimated caloric needs and 87% of upper end of estimated protein needs LP, RD Please refer to Nutrition F/U for details.
--- NOTE | 2021-09-23 15:00 | NUR ---
1500-ALL DRESSING CHANGED/PT TOLERATED WELL//VS STABLE/LEVOPHED OFF NOW SEVERAL HOURS//MW
[2021-09-23 15:47] LABS: CORRECTED WHITE BLOOD COUNT 7.4 K/uL (4.5-11.0)
[2021-09-23 15:48] LABS: BAND % (MANUAL) 7 % (0-6); BASOPHILS % (MANUAL) 0 % (0-2); EOSINOPHILS % (MANUAL) 0 % (0-7); LYMPHOCYTES % (MANUAL) 7 % (20-46); MONOCYTES % (MANUAL) 7 % (0-11)
[2021-09-23] MEDS ORDERED: VANCOMYCIN HCL 1,250 MG in NS 250 ML IV SCH (17:00)
--- NOTE | 2021-09-23 18:22 | NUR ---
PT STILL STABLE OFF LEVOPHED//MW
[2021-09-23] MEDS: INSULIN GLARGINE 100 UNITS/ML 10 ML VIAL SUBCUT SCH (21:16)
[2021-09-23] MEDS: HEPARIN SODIUM,PORCINE 5,000 UNITS/ML VIAL SUBCUT SCH (21:23)
[2021-09-24] VITALS (26 sets, daily range): BP systolic 92–153
[2021-09-24] MEDS: INSULIN REGULAR, HUMAN 100 UNITS/ML, 10 ML VIAL (humuLIN R) SUBCUT PRN ×4 (00:03→18:36)
[2021-09-24] MEDS: MEROPENEM 500 MG in NS 50 ML IV SCH ×2 (00:10→13:00)
[2021-09-24] MEDS: LevALBUTEROL HCL 1.25 MG/0.5 ML *CONC.* VIAL.NEB (XOPENEX CONC.) INH SCH ×7 (01:19→23:04)
[2021-09-24] MEDS ORDERED: NOREPINEPHRINE 4 MG/4 ML VIAL IV ONE ×2 (04:45→07:14)
[2021-09-24] MEDS ORDERED: ALBUMIN HUMAN 25% 50 ML IV ONE ×2 (04:59→05:00)
[2021-09-24] MEDS ORDERED: NACL 0.9% 1,000 ML IV ONE (05:00)
[2021-09-24] MEDS ORDERED: NS 500 ML IV ONE (05:00)
[2021-09-24] MEDS: NOREPINEPHRINE BITARTRATE 4 MG in NS 246 ML IV PRN ×2 (05:21→21:16)
[2021-09-24] MEDS: DEXAMETHASONE SOD PHOSPHATE 10 MG/ML VIAL IVP SCH ×3 (05:50→18:20)
[2021-09-24 06:12] LABS: BASOPHILS # (AUTO) 0.1 K/uL (0.0-0.2); BASOPHILS % (AUTO) 0.7 % (0.0-2.0); EOSINOPHILS % (AUTO) 0.1 % (0.0-4.0); HEMATOCRIT 34.8 % (36-48); HEMOGLOBIN 11.5 g/dL (12.0-16.0); LYMPHOCYTES # (AUTO) 0.4 K/uL (1.0-5.5); LYMPHOCYTES % (AUTO) 2.8 % (20.5-51.5); MEAN CORPUSCULAR HEMOGLOBIN 34 pg (27-31); MEAN CORPUSCULAR HGB CONC 33 % (32-36); MEAN CORPUSCULAR VOLUME 101 fL (79.0-98.0); MONOCYTES # (AUTO) 0.4 K/uL (0.0-1.0); MONOCYTES % (AUTO) 2.6 % (1.7-9.3); NEUTROPHILS # (AUTO) 13.7 K/uL (1.8-7.7); NEUTROPHILS % (AUTO) 93.8 % (40.0-70.0); PLATELET COUNT (AUTO) 57 K/uL (130-430); RED BLOOD CELL COUNT(AUTO) 3.43 MIL/uL (4.2-6.2); RED CELL DISTRIBUTION WIDTH 22.6 % (9.0-15.0); WHITE BLOOD COUNT (AUTO) 14.6 K/uL (4.8-10.8)
[2021-09-24 06:45] LABS: ALANINE AMINOTRANSFERASE 55 U/L (12-78); ALBUMIN 1.8 g/dL (3.4-4.8); ANION GAP 10 (5-15); ASPARTATE AMINOTRANSFERASE 84 U/L (10-37); CALCIUM 8.4 mg/dL (8.4-11.0); CHLORIDE 106 mmol/L (98-107); CREATININE 1.74 mg/dL (0.55-1.30); GLUCOSE 268 mg/dL (70-99); POTASSIUM 3.6 mmol/L (3.5-5.1); SODIUM SERUM 138 mmol/L (136-145); TOTAL BILIRUBIN 0.4 mg/dL (0.0-1.0); UREA NITROGEN, BLOOD 58 mg/dL (8-21)
[2021-09-24] MEDS: FOLIC ACID 1 MG TABLET GT SCH (09:17)
[2021-09-24] MEDS: FLUCONAZOLE 100 MG TABLET (DIFLUCAN) PO SCH (09:17)
[2021-09-24] MEDS: HEPARIN SODIUM,PORCINE 5,000 UNITS/ML VIAL SUBCUT SCH ×2 (09:24→21:18)
[2021-09-24] MEDS: BALSAM PERU/CASTOR OIL 56.7 GM OINT...G. TP SCH (09:28)
[2021-09-24] MEDS: CHLORHEXIDINE GLUC 0.12% 15 ML MOUTHWASH UDC MM SCH ×2 (09:28→21:41)
[2021-09-24] MEDS: THEOPHYLLINE ANHYDROUS 80 MG/15 ML UDC GT SCH ×2 (09:28→21:11)
[2021-09-24] MEDS: ALBUMIN HUMAN 25% 50 ML IV SCH ×3 (09:30→23:19)
[2021-09-24] MEDS: levETIRAcetam 1,000 MG in NS 100 ML IV SCH ×2 (10:22→21:12)
[2021-09-24] MEDS: INSULIN GLARGINE 100 UNITS/ML 10 ML VIAL SUBCUT SCH (21:28)
[2021-09-25] VITALS (31 sets, daily range): BP systolic 101–139
[2021-09-25] MEDS: DEXAMETHASONE SOD PHOSPHATE 10 MG/ML VIAL IVP SCH ×3 (00:25→11:22)
[2021-09-25] MEDS: INSULIN REGULAR, HUMAN 100 UNITS/ML, 10 ML VIAL (humuLIN R) SUBCUT PRN ×4 (00:28→18:02)
[2021-09-25] MEDS: MEROPENEM 500 MG in NS 50 ML IV SCH ×2 (00:52→18:00)
[2021-09-25] MEDS: LevALBUTEROL HCL 1.25 MG/0.5 ML *CONC.* VIAL.NEB (XOPENEX CONC.) INH SCH ×6 (03:37→23:27)
[2021-09-25 06:24] LABS: BASOPHILS % (AUTO) 0.2 % (0.0-2.0); LYMPHOCYTES # (AUTO) 0.4 K/uL (1.0-5.5); LYMPHOCYTES % (AUTO) 3.3 % (20.5-51.5); MEAN CORPUSCULAR HEMOGLOBIN 34 pg (27-31); MEAN CORPUSCULAR HGB CONC 33 % (32-36); MEAN CORPUSCULAR VOLUME 102 fL (79.0-98.0); MONOCYTES # (AUTO) 0.4 K/uL (0.0-1.0); MONOCYTES % (AUTO) 3.3 % (1.7-9.3); NEUTROPHILS # (AUTO) 12.1 K/uL (1.8-7.7); NEUTROPHILS % (AUTO) 93.2 % (40.0-70.0); PLATELET COUNT (AUTO) 61 K/uL (130-430); RED BLOOD CELL COUNT(AUTO) 2.93 MIL/uL (4.2-6.2); RED CELL DISTRIBUTION WIDTH 21.7 % (9.0-15.0)
[2021-09-25 06:43] LABS: ALANINE AMINOTRANSFERASE 78 U/L (12-78); ALBUMIN 2.6 g/dL (3.4-4.8); ANION GAP 16 (5-15); ASPARTATE AMINOTRANSFERASE 123 U/L (10-37); CALCIUM 8.7 mg/dL (8.4-11.0); CHLORIDE 107 mmol/L (98-107); CREATININE 1.82 mg/dL (0.55-1.30); GLUCOSE 337 mg/dL (70-99); POTASSIUM 4.1 mmol/L (3.5-5.1); SODIUM SERUM 143 mmol/L (136-145); UREA NITROGEN, BLOOD 51 mg/dL (8-21)
[2021-09-25] MEDS: FOLIC ACID 1 MG TABLET GT SCH (08:52)
[2021-09-25] MEDS: FLUCONAZOLE 100 MG TABLET (DIFLUCAN) PO SCH (08:52)
[2021-09-25] MEDS: levETIRAcetam 1,000 MG in NS 100 ML IV SCH ×2 (08:54→21:08)
[2021-09-25] MEDS: THEOPHYLLINE ANHYDROUS 80 MG/15 ML UDC GT SCH ×2 (08:54→21:07)
[2021-09-25] MEDS: BALSAM PERU/CASTOR OIL 56.7 GM OINT...G. TP SCH (08:55)
[2021-09-25] MEDS: CHLORHEXIDINE GLUC 0.12% 15 ML MOUTHWASH UDC MM SCH ×2 (08:55→21:09)
[2021-09-25] MEDS: HEPARIN SODIUM,PORCINE 5,000 UNITS/ML VIAL SUBCUT SCH ×2 (08:56→21:13)
--- NOTE | 2021-09-25 13:18 | NUR ---
OPENING NOTE RECEIVED BEDSIDE REPORT FROM NIGHT RN DEMI. PT IN BED WITH HOB ELEVATED AT 45 DEGREES. P[place]TEK 7[address]. PT ON VENT SETTINGS PC 24, RR20, 30% FI02, AND A PEEP OF 4. RIGHT IJ TRIPLE LUMEN PRESENT WITH LEVOPHED RUNNING AT 0.06MCG/KG/MIN. VITAL SIGNS ARE STABLE, L IJ ONEIL CATH IN PLACE. JAMES WITH DARK YELLOW URINE DRAINING TO GRAVITY. GTUBE WITH LEPRO 1.8 RUNNING AT 35MLS/HR. ACCU-CHECKS Q6HRS. BED IN LOWEST POSITION, BED BRAKES ON, BED RAILS UP, CALL LIGHT WITHIN REACH.
--- NOTE | 2021-09-25 17:00 | NUR ---
LEVOPHED IS TURNED OFF. PT VITAL SIGNS ARE STABLE. WILL MONITOR CLOSELY.
--- NOTE | 2021-09-25 19:01 | NUR ---
Dr. Browne said to hold dialysis today.
[2021-09-25] MEDS: INSULIN GLARGINE 100 UNITS/ML 10 ML VIAL SUBCUT SCH (21:02)
[2021-09-26] VITALS (30 sets, daily range): BP systolic 96–186
[2021-09-26] MEDS: INSULIN REGULAR, HUMAN 100 UNITS/ML, 10 ML VIAL (humuLIN R) SUBCUT PRN ×4 (00:51→17:32)
[2021-09-26] MEDS: LevALBUTEROL HCL 1.25 MG/0.5 ML *CONC.* VIAL.NEB (XOPENEX CONC.) INH SCH ×5 (03:03→20:00)
[2021-09-26] MEDS: MEROPENEM 500 MG in NS 50 ML IV SCH ×2 (05:30→17:30)
--- NOTE | 2021-09-26 07:30 | NUR ---
OPENING NOTE RECEIVED BEDSIDE REPORT FROM NIGHT RN DEMI. PT IN BED WITH HOB ELEVATED AT 45 DEGREES. [place] 7[address] PT ON VENT SETTINGS PC 24, RR20, 30% FI02, AND A PEEP OF 4. RIGHT IJ TRIPLE LUMEN PRESENT NS TKO. VITAL SIGNS ARE STABLE, L IJ ONEIL CATH IN PLACE. JAMES WITH DARK YELLOW URINE DRAINING TO GRAVITY. GTUBE WITH NEPRO 1.8 RUNNING AT 35MLS/HR. ACCU-CHECKS Q6HRS. BED IN LOWEST POSITION, BED BRAKES ON, BED RAILS UP, CALL LIGHT WITHIN REACH.
[2021-09-26] MEDS: FOLIC ACID 1 MG TABLET GT SCH (08:55)
[2021-09-26] MEDS: THEOPHYLLINE ANHYDROUS 80 MG/15 ML UDC GT SCH ×2 (08:56→22:24)
[2021-09-26] MEDS: levETIRAcetam 1,000 MG in NS 100 ML IV SCH ×2 (08:56→22:11)
[2021-09-26] MEDS: FLUCONAZOLE 100 MG TABLET (DIFLUCAN) PO SCH (08:57)
[2021-09-26] MEDS: BALSAM PERU/CASTOR OIL 56.7 GM OINT...G. TP SCH (08:57)
[2021-09-26] MEDS: CHLORHEXIDINE GLUC 0.12% 15 ML MOUTHWASH UDC MM SCH ×2 (08:57→22:08)
[2021-09-26] MEDS: HEPARIN SODIUM,PORCINE 5,000 UNITS/ML VIAL SUBCUT SCH ×2 (08:58→22:07)
[2021-09-26 09:16] LABS: HEMATOCRIT 28.3 % (36-48); HEMOGLOBIN 9.3 g/dL (12.0-16.0); MEAN CORPUSCULAR HEMOGLOBIN 34 pg (27-31); MEAN CORPUSCULAR HGB CONC 33 % (32-36); MEAN CORPUSCULAR VOLUME 104 fL (79.0-98.0); PLATELET COUNT (AUTO) 70 K/uL (130-430); RED BLOOD CELL COUNT(AUTO) 2.73 MIL/uL (4.2-6.2); RED CELL DISTRIBUTION WIDTH 22.2 % (9.0-15.0); WHITE BLOOD COUNT (AUTO) 14.8 K/uL (4.8-10.8)
[2021-09-26 13:33] LABS: BAND % (MANUAL) 0 % (0-6); BASOPHILS % (MANUAL) 0 % (0-2); EOSINOPHILS % (MANUAL) 0 % (0-7); LYMPHOCYTES % (MANUAL) 4 % (20-46); MONOCYTES % (MANUAL) 3 % (0-11)
--- NOTE | 2021-09-26 14:19 | NUR ---
Nutrition F/U Admitting Diagnosis Septic shock Reviewed Pertinent Medical/Surgical Hx Medical Record Primary RN Medical History Comment: PMH: HTN, DM, seizure disorder, stroke, chronic respiratory failure, and chronic anemia per physician notes Pt also found w/ acute on chronic renal failure per physician notes SARS-CoV-2 Ag (Rapid) Negative 09/14 Per Fish Bait Picker note 09/16: 1. Right Sacral area: Unstageable pressure ulcer, present on admission. 2. Right Buttock, Inferior to Site 1: Unstageable pressure ulcer, present on admission. 3. Left Buttock: Stage III pressure ulcer, present on admission. 4. Intergluteal Cleft: Stage III pressure ulcer, present on admission. 5. Left Outer Buttock: Skin tear. 6. Left Anterior Medial Great Toe: Unstageable pressure ulcer, present on admission. 7. Right Posterior Medial Foot, Inferior to First Metatarsal Head: Unstageable pressure ulcer, present on admission. 8. Bilateral Upper Extremities and Hands: Sites have 4+ pitting edema with a moderate amount of weeping. 9. Bilateral Lower Extremities and Feet: Sites have 4+ pitting edema with a moderate amount of weeping. Subjective Information: RD rounded to ICU and spoke w/ pt's primary RN who reported that pt has been tolerating TF well, no GRV, off pressors, low urine output (35 cc) last night, and semi-loose BM Q shift. Witnessed Nepro infusing at 35 ml/hr w/ 182 ml infused (328 kcal). She also reported that pt's BG have been elevated >300 mg/dl. She reported decadron steroid was D/C yesterday, WBC trending up, and ID started new ABX treatment. Per EMR review, abd is distended w/ hypoactive bowel sounds; Nepro TF noted 09/26; GRV: 0 ml 09/26; LBM x1 09/26; Cr scale: 9 -- please refer to Fish Bait Picker note for details. Pt may benefit from wound healing modular. Current Diet Order/Nutrition Support: Nepro at 35 ml/hr, Free Water Flush: 225 ml Q6h (per physician) via GT x10 days Patient/Significant Other Unable To Verbalize Education Provided Not Indicated Pertinent Medications: lantus, folic acid, SSI, zofran, heparin Pertinent Labs: 09/26: POC BG 304 H, WBC 14.8 H; 09/25: BUN 51 H, CRE 1.82 H, BG 337 H, ALB 2.6 L, AST 123 H, ALP 398 H Height (Feet) 5 feet Height (Inches) 3.00 inches Weight (Pounds) 280 pounds - NEW WT: (09/20) 210#/95.51 kg - Initial wt was estimated by staff. Patient Weight 127.006 kg Body Mass Index 49.59 kg/m2 - NEW BMI: (09/20) 37.3 kg/m2 %IBW 243 [place]/Adjusted Body Weight 115#/52.3 kg. 156#/71 kg Recent Weight Change Unable to verify Weight Status Morbidly Obese Food Allergies Unable to verify Usual Diet At Home Unable to verify Estimated Energy Expenditure (kcals/day) *ONGOING 9674-0337 (30-35 kcal/kg IBW d/t morbid obesity, HD, sepsis) Estimated Protein Required (g/day) 52-78 (1.2-1.5 gm/kg IBW d/t morbid obesity, HD, sepsis) Estimated Fluid Required (l/day) Per physician d/t renal failure Problem/Etiology/Signs/Symptoms Increased nutritional needs R/T metabolic demands AEB estimated nutritional requirements for HD, sepsis and compromised skin integrity w/ Cr score 7 (*Ongoing) Altered nutrition-related labs R/T endocrine and renal dysfunction AEB abnormal BG/POC BG/BUN/CRE lab values. (*Ongoing) Malnutrition R/T morbid obesity AEB BMI: 49.59 kg/m2 and 243% of IBW. (*N/A - initial wt was estimated) Expected Outcomes/Goals - Monitor tolerance to EN support w/ goal of pt meeting >80% of estimated nutritional needs, labs trending WNL, normal GI function, and skin integrity/wt maintenance Dietitian Recommendations * Nepro at 35 ml/hr (goal rate), Simon BID, Free Water Flush: 225 ml Q6h (per physician) via GT Provides: 1672 kcal/day, 73 gm protein/day, and 1511 ml free water/day Meets: 107% of lower end of estimated caloric needs and 94% of upper end of estimated protein needs Follow Up High Risk: F/U in 2-3 days
--- NOTE | 2021-09-26 14:28 | NUR ---
Dietitian Recommendations * Nepro at 35 ml/hr (goal rate), Simon BID, Free Water Flush: 225 ml Q6h (per physician) via GT Provides: 1672 kcal/day, 73 gm protein/day, and 1511 ml free water/day Meets: 107% of lower end of estimated caloric needs and 94% of upper end of estimated protein needs LP, RD Please refer to Nutrition F/U for details.
[2021-09-26 14:42] LABS: ANION GAP 12 (5-15); CALCIUM 8.7 mg/dL (8.4-11.0); CHLORIDE 108 mmol/L (98-107); CREATININE 2.03 mg/dL (0.55-1.30); GLUCOSE 360 mg/dL (70-99); POTASSIUM 3.7 mmol/L (3.5-5.1); SODIUM SERUM 142 mmol/L (136-145); UREA NITROGEN, BLOOD 70 mg/dL (8-21)
[2021-09-26] MEDS: INSULIN GLARGINE 100 UNITS/ML 10 ML VIAL SUBCUT SCH (22:05)
[2021-09-27] VITALS (29 sets, daily range): BP systolic 63–176
[2021-09-27] MEDS: LevALBUTEROL HCL 1.25 MG/0.5 ML *CONC.* VIAL.NEB (XOPENEX CONC.) INH SCH ×6 (00:11→23:30)
[2021-09-27] MEDS: MEROPENEM 500 MG in NS 50 ML IV SCH ×2 (06:00→17:39)
--- NOTE | 2021-09-27 06:00 | NUR ---
--PT CONT WITH TRACH-VENT HOWEVER, PT HAD EPISODE OF RESP. DISTRESS WITH RR OF 30-41. PT MED WITH ATIVAN 1MG X1. PT ALSO HAD INCREASE BP 180-170'S SYST WITH INCREASE RR. PT'S RR AND BP EVENTUALLY BECAME CLOSER TO NORMAL RANGE. BP SYST 160 AND RR 28-30. CONTACTED AND ORD ABG AND STAT CXR. BATH AND LINEN CHANGE DONE. PT HAS L.IJ-MANUEL. CATH INTACT. PT ALSO HAS R.IJ IV I/P. SACRAL WOUND CHANGED. AM LABS DONE. PT ENDORSED TO ZAN TAY AND MARIANELA EAGLE. GEN COND HAS BEEN MORE STABLE BUT GUARDED. ESVIN ZULUAGA
--- NOTE | 2021-09-27 06:00 | NUR ---
FURTHERNOTE-PT ALSO HAS BEEN IN A.FIB WITH [facility]. ESVIN RN
[2021-09-27] MEDS: INSULIN REGULAR, HUMAN 100 UNITS/ML, 10 ML VIAL (humuLIN R) SUBCUT PRN ×4 (06:10→17:38)
--- NOTE | 2021-09-27 07:30 | NUR ---
OPENING NOTE RECEIVED BEDSIDE REPORT FROM NIGHT RN SHAUNA. PT IN BED WITH HOB ELEVATED AT 45 DEGREES. PORTEX 7.[address]. PT ON VENT SETTINGS PC 24, RR20, 30% FI02, AND A PEEP OF 3. RIGHT IJ TRIPLE LUMEN PATENT. VITAL SIGNS ARE STABLE, L IJ ONEIL CATH IN PLACE. JAMES WITH DARK YELLOW URINE DRAINING TO GRAVITY. GTUBE WITH NEPRO 1.8 RUNNING AT 35MLS/HR. ACCU-CHECKS Q6HRS. BED IN LOWEST POSITION, BED BRAKES ON, BED RAILS UP, CALL LIGHT WITHIN REACH.
[2021-09-27 08:21] LABS: ALANINE AMINOTRANSFERASE 120 U/L (12-78); ALBUMIN 2.1 g/dL (3.4-4.8); ANION GAP 12 (5-15); ASPARTATE AMINOTRANSFERASE 118 U/L (10-37); CALCIUM 7.8 mg/dL (8.4-11.0); CHLORIDE 108 mmol/L (98-107); CREATININE 1.96 mg/dL (0.55-1.30); GLUCOSE 299 mg/dL (70-99); POTASSIUM 3.4 mmol/L (3.5-5.1); SODIUM SERUM 143 mmol/L (136-145); TOTAL BILIRUBIN 0.6 mg/dL (0.0-1.0); UREA NITROGEN, BLOOD 78 mg/dL (8-21)
--- NOTE | 2021-09-27 08:40 | NUR ---
MECHANICAL ASSEMBLY AT BEDSIDE
[2021-09-27] MEDS ORDERED: ALBUMIN HUMAN 25% 200 ML IV ONE (09:45)
--- NOTE | 2021-09-27 09:45 | NUR ---
ALBUMIN ADMINISTERED BY PEANUT GRADER
--- NOTE | 2021-09-27 10:20 | NUR ---
LEVOPHED RESTARTED SBP IN THE 'S RESTARTED LEVOPHED AT 0.1 Addendum: 09/27/21 at 1032 by Danelle Whitley RN 0.1 MCG/KG/MIN
[2021-09-27] MEDS ORDERED: NOREPINEPHRINE 4 MG/4 ML VIAL IV ONE (11:26)
[2021-09-27] MEDS: CHLORHEXIDINE GLUC 0.12% 15 ML MOUTHWASH UDC MM SCH ×2 (11:39→21:00)
[2021-09-27] MEDS: BALSAM PERU/CASTOR OIL 56.7 GM OINT...G. TP SCH (11:39)
--- NOTE | 2021-09-27 11:45 | NUR ---
DIALYSIS COMPLETE. 2.8L REMOVED PER SOLUTIONS MANAGER.
[2021-09-27] MEDS: FOLIC ACID 1 MG TABLET GT SCH (11:50)
[2021-09-27] MEDS: levETIRAcetam 1,000 MG in NS 100 ML IV SCH ×2 (11:51→21:00)
[2021-09-27] MEDS: FLUCONAZOLE 100 MG TABLET (DIFLUCAN) PO SCH (11:51)
[2021-09-27] MEDS: HEPARIN SODIUM,PORCINE 5,000 UNITS/ML VIAL SUBCUT SCH ×2 (11:54→21:00)
[2021-09-27] MEDS: THEOPHYLLINE ANHYDROUS 80 MG/15 ML UDC GT SCH ×2 (12:19→21:00)
[2021-09-27] MEDS ORDERED: ALTEPLASE 2 MG VIAL MC ONE (15:00)
[2021-09-27] MEDS: INSULIN GLARGINE 100 UNITS/ML 10 ML VIAL SUBCUT SCH (21:00)
[2021-09-28] VITALS (28 sets, daily range): BP systolic 96–127
[2021-09-28] MEDS: LevALBUTEROL HCL 1.25 MG/0.5 ML *CONC.* VIAL.NEB (XOPENEX CONC.) INH SCH ×6 (03:00→22:53)
[2021-09-28] MEDS: MEROPENEM 500 MG in NS 50 ML IV SCH ×2 (06:00→17:17)
[2021-09-28 06:07] LABS: BASOPHILS % (AUTO) 0.2 % (0.0-2.0); EOSINOPHILS # (AUTO) 0.1 K/uL (0.0-0.4); EOSINOPHILS % (AUTO) 1.1 % (0.0-4.0); HEMATOCRIT 27.4 % (36-48); HEMOGLOBIN 9.1 g/dL (12.0-16.0); LYMPHOCYTES # (AUTO) 0.5 K/uL (1.0-5.5); LYMPHOCYTES % (AUTO) 4.1 % (20.5-51.5); MEAN CORPUSCULAR HEMOGLOBIN 34 pg (27-31); MEAN CORPUSCULAR HGB CONC 33 % (32-36); MEAN CORPUSCULAR VOLUME 103 fL (79.0-98.0); MONOCYTES # (AUTO) 0.3 K/uL (0.0-1.0); MONOCYTES % (AUTO) 2.6 % (1.7-9.3); NEUTROPHILS # (AUTO) 10.3 K/uL (1.8-7.7); PLATELET COUNT (AUTO) 90 K/uL (130-430); RED BLOOD CELL COUNT(AUTO) 2.65 MIL/uL (4.2-6.2); RED CELL DISTRIBUTION WIDTH 22.2 % (9.0-15.0); WHITE BLOOD COUNT (AUTO) 11.2 K/uL (4.8-10.8)
[2021-09-28] MEDS: INSULIN REGULAR, HUMAN 100 UNITS/ML, 10 ML VIAL (humuLIN R) SUBCUT PRN ×5 (08:06→23:40)
--- NOTE | 2021-09-28 08:51 | NUR ---
SARA PAGED TO ADVISE OF ABG RESULTS
--- NOTE | 2021-09-28 08:58 | NUR ---
SPOKE WITH DR RUIZ ADVISED ABG RESULTS. ORDERED PT TO BE PUT ON A/C AT 12, TV 450, 30%, PEEP OF 5. ADVISED RT AND CHANGED IT.
[2021-09-28] MEDS: THEOPHYLLINE ANHYDROUS 80 MG/15 ML UDC GT SCH ×2 (09:09→20:46)
[2021-09-28] MEDS: FOLIC ACID 1 MG TABLET GT SCH (09:09)
[2021-09-28] MEDS: CHLORHEXIDINE GLUC 0.12% 15 ML MOUTHWASH UDC MM SCH ×2 (09:09→20:47)
[2021-09-28] MEDS: FLUCONAZOLE 100 MG TABLET (DIFLUCAN) PO SCH (09:09)
[2021-09-28] MEDS: levETIRAcetam 1,000 MG in NS 100 ML IV SCH ×2 (09:10→20:47)
[2021-09-28] MEDS: BALSAM PERU/CASTOR OIL 56.7 GM OINT...G. TP SCH (09:10)
[2021-09-28] MEDS: HEPARIN SODIUM,PORCINE 5,000 UNITS/ML VIAL SUBCUT SCH ×2 (09:12→20:48)
[2021-09-28 09:14] LABS: ALANINE AMINOTRANSFERASE 67 U/L (12-78); ALBUMIN 2.3 g/dL (3.4-4.8); ANION GAP 13 (5-15); CALCIUM 7.7 mg/dL (8.4-11.0); CHLORIDE 105 mmol/L (98-107); CREATININE 1.89 mg/dL (0.55-1.30); GLUCOSE 353 mg/dL (70-99); SODIUM SERUM 142 mmol/L (136-145); TOTAL BILIRUBIN 0.7 mg/dL (0.0-1.0); UREA NITROGEN, BLOOD 66 mg/dL (8-21)
[2021-09-28 09:36] LABS: ASPARTATE AMINOTRANSFERASE 55 U/L (10-37)
--- NOTE | 2021-09-28 09:38 | NUR ---
PAGED DR JOSE A NARANJO PAGED TO ADVISE POTASSIUM 3.0 AND CALCIUM 7.7.
--- NOTE | 2021-09-28 10:12 | NUR ---
NEW ORDERS OBTAINED FROM DR. NARANJO
--- NOTE | 2021-09-28 10:12 | NUR ---
HIGH ALERT NOTE: Called Dr. NARANJO back and identified within the medical roster to verify physician authenticity. Orders for K+ and Ca+ rcvd and transcribed per MD.
[2021-09-28] MEDS ORDERED: KCL 40 mEq in 100 mL (PREMIX) 100 ML IV ONE (10:15)
[2021-09-28] MEDS ORDERED: CALCIUM GLUCONATE 1 GM in NS 100 ML IV ONE (12:00)
[2021-09-28] MEDS ORDERED: POTASSIUM CHLORIDE 40 MEQ in NS 250 ML IV ONE (12:00)
--- NOTE | 2021-09-28 19:15 | NUR ---
OPENING NOTES: RECEIVED BEDSIDE REPORT FROM DESTINI. PATIENT'S EYE ARE OPENED BUT DOES NOT RESPOND TO VERBAL COMMANDS, RESPONDS TO PAINFUL STIMULI. PATIENT IS TRACH WITH VENT SETTING AT AC 12, 450, 30%, 5. PATIENT HAS A R IJ TRIPLE LUMEN WITH NS RUNNING AT 3ML TKO, AND A R IJ ONEIL FOR DIALYSIS, LAST DIALYSIS WAS 09/27 WITH 2.7 L. PATIENT HAS SEVERAL WOUNDS ALL OVER HER BODY WITH FOAM DRESSINGS APPLIED. BED IS AT THE LOWEST LEVEL, BRAKES ARE LOCKED, APPROPRIATE SIDE RAILS UP.
--- NOTE | 2021-09-28 20:30 | NUR ---
WHEN CONDUCTING MY ASSESS I WAS UNABLE TO ASSESS PATIENT FOREIGN. PATIENT IS ABLE TO HOLD HER EYES CLOSED AND WHEN SHE DOES OPEN THEM IMMEDIATELY CLOSES THEM WHEN THE LIGHT IS SHINED IN EYES.
[2021-09-28] MEDS: INSULIN GLARGINE 100 UNITS/ML 10 ML VIAL SUBCUT SCH (20:49)
[2021-09-29] VITALS (33 sets, daily range): BP systolic 92–128
[2021-09-29] MEDS: LevALBUTEROL HCL 1.25 MG/0.5 ML *CONC.* VIAL.NEB (XOPENEX CONC.) INH SCH ×6 (03:48→23:36)
[2021-09-29] MEDS: MEROPENEM 500 MG in NS 50 ML IV SCH ×2 (05:42→18:08)
[2021-09-29 05:56] LABS: BASOPHILS # (AUTO) 0.1 K/uL (0.0-0.2); BASOPHILS % (AUTO) 0.8 % (0.0-2.0); EOSINOPHILS # (AUTO) 0.2 K/uL (0.0-0.4); EOSINOPHILS % (AUTO) 2.4 % (0.0-4.0); HEMOGLOBIN 9.4 g/dL (12.0-16.0); LYMPHOCYTES # (AUTO) 0.4 K/uL (1.0-5.5); LYMPHOCYTES % (AUTO) 5.7 % (20.5-51.5); MEAN CORPUSCULAR HEMOGLOBIN 34 pg (27-31); MEAN CORPUSCULAR HGB CONC 34 % (32-36); MEAN CORPUSCULAR VOLUME 102 fL (79.0-98.0); MONOCYTES # (AUTO) 0.3 K/uL (0.0-1.0); MONOCYTES % (AUTO) 3.6 % (1.7-9.3); NEUTROPHILS # (AUTO) 6.6 K/uL (1.8-7.7); NEUTROPHILS % (AUTO) 87.5 % (40.0-70.0); PLATELET COUNT (AUTO) 91 K/uL (130-430); RED BLOOD CELL COUNT(AUTO) 2.73 MIL/uL (4.2-6.2); WHITE BLOOD COUNT (AUTO) 7.6 K/uL (4.8-10.8)
[2021-09-29] MEDS: INSULIN REGULAR, HUMAN 100 UNITS/ML, 10 ML VIAL (humuLIN R) SUBCUT PRN ×3 (06:07→18:14)
[2021-09-29 06:32] LABS: ALANINE AMINOTRANSFERASE 46 U/L (12-78); ALBUMIN 1.9 g/dL (3.4-4.8); ANION GAP 11 (5-15); ASPARTATE AMINOTRANSFERASE 50 U/L (10-37); CALCIUM 8.1 mg/dL (8.4-11.0); CHLORIDE 107 mmol/L (98-107); CREATININE 1.93 mg/dL (0.55-1.30); GLUCOSE 287 mg/dL (70-99); POTASSIUM 3.4 mmol/L (3.5-5.1); SODIUM SERUM 142 mmol/L (136-145); TOTAL BILIRUBIN 0.6 mg/dL (0.0-1.0); UREA NITROGEN, BLOOD 73 mg/dL (8-21)
[2021-09-29] MEDS ORDERED: POTASSIUM CHLORIDE 20 MEQ/PKT PACKET GT ONE (09:30)
[2021-09-29] MEDS: THEOPHYLLINE ANHYDROUS 80 MG/15 ML UDC GT SCH ×2 (10:11→21:18)
[2021-09-29] MEDS: CHLORHEXIDINE GLUC 0.12% 15 ML MOUTHWASH UDC MM SCH ×2 (10:14→21:17)
[2021-09-29] MEDS: FOLIC ACID 1 MG TABLET GT SCH (10:14)
[2021-09-29] MEDS: FLUCONAZOLE 100 MG TABLET (DIFLUCAN) PO SCH (10:15)
[2021-09-29] MEDS: HEPARIN SODIUM,PORCINE 5,000 UNITS/ML VIAL SUBCUT SCH ×2 (10:21→21:23)
[2021-09-29] MEDS: levETIRAcetam 1,000 MG in NS 100 ML IV SCH ×2 (10:22→21:19)
[2021-09-29] MEDS: BALSAM PERU/CASTOR OIL 56.7 GM OINT...G. TP SCH (10:30)
[2021-09-29] MEDS ORDERED: ALBUMIN HUMAN 25% 200 ML IV ONE (15:00)
--- NOTE | 2021-09-29 17:18 | NUR ---
Nutrition F/U Admitting Diagnosis Septic shock Reviewed Pertinent Medical/Surgical Hx Medical Record Primary RN Medical History Comment: PMH: HTN, DM, seizure disorder, stroke, chronic respiratory failure, and chronic anemia per physician notes Pt also found w/ acute on chronic renal failure per physician notes SARS-CoV-2 Ag (Rapid) Negative 09/14 Per Criminal Defense Attorney note 09/16: 1. Right Sacral area: Unstageable pressure ulcer, present on admission. 2. Right Buttock, Inferior to Site 1: Unstageable pressure ulcer, present on admission. 3. Left Buttock: Stage III pressure ulcer, present on admission. 4. Intergluteal Cleft: Stage III pressure ulcer, present on admission. 5. Left Outer Buttock: Skin tear. 6. Left Anterior Medial Great Toe: Unstageable pressure ulcer, present on admission. 7. Right Posterior Medial Foot, Inferior to First Metatarsal Head: Unstageable pressure ulcer, present on admission. 8. Bilateral Upper Extremities and Hands: Sites have 4+ pitting edema with a moderate amount of weeping. 9. Bilateral Lower Extremities and Feet: Sites have 4+ pitting edema with a moderate amount of weeping. Subjective Information: RD attended ICU rounds this morning. Witnessed Nepro infusing at 35 ml/hr w/ 61 ml infused (110 kcal). Primary RN reported that pt has been tolerating TF OK, had HD yesterday, will have dialysis again tomorrow, receiving K replacement, and continues w/ minimal UO. Per EMR review, abd is distended and firm w/ active bowel sounds; Nepro TF noted 09/29; TF Rate: 35 ml/hr 09/29; TF Intakes: 280 ml 09/29; GRV: 0 ml 09/29; LBM x1 09/29; Cr scale: 9 -- please refer to Criminal Defense Attorney note for details. Current TF prescription continues adequate/appropriate. Current Diet Order/Nutrition Support: Nepro at 35 ml/hr, Simon BID, Free Water Flush: 225 ml Q6h (per physician) via GT x3 days Patient/Significant Other Unable To Verbalize Education Provided Not Indicated Pertinent Medications: lantus, folic acid, SSI, zofran, heparin Pertinent Labs: WBC 7.6 WNL, K 3.4 L, BUN 73 H, CRE 1.93 H, BG 287 H, POC BG 279 H, ALB 1.9 L, AST 50 H, ALP 188 H Height (Feet) 5 feet Height (Inches) 3.00 inches Weight (Pounds) 280 pounds - NEW WT: (09/20) 210#/95.51 kg - Initial wt was estimated by staff. Patient Weight 127.006 kg Body Mass Index 49.59 kg/m2 - NEW BMI: (09/20) 37.3 kg/m2 %IBW 243 [place]/Adjusted Body Weight 115#/52.3 kg. 156#/71 kg Recent Weight Change Unable to verify Weight Status Morbidly Obese Food Allergies Unable to verify Usual Diet At Home Unable to verify Estimated Energy Expenditure (kcals/day) *ONGOING [id number] (30-35 kcal/kg IBW d/t morbid obesity, HD, sepsis) Estimated Protein Required (g/day) 52-78 (1.2-1.5 gm/kg IBW d/t morbid obesity, HD, sepsis) Estimated Fluid Required (l/day) Per physician d/t renal failure Problem/Etiology/Signs/Symptoms Increased nutritional needs R/T metabolic demands AEB estimated nutritional requirements for HD, sepsis and compromised skin integrity w/ Cr score 7 (*Ongoing) Altered nutrition-related labs R/T endocrine and renal dysfunction AEB abnormal BG/POC BG/BUN/CRE lab values. (*Ongoing) Malnutrition R/T morbid obesity AEB BMI: 49.59 kg/m2 and 243% of IBW. (*N/A - initial wt was estimated) Expected Outcomes/Goals - Monitor tolerance to EN support w/ goal of pt meeting >80% of estimated nutritional needs, labs trending WNL, normal GI function, and skin integrity/wt maintenance Dietitian Recommendations * Continue Nepro at 35 ml/hr (goal rate), Simon BID, Free Water Flush: 225 ml Q6h (per physician) via GT Provides: 1672 kcal/day, 73 gm protein/day, and 1511 ml free water/day Meets: 107% of lower end of estimated caloric needs and 94% of upper end of estimated protein needs * Nursing please document Simon BID administration Follow Up Moderate Risk: F/U in 3-5 days
--- NOTE | 2021-09-29 17:23 | NUR ---
Dietitian Recommendations * Continue Nepro at 35 ml/hr (goal rate), Simon BID, Free Water Flush: 225 ml Q6h (per physician) via GT Provides: 1672 kcal/day, 73 gm protein/day, and 1511 ml free water/day Meets: 107% of lower end of estimated caloric needs and 94% of upper end of estimated protein needs * Nursing please document Simon BID administration LP, RD Please refer to Nutrition F/U for details.
[2021-09-29 19:30] LABS: THEOPHYLLINE 12.3 ug/mL (10.0-20.0)
[2021-09-29] MEDS: INSULIN GLARGINE 100 UNITS/ML 10 ML VIAL SUBCUT SCH (21:25)
[2021-09-30] VITALS (34 sets, daily range): BP systolic 96–144
[2021-09-30] MEDS: INSULIN REGULAR, HUMAN 100 UNITS/ML, 10 ML VIAL (humuLIN R) SUBCUT PRN ×4 (01:10→18:40)
[2021-09-30] MEDS: LevALBUTEROL HCL 1.25 MG/0.5 ML *CONC.* VIAL.NEB (XOPENEX CONC.) INH SCH ×6 (03:19→22:50)
[2021-09-30] MEDS: MEROPENEM 500 MG in NS 50 ML IV SCH ×2 (06:09→18:38)
[2021-09-30 07:06] LABS: BASOPHILS % (AUTO) 0.4 % (0.0-2.0); EOSINOPHILS # (AUTO) 0.1 K/uL (0.0-0.4); EOSINOPHILS % (AUTO) 2.7 % (0.0-4.0); HEMATOCRIT 24.5 % (36-48); HEMOGLOBIN 8.2 g/dL (12.0-16.0); LYMPHOCYTES # (AUTO) 0.4 K/uL (1.0-5.5); LYMPHOCYTES % (AUTO) 8.8 % (20.5-51.5); MEAN CORPUSCULAR HEMOGLOBIN 34 pg (27-31); MEAN CORPUSCULAR HGB CONC 34 % (32-36); MEAN CORPUSCULAR VOLUME 102 fL (79.0-98.0); MONOCYTES # (AUTO) 0.3 K/uL (0.0-1.0); MONOCYTES % (AUTO) 6.6 % (1.7-9.3); NEUTROPHILS % (AUTO) 81.5 % (40.0-70.0); PLATELET COUNT (AUTO) 83 K/uL (130-430); RED BLOOD CELL COUNT(AUTO) 2.39 MIL/uL (4.2-6.2); RED CELL DISTRIBUTION WIDTH 21.8 % (9.0-15.0); WHITE BLOOD COUNT (AUTO) 4.9 K/uL (4.8-10.8)
[2021-09-30 07:14] LABS: ALANINE AMINOTRANSFERASE 37 U/L (12-78); ALBUMIN 2.3 g/dL (3.4-4.8); ANION GAP 11 (5-15); ASPARTATE AMINOTRANSFERASE 45 U/L (10-37); CALCIUM 8.2 mg/dL (8.4-11.0); CHLORIDE 105 mmol/L (98-107); CREATININE 1.75 mg/dL (0.55-1.30); GLUCOSE 273 mg/dL (70-99); POTASSIUM 3.7 mmol/L (3.5-5.1); SODIUM SERUM 139 mmol/L (136-145); TOTAL BILIRUBIN 0.7 mg/dL (0.0-1.0); UREA NITROGEN, BLOOD 61 mg/dL (8-21)
--- NOTE | 2021-09-30 07:15 | NUR ---
SBAR report received from night RN Chary, all cares assumed. Pt trach to vent, settings:AC 12, 450, 30%, 5. Bed in low, locked position.
[2021-09-30] MEDS: CHLORHEXIDINE GLUC 0.12% 15 ML MOUTHWASH UDC MM SCH ×2 (08:23→21:57)
[2021-09-30] MEDS: THEOPHYLLINE ANHYDROUS 80 MG/15 ML UDC GT SCH ×2 (08:23→21:56)
[2021-09-30] MEDS ORDERED: HEPARIN SODIUM,PORCINE 5,000 UNITS/ML VIAL ONE (08:23)
[2021-09-30] MEDS: levETIRAcetam 1,000 MG in NS 100 ML IV SCH ×2 (08:24→21:58)
[2021-09-30] MEDS: FLUCONAZOLE 100 MG TABLET (DIFLUCAN) PO SCH (08:25)
[2021-09-30] MEDS: FOLIC ACID 1 MG TABLET GT SCH (08:25)
[2021-09-30] MEDS: BALSAM PERU/CASTOR OIL 56.7 GM OINT...G. TP SCH (08:30)
[2021-09-30] MEDS: HEPARIN SODIUM,PORCINE 5,000 UNITS/ML VIAL SUBCUT SCH ×2 (08:30→22:02)
--- NOTE | 2021-09-30 19:45 | NUR ---
@1925 Assumed pt care bedside report received from Dorie ZULUAGA met pt with eyes open non tracking, unable to follow command impaired extremities contracted upper extremities, trach to vent A/c MODE RATE12 TV 450, FIO2 30% PEEP 5, O2 SAT 100% no sign of shortness of breadth, aflutter HR 60 to 70's occasional PVCS, vitals signs stable afebrile, ongoing tube feeding tolerating well,low residual, callaway to gravity low urine output as per report received but pt is hemodialysis pt, oral care done and pt repositioned for comfort will continue to monitor and treat as per care plan.
[2021-09-30] MEDS: INSULIN GLARGINE 100 UNITS/ML 10 ML VIAL SUBCUT SCH (22:01)
[2021-10-01] VITALS (32 sets, daily range): BP systolic 87–110
[2021-10-01] MEDS: INSULIN REGULAR, HUMAN 100 UNITS/ML, 10 ML VIAL (humuLIN R) SUBCUT PRN ×4 (00:57→17:47)
[2021-10-01] MEDS: LevALBUTEROL HCL 1.25 MG/0.5 ML *CONC.* VIAL.NEB (XOPENEX CONC.) INH SCH ×6 (03:11→23:08)
[2021-10-01 06:08] LABS: BASOPHILS % (AUTO) 0.6 % (0.0-2.0); EOSINOPHILS # (AUTO) 0.1 K/uL (0.0-0.4); EOSINOPHILS % (AUTO) 2.1 % (0.0-4.0); HEMATOCRIT 24.2 % (36-48); LYMPHOCYTES # (AUTO) 0.7 K/uL (1.0-5.5); LYMPHOCYTES % (AUTO) 12.8 % (20.5-51.5); MEAN CORPUSCULAR HEMOGLOBIN 34 pg (27-31); MEAN CORPUSCULAR HGB CONC 33 % (32-36); MEAN CORPUSCULAR VOLUME 103 fL (79.0-98.0); MONOCYTES # (AUTO) 0.3 K/uL (0.0-1.0); MONOCYTES % (AUTO) 5.7 % (1.7-9.3); NEUTROPHILS # (AUTO) 4.5 K/uL (1.8-7.7); NEUTROPHILS % (AUTO) 78.8 % (40.0-70.0); PLATELET COUNT (AUTO) 95 K/uL (130-430); RED BLOOD CELL COUNT(AUTO) 2.36 MIL/uL (4.2-6.2); RED CELL DISTRIBUTION WIDTH 21.2 % (9.0-15.0); WHITE BLOOD COUNT (AUTO) 5.8 K/uL (4.8-10.8)
[2021-10-01] MEDS: MEROPENEM 500 MG in NS 50 ML IV SCH ×2 (06:13→17:46)
--- NOTE | 2021-10-01 07:24 | NUR ---
Bedside report given to Dieudonne RN for continuity of care went over pt's wounds sites skin check, also remind him that pt will be having hemodialysis today and he verbalized understanding. As at this time no changes in care plan and pt's condition.
--- NOTE | 2021-10-01 07:30 | NUR ---
Report received from outgoing nurse and care assumed. Pt currently stable, bp soft and will restart levophed drip that's already ordered to keep map >65. HD scheduled for today. Will continue to monitor.
[2021-10-01] MEDS: HEPARIN SODIUM,PORCINE 5,000 UNITS/ML VIAL SUBCUT SCH ×2 (09:00→21:07)
[2021-10-01] MEDS: THEOPHYLLINE ANHYDROUS 80 MG/15 ML UDC GT SCH ×2 (09:32→21:04)
[2021-10-01] MEDS: CHLORHEXIDINE GLUC 0.12% 15 ML MOUTHWASH UDC MM SCH ×2 (09:32→21:04)
[2021-10-01] MEDS: FOLIC ACID 1 MG TABLET GT SCH (09:33)
[2021-10-01] MEDS: BALSAM PERU/CASTOR OIL 56.7 GM OINT...G. TP SCH (09:57)
[2021-10-01] MEDS: levETIRAcetam 1,000 MG in NS 100 ML IV SCH ×2 (09:57→21:03)
[2021-10-01] MEDS ORDERED: ALBUMIN HUMAN 25% 200 ML IV ONE (11:00)
--- NOTE | 2021-10-01 12:40 | NUR ---
HD finished, 2.5L taken off. 200ml of 25% albumin given with dialysis. VS stable on levophed at 0.06mcg/kg/hr. Will continue to monitor
[2021-10-01] MEDS: NOREPINEPHRINE BITARTRATE 4 MG in NS 246 ML IV PRN ×2 (12:46→21:01)
--- NOTE | 2021-10-01 19:20 | NUR ---
Assumed pt care bedside report received from [facility] RN discussed extensive pressure sores that needs more treatments, wound care nurse is involve, met pt eyes open blinks to threat, unable to follow command trach to vent A/C 12, FIO2 30% O2 SAT 98% oral care suction via oral and trach. Vitals stable ongoing Levophed drip, AFLUTTER HR 60 to 80's` tube feeding residual checked was 180 cc stop at this time will resume later, callaway to gravity OLIGURIC plus hemodialysis skin checked multiple wounds and pressure sores will continue to monitor and treat as per care plan.
[2021-10-01] MEDS ORDERED: NOREPINEPHRINE 4 MG/4 ML VIAL IV ONE (20:45)
[2021-10-01] MEDS: INSULIN GLARGINE 100 UNITS/ML 10 ML VIAL SUBCUT SCH (21:08)
[2021-10-02] VITALS (29 sets, daily range): BP systolic 92–164
[2021-10-02] MEDS: INSULIN REGULAR, HUMAN 100 UNITS/ML, 10 ML VIAL (humuLIN R) SUBCUT PRN ×5 (00:18→23:57)
[2021-10-02] MEDS: LevALBUTEROL HCL 1.25 MG/0.5 ML *CONC.* VIAL.NEB (XOPENEX CONC.) INH SCH ×6 (03:15→23:12)
[2021-10-02] MEDS ORDERED: NOREPINEPHRINE 4 MG/4 ML VIAL IV ONE ×2 (05:31)
[2021-10-02] MEDS: NOREPINEPHRINE BITARTRATE 4 MG in NS 246 ML IV PRN ×3 (05:54→19:18)
[2021-10-02] MEDS: MEROPENEM 500 MG in NS 50 ML IV SCH ×2 (06:00→16:07)
[2021-10-02 06:35] LABS: BASOPHILS % (AUTO) 0.4 % (0.0-2.0); EOSINOPHILS # (AUTO) 0.2 K/uL (0.0-0.4); EOSINOPHILS % (AUTO) 2.1 % (0.0-4.0); HEMOGLOBIN 7.9 g/dL (12.0-16.0); LYMPHOCYTES # (AUTO) 0.7 K/uL (1.0-5.5); MEAN CORPUSCULAR HEMOGLOBIN 34 pg (27-31); MEAN CORPUSCULAR HGB CONC 33 % (32-36); MEAN CORPUSCULAR VOLUME 103 fL (79.0-98.0); MONOCYTES # (AUTO) 0.4 K/uL (0.0-1.0); MONOCYTES % (AUTO) 5.6 % (1.7-9.3); NEUTROPHILS # (AUTO) 6.1 K/uL (1.8-7.7); NEUTROPHILS % (AUTO) 81.9 % (40.0-70.0); PLATELET COUNT (AUTO) 130 K/uL (130-430); RED BLOOD CELL COUNT(AUTO) 2.32 MIL/uL (4.2-6.2); RED CELL DISTRIBUTION WIDTH 21.1 % (9.0-15.0); WHITE BLOOD COUNT (AUTO) 7.4 K/uL (4.8-10.8)
--- NOTE | 2021-10-02 07:12 | NUR ---
Bedside change of shift report given to Nixon ZULUAGA for continuity of care, as at this time vitals signs stable no sign of distress no changes in care plan and condition
[2021-10-02 07:15] LABS: ALANINE AMINOTRANSFERASE 28 U/L (12-78); ALBUMIN 2.5 g/dL (3.4-4.8); ANION GAP 11 (5-15); ASPARTATE AMINOTRANSFERASE 43 U/L (10-37); CALCIUM 8.4 mg/dL (8.4-11.0); CHLORIDE 101 mmol/L (98-107); GLUCOSE 231 mg/dL (70-99); POTASSIUM 3.1 mmol/L (3.5-5.1); SODIUM SERUM 138 mmol/L (136-145); TOTAL BILIRUBIN 0.8 mg/dL (0.0-1.0); UREA NITROGEN, BLOOD 69 mg/dL (8-21)
[2021-10-02] MEDS: CHLORHEXIDINE GLUC 0.12% 15 ML MOUTHWASH UDC MM SCH ×2 (08:21→22:04)
[2021-10-02] MEDS: BALSAM PERU/CASTOR OIL 56.7 GM OINT...G. TP SCH (08:31)
[2021-10-02] MEDS: THEOPHYLLINE ANHYDROUS 80 MG/15 ML UDC GT SCH ×2 (09:21→22:04)
[2021-10-02] MEDS: HEPARIN SODIUM,PORCINE 5,000 UNITS/ML VIAL SUBCUT SCH ×2 (09:22→22:05)
[2021-10-02] MEDS: FOLIC ACID 1 MG TABLET GT SCH (09:23)
[2021-10-02] MEDS: levETIRAcetam 1,000 MG in NS 100 ML IV SCH ×2 (09:25→22:09)
--- NOTE | 2021-10-02 19:45 | NUR ---
@1915 Received bedside report from Nixon ZULUAGA continuity of care, pt awake eyes open, vitals signs stable still on Levophed @0.1mcg/kg/min, no sign of distress noted trach to Ventilator FIO2 30% tolerating well O2 SAT 99% oral care and suction. Skin checked all wounds covered with foam, callaway checked to gravity, ongoing tube feeding NEPRO @35ml/hr, patient unable to comprehend learning due to her health/physical/cognitive condition as at this time will continue to monitor and treat as per care plan.
[2021-10-02] MEDS: INSULIN GLARGINE 100 UNITS/ML 10 ML VIAL SUBCUT SCH (22:04)
[2021-10-02] MEDS: ONDANSETRON HCL 4 MG/2 ML VIAL IVP PRN (22:10)
[2021-10-03] VITALS (24 sets, daily range): BP systolic 103–133
--- NOTE | 2021-10-03 00:30 | NUR ---
Complete bed bath with CHG, oral, skin, wound and callaway care done tolerated well and repositioned for comfort.
[2021-10-03] MEDS: NOREPINEPHRINE BITARTRATE 4 MG in NS 246 ML IV PRN (01:59)
[2021-10-03] MEDS: LevALBUTEROL HCL 1.25 MG/0.5 ML *CONC.* VIAL.NEB (XOPENEX CONC.) INH SCH ×6 (03:11→22:15)
[2021-10-03] MEDS: MEROPENEM 500 MG in NS 50 ML IV SCH (06:00)
[2021-10-03 06:41] LABS: BASOPHILS % (AUTO) 0.6 % (0.0-2.0); EOSINOPHILS # (AUTO) 0.2 K/uL (0.0-0.4); EOSINOPHILS % (AUTO) 2.1 % (0.0-4.0); HEMATOCRIT 22.9 % (36-48); HEMOGLOBIN 7.7 g/dL (12.0-16.0); LYMPHOCYTES # (AUTO) 0.9 K/uL (1.0-5.5); LYMPHOCYTES % (AUTO) 12.2 % (20.5-51.5); MEAN CORPUSCULAR HEMOGLOBIN 34 pg (27-31); MEAN CORPUSCULAR HGB CONC 34 % (32-36); MEAN CORPUSCULAR VOLUME 102 fL (79.0-98.0); MONOCYTES # (AUTO) 0.5 K/uL (0.0-1.0); MONOCYTES % (AUTO) 6.2 % (1.7-9.3); NEUTROPHILS # (AUTO) 5.9 K/uL (1.8-7.7); NEUTROPHILS % (AUTO) 78.9 % (40.0-70.0); PLATELET COUNT (AUTO) 136 K/uL (130-430); RED BLOOD CELL COUNT(AUTO) 2.25 MIL/uL (4.2-6.2); RED CELL DISTRIBUTION WIDTH 21.1 % (9.0-15.0); WHITE BLOOD COUNT (AUTO) 7.5 K/uL (4.8-10.8)
[2021-10-03] MEDS: INSULIN REGULAR, HUMAN 100 UNITS/ML, 10 ML VIAL (humuLIN R) SUBCUT PRN ×3 (06:41→17:36)
--- NOTE | 2021-10-03 07:10 | NUR ---
Bedside change of shift report given to MANGO RN pt restful vitals signs stable no changes in care plan and condition
[2021-10-03 07:34] LABS: ALANINE AMINOTRANSFERASE 24 U/L (12-78); ANION GAP 10 (5-15); ASPARTATE AMINOTRANSFERASE 34 U/L (10-37); CHLORIDE 104 mmol/L (98-107); CREATININE 1.64 mg/dL (0.55-1.30); GLUCOSE 213 mg/dL (70-99); SODIUM SERUM 139 mmol/L (136-145); TOTAL BILIRUBIN 0.5 mg/dL (0.0-1.0); UREA NITROGEN, BLOOD 75 mg/dL (8-21)
--- NOTE | 2021-10-03 07:34 | NUR ---
MANGO GOMEZ [facility] IS IN CHARGE OF THIS PATIENT-DECREASED LEVOPHED TO .06, ORAL CARE GIVEN, REPOSITIONED PT, PT STILL STARES, DOESNT TRACK OR FOLLOW COMMANDS AND NO CONTACT WITH FAMILY IN SOME TIME, BUT PT TOLERATING LEVOPHED TITRATION /POSSIBLE DIALYSIS TODAY//MW
[2021-10-03] MEDS: CHLORHEXIDINE GLUC 0.12% 15 ML MOUTHWASH UDC MM SCH ×2 (08:24→20:10)
[2021-10-03] MEDS: BALSAM PERU/CASTOR OIL 56.7 GM OINT...G. TP SCH (08:25)
[2021-10-03] MEDS: HEPARIN SODIUM,PORCINE 5,000 UNITS/ML VIAL SUBCUT SCH ×2 (08:27→20:11)
[2021-10-03] MEDS: THEOPHYLLINE ANHYDROUS 80 MG/15 ML UDC GT SCH ×2 (08:54→20:09)
[2021-10-03] MEDS: levETIRAcetam 1,000 MG in NS 100 ML IV SCH ×2 (08:55→20:09)
[2021-10-03] MEDS: FOLIC ACID 1 MG TABLET GT SCH (08:55)
[2021-10-03] MEDS ORDERED: FUROSEMIDE 40 MG/4 ML VIAL IVP SCH (09:00)
[2021-10-03] MEDS: CEFEPIME 2 GM in D5W 100 ML IV SCH (10:36)
--- NOTE | 2021-10-03 12:50 | NUR ---
LEVOPHED TURNED OFF/PT A BIT TACHY BUT BP STABLE OFF LEVOPHED//MW
[2021-10-03] MEDS: INSULIN GLARGINE 100 UNITS/ML 10 ML VIAL SUBCUT SCH (20:12)
[2021-10-04] VITALS (34 sets, daily range): BP systolic 82–122
[2021-10-04] MEDS: INSULIN REGULAR, HUMAN 100 UNITS/ML, 10 ML VIAL (humuLIN R) SUBCUT PRN ×4 (00:59→17:29)
[2021-10-04] MEDS: LevALBUTEROL HCL 1.25 MG/0.5 ML *CONC.* VIAL.NEB (XOPENEX CONC.) INH SCH ×6 (02:30→22:15)
[2021-10-04 06:52] LABS: BASOPHILS % (AUTO) 0.4 % (0.0-2.0); EOSINOPHILS # (AUTO) 0.2 K/uL (0.0-0.4); EOSINOPHILS % (AUTO) 2.8 % (0.0-4.0); HEMATOCRIT 23.5 % (36-48); HEMOGLOBIN 7.8 g/dL (12.0-16.0); LYMPHOCYTES # (AUTO) 0.8 K/uL (1.0-5.5); MEAN CORPUSCULAR HEMOGLOBIN 34 pg (27-31); MEAN CORPUSCULAR HGB CONC 33 % (32-36); MEAN CORPUSCULAR VOLUME 102 fL (79.0-98.0); MONOCYTES # (AUTO) 0.4 K/uL (0.0-1.0); MONOCYTES % (AUTO) 5.8 % (1.7-9.3); NEUTROPHILS # (AUTO) 5.5 K/uL (1.8-7.7); PLATELET COUNT (AUTO) 141 K/uL (130-430); RED CELL DISTRIBUTION WIDTH 20.7 % (9.0-15.0)
--- NOTE | 2021-10-04 07:15 | NUR ---
Received report from ZAN Jerez and assumed patient care.
--- NOTE | 2021-10-04 07:40 | NUR ---
Dr. Gonzales at [facility], ordered fluids for patient due to patient being "dry" and soft SBP in the 90s since levophed gtt was off since yesterday per report. Made MD aware patient is dialysis patient, and not much urine output from the callaway but still wants to continue with fluids. No additional orders noted at the moment, will reinforce if needed throughout the shift.
[2021-10-04 07:44] LABS: ALANINE AMINOTRANSFERASE 20 U/L (12-78); ALBUMIN 1.8 g/dL (3.4-4.8); ANION GAP 7 (5-15); ASPARTATE AMINOTRANSFERASE 39 U/L (10-37); CALCIUM 8.5 mg/dL (8.4-11.0); CHLORIDE 102 mmol/L (98-107); CREATININE 1.75 mg/dL (0.55-1.30); GLUCOSE 263 mg/dL (70-99); POTASSIUM 3.1 mmol/L (3.5-5.1); SODIUM SERUM 132 mmol/L (136-145); TOTAL BILIRUBIN 0.6 mg/dL (0.0-1.0); UREA NITROGEN, BLOOD 87 mg/dL (8-21)
[2021-10-04] MEDS: levETIRAcetam 1,000 MG in NS 100 ML IV SCH ×2 (08:32→21:51)
[2021-10-04] MEDS: CHLORHEXIDINE GLUC 0.12% 15 ML MOUTHWASH UDC MM SCH ×2 (08:33→21:50)
[2021-10-04] MEDS: THEOPHYLLINE ANHYDROUS 80 MG/15 ML UDC GT SCH ×2 (08:34→21:50)
[2021-10-04] MEDS: FOLIC ACID 1 MG TABLET GT SCH (08:34)
[2021-10-04] MEDS: BALSAM PERU/CASTOR OIL 56.7 GM OINT...G. TP SCH (08:35)
[2021-10-04] MEDS: HEPARIN SODIUM,PORCINE 5,000 UNITS/ML VIAL SUBCUT SCH ×2 (08:40→21:55)
[2021-10-04] MEDS: NACL 0.9% 1,000 ML IV SCH ×2 (09:28→21:51)
[2021-10-04] MEDS: CEFEPIME 2 GM in D5W 100 ML IV SCH (09:28)
--- NOTE | 2021-10-04 10:25 | NUR ---
Dialysis nurse at bedside, dialysis treatment started. No complications noted at the moment, will reinforce throughout the shift.
[2021-10-04] MEDS ORDERED: ALBUMIN HUMAN 25% 200 ML IV ONE (10:45)
--- NOTE | 2021-10-04 12:45 | NUR ---
Dr. Bobby at bedside, MD is aware of patient being off levophed gtt since yesterday and that patient is currently on dialysis treatment. No additional questions noted at the moment, will reinforce if needed throughout the shift.
--- NOTE | 2021-10-04 13:30 | NUR ---
Dialysis treatment finished with 1.8L out, no complications noted during the dialysis. SBP was in the 90s, but changed the blood pressure cuff location from left to right side and then no other complications noted. Will reinforce if needed throughout the shift.
--- NOTE | 2021-10-04 18:10 | NUR ---
Changed patient's linens, performed CHG baths, performed wound care. No complications noted at the moment and will reinforce if needed throughout the shift.
--- NOTE | 2021-10-04 19:20 | NUR ---
Assumed pt care report received from Taty RN, met pt eyes closed trach to Vent tolerating well FIO2 30%, O2 SAT 98% tolerating well, vitals signs stable no sign of distress HR 70's AFIB, skin checked, tube feeding off as at this time as per report received due to high residual, callaway to gravity no urine pt is oliguric plus hemodialysis as at this time no changes in care plan will continue to monitor and treat as per care plan.
[2021-10-04] MEDS: INSULIN GLARGINE 100 UNITS/ML 10 ML VIAL SUBCUT SCH (21:53)
[2021-10-05] VITALS (34 sets, daily range): BP systolic 98–147
[2021-10-05] MEDS: INSULIN REGULAR, HUMAN 100 UNITS/ML, 10 ML VIAL (humuLIN R) SUBCUT PRN ×2 (00:36→06:57)
[2021-10-05] MEDS: LevALBUTEROL HCL 1.25 MG/0.5 ML *CONC.* VIAL.NEB (XOPENEX CONC.) INH SCH ×6 (03:26→22:22)
--- NOTE | 2021-10-05 03:30 | NUR ---
Complete bed bath with CHG, wound care done to all affected areas covered with foam dated, pt tolerated well with minimal discomfort vital signs stable and repositioned for comfort. Central line dressing changed biopatch applied, covered with transparent film, all iv tubes and luer lock port covers changed. All lumens flushed patent with good blood returns.
[2021-10-05 06:53] LABS: ALANINE AMINOTRANSFERASE 22 U/L (12-78); ALBUMIN 2.5 g/dL (3.4-4.8); ANION GAP 10 (5-15); ASPARTATE AMINOTRANSFERASE 33 U/L (10-37); CALCIUM 8.5 mg/dL (8.4-11.0); CHLORIDE 105 mmol/L (98-107); CREATININE 1.51 mg/dL (0.55-1.30); GLUCOSE 223 mg/dL (70-99); PHOSPHORUS 3.1 mg/dL (2.7-4.5); POTASSIUM 3.2 mmol/L (3.5-5.1); SODIUM SERUM 140 mmol/L (136-145); TOTAL BILIRUBIN 0.6 mg/dL (0.0-1.0); UREA NITROGEN, BLOOD 53 mg/dL (8-21)
--- NOTE | 2021-10-05 07:24 | NUR ---
Change of shift report at bedside for continuity of care given to JUAN RN as at this time no changes in pt's condition and care plan
--- NOTE | 2021-10-05 07:30 | NUR ---
OPENING NOTES RECEIVED BEDSIDE REPORT FROM ISABEL ZULUAGA. PATIENT'S EYES ARE OPENED, NO TRACKING. DOES NOT RESPOND TO VERBAL COMMANDS, RESPONDS TO PAINFUL STIMULI. PATIENT IS TRACH WITH VENT SETTING AT AC 12, 450, 30%, 5. PATIENT HAS A R IJ TRIPLE LUMEN WITH NS RUNNING AT 70ML, AND A LEFT IJ ONEIL FOR DIALYSIS, LAST DIALYSIS WAS 10/04 PATIENT HAS SEVERAL WOUNDS ALL OVER HER BODY WITH FOAM DRESSINGS APPLIED. BED IS AT THE LOWEST LEVEL, BRAKES ARE LOCKED, APPROPRIATE SIDE RAILS UP.
[2021-10-05 08:03] LABS: HEMOGLOBIN 7.1 g/dL (12.0-16.0); MEAN CORPUSCULAR HEMOGLOBIN 34 pg (27-31); MEAN CORPUSCULAR HGB CONC 33 % (32-36); MEAN CORPUSCULAR VOLUME 103 fL (79.0-98.0); PLATELET COUNT (AUTO) 143 K/uL (130-430); RED BLOOD CELL COUNT(AUTO) 2.08 MIL/uL (4.2-6.2); RED CELL DISTRIBUTION WIDTH 21.5 % (9.0-15.0); WHITE BLOOD COUNT (AUTO) 6.9 K/uL (4.8-10.8)
[2021-10-05] MEDS: levETIRAcetam 1,000 MG in NS 100 ML IV SCH ×2 (08:35→21:38)
[2021-10-05] MEDS: CHLORHEXIDINE GLUC 0.12% 15 ML MOUTHWASH UDC MM SCH ×2 (08:35→21:38)
[2021-10-05] MEDS: FOLIC ACID 1 MG TABLET GT SCH (08:35)
[2021-10-05] MEDS: THEOPHYLLINE ANHYDROUS 80 MG/15 ML UDC GT SCH ×2 (08:35→21:37)
[2021-10-05] MEDS: BALSAM PERU/CASTOR OIL 56.7 GM OINT...G. TP SCH (08:36)
[2021-10-05] MEDS: HEPARIN SODIUM,PORCINE 5,000 UNITS/ML VIAL SUBCUT SCH ×2 (09:02→21:40)
[2021-10-05 09:18] LABS: HEMATOCRIT 21.5 % (36-48)
[2021-10-05] MEDS ORDERED: POTASSIUM CHLORIDE 20 MEQ/PKT PACKET GT ONE (10:00)
[2021-10-05] MEDS: CEFEPIME 2 GM in D5W 100 ML IV SCH (10:09)
[2021-10-05] MEDS: NACL 0.9% 1,000 ML IV SCH (13:31)
--- NOTE | 2021-10-05 13:57 | NUR ---
I CALLED AGAIN AND LAB IS NOT READY TO DISPENSE BLOOD PRODUCT. MARIANELA EAGLE MADE AWARE.
[2021-10-05 14:23] LABS: BAND % (MANUAL) 24 % (0-6); BASOPHILS % (MANUAL) 0 % (0-2); EOSINOPHILS % (MANUAL) 0 % (0-7); LYMPHOCYTES % (MANUAL) 12 % (20-46); MONOCYTES % (MANUAL) 5 % (0-11)
--- NOTE | 2021-10-05 16:02 | NUR ---
BLOOD TRANSFUSION ONE UNIT OF PACKED RED BLOOD CELLS STARTED ORDERED VIA IV PUMP, VERIFIED WITH SECOND RN.
[2021-10-05 19:11] LABS: PROTHROMBIN TIME 10.5 SECS (9.5-12.5)
--- NOTE | 2021-10-05 19:18 | NUR ---
@1915 Received change of shift bedside report from JUAN RN. Met pt open eyes does not follows command, trach to vent A/C MODE FIO2 30% oral care done suction, O2 SAT 99%, vitals signs stable no sign of distress noted, paralysis on lower extremities, right upper arm contracted, left arm abnormal extension. repositioned for comfort, heel elevated on pillows, callaway to gravity no urine as at this time and will continue to monitor and treat as per care plan.
[2021-10-05] MEDS: INSULIN GLARGINE 100 UNITS/ML 10 ML VIAL SUBCUT SCH (21:39)
[2021-10-05] MEDS ORDERED: LACTULOSE 20 GM/30 ML UDC PO ONE (23:45)
--- NOTE | 2021-10-05 23:45 | NUR ---
Dr Church rounds at the bedside updates on pt's condition still on ventilator tolerating well but no bowel movements for days, distended firm abdomen too, order received to give lactulose 30gm x1 and Colace 200mg liquid BID.
[2021-10-06] VITALS (34 sets, daily range): BP systolic 97–136
[2021-10-06] MEDS: DOCUSATE SODIUM 100 MG/10 ML UDC PO SCH ×3 (00:42→20:10)
[2021-10-06] MEDS: INSULIN REGULAR, HUMAN 100 UNITS/ML, 10 ML VIAL (humuLIN R) SUBCUT PRN ×4 (00:54→23:40)
[2021-10-06] MEDS: LevALBUTEROL HCL 1.25 MG/0.5 ML *CONC.* VIAL.NEB (XOPENEX CONC.) INH SCH ×6 (02:35→23:00)
[2021-10-06] MEDS: NACL 0.9% 1,000 ML IV SCH ×2 (02:46→17:20)
[2021-10-06 06:03] LABS: BASOPHILS # (AUTO) 0.1 K/uL (0.0-0.2); BASOPHILS % (AUTO) 0.7 % (0.0-2.0); EOSINOPHILS # (AUTO) 0.2 K/uL (0.0-0.4); EOSINOPHILS % (AUTO) 2.1 % (0.0-4.0); HEMATOCRIT 24.5 % (36-48); HEMOGLOBIN 8.3 g/dL (12.0-16.0); LYMPHOCYTES # (AUTO) 0.7 K/uL (1.0-5.5); LYMPHOCYTES % (AUTO) 9.2 % (20.5-51.5); MEAN CORPUSCULAR HEMOGLOBIN 33 pg (27-31); MEAN CORPUSCULAR HGB CONC 34 % (32-36); MEAN CORPUSCULAR VOLUME 97 fL (79.0-98.0); MONOCYTES # (AUTO) 0.4 K/uL (0.0-1.0); MONOCYTES % (AUTO) 4.8 % (1.7-9.3); NEUTROPHILS # (AUTO) 6.5 K/uL (1.8-7.7); NEUTROPHILS % (AUTO) 83.2 % (40.0-70.0); PLATELET COUNT (AUTO) 142 K/uL (130-430); RED BLOOD CELL COUNT(AUTO) 2.52 MIL/uL (4.2-6.2); RED CELL DISTRIBUTION WIDTH 24.2 % (9.0-15.0); WHITE BLOOD COUNT (AUTO) 7.8 K/uL (4.8-10.8)
[2021-10-06 06:12] LABS: ALANINE AMINOTRANSFERASE 21 U/L (12-78); ALBUMIN 2.1 g/dL (3.4-4.8); ANION GAP 8 (5-15); ASPARTATE AMINOTRANSFERASE 41 U/L (10-37); CALCIUM 9.5 mg/dL (8.4-11.0); CHLORIDE 106 mmol/L (98-107); CREATININE 1.79 mg/dL (0.55-1.30); GLUCOSE 231 mg/dL (70-99); POTASSIUM 3.4 mmol/L (3.5-5.1); SODIUM SERUM 139 mmol/L (136-145); TOTAL BILIRUBIN 0.6 mg/dL (0.0-1.0); UREA NITROGEN, BLOOD 59 mg/dL (8-21)
--- NOTE | 2021-10-06 07:15 | NUR ---
Dorothea DUNN, RECEIVED PATIENT IN BED #2, FROM ZAN HALL. PT IS STABLE, REMAINS TRACH TO VENT, TUBE FEEDING, F/C TO GRAVITY. VITALS ARE STABLE, PT TO BE FURTHER ASSESSED BY ROUNDING MDs FOR PLAN OF CARE WITH DISPOSITION.
--- NOTE | 2021-10-06 07:20 | NUR ---
Change of shift report given to MONA RN at bedside as at this no changes in pt's condition and care plan. Vital signs stable and no sign of distress noted.
[2021-10-06] MEDS: CHLORHEXIDINE GLUC 0.12% 15 ML MOUTHWASH UDC MM SCH ×2 (08:14→20:09)
[2021-10-06] MEDS: FOLIC ACID 1 MG TABLET GT SCH (08:14)
[2021-10-06] MEDS: HEPARIN SODIUM,PORCINE 5,000 UNITS/ML VIAL SUBCUT SCH ×2 (08:14→20:11)
[2021-10-06] MEDS: levETIRAcetam 1,000 MG in NS 100 ML IV SCH ×2 (08:14→20:09)
[2021-10-06] MEDS: THEOPHYLLINE ANHYDROUS 80 MG/15 ML UDC GT SCH ×2 (08:14→20:08)
[2021-10-06] MEDS: CEFEPIME 2 GM in D5W 100 ML IV SCH (09:31)
[2021-10-06] MEDS: BALSAM PERU/CASTOR OIL 56.7 GM OINT...G. TP SCH (09:46)
[2021-10-06] MEDS ORDERED: HEPARIN SODIUM,PORCINE 5,000 UNITS/ML VIAL ONE (13:37)
--- NOTE | 2021-10-06 13:57 | NUR ---
Discharge Planning: DCP faxed pt referral to [facility] [phone] DCP to follow up
--- NOTE | 2021-10-06 16:25 | NUR ---
CALLED AND SPOKE WITH DR. NARANJO IN REGARDS TO DISCONTINUING CENTRAL LINE AND DECIDING PLACEMENT OF PERMACATH FOR FUTURE DIALYSIS USE AND IV MEDICATIONS NEEDED. DR. NARANJO DEFERRED TO CONSULT DR. MCCLANI.
--- NOTE | 2021-10-06 16:40 | NUR ---
Called [facility] with a consult(permacath) spoke with Melia from doctors office
--- NOTE | 2021-10-06 17:10 | NUR ---
RT NOTES changed to a different vent due to existing vent was making weird noises but did not affect ventilation. Pt. H.R, R.R and Sat remained unchanged.
--- NOTE | 2021-10-06 19:05 | NUR ---
OPENING NOTES: RECEIVED BEDSIDE REPORT FROM MONA, PATIENT IS AWAKE WITH EYES OPENED BUT DOES NOT RESPOND OR TRACK. PATIENT HAS A R IJ THAT NEEDS TO BE REMOVED AND WAS INFORMED BY MONA THAT THE DOCTORS WANT TO DO A PERMCATH FOR DIALYSIS, WILL CALL THE DAUGHTER OSMANY FOR CONSENT. PATIENT HAS NS RUNNING AT 70 IN THE R IJ, 2.6 L WAS REMOVED TODAY DURING DIALYSIS AND HER BP HELD. TRACH TO VENT, SETTINGS ARE AC 12, 450, 30%, 5. SHE HAS A G-TUBE WITH NEPRO RUNNING AT 35 WITH FWF AT 225. BED IS AT THE LOWEST LEVEL, BRAKES ARE LOCKED, APPROPRIATE SIDE RAILS ARE UP, AND CALL LIGHT IS WITHIN REACH.
[2021-10-06] MEDS ORDERED: DOCUSATE SODIUM 100 MG/10 ML UDC ONE (20:05)
[2021-10-06] MEDS: INSULIN GLARGINE 100 UNITS/ML 10 ML VIAL SUBCUT SCH (20:13)
[2021-10-07] VITALS (32 sets, daily range): BP systolic 95–137
[2021-10-07] MEDS: LORazepam 2 MG/ML VIAL IVP PRN (02:20)
[2021-10-07] MEDS: LevALBUTEROL HCL 1.25 MG/0.5 ML *CONC.* VIAL.NEB (XOPENEX CONC.) INH SCH ×4 (03:05→20:17)
[2021-10-07] MEDS: INSULIN REGULAR, HUMAN 100 UNITS/ML, 10 ML VIAL (humuLIN R) SUBCUT PRN ×4 (05:27→23:22)
[2021-10-07 06:15] LABS: BASOPHILS # (AUTO) 0.1 K/uL (0.0-0.2); EOSINOPHILS # (AUTO) 0.2 K/uL (0.0-0.4); EOSINOPHILS % (AUTO) 1.8 % (0.0-4.0); HEMATOCRIT 23.3 % (36-48); HEMOGLOBIN 7.9 g/dL (12.0-16.0); LYMPHOCYTES # (AUTO) 1.4 K/uL (1.0-5.5); LYMPHOCYTES % (AUTO) 14.7 % (20.5-51.5); MEAN CORPUSCULAR HEMOGLOBIN 33 pg (27-31); MEAN CORPUSCULAR HGB CONC 34 % (32-36); MEAN CORPUSCULAR VOLUME 96 fL (79.0-98.0); MONOCYTES # (AUTO) 0.6 K/uL (0.0-1.0); MONOCYTES % (AUTO) 6.1 % (1.7-9.3); NEUTROPHILS # (AUTO) 7.2 K/uL (1.8-7.7); NEUTROPHILS % (AUTO) 76.4 % (40.0-70.0); PLATELET COUNT (AUTO) 155 K/uL (130-430); RED BLOOD CELL COUNT(AUTO) 2.42 MIL/uL (4.2-6.2); RED CELL DISTRIBUTION WIDTH 24.1 % (9.0-15.0); WHITE BLOOD COUNT (AUTO) 9.4 K/uL (4.8-10.8)
[2021-10-07 06:46] LABS: ALANINE AMINOTRANSFERASE 26 U/L (12-78); ANION GAP 10 (5-15); ASPARTATE AMINOTRANSFERASE 41 U/L (10-37); CALCIUM 9.1 mg/dL (8.4-11.0); CHLORIDE 104 mmol/L (98-107); CREATININE 1.41 mg/dL (0.55-1.30); GLUCOSE 214 mg/dL (70-99); POTASSIUM 3.5 mmol/L (3.5-5.1); SODIUM SERUM 138 mmol/L (136-145); TOTAL BILIRUBIN 0.6 mg/dL (0.0-1.0); UREA NITROGEN, BLOOD 45 mg/dL (8-21)
--- NOTE | 2021-10-07 07:10 | NUR ---
RT NOTES 0710 Tx. was given. Patient is tolerating vent settings well, however ventilator indicates no air compressor. Plan to switch out for a new ventilator. Addendum: 10/07/21 at 0908 by Carina Martinez RT Amended: Links added.
[2021-10-07] MEDS: levETIRAcetam 1,000 MG in NS 100 ML IV SCH ×2 (09:45→20:27)
[2021-10-07] MEDS: CEFEPIME 2 GM in D5W 100 ML IV SCH (09:48)
[2021-10-07] MEDS: FOLIC ACID 1 MG TABLET GT SCH (09:49)
[2021-10-07] MEDS: DOCUSATE SODIUM 100 MG/10 ML UDC PO SCH ×2 (09:49→20:26)
[2021-10-07] MEDS: CHLORHEXIDINE GLUC 0.12% 15 ML MOUTHWASH UDC MM SCH ×2 (09:49→20:27)
[2021-10-07] MEDS: THEOPHYLLINE ANHYDROUS 80 MG/15 ML UDC GT SCH ×2 (09:49→20:27)
--- NOTE | 2021-10-07 09:50 | NUR ---
RT NOTES 0950 Switched out to new vent, prior vent was stating COMPRESSOR INOPERATIVE. While SST'ing new vent. Bagged pt via 15L BVM. Placed pt on same vent order settings AC12,450VT PEEP 5 30% fio2. No incident happened. HR/Saturation unchanged. No resp distress noted. ZAN Bond made aware.
[2021-10-07] MEDS: HEPARIN SODIUM,PORCINE 5,000 UNITS/ML VIAL SUBCUT SCH ×2 (09:52→20:29)
[2021-10-07] MEDS: BALSAM PERU/CASTOR OIL 56.7 GM OINT...G. TP SCH (09:52)
--- NOTE | 2021-10-07 12:08 | NUR ---
Discharge Planning: DCP followed up with pt referral to [facility] [phone] patient can not able to return on dialysis. DCP made CM aware Addendum: 10/07/21 at 1649 by Ambar Lancaster DP DCP faxed pt referral to [facility] [phone] [facility] [phone] SHIRLENE to follow up
--- NOTE | 2021-10-07 13:23 | NUR ---
daughter chace at bedside, she asked the primary nurse to fill out the '[employer]: Examination For Housebound Status or Permanent Need for Regular Aid and Attendance" and per her report she went to Dr Chaney's office and they sent her here to have it filled out. Dr chaney shortly after daughter left came to the unit and asked for nurse to fill out the form and he will sign it. RN called medical case worker Stephanie to get information on how to properly fill out the form, awaiting Stephanie's assistance.
--- NOTE | 2021-10-07 16:42 | NUR ---
Nutrition F/U Admitting Diagnosis Septic shock Reviewed Pertinent Medical/Surgical Hx Medical Record Primary RIVETER PNEUMATIC Rounds Medical History Comment: PMH: HTN, DM, seizure disorder, stroke, chronic respiratory failure, and chronic anemia per physician notes Pt also found w/ acute on chronic renal failure per physician notes SARS-CoV-2 Ag (Rapid) Negative 09/14 Per Coordinator Of Library Services note 09/16: 1. Right Sacral area: Unstageable pressure ulcer, present on admission. 2. Right Buttock, Inferior to Site 1: Unstageable pressure ulcer, present on admission. 3. Left Buttock: Stage III pressure ulcer, present on admission. 4. Intergluteal Cleft: Stage III pressure ulcer, present on admission. 5. Left Outer Buttock: Skin tear. 6. Left Anterior Medial Great Toe: Unstageable pressure ulcer, present on admission. 7. Right Posterior Medial Foot, Inferior to First Metatarsal Head: Unstageable pressure ulcer, present on admission. 8. Bilateral Upper Extremities and Hands: Sites have 4+ pitting edema with a moderate amount of weeping. 9. Bilateral Lower Extremities and Feet: Sites have 4+ pitting edema with a moderate amount of weeping. Subjective Information: RD attended ICU rounds this morning. Primary RN reported that pt has been tolerating TF well; had HD yesterday w/ 2.6 L out, BM last night, not on any IV drips, minimal UO (25 ml) via FC. Per EMR review, Nepro infusing at 40 ml/hr via GT 10/07; GRV: 0 ml 10/07; abd is non-distended and firm w/ active bowel sounds; LBM x1 /7; Cr scale: 7 -- please refer to Coordinator Of Library Services note for details. Current TF prescription continues adequate/appropriate. Current Diet Order/Nutrition Support: Nepro at 35 ml/hr, Simon BID, Free Water Flush: 225 ml Q6h (per physician) via GT x8 days Patient/Significant Other Unable To Verbalize Education Provided Not Indicated Pertinent Medications: lantus, folic acid, SSI, zofran, heparin, colace Pertinent Labs: K 3.5 WNL, BUN 45 H, CRE 1.41 H, BG 214 H, POC BG 190 H, ALB 2 L, AST 41 H, ALP 277 H Height (Feet) 5 feet Height (Inches) 3.00 inches Weight (Pounds) 280 pounds - NEW WT: (09/20) 210#/95.51 kg - Initial wt was estimated by staff. Patient Weight 127.006 kg Body Mass Index 49.59 kg/m2 - NEW BMI: (09/20) 37.3 kg/m2 %IBW 243 [place]/Adjusted Body Weight 115#/52.3 kg. 156#/71 kg Recent Weight Change Unable to verify Weight Status Morbidly Obese Food Allergies Unable to verify Usual Diet At Home Unable to verify Estimated Energy Expenditure (kcals/day) *ONGOING 9536-6578 (30-35 kcal/kg IBW d/t morbid obesity, HD, sepsis) Estimated Protein Required (g/day) 52-78 (1.2-1.5 gm/kg IBW d/t morbid obesity, HD, sepsis) Estimated Fluid Required (l/day) Per physician d/t renal failure Problem/Etiology/Signs/Symptoms Increased nutritional needs R/T metabolic demands AEB estimated nutritional requirements for HD, sepsis and compromised skin integrity w/ Cr score 7 (*Ongoing) Altered nutrition-related labs R/T endocrine and renal dysfunction AEB abnormal BG/POC BG/BUN/CRE lab values. (*Ongoing) Malnutrition R/T morbid obesity AEB BMI: 49.59 kg/m2 and 243% of IBW. (*N/A - initial wt was estimated) Expected Outcomes/Goals - Monitor tolerance to EN support w/ goal of pt meeting >80% of estimated nutritional needs, labs trending WNL, normal GI function, and skin integrity/wt maintenance Dietitian Recommendations * Continue Nepro at 35 ml/hr (goal rate), Simon BID, Free Water Flush: 225 ml Q6h (per physician) via GT Provides: 1672 kcal/day, 73 gm protein/day, and 1511 ml free water/day Meets: 107% of lower end of estimated caloric needs and 94% of upper end of estimated protein needs * Nursing please document Simon BID administration Follow Up Moderate Risk: F/U in 3-5 days
--- NOTE | 2021-10-07 17:00 | NUR ---
picc line inserted into right upper arm, patient tolerated well, fluids infusing. placement confirmed on xray.
--- NOTE | 2021-10-07 17:05 | NUR ---
rt notes 1705 RN Lisa placed pt on 100% fio2, pt bp low and desaturating due to dialysis. will monitor pt.
[2021-10-07] MEDS ORDERED: 0.45% NS 1,000 ML IV ONE (17:30)
[2021-10-07] MEDS ORDERED: 0.45% NS 1,000 ML IV SCH ×2 (18:14→18:15)
--- NOTE | 2021-10-07 19:15 | NUR ---
OPENING NOTES: RECEIVED BEDSIDE REPORT FROM [facility]. PATIENT HAS EYES OPEN BUT DOES NOT TRACK OR FOLLOW. VENT TO TRACH SETTING ARE 12, 450, 30%, 5. PATIENT HAS A ALEYDA PICC PLACED TODAY AND HAS 1/2 NS RUNNING AT 60, G-TUBE HAS NEPRO RUNNING AT 35 ML/HR. PATIENT HAS A JAMES CATHETER PATENT AND DRAINAGE TO GRAVITY. PATENT HAS SEVERAL SORES ON R&L LEGS, R&l ARMS, SACRAL, COCCYX, L&R BUTTOCKS ALL WITH FOAM DRESSINGS. BED IS AT THE LOWEST LEVEL, BRAKES ARE LOCKED, APPROPRIATE SIDE RAILS UP, AND CALL LIGHT IS WITHIN REACH.
--- NOTE | 2021-10-07 19:25 | NUR ---
DANGELO REMOVED R IJ DUE TO PICC PLACEMENT. HELD PRESSURE FOR 5 MINUTES AND KEEP PATIENT LAYING FLAT FOR 10 MINUTES.
--- NOTE | 2021-10-07 20:20 | NUR ---
DR RUIZ MADE ROUNDS, NO ORDERS GIVEN.
[2021-10-07] MEDS: INSULIN GLARGINE 100 UNITS/ML 10 ML VIAL SUBCUT SCH (20:30)
[2021-10-08] VITALS (30 sets, daily range): BP systolic 78–123
[2021-10-08] MEDS: LevALBUTEROL HCL 1.25 MG/0.5 ML *CONC.* VIAL.NEB (XOPENEX CONC.) INH SCH ×7 (02:11→22:59)
[2021-10-08] MEDS: INSULIN REGULAR, HUMAN 100 UNITS/ML, 10 ML VIAL (humuLIN R) SUBCUT PRN ×3 (06:23→17:47)
[2021-10-08 06:32] LABS: BASOPHILS # (AUTO) 0.1 K/uL (0.0-0.2); BASOPHILS % (AUTO) 0.8 % (0.0-2.0); EOSINOPHILS # (AUTO) 0.3 K/uL (0.0-0.4); EOSINOPHILS % (AUTO) 2.9 % (0.0-4.0); HEMATOCRIT 23.8 % (36-48); HEMOGLOBIN 7.9 g/dL (12.0-16.0); LYMPHOCYTES # (AUTO) 1.3 K/uL (1.0-5.5); LYMPHOCYTES % (AUTO) 13.9 % (20.5-51.5); MEAN CORPUSCULAR HEMOGLOBIN 33 pg (27-31); MEAN CORPUSCULAR HGB CONC 33 % (32-36); MEAN CORPUSCULAR VOLUME 98 fL (79.0-98.0); MONOCYTES # (AUTO) 0.7 K/uL (0.0-1.0); NEUTROPHILS # (AUTO) 7.3 K/uL (1.8-7.7); NEUTROPHILS % (AUTO) 75.4 % (40.0-70.0); PLATELET COUNT (AUTO) 152 K/uL (130-430); RED BLOOD CELL COUNT(AUTO) 2.42 MIL/uL (4.2-6.2); RED CELL DISTRIBUTION WIDTH 23.7 % (9.0-15.0); WHITE BLOOD COUNT (AUTO) 9.6 K/uL (4.8-10.8)
[2021-10-08 07:11] LABS: ALANINE AMINOTRANSFERASE 17 U/L (12-78); ANION GAP 12 (5-15); ASPARTATE AMINOTRANSFERASE 41 U/L (10-37); CHLORIDE 103 mmol/L (98-107); CREATININE 1.64 mg/dL (0.55-1.30); GLUCOSE 226 mg/dL (70-99); POTASSIUM 3.5 mmol/L (3.5-5.1); SODIUM SERUM 138 mmol/L (136-145); TOTAL BILIRUBIN 0.5 mg/dL (0.0-1.0); UREA NITROGEN, BLOOD 60 mg/dL (8-21)
--- NOTE | 2021-10-08 08:54 | NUR ---
PATIENT IN BED, TRACH TO VENT AC 12, TV 450, FIO2 30%, PEEP 5. GTUBE RUNNING TUBE FEEDING NEPRO 35ML/HR WITH FWF 125Q6H, NON VERBAL, DOES NOT TRACK WITH EYES, CATARACTS BILATERAL EYES, MULTIPLE WOUNDS, WOUND CARE PERFORMED ON SAND OPERATOR PER SAND OPERATOR RN, RIGHT UPPER ARM PICC LINE INTACT PATENT RUNNING 1/2NS @60, LEFT IJ ONEIL CATH, DIALYSIS SCHEDULED FOR TODAY, BED IN LOWEST LOCKED POSITION, CALL LIGHT WITHIN REACH, SAFETY MEASURES IN PLACE, CONTACT ISOLATION IN PLACE FOR URINE AND SPUTUM.
[2021-10-08] MEDS: CEFEPIME 2 GM in D5W 100 ML IV SCH (10:06)
[2021-10-08] MEDS: levETIRAcetam 1,000 MG in NS 100 ML IV SCH ×2 (10:07→20:10)
[2021-10-08] MEDS: FOLIC ACID 1 MG TABLET GT SCH (10:08)
[2021-10-08] MEDS: THEOPHYLLINE ANHYDROUS 80 MG/15 ML UDC GT SCH ×2 (10:08→23:31)
[2021-10-08] MEDS: CHLORHEXIDINE GLUC 0.12% 15 ML MOUTHWASH UDC MM SCH ×2 (10:08→20:11)
[2021-10-08] MEDS: HEPARIN SODIUM,PORCINE 5,000 UNITS/ML VIAL SUBCUT SCH ×2 (10:10→20:16)
[2021-10-08] MEDS: BALSAM PERU/CASTOR OIL 56.7 GM OINT...G. TP SCH (10:10)
[2021-10-08] MEDS: NACL 0.9% 1,000 ML IV SCH (10:11)
[2021-10-08] MEDS: DOCUSATE SODIUM 100 MG/10 ML UDC PO SCH ×2 (10:17→20:12)
--- NOTE | 2021-10-08 12:09 | NUR ---
Discharge Planning: DCP faxed pt referral to [facility] [phone], DCP to follow up
[2021-10-08] MEDS ORDERED: PANTOPRAZOLE SODIUM 40 MG/VIAL (PROTONIX) IVP ONE (15:00)
[2021-10-08] MEDS ORDERED: ALBUMIN HUMAN 25% 100 ML IV ONE ×2 (15:06→15:15)
[2021-10-08] MEDS: NOREPINEPHRINE BITARTRATE 4 MG in NS 246 ML IV PRN (16:11)
--- NOTE | 2021-10-08 16:15 | NUR ---
restarted patient on levophed because blood pressure is decreasing due to dialysis
[2021-10-08] MEDS ORDERED: HEPARIN SODIUM,PORCINE 5,000 UNITS/ML VIAL IVP ONE (17:45)
[2021-10-08] MEDS ORDERED: HEPARIN SODIUM,PORCINE 5,000 UNITS/ML VIAL ONE (17:48)
[2021-10-08] MEDS: LORazepam 2 MG/ML VIAL IVP PRN (23:35)
[2021-10-09] VITALS (31 sets, daily range): BP systolic 91–131
[2021-10-09] MEDS: INSULIN GLARGINE 100 UNITS/ML 10 ML VIAL SUBCUT SCH ×2 (02:15→21:46)
[2021-10-09] MEDS: INSULIN REGULAR, HUMAN 100 UNITS/ML, 10 ML VIAL (humuLIN R) SUBCUT PRN ×4 (02:16→18:11)
[2021-10-09] MEDS: LevALBUTEROL HCL 1.25 MG/0.5 ML *CONC.* VIAL.NEB (XOPENEX CONC.) INH SCH ×6 (07:19→23:47)
--- NOTE | 2021-10-09 07:30 | NUR ---
PATIENT IN BED, TRACH TO VENT AC 12, TV 450, FIO2 30%, PEEP 5. GTUBE RUNNING TUBE FEEDING NEPRO 35ML/HR WITH FWF 125Q6H, NON VERBAL, DOES NOT TRACK WITH EYES, CATARACTS BILATERAL EYES, MULTIPLE WOUNDS, WOUND CARE PERFORMED ON SERVER ADMINISTRATOR PER SERVER ADMINISTRATOR RN, RIGHT UPPER ARM PICC LINE INTACT PATENT RUNNING NS @30, LEFT IJ ONEIL CATH, DIALYSIS DONE YESTERDAY WITH 2LITERS OUT, ON LEVOPHED DRIP OF 0.05MCG/KG/MIN, BED IN LOWEST LOCKED POSITION, CALL LIGHT WITHIN REACH, SAFETY MEASURES IN PLACE, CONTACT ISOLATION IN PLACE FOR URINE AND SPUTUM.
--- NOTE | 2021-10-09 08:04 | NUR ---
NEW BAG OF LEVO HUNG AT 0130. MEDICATION DID NOT SCAN AND CO-SIGNER HAS GONE HOME BEFORE ERROR WAS NOTED.
[2021-10-09] MEDS: CHLORHEXIDINE GLUC 0.12% 15 ML MOUTHWASH UDC MM SCH ×2 (08:19→21:32)
[2021-10-09] MEDS: DOCUSATE SODIUM 100 MG/10 ML UDC PO SCH ×2 (08:19→21:31)
[2021-10-09] MEDS: THEOPHYLLINE ANHYDROUS 80 MG/15 ML UDC GT SCH ×2 (08:21→21:35)
[2021-10-09] MEDS: FOLIC ACID 1 MG TABLET GT SCH (08:22)
[2021-10-09] MEDS: PANTOPRAZOLE SODIUM 40 MG/VIAL (PROTONIX) IVP SCH (08:22)
[2021-10-09] MEDS: HEPARIN SODIUM,PORCINE 5,000 UNITS/ML VIAL SUBCUT SCH ×2 (08:23→21:42)
[2021-10-09] MEDS: BALSAM PERU/CASTOR OIL 56.7 GM OINT...G. TP SCH (08:25)
[2021-10-09] MEDS: levETIRAcetam 1,000 MG in NS 100 ML IV SCH ×2 (08:25→21:39)
[2021-10-09] MEDS: NACL 0.9% 1,000 ML IV SCH (08:29)
[2021-10-09] MEDS: CEFEPIME 2 GM in D5W 100 ML IV SCH (10:52)
[2021-10-09] MEDS ORDERED: NOREPINEPHRINE BITARTRATE 16 MG in NS 246 ML IV PRN (11:00)
[2021-10-09] MEDS ORDERED: NOREPINEPHRINE BITARTRATE 16 MG in NS 234 ML IV PRN (11:51)
[2021-10-10] VITALS (30 sets, daily range): BP systolic 84–130
[2021-10-10] MEDS: INSULIN REGULAR, HUMAN 100 UNITS/ML, 10 ML VIAL (humuLIN R) SUBCUT PRN ×2 (00:20→17:41)
[2021-10-10] MEDS: LevALBUTEROL HCL 1.25 MG/0.5 ML *CONC.* VIAL.NEB (XOPENEX CONC.) INH SCH ×6 (03:19→23:53)
--- NOTE | 2021-10-10 07:30 | NUR ---
RECEIVED PT FROM ZAN SCOTT. PT IS AAOX1 TO SELF, RESPONDS TO TACTILE STIMULI, PUPILS CLOUDY 2MM, EQUAL, SLUGGISH BILATERALLY. TRACH IN PLACE, PT HAS INCREASED CLEAR SECRETIONS AT SITE, R/T CHANGED DRESSING. TRACH TO VENT SETTING AC VC TV 450, RR 12, PEEP 5, FI02 50%. RESP E/U, UNLABORED. RHONCHI NOTED TO BILATERAL UPPER LOBES, CLEARED BY SUCTIONING. ABDOMEN DISTENDED, HARD. BOWEL SOUNDS HYPOACTIVE X4 QUADS. NOC SHIFT RN REPORTS PT HAS LOOSE STOOL X1 LAST NIGHT. DISTAL PULSES WEAK, PT HAS BUE AND BLE 4+ EDEMA. ALEYDA PICC LINE 2 LUMENS WITH NS RUNNING AT 30ML/HOUR. BOTH LINES FLUSHED, PATENT. SITE WNL. [facility] ONEIL CATH, SITE WNL. JAMES CATH IN PLACE DRAINING DARK YELLOW URINE TO GRAVITY PT. ASPIRATION PRECAUTIONS IN PLACE. PT WILL BE TURNED AND REPOSITIONED Q 2 HOURS AND PRN.
[2021-10-10 08:03] LABS: BASOPHILS # (AUTO) 0.1 K/uL (0.0-0.2); BASOPHILS % (AUTO) 0.6 % (0.0-2.0); EOSINOPHILS # (AUTO) 0.3 K/uL (0.0-0.4); EOSINOPHILS % (AUTO) 3.9 % (0.0-4.0); HEMATOCRIT 24.5 % (36-48); HEMOGLOBIN 8.1 g/dL (12.0-16.0); LYMPHOCYTES # (AUTO) 0.8 K/uL (1.0-5.5); LYMPHOCYTES % (AUTO) 8.6 % (20.5-51.5); MEAN CORPUSCULAR HEMOGLOBIN 33 pg (27-31); MEAN CORPUSCULAR HGB CONC 33 % (32-36); MEAN CORPUSCULAR VOLUME 99 fL (79.0-98.0); NEUTROPHILS # (AUTO) 6.6 K/uL (1.8-7.7); NEUTROPHILS % (AUTO) 75.9 % (40.0-70.0); PLATELET COUNT (AUTO) 160 K/uL (130-430); RED BLOOD CELL COUNT(AUTO) 2.48 MIL/uL (4.2-6.2); RED CELL DISTRIBUTION WIDTH 23.3 % (9.0-15.0); WHITE BLOOD COUNT (AUTO) 8.7 K/uL (4.8-10.8)
[2021-10-10] MEDS: DOCUSATE SODIUM 100 MG/10 ML UDC PO SCH ×2 (10:02→21:02)
[2021-10-10] MEDS: PANTOPRAZOLE SODIUM 40 MG/VIAL (PROTONIX) IVP SCH (10:02)
[2021-10-10] MEDS: CHLORHEXIDINE GLUC 0.12% 15 ML MOUTHWASH UDC MM SCH ×2 (10:03→21:02)
[2021-10-10] MEDS: HEPARIN SODIUM,PORCINE 5,000 UNITS/ML VIAL SUBCUT SCH ×2 (10:04→21:36)
[2021-10-10] MEDS: FOLIC ACID 1 MG TABLET GT SCH (10:08)
[2021-10-10] MEDS: levETIRAcetam 1,000 MG in NS 100 ML IV SCH ×2 (10:09→21:02)
[2021-10-10] MEDS: NACL 0.9% 1,000 ML IV SCH (10:09)
[2021-10-10] MEDS: THEOPHYLLINE ANHYDROUS 80 MG/15 ML UDC GT SCH ×2 (10:10→21:01)
[2021-10-10] MEDS: BALSAM PERU/CASTOR OIL 56.7 GM OINT...G. TP SCH (10:10)
--- NOTE | 2021-10-10 10:10 | NUR ---
SCHEDULED MEDS GIVEN AND TOLERATED WELL. NO GTUBE RESIDUAL NOTED. ASPIRATION PRECAUTIONS MAINTAINED. PT GIVEN ORAL CARE.
--- NOTE | 2021-10-10 10:48 | NUR ---
DR. AMADOR MET WITH AND ASSESSED PT. REPORTED PT HAS LOOSE STOOLS. RECEVIED ORDER TO D/C COLENMA, CDIFF. ORDERS CARRIED OUT.
--- NOTE | 2021-10-10 14:30 | NUR ---
WOUND CARE PREFORMED TO BLE, BUE AND SACRAL AREA. PT GIVEN PARTIAL BED BATH, GOWN AND LINEN CHANGE, INTRADRY PLACED TO ABDOMINAL FOLDS, PT TOLERATED ACTIVITY WELL.
[2021-10-10 15:10] LABS: ANION GAP 8 (5-15); CALCIUM 9.1 mg/dL (8.4-11.0); CHLORIDE 103 mmol/L (98-107); CREATININE 1.43 mg/dL (0.55-1.30); GLUCOSE 151 mg/dL (70-99); POTASSIUM 3.3 mmol/L (3.5-5.1); SODIUM SERUM 137 mmol/L (136-145); UREA NITROGEN, BLOOD 57 mg/dL (8-21)
[2021-10-10 15:15] LABS: ALANINE AMINOTRANSFERASE 16 U/L (12-78); ALBUMIN 1.8 g/dL (3.4-4.8); ASPARTATE AMINOTRANSFERASE 25 U/L (10-37); TOTAL BILIRUBIN 0.5 mg/dL (0.0-1.0)
--- NOTE | 2021-10-10 16:27 | NUR ---
REPORTED TO DR. Sendy DELGADO PT'S K+=3.3, RECEIVED ORDER FOR KCL 10MEQ IVPB X1 NOW. ORDER CARRIED OUT.
[2021-10-10] MEDS ORDERED: EPOETIN ALFA-EPBX 3,000 UNITS/ML VIAL SUBCUT SCH (17:00)
[2021-10-10] MEDS ORDERED: KCL 10 mEq in 50 mL (PREMIX) 50 ML IV ONE (17:30)
--- NOTE | 2021-10-10 18:00 | NUR ---
EPOITIN SQ GIVEN AT THIS TIME.
--- NOTE | 2021-10-10 19:22 | NUR ---
ENDORSED ALL CARE TO ZAN DE ANDA. ALL QUESTIONS AND CONCERNS ADDRESSED.
--- NOTE | 2021-10-10 19:30 | NUR ---
PM SHIFT ASSESSMENT Patient is resting in bed. VSS. No s/s of acute distress noted at this time. Safety precautions in place, call light within reach. Will continue to monitor.
[2021-10-10] MEDS: INSULIN GLARGINE 100 UNITS/ML 10 ML VIAL SUBCUT SCH (21:37)
[2021-10-11] VITALS (30 sets, daily range): BP systolic 91–123
[2021-10-11] MEDS: INSULIN REGULAR, HUMAN 100 UNITS/ML, 10 ML VIAL (humuLIN R) SUBCUT PRN ×2 (00:30→06:32)
[2021-10-11] MEDS: LevALBUTEROL HCL 1.25 MG/0.5 ML *CONC.* VIAL.NEB (XOPENEX CONC.) INH SCH ×6 (04:14→23:04)
--- NOTE | 2021-10-11 07:10 | NUR ---
ENDORSEMENT Patient care endorsed to dayshift RN using nursing SBAR.
[2021-10-11 07:28] LABS: ALANINE AMINOTRANSFERASE 8 U/L (12-78); ALBUMIN 1.7 g/dL (3.4-4.8); ANION GAP 10 (5-15); ASPARTATE AMINOTRANSFERASE 24 U/L (10-37); CALCIUM 9.5 mg/dL (8.4-11.0); CHLORIDE 102 mmol/L (98-107); CREATININE 1.58 mg/dL (0.55-1.30); GLUCOSE 199 mg/dL (70-99); POTASSIUM 3.6 mmol/L (3.5-5.1); SODIUM SERUM 135 mmol/L (136-145); TOTAL BILIRUBIN 0.3 mg/dL (0.0-1.0); UREA NITROGEN, BLOOD 66 mg/dL (8-21)
[2021-10-11 07:52] LABS: HEMATOCRIT 23.3 % (36-48); HEMOGLOBIN 7.6 g/dL (12.0-16.0); MEAN CORPUSCULAR HEMOGLOBIN 32 pg (27-31); MEAN CORPUSCULAR HGB CONC 33 % (32-36); MEAN CORPUSCULAR VOLUME 99 fL (79.0-98.0); PLATELET COUNT (AUTO) 178 K/uL (130-430); RED BLOOD CELL COUNT(AUTO) 2.35 MIL/uL (4.2-6.2); RED CELL DISTRIBUTION WIDTH 23.3 % (9.0-15.0); WHITE BLOOD COUNT (AUTO) 8.7 K/uL (4.8-10.8)
[2021-10-11] MEDS: FOLIC ACID 1 MG TABLET GT SCH (09:45)
[2021-10-11] MEDS: PANTOPRAZOLE SODIUM 40 MG/VIAL (PROTONIX) IVP SCH (09:45)
[2021-10-11] MEDS: BALSAM PERU/CASTOR OIL 56.7 GM OINT...G. TP SCH (09:47)
[2021-10-11] MEDS: DOCUSATE SODIUM 100 MG/10 ML UDC PO SCH ×3 (09:47→21:53)
[2021-10-11] MEDS: levETIRAcetam 1,000 MG in NS 100 ML IV SCH ×2 (09:50→20:57)
[2021-10-11] MEDS: HEPARIN SODIUM,PORCINE 5,000 UNITS/ML VIAL SUBCUT SCH ×2 (09:51→21:57)
--- NOTE | 2021-10-11 10:05 | NUR ---
HD DIALYSIS NURSE AT BEDSIDE, APPLICATION DEVELOPMENT SPECIALIST THIS HOUR.
[2021-10-11] MEDS ORDERED: HEPARIN SODIUM,PORCINE 5,000 UNITS/ML VIAL IV ONE (10:30)
[2021-10-11] MEDS ORDERED: ALBUMIN HUMAN 25% 100 ML IV ONE ×2 (11:15→11:23)
[2021-10-11] MEDS: THEOPHYLLINE ANHYDROUS 80 MG/15 ML UDC GT SCH ×3 (11:25→21:52)
[2021-10-11] MEDS: CHLORHEXIDINE GLUC 0.12% 15 ML MOUTHWASH UDC MM SCH ×2 (11:25→21:52)
[2021-10-11 13:59] LABS: BAND % (MANUAL) 14 % (0-6); BASOPHILS % (MANUAL) 0 % (0-2); EOSINOPHILS % (MANUAL) 6 % (0-7); LYMPHOCYTES % (MANUAL) 8 % (20-46); METAMYELOCYTES % 1 % (0-0); MONOCYTES % (MANUAL) 9 % (0-11)
[2021-10-11 14:00] LABS: WBC MORPHOLOGY TOXIC VACUOLATION
--- NOTE | 2021-10-11 14:00 | NUR ---
SKIN CARE CAREFULLY REPOSITIONED PT TO HER SIDE, WOUND CARE DONE TO HER LEFT ARM, BOTH LEGS AND BUTTOCKS. GTUBE LEAKED OUT. GENERALIZED EDEMA. ABDOMEN FIRM. PRESSURE DRESSING APPLIED TO GTUBE SITE. SKIN CARE SURROUNDING HER GTUBE DONE.
--- NOTE | 2021-10-11 14:41 | NUR ---
Paged Dr. Bobby regarding abd distention and leaking g-tube.
[2021-10-11] MEDS: LORazepam 2 MG/ML VIAL IVP PRN (14:46)
--- NOTE | 2021-10-11 16:57 | NUR ---
CONSULT DR BAEZA CALLED, WAS INFORMED OF THE LEAKING GTUBE. HE STATED THAT A PATIENT WITH ANASARCA WILL LEAK. THERE IS NOTHING TO BE DONE BUT TO KEEP THE GTUBE SITE CLEAN, DRY AND PROTECTION BARRIER MUST BE USED. HE WILL COME IN TO SEE THE PATIENT TOMORROW.
--- NOTE | 2021-10-11 17:00 | NUR ---
PAGED DR AMADOR AGAIN. REPORTED THAT PT'S GTUBE LEAKED OUT LARGE AMOUNT. HE ORDERED TO CALL UP DR DE SANTIAGO.
[2021-10-11] MEDS: D5NS 1,000 ML IV SCH (17:11)
--- NOTE | 2021-10-11 18:25 | NUR ---
XRAY HEAD OF STORE OPERATIONS CAME IN TO DO KUB.
[2021-10-11] MEDS: INSULIN GLARGINE 100 UNITS/ML 10 ML VIAL SUBCUT SCH (21:00)
[2021-10-12] VITALS (31 sets, daily range): BP systolic 94–131
[2021-10-12] MEDS: INSULIN REGULAR, HUMAN 100 UNITS/ML, 10 ML VIAL (humuLIN R) SUBCUT PRN (00:14)
[2021-10-12] MEDS ORDERED: ATROPINE SULFATE 1 MG/10 ML SYRINGE IVP PRN (02:45)
[2021-10-12] MEDS ORDERED: ATROPINE SULFATE 1 MG/10 ML SYRINGE IVP ONE (02:55)
[2021-10-12] MEDS: LevALBUTEROL HCL 1.25 MG/0.5 ML *CONC.* VIAL.NEB (XOPENEX CONC.) INH SCH ×6 (03:17→23:09)
--- NOTE | 2021-10-12 06:00 | NUR ---
[id number]--PT HAD EPISODES OF S.OSCAR- CONTACTED AND ORD ATROPINE 0.5MG BUT PT'S HR RETURNED TO NORMAL HR>60. PT HAD LARGE BURGUNDY STOOL THIS AM. GI MD DR. LAWSON IN TO EVAL PT AND WAS INFORMED. AM LAB PENDING. BATH AND LINEN CHANGE DONE. IV I/P. SACRAL WOUND-DRSG CHANGED. GEN COND HAS BEEN STABLE BUT MORE GUARDED. PT ANNA MARIE TRACH TO VENT WELL. PT ENDORSED TO DAY ZAN. ESVIN ZULUAGA
[2021-10-12 06:46] LABS: BASOPHILS # (AUTO) 0.1 K/uL (0.0-0.2); BASOPHILS % (AUTO) 0.7 % (0.0-2.0); EOSINOPHILS # (AUTO) 0.2 K/uL (0.0-0.4); EOSINOPHILS % (AUTO) 1.9 % (0.0-4.0); LYMPHOCYTES # (AUTO) 1.1 K/uL (1.0-5.5); LYMPHOCYTES % (AUTO) 11.8 % (20.5-51.5); MEAN CORPUSCULAR HEMOGLOBIN 33 pg (27-31); MEAN CORPUSCULAR HGB CONC 33 % (32-36); MEAN CORPUSCULAR VOLUME 100 fL (79.0-98.0); MONOCYTES # (AUTO) 1.2 K/uL (0.0-1.0); MONOCYTES % (AUTO) 13.4 % (1.7-9.3); NEUTROPHILS # (AUTO) 6.5 K/uL (1.8-7.7); NEUTROPHILS % (AUTO) 72.2 % (40.0-70.0); PLATELET COUNT (AUTO) 177 K/uL (130-430); RED BLOOD CELL COUNT(AUTO) 2.06 MIL/uL (4.2-6.2); RED CELL DISTRIBUTION WIDTH 23.5 % (9.0-15.0)
[2021-10-12] MEDS ORDERED: GASTROGRAFIN 120 ML ONE (07:47)
[2021-10-12 07:51] LABS: HEMATOCRIT 20.5 % (36-48); HEMOGLOBIN 6.7 g/dL (12.0-16.0)
--- NOTE | 2021-10-12 08:26 | NUR ---
NOTIFIED DR LAWSON HGB 6.7, PER MD TRANSFUSE 2 UNITS DURING DIALYSIS.
--- NOTE | 2021-10-12 08:51 | NUR ---
Discharge Planning: DCP faxed pt referral to [facility] [phone], requested information. DCP to follow up
[2021-10-12] MEDS: levETIRAcetam 1,000 MG in NS 100 ML IV SCH ×2 (08:58→21:20)
[2021-10-12] MEDS: BALSAM PERU/CASTOR OIL 56.7 GM OINT...G. TP SCH (08:59)
[2021-10-12] MEDS: PANTOPRAZOLE SODIUM 40 MG/VIAL (PROTONIX) IVP SCH ×2 (08:59→21:19)
[2021-10-12] MEDS: FOLIC ACID 1 MG TABLET GT SCH (09:00)
[2021-10-12] MEDS: HEPARIN SODIUM,PORCINE 5,000 UNITS/ML VIAL SUBCUT SCH (09:00)
[2021-10-12] MEDS: THEOPHYLLINE ANHYDROUS 80 MG/15 ML UDC GT SCH ×3 (09:00→21:19)
[2021-10-12] MEDS: DOCUSATE SODIUM 100 MG/10 ML UDC PO SCH ×2 (09:00→21:00)
[2021-10-12] MEDS: CHLORHEXIDINE GLUC 0.12% 15 ML MOUTHWASH UDC MM SCH ×2 (09:02→21:18)
[2021-10-12] MEDS: D5NS 1,000 ML IV SCH (09:02)
[2021-10-12] MEDS ORDERED: DIATR MEGLU/DIATRIZ SOD 30 ML SOLUTION PO ONE (09:11)
--- NOTE | 2021-10-12 09:35 | NUR ---
BUD HOROWITZ, DAUGHTER, AND OBTAINED TELEPHONE CONSENT FOR CT ABDOMEN/PELVIS WITH CONTRAST VERIFIED BY LIFE TEACHER, MAC.
--- NOTE | 2021-10-12 13:40 | NUR ---
RT NOTES with RN and hydrometeorological technician. Pt was bagged with 100% O2 via resus. bag to Trach tube to and from CT. Placed pt on vent with same settings once in CT and once back in the unit. Sat remained 100% throughout the scan. A/w remained secure/patent.
[2021-10-12] MEDS: EPOETIN ALFA-EPBX 4,000 UNITS/ML VIAL SUBCUT SCH (18:19)
--- NOTE | 2021-10-12 19:10 | NUR ---
Pt received awake in bed, No acute distress noted, on trach to vent. HOB elevated, pt with pending 2nd unit PRBC to be transfused for Hgb-6.7, will follow up call with lab.
[2021-10-12] MEDS: INSULIN GLARGINE 100 UNITS/ML 10 ML VIAL SUBCUT SCH (22:06)
--- NOTE | 2021-10-12 23:00 | NUR ---
completed transfusion of 2nd unit of PRBC started at 1999, no A/R noted, vitals stable, noted 1 episode of melena. MD aware, pt remains on NPO. will continue to monitor pt.
[2021-10-13] VITALS (28 sets, daily range): BP systolic 90–121
[2021-10-13] MEDS: D5NS 1,000 ML IV SCH ×2 (02:05→11:00)
[2021-10-13] MEDS: LevALBUTEROL HCL 1.25 MG/0.5 ML *CONC.* VIAL.NEB (XOPENEX CONC.) INH SCH ×3 (03:04→15:12)
[2021-10-13 06:11] LABS: BASOPHILS # (AUTO) 0.1 K/uL (0.0-0.2); BASOPHILS % (AUTO) 0.6 % (0.0-2.0); EOSINOPHILS # (AUTO) 0.2 K/uL (0.0-0.4); HEMATOCRIT 29.6 % (36-48); HEMOGLOBIN 9.7 g/dL (12.0-16.0); LYMPHOCYTES % (AUTO) 10.3 % (20.5-51.5); MEAN CORPUSCULAR HEMOGLOBIN 31 pg (27-31); MEAN CORPUSCULAR HGB CONC 33 % (32-36); MEAN CORPUSCULAR VOLUME 95 fL (79.0-98.0); MONOCYTES # (AUTO) 1.9 K/uL (0.0-1.0); MONOCYTES % (AUTO) 18.7 % (1.7-9.3); NEUTROPHILS # (AUTO) 6.8 K/uL (1.8-7.7); NEUTROPHILS % (AUTO) 68.4 % (40.0-70.0); PLATELET COUNT (AUTO) 182 K/uL (130-430); RED BLOOD CELL COUNT(AUTO) 3.11 MIL/uL (4.2-6.2); RED CELL DISTRIBUTION WIDTH 21.2 % (9.0-15.0)
[2021-10-13 06:20] LABS: ANION GAP 9 (5-15); CALCIUM 8.7 mg/dL (8.4-11.0); CHLORIDE 104 mmol/L (98-107); CREATININE 1.59 mg/dL (0.55-1.30); GLUCOSE 132 mg/dL (70-99); POTASSIUM 3.9 mmol/L (3.5-5.1); SODIUM SERUM 139 mmol/L (136-145); UREA NITROGEN, BLOOD 46 mg/dL (8-21)
--- NOTE | 2021-10-13 07:20 | NUR ---
Dorothea DUNN, RECEIVED PATIENT IN BED #2, FROM ZAN MIKE. PT IS STABLE, REMAINS TRACH TO VENT, NPO, F/C TO GRAVITY. VITALS ARE STABLE, PT TO BE FURTHER ASSESSED BY ROUNDING MDs FOR PLAN OF CARE WITH DISPOSITION.
--- NOTE | 2021-10-13 07:33 | NUR ---
No significant changes noted on pt. Seen by GI MD, informed regarding slight tear on pt's GT noted by prior shift. Per GI MD will change the PEG tube. Endorsed to AM nurse.
[2021-10-13] MEDS: FOLIC ACID 1 MG TABLET GT SCH (08:51)
[2021-10-13] MEDS: THEOPHYLLINE ANHYDROUS 80 MG/15 ML UDC GT SCH ×2 (08:51→21:45)
[2021-10-13] MEDS: DOCUSATE SODIUM 100 MG/10 ML UDC PO SCH ×2 (08:52→22:25)
[2021-10-13] MEDS: levETIRAcetam 1,000 MG in NS 100 ML IV SCH ×2 (08:53→21:46)
[2021-10-13] MEDS: BALSAM PERU/CASTOR OIL 56.7 GM OINT...G. TP SCH (08:53)
[2021-10-13] MEDS: CHLORHEXIDINE GLUC 0.12% 15 ML MOUTHWASH UDC MM SCH ×2 (08:53→21:44)
[2021-10-13] MEDS: PANTOPRAZOLE SODIUM 40 MG/VIAL (PROTONIX) IVP SCH ×2 (08:57→22:25)
[2021-10-13] MEDS ORDERED: HEPARIN SODIUM,PORCINE 5,000 UNITS/ML VIAL ONE (09:25)
--- NOTE | 2021-10-13 10:00 | NUR ---
Nutrition F/U Admitting Diagnosis Septic shock Reviewed Pertinent Medical/Surgical Hx Medical Record Primary DRUM BUILDER Rounds Medical History Comment: PMH: HTN, DM, seizure disorder, stroke, chronic respiratory failure, and chronic anemia per physician notes Pt also found w/ acute on chronic renal failure per physician notes SARS-CoV-2 Ag (Rapid) Negative 09/14 Per Energy Sales Broker note 09/16: 1. Right Sacral area: Unstageable pressure ulcer, present on admission. 2. Right Buttock, Inferior to Site 1: Unstageable pressure ulcer, present on admission. 3. Left Buttock: Stage III pressure ulcer, present on admission. 4. Intergluteal Cleft: Stage III pressure ulcer, present on admission. 5. Left Outer Buttock: Skin tear. 6. Left Anterior Medial Great Toe: Unstageable pressure ulcer, present on admission. 7. Right Posterior Medial Foot, Inferior to First Metatarsal Head: Unstageable pressure ulcer, present on admission. 8. Bilateral Upper Extremities and Hands: Sites have 4+ pitting edema with a moderate amount of weeping. 9. Bilateral Lower Extremities and Feet: Sites have 4+ pitting edema with a moderate amount of weeping. Subjective Information: RD attended ICU rounds this morning. Primary RN reported that pt had PEG replaced by GI MD this morning, and he stated to resume previous TF order. RD reminded RN of Simon BID order as well. RN reported that pt had 1 large BM (melana/bright red) and 2 units of PRBC afterwards; no drips; vitals stable. Per EMR review, surgeon noted that pt has no evidence of obstruction noted on CT/KUB/upper GI series; TF was held since 10/11 after 1200; abd is distended w/ active bowel sounds; Cr scale: 10, please refer to interdisciplinary teaching record for details. Current Diet Order/Nutrition Support: NPO x2 days Patient/Significant Other Unable To Verbalize Education Provided Not Indicated Pertinent Medications: lantus, folic acid, SSI, zofran, colace, retacrit, protonix IV, ativan, D5NS at 60 ml/hr, dulcolax suppository Pertinent Labs: BUN 46 H, CRE 1.59 H, BG 132 H, POC BG 104 H, ALB 1.7 L, AST 24 WNL, ALP 190 H, H/H 9.7 L/29.6 L Height (Feet) 5 feet Height (Inches) 3.00 inches Weight (Pounds) 280 pounds - NEW WT: (09/20) 210#/95.51 kg - Initial wt was estimated by staff. Patient Weight 127.006 kg Body Mass Index 49.59 kg/m2 - NEW BMI: (09/20) 37.3 kg/m2 %IBW 243 [place]/Adjusted Body Weight 115#/52.3 kg. 156#/71 kg Recent Weight Change Unable to verify Weight Status Morbidly Obese Food Allergies Unable to verify Usual Diet At Home Unable to verify Estimated Energy Expenditure (kcals/day) *ONGOING 7350-7118 (30-35 kcal/kg IBW d/t morbid obesity, HD, sepsis) Estimated Protein Required (g/day) 52-78 (1.2-1.5 gm/kg IBW d/t morbid obesity, HD, sepsis) Estimated Fluid Required (l/day) Per physician d/t renal failure Problem/Etiology/Signs/Symptoms Increased nutritional needs R/T metabolic demands AEB estimated nutritional requirements for HD, sepsis and compromised skin integrity w/ Cr score 7 (*Ongoing) Altered nutrition-related labs R/T endocrine and renal dysfunction AEB abnormal BG/POC BG/BUN/CRE lab values. (*Ongoing) Malnutrition R/T morbid obesity AEB BMI: 49.59 kg/m2 and 243% of IBW. (*N/A - initial wt was estimated) Expected Outcomes/Goals - Monitor tolerance to EN support w/ goal of pt meeting >80% of estimated nutritional needs, labs trending WNL, normal GI function, and skin integrity/wt maintenance Dietitian Recommendations * Nepro at 35 ml/hr (goal rate), Simon BID, Free Water Flush: 225 ml Q6h (per physician) via GT Provides: 1672 kcal/day, 73 gm protein/day, and 1511 ml free water/day Meets: 107% of lower end of estimated caloric needs and 94% of upper end of estimated protein needs * Nursing please document Simon BID administration Follow Up Moderate Risk: F/U in 3-5 days
--- NOTE | 2021-10-13 10:10 | NUR ---
Dietitian Recommendations * Nepro at 35 ml/hr (goal rate), Simon BID, Free Water Flush: 225 ml Q6h (per physician) via GT Provides: 1672 kcal/day, 73 gm protein/day, and 1511 ml free water/day Meets: 107% of lower end of estimated caloric needs and 94% of upper end of estimated protein needs * Nursing please document Simon BID administration LP, RD Please refer to Nutrition F/U for details.
[2021-10-13] MEDS: INSULIN GLARGINE 100 UNITS/ML 10 ML VIAL SUBCUT SCH (22:27)
[2021-10-14] VITALS (30 sets, daily range): BP systolic 88–125
[2021-10-14] MEDS: INSULIN REGULAR, HUMAN 100 UNITS/ML, 10 ML VIAL (humuLIN R) SUBCUT PRN (02:29)
[2021-10-14 06:29] LABS: BASOPHILS % (AUTO) 0.4 % (0.0-2.0); EOSINOPHILS # (AUTO) 0.2 K/uL (0.0-0.4); EOSINOPHILS % (AUTO) 2.1 % (0.0-4.0); HEMATOCRIT 27.8 % (36-48); HEMOGLOBIN 9.3 g/dL (12.0-16.0); LYMPHOCYTES # (AUTO) 1.1 K/uL (1.0-5.5); LYMPHOCYTES % (AUTO) 12.8 % (20.5-51.5); MEAN CORPUSCULAR HEMOGLOBIN 32 pg (27-31); MEAN CORPUSCULAR HGB CONC 34 % (32-36); MEAN CORPUSCULAR VOLUME 95 fL (79.0-98.0); MONOCYTES # (AUTO) 1.6 K/uL (0.0-1.0); MONOCYTES % (AUTO) 18.7 % (1.7-9.3); NEUTROPHILS # (AUTO) 5.5 K/uL (1.8-7.7); PLATELET COUNT (AUTO) 181 K/uL (130-430); RED BLOOD CELL COUNT(AUTO) 2.92 MIL/uL (4.2-6.2); RED CELL DISTRIBUTION WIDTH 22.4 % (9.0-15.0); WHITE BLOOD COUNT (AUTO) 8.4 K/uL (4.8-10.8)
[2021-10-14 06:49] LABS: ANION GAP 10 (5-15); CALCIUM 8.5 mg/dL (8.4-11.0); CHLORIDE 104 mmol/L (98-107); CREATININE 1.46 mg/dL (0.55-1.30); GLUCOSE 115 mg/dL (70-99); POTASSIUM 3.6 mmol/L (3.5-5.1); SODIUM SERUM 140 mmol/L (136-145); UREA NITROGEN, BLOOD 28 mg/dL (8-21)
--- NOTE | 2021-10-14 07:15 | NUR ---
Dorothea DUNN, RECEIVED PATIENT IN BED #2, FROM DEMI ZULUAGA. PT IS STABLE, REMAINS TRACH TO VENT, ON TUBE FEEDING AT 35/HR , F/C TO GRAVITY. VITALS ARE STABLE, PT TO BE FURTHER ASSESSED BY ROUNDING MDs FOR PLAN OF CARE WITH DISPOSITION.
[2021-10-14] MEDS: LevALBUTEROL HCL 1.25 MG/0.5 ML *CONC.* VIAL.NEB (XOPENEX CONC.) INH SCH ×4 (07:39→21:19)
[2021-10-14] MEDS: FOLIC ACID 1 MG TABLET GT SCH (08:46)
[2021-10-14] MEDS: DOCUSATE SODIUM 100 MG/10 ML UDC PO SCH ×2 (08:46→22:00)
[2021-10-14] MEDS: CHLORHEXIDINE GLUC 0.12% 15 ML MOUTHWASH UDC MM SCH ×2 (08:46→20:41)
[2021-10-14] MEDS: PANTOPRAZOLE SODIUM 40 MG/VIAL (PROTONIX) IVP SCH ×2 (08:46→20:40)
[2021-10-14] MEDS: levETIRAcetam 1,000 MG in NS 100 ML IV SCH ×2 (08:46→20:34)
[2021-10-14] MEDS: THEOPHYLLINE ANHYDROUS 80 MG/15 ML UDC GT SCH ×2 (08:46→20:33)
[2021-10-14] MEDS: BALSAM PERU/CASTOR OIL 56.7 GM OINT...G. TP SCH (08:47)
[2021-10-14] MEDS: D5NS 1,000 ML IV SCH (10:51)
[2021-10-14] MEDS: EPOETIN ALFA-EPBX 4,000 UNITS/ML VIAL SUBCUT SCH (16:36)
[2021-10-14] MEDS: INSULIN GLARGINE 100 UNITS/ML 10 ML VIAL SUBCUT SCH (21:56)
[2021-10-15] VITALS (40 sets, daily range): BP systolic 83–116
[2021-10-15] MEDS: D5NS 1,000 ML IV SCH ×2 (00:34→19:51)
[2021-10-15] MEDS: INSULIN REGULAR, HUMAN 100 UNITS/ML, 10 ML VIAL (humuLIN R) SUBCUT PRN ×3 (00:49→17:53)
[2021-10-15] MEDS: LevALBUTEROL HCL 1.25 MG/0.5 ML *CONC.* VIAL.NEB (XOPENEX CONC.) INH SCH ×7 (05:41→23:00)
[2021-10-15 06:35] LABS: ALANINE AMINOTRANSFERASE 8 U/L (12-78); ALBUMIN 1.8 g/dL (3.4-4.8); ANION GAP 9 (5-15); ASPARTATE AMINOTRANSFERASE 22 U/L (10-37); CALCIUM 8.9 mg/dL (8.4-11.0); CHLORIDE 105 mmol/L (98-107); CREATININE 1.72 mg/dL (0.55-1.30); GLUCOSE 158 mg/dL (70-99); POTASSIUM 3.6 mmol/L (3.5-5.1); SODIUM SERUM 141 mmol/L (136-145); TOTAL BILIRUBIN 0.3 mg/dL (0.0-1.0); UREA NITROGEN, BLOOD 34 mg/dL (8-21)
[2021-10-15 07:15] LABS: BASOPHILS % (AUTO) 0.5 % (0.0-2.0); EOSINOPHILS # (AUTO) 0.1 K/uL (0.0-0.4); EOSINOPHILS % (AUTO) 1.5 % (0.0-4.0); HEMATOCRIT 27.6 % (36-48); HEMOGLOBIN 9.2 g/dL (12.0-16.0); LYMPHOCYTES % (AUTO) 11.2 % (20.5-51.5); MEAN CORPUSCULAR HEMOGLOBIN 32 pg (27-31); MEAN CORPUSCULAR HGB CONC 33 % (32-36); MEAN CORPUSCULAR VOLUME 96 fL (79.0-98.0); MONOCYTES # (AUTO) 1.6 K/uL (0.0-1.0); MONOCYTES % (AUTO) 17.3 % (1.7-9.3); NEUTROPHILS # (AUTO) 6.4 K/uL (1.8-7.7); NEUTROPHILS % (AUTO) 69.5 % (40.0-70.0); PLATELET COUNT (AUTO) 207 K/uL (130-430); RED BLOOD CELL COUNT(AUTO) 2.89 MIL/uL (4.2-6.2); RED CELL DISTRIBUTION WIDTH 21.7 % (9.0-15.0); WHITE BLOOD COUNT (AUTO) 9.2 K/uL (4.8-10.8)
[2021-10-15] MEDS ORDERED: ALBUMIN HUMAN 25% 100 ML IV ONE (10:05)
[2021-10-15] MEDS: FOLIC ACID 1 MG TABLET GT SCH (10:06)
[2021-10-15] MEDS: THEOPHYLLINE ANHYDROUS 80 MG/15 ML UDC GT SCH ×2 (10:06→20:51)
[2021-10-15] MEDS: levETIRAcetam 1,000 MG in NS 100 ML IV SCH ×2 (10:09→21:14)
[2021-10-15] MEDS: PANTOPRAZOLE SODIUM 40 MG/VIAL (PROTONIX) IVP SCH ×2 (10:09→20:51)
[2021-10-15] MEDS: CHLORHEXIDINE GLUC 0.12% 15 ML MOUTHWASH UDC MM SCH ×2 (10:10→20:51)
[2021-10-15] MEDS: DOCUSATE SODIUM 100 MG/10 ML UDC PO SCH ×2 (10:10→20:51)
[2021-10-15] MEDS: BALSAM PERU/CASTOR OIL 56.7 GM OINT...G. TP SCH (10:12)
[2021-10-15] MEDS ORDERED: HEPARIN SODIUM,PORCINE 5,000 UNITS/ML VIAL ONE (11:50)
[2021-10-15] MEDS: INSULIN GLARGINE 100 UNITS/ML 10 ML VIAL SUBCUT SCH (20:57)
[2021-10-16] VITALS (28 sets, daily range): BP systolic 93–155
[2021-10-16] MEDS: INSULIN REGULAR, HUMAN 100 UNITS/ML, 10 ML VIAL (humuLIN R) SUBCUT PRN ×4 (00:05→23:21)
[2021-10-16] MEDS: LevALBUTEROL HCL 1.25 MG/0.5 ML *CONC.* VIAL.NEB (XOPENEX CONC.) INH SCH ×6 (03:00→22:53)
[2021-10-16 06:46] LABS: BASOPHILS # (AUTO) 0.1 K/uL (0.0-0.2); BASOPHILS % (AUTO) 0.6 % (0.0-2.0); EOSINOPHILS # (AUTO) 0.2 K/uL (0.0-0.4); EOSINOPHILS % (AUTO) 2.5 % (0.0-4.0); HEMATOCRIT 27.1 % (36-48); HEMOGLOBIN 8.9 g/dL (12.0-16.0); LYMPHOCYTES # (AUTO) 0.8 K/uL (1.0-5.5); LYMPHOCYTES % (AUTO) 9.1 % (20.5-51.5); MEAN CORPUSCULAR HEMOGLOBIN 32 pg (27-31); MEAN CORPUSCULAR HGB CONC 33 % (32-36); MEAN CORPUSCULAR VOLUME 97 fL (79.0-98.0); MONOCYTES # (AUTO) 1.6 K/uL (0.0-1.0); MONOCYTES % (AUTO) 18.3 % (1.7-9.3); NEUTROPHILS # (AUTO) 6.1 K/uL (1.8-7.7); NEUTROPHILS % (AUTO) 69.5 % (40.0-70.0); PLATELET COUNT (AUTO) 208 K/uL (130-430); WHITE BLOOD COUNT (AUTO) 8.8 K/uL (4.8-10.8)
[2021-10-16 07:04] LABS: ALANINE AMINOTRANSFERASE 12 U/L (12-78); ANION GAP 9 (5-15); ASPARTATE AMINOTRANSFERASE 19 U/L (10-37); CALCIUM 8.9 mg/dL (8.4-11.0); CHLORIDE 106 mmol/L (98-107); CREATININE 1.79 mg/dL (0.55-1.30); GLUCOSE 176 mg/dL (70-99); POTASSIUM 3.7 mmol/L (3.5-5.1); SODIUM SERUM 141 mmol/L (136-145); TOTAL BILIRUBIN 0.4 mg/dL (0.0-1.0); UREA NITROGEN, BLOOD 35 mg/dL (8-21)
[2021-10-16] MEDS: THEOPHYLLINE ANHYDROUS 80 MG/15 ML UDC GT SCH ×2 (09:11→20:42)
[2021-10-16] MEDS: FOLIC ACID 1 MG TABLET GT SCH (09:11)
[2021-10-16] MEDS: levETIRAcetam 1,000 MG in NS 100 ML IV SCH ×2 (09:13→20:44)
[2021-10-16] MEDS: PANTOPRAZOLE SODIUM 40 MG/VIAL (PROTONIX) IVP SCH ×2 (09:13→20:43)
[2021-10-16] MEDS: CHLORHEXIDINE GLUC 0.12% 15 ML MOUTHWASH UDC MM SCH ×2 (09:14→20:44)
[2021-10-16] MEDS: DOCUSATE SODIUM 100 MG/10 ML UDC PO SCH ×2 (09:14→20:43)
[2021-10-16] MEDS: BALSAM PERU/CASTOR OIL 56.7 GM OINT...G. TP SCH (09:15)
[2021-10-16] MEDS: D5NS 1,000 ML IV SCH (13:25)
[2021-10-16] MEDS: LORazepam 2 MG/ML VIAL IVP PRN (18:40)
--- NOTE | 2021-10-16 20:00 | NUR ---
ASSUMPTION OF CARE REPORT RECEIVED FROM BANG ZULUAGA. PT RECEIVED IN BED WITH EYES OPEN, RESPONDING TO TACTILE STIMULATION. VSS, NO S/S OF ACUTE DISTRESS NOTED. PT TRACH TO VENT, VENT SETTINGS: AC 12, TV 450, FIO2 30%, PEEP 5. ALEYDA PICC IN PLACE RUNNING IVF PER ORDERS. LIJ QC NOTED FOR DIALYSIS ACCESS. G TUBE IN PLACE RUNNING TF PER ORDERS. FC IN PLACE DRAINING URINE TO GRAVITY. HOB ELEVATED, BED IN LOWEST POSITION, CALL LIGHT IN REACH. WILL CONTINUE TO MONITOR.
[2021-10-16] MEDS: INSULIN GLARGINE 100 UNITS/ML 10 ML VIAL SUBCUT SCH (20:48)
[2021-10-17] VITALS (27 sets, daily range): BP systolic 97–127
[2021-10-17] MEDS: LevALBUTEROL HCL 1.25 MG/0.5 ML *CONC.* VIAL.NEB (XOPENEX CONC.) INH SCH ×6 (03:13→23:47)
[2021-10-17] MEDS: INSULIN REGULAR, HUMAN 100 UNITS/ML, 10 ML VIAL (humuLIN R) SUBCUT PRN ×4 (05:02→23:54)
[2021-10-17 07:09] LABS: ANION GAP 11 (5-15); CALCIUM 8.9 mg/dL (8.4-11.0); CHLORIDE 106 mmol/L (98-107); CREATININE 2.05 mg/dL (0.55-1.30); GLUCOSE 200 mg/dL (70-99); POTASSIUM 3.1 mmol/L (3.5-5.1); SODIUM SERUM 140 mmol/L (136-145); UREA NITROGEN, BLOOD 39 mg/dL (8-21)
[2021-10-17 07:37] LABS: BASOPHILS # (AUTO) 0.1 K/uL (0.0-0.2); BASOPHILS % (AUTO) 1.1 % (0.0-2.0); EOSINOPHILS # (AUTO) 0.2 K/uL (0.0-0.4); EOSINOPHILS % (AUTO) 2.2 % (0.0-4.0); HEMATOCRIT 25.2 % (36-48); HEMOGLOBIN 8.4 g/dL (12.0-16.0); LYMPHOCYTES # (AUTO) 1.1 K/uL (1.0-5.5); LYMPHOCYTES % (AUTO) 11.9 % (20.5-51.5); MEAN CORPUSCULAR HEMOGLOBIN 32 pg (27-31); MEAN CORPUSCULAR HGB CONC 33 % (32-36); MEAN CORPUSCULAR VOLUME 96 fL (79.0-98.0); MONOCYTES % (AUTO) 21.1 % (1.7-9.3); NEUTROPHILS % (AUTO) 63.7 % (40.0-70.0); PLATELET COUNT (AUTO) 217 K/uL (130-430); RED BLOOD CELL COUNT(AUTO) 2.62 MIL/uL (4.2-6.2); RED CELL DISTRIBUTION WIDTH 22.6 % (9.0-15.0); WHITE BLOOD COUNT (AUTO) 9.4 K/uL (4.8-10.8)
[2021-10-17] MEDS ORDERED: POTASSIUM CHLORIDE 20 MEQ/PKT PACKET GT ONE (08:00)
[2021-10-17] MEDS: PANTOPRAZOLE SODIUM 40 MG/VIAL (PROTONIX) IVP SCH ×2 (08:56→21:00)
[2021-10-17] MEDS: levETIRAcetam 1,000 MG in NS 100 ML IV SCH ×2 (08:57→21:00)
[2021-10-17] MEDS: CHLORHEXIDINE GLUC 0.12% 15 ML MOUTHWASH UDC MM SCH ×2 (08:57→21:00)
[2021-10-17] MEDS: DOCUSATE SODIUM 100 MG/10 ML UDC PO SCH ×2 (08:58→21:00)
[2021-10-17] MEDS: FOLIC ACID 1 MG TABLET GT SCH (08:58)
[2021-10-17] MEDS: BALSAM PERU/CASTOR OIL 56.7 GM OINT...G. TP SCH (08:59)
[2021-10-17] MEDS: THEOPHYLLINE ANHYDROUS 80 MG/15 ML UDC GT SCH ×2 (08:59→21:00)
[2021-10-17] MEDS: D5NS 1,000 ML IV SCH (09:00)
[2021-10-17] MEDS: EPOETIN ALFA-EPBX 4,000 UNITS/ML VIAL SUBCUT SCH (19:25)
[2021-10-17] MEDS: INSULIN GLARGINE 100 UNITS/ML 10 ML VIAL SUBCUT SCH (21:00)
[2021-10-18] VITALS (41 sets, daily range): BP systolic 93–140
[2021-10-18] MEDS: LevALBUTEROL HCL 1.25 MG/0.5 ML *CONC.* VIAL.NEB (XOPENEX CONC.) INH SCH ×6 (04:25→23:08)
[2021-10-18] MEDS: LORazepam 2 MG/ML VIAL IVP PRN (04:28)
--- NOTE | 2021-10-18 06:00 | NUR ---
--VSS. AFEBRILE. PT WAS IN SR BUT WENT BACK TO A.FIB. 75CC U/O VIA F/C. PT HAD LARGE LIGHT BRN DIARRHEA STOOL. BATH AND LINEN CHANGE DONE. WOUND CARE-DRSGS CHANGED. PT MED WITH ATIVAN X1 FOR AGITATION THIS AM. PT ANNA MARIE VENT/SX WELL. PT ENDORSED TO ZAN CUENCA. ESVIN ZULUAGA
[2021-10-18] MEDS: D5NS 1,000 ML IV SCH (06:05)
[2021-10-18 06:57] LABS: ANION GAP 12 (5-15); CHLORIDE 107 mmol/L (98-107); CREATININE 2.02 mg/dL (0.55-1.30); GLUCOSE 231 mg/dL (70-99); POTASSIUM 3.7 mmol/L (3.5-5.1); SODIUM SERUM 141 mmol/L (136-145); UREA NITROGEN, BLOOD 45 mg/dL (8-21)
[2021-10-18 07:02] LABS: BASOPHILS # (AUTO) 0.1 K/uL (0.0-0.2); BASOPHILS % (AUTO) 0.6 % (0.0-2.0); EOSINOPHILS # (AUTO) 0.1 K/uL (0.0-0.4); HEMATOCRIT 28.1 % (36-48); HEMOGLOBIN 9.3 g/dL (12.0-16.0); LYMPHOCYTES % (AUTO) 7.9 % (20.5-51.5); MEAN CORPUSCULAR HEMOGLOBIN 32 pg (27-31); MEAN CORPUSCULAR HGB CONC 33 % (32-36); MEAN CORPUSCULAR VOLUME 97 fL (79.0-98.0); MONOCYTES # (AUTO) 1.5 K/uL (0.0-1.0); MONOCYTES % (AUTO) 11.4 % (1.7-9.3); NEUTROPHILS # (AUTO) 10.2 K/uL (1.8-7.7); NEUTROPHILS % (AUTO) 79.1 % (40.0-70.0); PLATELET COUNT (AUTO) 258 K/uL (130-430); RED BLOOD CELL COUNT(AUTO) 2.91 MIL/uL (4.2-6.2); RED CELL DISTRIBUTION WIDTH 23.3 % (9.0-15.0); WHITE BLOOD COUNT (AUTO) 12.9 K/uL (4.8-10.8)
[2021-10-18] MEDS: INSULIN REGULAR, HUMAN 100 UNITS/ML, 10 ML VIAL (humuLIN R) SUBCUT PRN ×3 (07:20→19:03)
[2021-10-18] MEDS: CHLORHEXIDINE GLUC 0.12% 15 ML MOUTHWASH UDC MM SCH ×2 (10:11→21:00)
[2021-10-18] MEDS: PANTOPRAZOLE SODIUM 40 MG/VIAL (PROTONIX) IVP SCH ×2 (10:12→21:00)
[2021-10-18] MEDS: levETIRAcetam 1,000 MG in NS 100 ML IV SCH ×2 (10:13→21:00)
[2021-10-18] MEDS: DOCUSATE SODIUM 100 MG/10 ML UDC PO SCH ×2 (10:13→21:00)
[2021-10-18] MEDS: FOLIC ACID 1 MG TABLET GT SCH (10:13)
[2021-10-18] MEDS: THEOPHYLLINE ANHYDROUS 80 MG/15 ML UDC GT SCH ×2 (10:14→21:00)
[2021-10-18] MEDS: BALSAM PERU/CASTOR OIL 56.7 GM OINT...G. TP SCH (10:14)
[2021-10-18] MEDS: CEFEPIME 2 GM in D5W 100 ML IV SCH (13:28)
[2021-10-18] MEDS: INSULIN GLARGINE 100 UNITS/ML 10 ML VIAL SUBCUT SCH (21:00)
[2021-10-18] MEDS: HEPARIN SODIUM,PORCINE 5,000 UNITS/ML VIAL SUBCUT SCH (21:00)
[2021-10-19] VITALS (29 sets, daily range): BP systolic 105–135
[2021-10-19] MEDS: LevALBUTEROL HCL 1.25 MG/0.5 ML *CONC.* VIAL.NEB (XOPENEX CONC.) INH SCH ×5 (03:07→19:42)
[2021-10-19] MEDS: LORazepam 2 MG/ML VIAL IVP PRN (03:13)
[2021-10-19] MEDS: INSULIN REGULAR, HUMAN 100 UNITS/ML, 10 ML VIAL (humuLIN R) SUBCUT PRN ×4 (06:00→17:48)
--- NOTE | 2021-10-19 06:00 | NUR ---
--VS CONT. TO BE STABLE. PT CONT. WITH TRACH-VENT. POX 96-100%. PT ANNA MARIE SX AND TRX WELL. PT AGITATED AT TX. PT MED WITH ATIVAN 1MG X1 SLOW IVP @APROX 0300. PT SLEEPING AFTER MED GIVEN. NO STOOL. U/O 60CC. IV R. PICC-LINE I/P. LIJ MANUEL. CATH INTACT. SURG IN TO EVAL PT FOR PERMACATH. PT ENDORSED TO ZAN CUENCA. ESVIN ZULUAGA
--- NOTE | 2021-10-19 06:00 | NUR ---
--PT CONT. WITH TRACH-TO VENT. IV I/P VIA R. PICC-LINE. PT HAS MANUEL. CATH-LIJ INTACT. VS REMAIN STABLE. PT HAS 60CC U/O. PT ENDORSED T0 ZAN CUENCA. ESVIN ZULUAGA
[2021-10-19] MEDS: D5NS 1,000 ML IV SCH (06:05)
[2021-10-19 06:27] LABS: HEMATOCRIT 30.8 % (36-48); HEMOGLOBIN 9.9 g/dL (12.0-16.0); MEAN CORPUSCULAR HEMOGLOBIN 31 pg (27-31); MEAN CORPUSCULAR HGB CONC 32 % (32-36); MEAN CORPUSCULAR VOLUME 97 fL (79.0-98.0); PLATELET COUNT (AUTO) 268 K/uL (130-430); RED BLOOD CELL COUNT(AUTO) 3.17 MIL/uL (4.2-6.2); RED CELL DISTRIBUTION WIDTH 23.1 % (9.0-15.0); WHITE BLOOD COUNT (AUTO) 20.7 K/uL (4.8-10.8)
[2021-10-19 07:11] LABS: ANION GAP 11 (5-15); CHLORIDE 107 mmol/L (98-107); CREATININE 1.91 mg/dL (0.55-1.30); GLUCOSE 221 mg/dL (70-99); POTASSIUM 3.8 mmol/L (3.5-5.1); SODIUM SERUM 140 mmol/L (136-145); UREA NITROGEN, BLOOD 40 mg/dL (8-21)
[2021-10-19] MEDS: THEOPHYLLINE ANHYDROUS 80 MG/15 ML UDC GT SCH ×2 (08:15→21:14)
[2021-10-19] MEDS: FOLIC ACID 1 MG TABLET GT SCH (08:15)
[2021-10-19] MEDS: DOCUSATE SODIUM 100 MG/10 ML UDC PO SCH ×2 (08:16→21:14)
[2021-10-19] MEDS: levETIRAcetam 1,000 MG in NS 100 ML IV SCH ×2 (08:17→21:14)
[2021-10-19] MEDS: CHLORHEXIDINE GLUC 0.12% 15 ML MOUTHWASH UDC MM SCH ×2 (08:18→21:14)
[2021-10-19] MEDS: PANTOPRAZOLE SODIUM 40 MG/VIAL (PROTONIX) IVP SCH ×2 (08:18→21:14)
[2021-10-19] MEDS: BALSAM PERU/CASTOR OIL 56.7 GM OINT...G. TP SCH (08:19)
[2021-10-19] MEDS: HEPARIN SODIUM,PORCINE 5,000 UNITS/ML VIAL SUBCUT SCH ×2 (08:20→21:16)
[2021-10-19] MEDS: CEFEPIME 2 GM in D5W 100 ML IV SCH (12:36)
[2021-10-19] MEDS: metroNIDAZOLE 250 mg/NS 50 ML IV SCH (15:26)
[2021-10-19 15:30] LABS: BAND % (MANUAL) 34 % (0-6); EOSINOPHILS % (MANUAL) 0 % (0-7); LYMPHOCYTES % (MANUAL) 4 % (20-46); MONOCYTES % (MANUAL) 11 % (0-11)
[2021-10-19 15:31] LABS: BASOPHILS % (MANUAL) 0 % (0-2)
[2021-10-19] MEDS: EPOETIN ALFA-EPBX 4,000 UNITS/ML VIAL SUBCUT SCH (17:50)
--- NOTE | 2021-10-19 19:30 | NUR ---
Opening Note Received report from Angel ZULUAGA. Pt resting in bed, trach to vent 30% FiO2, RR even and unlabored, NAD.
[2021-10-19] MEDS: INSULIN GLARGINE 100 UNITS/ML 10 ML VIAL SUBCUT SCH (21:17)
[2021-10-20] VITALS (22 sets, daily range): BP systolic 98–125
[2021-10-20] MEDS: metroNIDAZOLE 250 mg/NS 50 ML IV SCH ×4 (00:09→21:17)
[2021-10-20] MEDS: INSULIN REGULAR, HUMAN 100 UNITS/ML, 10 ML VIAL (humuLIN R) SUBCUT PRN ×3 (00:21→19:28)
[2021-10-20] MEDS: LevALBUTEROL HCL 1.25 MG/0.5 ML *CONC.* VIAL.NEB (XOPENEX CONC.) INH SCH ×5 (05:25→21:36)
[2021-10-20] MEDS: D5NS 1,000 ML IV SCH (06:05)
[2021-10-20 06:32] LABS: BASOPHILS # (AUTO) 0.1 K/uL (0.0-0.2); BASOPHILS % (AUTO) 0.4 % (0.0-2.0); EOSINOPHILS # (AUTO) 0.1 K/uL (0.0-0.4); EOSINOPHILS % (AUTO) 0.3 % (0.0-4.0); HEMATOCRIT 28.2 % (36-48); HEMOGLOBIN 9.2 g/dL (12.0-16.0); LYMPHOCYTES # (AUTO) 0.6 K/uL (1.0-5.5); LYMPHOCYTES % (AUTO) 2.8 % (20.5-51.5); MEAN CORPUSCULAR HEMOGLOBIN 32 pg (27-31); MEAN CORPUSCULAR HGB CONC 33 % (32-36); MEAN CORPUSCULAR VOLUME 96 fL (79.0-98.0); MONOCYTES # (AUTO) 2.2 K/uL (0.0-1.0); MONOCYTES % (AUTO) 10.7 % (1.7-9.3); NEUTROPHILS # (AUTO) 17.5 K/uL (1.8-7.7); NEUTROPHILS % (AUTO) 85.8 % (40.0-70.0); PLATELET COUNT (AUTO) 250 K/uL (130-430); RED BLOOD CELL COUNT(AUTO) 2.93 MIL/uL (4.2-6.2); RED CELL DISTRIBUTION WIDTH 22.6 % (9.0-15.0); WHITE BLOOD COUNT (AUTO) 20.4 K/uL (4.8-10.8)
--- NOTE | 2021-10-20 07:09 | NUR ---
Closing note Report given to oncoming RN.
[2021-10-20 08:25] LABS: ANION GAP 11 (5-15); CALCIUM 9.1 mg/dL (8.4-11.0); CHLORIDE 107 mmol/L (98-107); CREATININE 2.19 mg/dL (0.55-1.30); GLUCOSE 281 mg/dL (70-99); POTASSIUM 3.5 mmol/L (3.5-5.1); SODIUM SERUM 140 mmol/L (136-145); UREA NITROGEN, BLOOD 46 mg/dL (8-21)
--- NOTE | 2021-10-20 10:10 | NUR ---
Dietitian Recommendations * Nepro at 35 ml/hr (goal rate), Simon BID, Free Water Flush: 225 ml Q6h (per physician) via GT Provides: 1672 kcal/day, 73 gm protein/day, and 1511 ml free water/day Meets: 107% of lower end of estimated caloric needs and 94% of upper end of estimated protein needs * Nursing please document Simon BID administration Please refer to Nutrition F/U for details.
--- NOTE | 2021-10-20 10:10 | NUR ---
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 SARS-CoV-2 Ag (Rapid) Negative 09/14 Per Furnace Mechanic Helper note 09/16: 1. Right Sacral area: Unstageable pressure ulcer, present on admission. 2. Right Buttock, Inferior to Site 1: Unstageable pressure ulcer, present on admission. 3. Left Buttock: Stage III pressure ulcer, present on admission. 4. Intergluteal Cleft: Stage III pressure ulcer, present on admission. 5. Left Outer Buttock: Skin tear. 6. Left Anterior Medial Great Toe: Unstageable pressure ulcer, present on admission. 7. Right Posterior Medial Foot, Inferior to First Metatarsal Head: Unstageable pressure ulcer, present on admission. 8. Bilateral Upper Extremities and Hands: Sites have 4+ pitting edema with a moderate amount of weeping. 9. Bilateral Lower Extremities and Feet: Sites have 4+ pitting edema with a moderate amount of weeping. Subjective Information: RD attended ICU rounds this morning. Primary RN reported that pt is tolerating TF well, no issues w/ GT clogging; in isolation a/w ESBL of urine; pt w/ anasarca; pt needs tunneled Perm Cath placement to be transferred out of the hospital, but pt has too many comorbidities per surgeon. RD witnessed TF Nepro infusing at 35 ml/hr, continues w/ vent to trach. Per EMR review, HD scheduled for today, last HD 10/18; Cr scale 10 - wounds to L. posterior leg and medial posterior coccyx, skin tears to L. forearm and R. leg; Bilateral generalized 3+ pitting edema; abd is distended 10/19; active bowel sounds 10/20; last BM x1 10/19; TF Nepro at 35 ml/hr, GRV: 20 ml 10/20. TF remains appropriate and warranted. Current Diet Order/Nutrition Support: Nepro @ 35 ml/hr (goal rate), Simon BID, FWF 225 ml Q6H Patient/Significant Other Unable To Verbalize Education Provided Not Indicated Pertinent Medications: lantus, folic acid, SSI, zofran, colace, retacrit, protonix IV, ativan, D5NS at 60 ml/hr, dulcolax suppository, cefepime HCl/D5 at 100 ml/hr (408 kcals/day) Pertinent Labs: BUN 46 H, Cr 2.19 H, BG 281 H, BG POC 244-257 H, WBC 20.4 H, H/H 9.2 L/28.2 L Height (Feet) 5 feet Height (Inches) 3.00 inches Weight (Pounds) 280 pounds - NEW WT: (09/20) 210#/95.51 kg - Initial wt was estimated by staff. - Stable since 09/20 Patient Weight 127.006 kg Body Mass Index 49.59 kg/m2 - NEW BMI: (09/20) 37.3 kg/m2 %IBW [address] [place]/Adjusted Body Weight 115#/52.3 kg. 156#/71 kg Recent Weight Change Unable to verify Weight Status Morbidly Obese Food Allergies Unable to verify Usual Diet At Home Unable to verify Estimated Energy Expenditure (kcals/day) *ONGOING 4901-6748 (30-35 kcal/kg IBW d/t morbid obesity, HD, sepsis) Estimated Protein Required (g/day) 52-78 (1.2-1.5 gm/kg IBW d/t morbid obesity, HD, sepsis) Estimated Fluid Required (l/day) Per physician d/t renal failure Problem/Etiology/Signs/Symptoms Increased nutritional needs R/T metabolic demands AEB estimated nutritional requirements for HD, sepsis and compromised skin integrity w/ Cr score 7 (*Ongoing) Altered nutrition-related labs R/T endocrine and renal dysfunction AEB abnormal BG/POC BG/BUN/CRE lab values. (*Ongoing) Malnutrition R/T morbid obesity AEB BMI: 49.59 kg/m2 and 243% of IBW. (*N/A - initial wt was estimated) Expected Outcomes/Goals - Monitor tolerance to EN support w/ goal of pt meeting >80% of estimated nutritional needs, labs trending WNL, normal GI function, and skin integrity/wt maintenance Dietitian Recommendations * Nepro at 35 ml/hr (goal rate), Simon BID, Free Water Flush: 225 ml Q6h (per physician) via GT Provides: 1672 kcal/day, 73 gm protein/day, and 1511 ml free water/day Meets: 107% of lower end of estimated caloric needs and 94% of upper end of estimated protein needs * Nursing please document Simon BID administration Follow Up Moderate Risk: F/U in 3-5 days
[2021-10-20] MEDS: DOCUSATE SODIUM 100 MG/10 ML UDC PO SCH ×2 (10:18→21:17)
[2021-10-20] MEDS: THEOPHYLLINE ANHYDROUS 80 MG/15 ML UDC GT SCH ×2 (10:18→21:16)
[2021-10-20] MEDS: PANTOPRAZOLE SODIUM 40 MG/VIAL (PROTONIX) IVP SCH ×2 (10:19→21:17)
[2021-10-20] MEDS: FOLIC ACID 1 MG TABLET GT SCH (10:20)
[2021-10-20] MEDS: CHLORHEXIDINE GLUC 0.12% 15 ML MOUTHWASH UDC MM SCH ×2 (10:21→21:17)
[2021-10-20] MEDS: levETIRAcetam 1,000 MG in NS 100 ML IV SCH ×2 (10:21→21:16)
[2021-10-20] MEDS: BALSAM PERU/CASTOR OIL 56.7 GM OINT...G. TP SCH (10:22)
[2021-10-20] MEDS: HEPARIN SODIUM,PORCINE 5,000 UNITS/ML VIAL SUBCUT SCH ×2 (10:25→21:18)
[2021-10-20] MEDS ORDERED: HEPARIN SODIUM,PORCINE 5,000 UNITS/ML VIAL ONE (12:18)
[2021-10-20] MEDS: CEFEPIME 2 GM in D5W 100 ML IV SCH ×2 (13:00→14:58)
[2021-10-20] MEDS: MICAFUNGIN SODIUM 100 MG in NS 100 ML IV SCH (14:59)
[2021-10-20] MEDS: INSULIN GLARGINE 100 UNITS/ML 10 ML VIAL SUBCUT SCH (21:19)
[2021-10-21] VITALS (21 sets, daily range): BP systolic 100–142
[2021-10-21] MEDS: LevALBUTEROL HCL 1.25 MG/0.5 ML *CONC.* VIAL.NEB (XOPENEX CONC.) INH SCH ×3 (00:19→20:11)
[2021-10-21] MEDS: INSULIN REGULAR, HUMAN 100 UNITS/ML, 10 ML VIAL (humuLIN R) SUBCUT PRN ×2 (01:10→18:32)
[2021-10-21 06:35] LABS: BASOPHILS # (AUTO) 0.1 K/uL (0.0-0.2); BASOPHILS % (AUTO) 0.4 % (0.0-2.0); EOSINOPHILS # (AUTO) 0.1 K/uL (0.0-0.4); EOSINOPHILS % (AUTO) 0.5 % (0.0-4.0); HEMATOCRIT 27.6 % (36-48); LYMPHOCYTES # (AUTO) 0.8 K/uL (1.0-5.5); MEAN CORPUSCULAR HEMOGLOBIN 31 pg (27-31); MEAN CORPUSCULAR HGB CONC 33 % (32-36); MEAN CORPUSCULAR VOLUME 96 fL (79.0-98.0); MONOCYTES # (AUTO) 2.1 K/uL (0.0-1.0); MONOCYTES % (AUTO) 10.1 % (1.7-9.3); NEUTROPHILS # (AUTO) 17.9 K/uL (1.8-7.7); PLATELET COUNT (AUTO) 226 K/uL (130-430); RED BLOOD CELL COUNT(AUTO) 2.88 MIL/uL (4.2-6.2); RED CELL DISTRIBUTION WIDTH 22.3 % (9.0-15.0); WHITE BLOOD COUNT (AUTO) 21.1 K/uL (4.8-10.8)
[2021-10-21] MEDS: metroNIDAZOLE 250 mg/NS 50 ML IV SCH ×2 (06:37→15:36)
[2021-10-21] MEDS: D5NS 1,000 ML IV SCH (06:37)
[2021-10-21 06:40] LABS: ALANINE AMINOTRANSFERASE 2 U/L (12-78); ALBUMIN 1.4 g/dL (3.4-4.8); ANION GAP 9 (5-15); ASPARTATE AMINOTRANSFERASE 15 U/L (10-37); CALCIUM 8.9 mg/dL (8.4-11.0); CHLORIDE 106 mmol/L (98-107); CREATININE 1.69 mg/dL (0.55-1.30); GLUCOSE 170 mg/dL (70-99); POTASSIUM 3.6 mmol/L (3.5-5.1); SODIUM SERUM 140 mmol/L (136-145); TOTAL BILIRUBIN 0.4 mg/dL (0.0-1.0); UREA NITROGEN, BLOOD 34 mg/dL (8-21)
[2021-10-21] MEDS ORDERED: LORazepam 2 MG/ML VIAL IVP PRN (08:45)
[2021-10-21] MEDS: BALSAM PERU/CASTOR OIL 56.7 GM OINT...G. TP SCH (09:00)
[2021-10-21] MEDS: CHLORHEXIDINE GLUC 0.12% 15 ML MOUTHWASH UDC MM SCH ×2 (09:00→21:00)
[2021-10-21] MEDS: FOLIC ACID 1 MG TABLET GT SCH (10:40)
[2021-10-21] MEDS: DOCUSATE SODIUM 100 MG/10 ML UDC PO SCH (10:40)
[2021-10-21] MEDS: levETIRAcetam 1,000 MG in NS 100 ML IV SCH ×2 (10:40→21:00)
[2021-10-21] MEDS: PANTOPRAZOLE SODIUM 40 MG/VIAL (PROTONIX) IVP SCH (10:40)
[2021-10-21] MEDS: THEOPHYLLINE ANHYDROUS 80 MG/15 ML UDC GT SCH ×2 (10:40→21:00)
[2021-10-21] MEDS: HEPARIN SODIUM,PORCINE 5,000 UNITS/ML VIAL SUBCUT SCH (10:41)
[2021-10-21] MEDS: MICAFUNGIN SODIUM 100 MG in NS 100 ML IV SCH (13:00)
--- NOTE | 2021-10-21 14:34 | NUR ---
[facility] REGIST[facility] NURSE IS IN CHARGE OF THIS PATIENT/UNABLE TO SCAN FLAGYL BECAUSE SCANNER STOPPED WORKING..PT PREPARED FOR XFER/REPORT TO RN/PT HAD VERY LARGE SOFT BROWN STOOL/SACRAL DRESSING CHANGED/DUE TO LACK OF FEEDING PUMPS HAVE TO BOLUS FEED PT, 35CC/H-TOLERATING WELL//PT IN ZERO DISTRESS//MW
[2021-10-21] MEDS: EPOETIN ALFA-EPBX 4,000 UNITS/ML VIAL SUBCUT SCH (15:39)
--- NOTE | 2021-10-21 16:00 | NUR ---
Received patient from icu department, awake, nonverbal, no s/s of distress. trch portex 7, vent setting ac 12, tv 450, fio2 30%, peep 5. right ua picc with ivf infusing well site patent. g-tube feeding. multiple skin breakdown. air mattress on. callaway catheter draining well via gravity.
[2021-10-21] MEDS: ONDANSETRON HCL 4 MG/2 ML VIAL IVP PRN (18:32)
--- NOTE | 2021-10-21 18:49 | NUR ---
all needs mets. no s/s of distress, no significant changes of condition noted. g-tube feeding nephro @ 40ml/hr started. will endorsed to incoming nurse.
--- NOTE | 2021-10-21 19:12 | NUR ---
endorsed care to marilee penny.
[2021-10-22] MEDS: MEROPENEM 500 MG in NS 50 ML IV SCH ×4 (00:34→22:56)
[2021-10-22] MEDS: PANTOPRAZOLE SODIUM 40 MG/VIAL (PROTONIX) IVP SCH ×3 (00:37→22:55)
[2021-10-22] MEDS: DOCUSATE SODIUM 100 MG/10 ML UDC PO SCH ×3 (00:38→22:55)
[2021-10-22] MEDS: HEPARIN SODIUM,PORCINE 5,000 UNITS/ML VIAL SUBCUT SCH ×3 (00:43→23:06)
[2021-10-22] MEDS: INSULIN GLARGINE 100 UNITS/ML 10 ML VIAL SUBCUT SCH ×2 (00:51→23:08)
[2021-10-22 01:01] VITALS: BP_SYST 116
[2021-10-22] MEDS: D5NS 1,000 ML IV SCH (05:36)
[2021-10-22] MEDS: LevALBUTEROL HCL 1.25 MG/0.5 ML *CONC.* VIAL.NEB (XOPENEX CONC.) INH SCH ×9 (06:48→23:20)
[2021-10-22 08:00] VITALS: BP_SYST 104
--- NOTE | 2021-10-22 08:00 | NUR ---
Initial notes Open her eyes, lethargic, non verbal. Trach to vent, tolerating current settings. Abdomen distended. No distress. with multiple wound dressing. bed alarm on. will monitor.
[2021-10-22] MEDS: FOLIC ACID 1 MG TABLET GT SCH (08:39)
[2021-10-22] MEDS: THEOPHYLLINE ANHYDROUS 80 MG/15 ML UDC GT SCH ×2 (08:41→22:54)
[2021-10-22] MEDS: levETIRAcetam 1,000 MG in NS 100 ML IV SCH ×2 (08:41→21:00)
[2021-10-22] MEDS: CHLORHEXIDINE GLUC 0.12% 15 ML MOUTHWASH UDC MM SCH ×2 (08:42→22:55)
[2021-10-22] MEDS: BALSAM PERU/CASTOR OIL 56.7 GM OINT...G. TP SCH (08:45)
[2021-10-22] MEDS: COLISTIMETHATE SODIUM 150 MG VIAL INH SCH ×2 (09:00→20:38)
--- NOTE | 2021-10-22 09:00 | NUR ---
Notes- tube feeding has more than 150cc residual. hold feeding for now.
--- NOTE | 2021-10-22 11:40 | NUR ---
Discharge Planning: DCP faxed pt referral to [facility] [phone] DCP to follow up. Addendum: 10/22/21 at 1559 by Ambar Lancaster DP DCNemesio spoke to Libby at [facility] [phone] and pending auth. DCP to follow up
[2021-10-22] MEDS: INSULIN REGULAR, HUMAN 100 UNITS/ML, 10 ML VIAL (humuLIN R) SUBCUT PRN (12:09)
[2021-10-22 12:41] VITALS: BP_SYST 110
--- NOTE | 2021-10-22 14:00 | NUR ---
notes mouth care done, Gt feeding residual still has 100cc.
[2021-10-22 16:00] VITALS: BP_SYST 106
--- NOTE | 2021-10-22 17:00 | NUR ---
Notes Patient on dialysis at this time.
--- NOTE | 2021-10-22 18:05 | NUR ---
Notes Patient still on dialysis.
[2021-10-22 20:00] VITALS: BP_SYST 102
--- NOTE | 2021-10-22 20:00 | NUR ---
PM OPENING NOTES HANDOFF REPORT RECEIVED FROM LIAM ZULUAGA. ASSUMED CARE OF PT AT THIS TIME. PT RECEIVED WITH EYES OPEN, NON TRACKING. GTUBE FEEDING OFF. RESIDUAL 100. ABD TAUT AND DISTENDED WITH ACTIVE BS.
--- NOTE | 2021-10-23 | NUR ---
CONT TO HOLD TUBE FEEDING. ABD UNCHANGED. RESIDUALS 75
[2021-10-23 01:06] VITALS: BP_SYST 100
[2021-10-23] MEDS: LevALBUTEROL HCL 1.25 MG/0.5 ML *CONC.* VIAL.NEB (XOPENEX CONC.) INH SCH ×6 (03:10→23:21)
[2021-10-23 04:00] VITALS: BP_SYST 119
[2021-10-23] MEDS: MEROPENEM 500 MG in NS 50 ML IV SCH ×3 (06:07→23:00)
[2021-10-23] MEDS: D5NS 1,000 ML IV SCH (06:14)
--- NOTE | 2021-10-23 07:00 | NUR ---
PM CLOSING NOTES HANDOFF REPORT GIVEN TO CESAR ZULUAGA WITH BEDSIDE ROUNDS. ALL QUESTIONS ANSWERED. FEEDING PUMP STARTED AGAIN BUT ALARM KEEPS SOUNDING. REPORTED TO ACTING CHARGE NURSE LUBNA. ALL DRESSINGS CHANGED AND INTACT. RELINQUISHED CARE OF PT AT THIS TIME.
--- NOTE | 2021-10-23 07:15 | NUR ---
RECEIVED PT FROM ZAN LATHAM. ASSUMED CARE.
[2021-10-23] MEDS: COLISTIMETHATE SODIUM 150 MG VIAL INH SCH ×2 (07:27→21:06)
[2021-10-23 08:00] VITALS: BP_SYST 110
[2021-10-23] MEDS: THEOPHYLLINE ANHYDROUS 80 MG/15 ML UDC GT SCH ×2 (10:12→21:50)
[2021-10-23] MEDS: PANTOPRAZOLE SODIUM 40 MG/VIAL (PROTONIX) IVP SCH ×2 (10:12→21:57)
[2021-10-23] MEDS: FOLIC ACID 1 MG TABLET GT SCH (10:12)
[2021-10-23] MEDS: DOCUSATE SODIUM 100 MG/10 ML UDC PO SCH ×2 (10:13→22:02)
[2021-10-23] MEDS: CHLORHEXIDINE GLUC 0.12% 15 ML MOUTHWASH UDC MM SCH ×2 (10:13→22:02)
[2021-10-23] MEDS: BALSAM PERU/CASTOR OIL 56.7 GM OINT...G. TP SCH (10:15)
[2021-10-23] MEDS ORDERED: HEPARIN SODIUM,PORCINE 5,000 UNITS/ML VIAL SUBCUT ONE (10:15)
[2021-10-23] MEDS: levETIRAcetam 1,000 MG in NS 100 ML IV SCH ×2 (10:15→21:53)
[2021-10-23 11:31] VITALS: BP_SYST 128
[2021-10-23 15:49] VITALS: BP_SYST 132
[2021-10-23] MEDS: INSULIN REGULAR, HUMAN 100 UNITS/ML, 10 ML VIAL (humuLIN R) SUBCUT PRN ×2 (18:37→23:17)
--- NOTE | 2021-10-23 19:12 | NUR ---
ENDORSED PT TO ZAN LATHAM. ALL QUESTIONS AND CONCERNS ADDRESSED.
[2021-10-23 19:30] VITALS: BP_SYST 103
--- NOTE | 2021-10-23 19:30 | NUR ---
PM OPENING NOTES HAND-OFF REPORT RECEIVED FROM CESAR ZULUAGA. REPORTED CONTINUED FEEDING VIA BOLUS DUE TO MALFUNCTIONING FEEDING PUMPS X3. BLOOD SUGARS SUSTAINED IN 150'S. ABDOMEN UNCHANGED AND DISTENDED AND MODERATELY FIRM. BOWEL SOUNDS PER AUSCULTATION. CONTINUE TO MONITOR. NO CHANGES NOTED IN VENT SETTINGS. PT RECEIVED EYES OPEN RESPONDING TO TOUCH BY SHAKING HEAD OR HOLDING RIGHT ARM CLOSE TO TORSO WITH RESISTANCE TO YOUR ATTEMPT TO ASSESS PICC LINE DRESSING. CONTINUE WITH COMFORT MEASURES AND MEDS SCHEDULED.SAFETY PRECAUTIONS MAINTAINED.
[2021-10-23] MEDS: INSULIN GLARGINE 100 UNITS/ML 10 ML VIAL SUBCUT SCH (21:00)
[2021-10-23] MEDS: HEPARIN SODIUM,PORCINE 5,000 UNITS/ML VIAL SUBCUT SCH (22:58)
[2021-10-24 00:28] VITALS: BP_SYST 104
[2021-10-24] MEDS: LevALBUTEROL HCL 1.25 MG/0.5 ML *CONC.* VIAL.NEB (XOPENEX CONC.) INH SCH ×6 (03:51→23:59)
[2021-10-24] MEDS: MEROPENEM 500 MG in NS 50 ML IV SCH ×2 (06:00→14:56)
[2021-10-24] MEDS: D5NS 1,000 ML IV SCH (06:05)
--- NOTE | 2021-10-24 07:30 | NUR ---
PM CLOSING NOTES HAND-OFF REPORT TO FCO Vázquez NURSE. PT ABDOMEN TAUT, FIRM WITH BS. STOOLX1. GTUBE FEEDING BY BOLUS FEEDING PUMPS X3 ARE MALFUNCTIONING. ALL DRESSINGS REMOVED, AREAS CLEANSED AND FRESH DRESSINGS PLACED. WOUNDS CONTINUE TO WEEP WITH THE MOST SEEPAGE ON CALF DRESSINGS. NOTED PT IS RESPONDING VISUALLY AND SMILING FAINTLY I TEASE HER ABOUT BEING A "HEART BREAKER" IN HER DAY. RESIDUALS AT 64. CONTINUE COMFORT MEASURES AND TO LOOK FOR A WORKING [employer] PUMP. RELINQUISHING CARE OF PT AT THIS TIME.
--- NOTE | 2021-10-24 08:35 | NUR ---
INITIAL ROUNDS Received pt awake, non-verbal on vent via trach, vent settings verified. HOB elevated for aspiration precautions. IVF infusing well to ALEYDA PICC line at ordered rate with no s/s infiltration to site. G-tube flushed and bolus feeding given. 20 ml residual noted. Abd distended. Escalante draining to gravity with rusty colored urine. Pt repositioned in bed with pillow support and heels off-loaded for skin care and comfort. Noted multiple dressings on BLE and sacral area. Oral care provided. Side rails up x3, bed alarm on for safety.
[2021-10-24] MEDS: BALSAM PERU/CASTOR OIL 56.7 GM OINT...G. TP SCH (09:00)
[2021-10-24 09:02] VITALS: BP_SYST 122
[2021-10-24] MEDS: INSULIN REGULAR, HUMAN 100 UNITS/ML, 10 ML VIAL (humuLIN R) SUBCUT PRN ×2 (09:09→18:52)
[2021-10-24] MEDS: COLISTIMETHATE SODIUM 150 MG VIAL INH SCH ×2 (09:25→23:58)
[2021-10-24] MEDS: CHLORHEXIDINE GLUC 0.12% 15 ML MOUTHWASH UDC MM SCH (10:40)
[2021-10-24] MEDS: PANTOPRAZOLE SODIUM 40 MG/VIAL (PROTONIX) IVP SCH (10:41)
[2021-10-24] MEDS: FOLIC ACID 1 MG TABLET GT SCH (10:42)
[2021-10-24] MEDS: levETIRAcetam 1,000 MG in NS 100 ML IV SCH ×2 (10:42→21:00)
[2021-10-24] MEDS: DOCUSATE SODIUM 100 MG/10 ML UDC PO SCH (10:42)
[2021-10-24] MEDS: HEPARIN SODIUM,PORCINE 5,000 UNITS/ML VIAL SUBCUT SCH (10:45)
[2021-10-24] MEDS: THEOPHYLLINE ANHYDROUS 80 MG/15 ML UDC GT SCH (14:56)
[2021-10-24 16:05] VITALS: BP_SYST 130
[2021-10-24] MEDS: EPOETIN ALFA-EPBX 4,000 UNITS/ML VIAL SUBCUT SCH (18:49)
--- NOTE | 2021-10-24 19:35 | NUR ---
CLOSING NOTES Pt resting quietly in bed with no s/s resp distress, no s/s pain or discomfort. IVF infusing well at ordered rate with no s/s infiltration to site. Aspiration precautions remain in place. Contact isolation precautions maintained throughout shift. Skin and safety precautions maintained throughout shift.
[2021-10-24 20:00] VITALS: BP_SYST 108
[2021-10-25] MEDS: THEOPHYLLINE ANHYDROUS 80 MG/15 ML UDC GT SCH ×3 (01:42→21:00)
[2021-10-25] MEDS: PANTOPRAZOLE SODIUM 40 MG/VIAL (PROTONIX) IVP SCH ×3 (01:43→21:00)
[2021-10-25] MEDS: CHLORHEXIDINE GLUC 0.12% 15 ML MOUTHWASH UDC MM SCH ×3 (01:44→21:00)
[2021-10-25] MEDS: DOCUSATE SODIUM 100 MG/10 ML UDC PO SCH ×3 (01:45→21:00)
[2021-10-25] MEDS: MEROPENEM 500 MG in NS 50 ML IV SCH ×2 (01:47→06:00)
[2021-10-25] MEDS: HEPARIN SODIUM,PORCINE 5,000 UNITS/ML VIAL SUBCUT SCH ×3 (01:53→21:00)
[2021-10-25] MEDS: INSULIN GLARGINE 100 UNITS/ML 10 ML VIAL SUBCUT SCH ×2 (01:57→21:00)
[2021-10-25] MEDS: INSULIN REGULAR, HUMAN 100 UNITS/ML, 10 ML VIAL (humuLIN R) SUBCUT PRN (02:04)
[2021-10-25] MEDS: LevALBUTEROL HCL 1.25 MG/0.5 ML *CONC.* VIAL.NEB (XOPENEX CONC.) INH SCH ×6 (05:08→23:45)
[2021-10-25] MEDS: D5NS 1,000 ML IV SCH (06:05)
[2021-10-25 06:43] LABS: BASOPHILS # (AUTO) 0.1 K/uL (0.0-0.2); BASOPHILS % (AUTO) 0.5 % (0.0-2.0); EOSINOPHILS # (AUTO) 0.2 K/uL (0.0-0.4); HEMATOCRIT 28.9 % (36-48); HEMOGLOBIN 9.4 g/dL (12.0-16.0); LYMPHOCYTES # (AUTO) 1.3 K/uL (1.0-5.5); LYMPHOCYTES % (AUTO) 6.3 % (20.5-51.5); MEAN CORPUSCULAR HEMOGLOBIN 31 pg (27-31); MEAN CORPUSCULAR HGB CONC 33 % (32-36); MEAN CORPUSCULAR VOLUME 96 fL (79.0-98.0); MONOCYTES # (AUTO) 2.4 K/uL (0.0-1.0); MONOCYTES % (AUTO) 11.7 % (1.7-9.3); NEUTROPHILS # (AUTO) 16.5 K/uL (1.8-7.7); PLATELET COUNT (AUTO) 218 K/uL (130-430); WHITE BLOOD COUNT (AUTO) 20.5 K/uL (4.8-10.8)
--- NOTE | 2021-10-25 07:30 | NUR ---
OPEN NOTE Patient laying in bed with eyes open, non-verbal. No pain noted during this time, no sob, no distress. Patient is on Vent to Trach. saturations at 99%. Patient placed on G-Tube Nephro at 40ml/hr. Zero residuals obtained during initial assessment. IV to R arm PICC patent. Patient has IJ Hussein Cath for dialysis. Dialysis set to be donet today. Head of bed elevated to 30 degrees, callaway in place draining to gravity. All needs met, safety precautions in check. call light within reach. Will continue to monitor.
[2021-10-25 07:52] LABS: NEUTROPHILS % (AUTO) 80.5 % (40.0-70.0)
[2021-10-25 07:57] LABS: ALANINE AMINOTRANSFERASE 3 U/L (12-78); ALBUMIN 1.3 g/dL (3.4-4.8); ANION GAP 14 (5-15); ASPARTATE AMINOTRANSFERASE 14 U/L (10-37); CALCIUM 8.3 mg/dL (8.4-11.0); CHLORIDE 105 mmol/L (98-107); CREATININE 1.69 mg/dL (0.55-1.30); GLUCOSE 155 mg/dL (70-99); SODIUM SERUM 142 mmol/L (136-145); TOTAL BILIRUBIN 0.4 mg/dL (0.0-1.0); UREA NITROGEN, BLOOD 31 mg/dL (8-21)
[2021-10-25 08:00] VITALS: BP_SYST 125
[2021-10-25] MEDS: FOLIC ACID 1 MG TABLET GT SCH (09:16)
[2021-10-25] MEDS: BALSAM PERU/CASTOR OIL 56.7 GM OINT...G. TP SCH (09:16)
[2021-10-25 10:10] LABS: POTASSIUM 2.9 mmol/L (3.5-5.1)
[2021-10-25] MEDS: COLISTIMETHATE SODIUM 150 MG VIAL INH SCH ×2 (10:39→21:00)
[2021-10-25] MEDS: levETIRAcetam 1,000 MG in NS 100 ML IV SCH ×2 (10:41→21:00)
[2021-10-25] MEDS ORDERED: HEPARIN SODIUM,PORCINE 5,000 UNITS/ML VIAL MC ONE (10:45)
--- NOTE | 2021-10-25 10:45 | NUR ---
MD CALL/Critical Lab Spoke with MD Bobby regarding low potassium level. gave new orders that will be carried out.
[2021-10-25] MEDS ORDERED: HEPARIN SODIUM,PORCINE 5,000 UNITS/ML VIAL ONE (11:00)
[2021-10-25 11:22] VITALS: BP_SYST 126
[2021-10-25] MEDS ORDERED: POTASSIUM CHLORIDE 20 MEQ TAB.PRT.SR PO ONE (12:00)
--- NOTE | 2021-10-25 12:10 | NUR ---
PATIENT ROUNDS Patient laying in bed resting. No pain noted during this time, no sob, no distress. Patient is on vent to trach with saturations at 99%. Gtube feeding on at 40ml/hr, patietn tolerating well. IV site patent an infusion well. Patient is on Dialysis with no distress noted. Escalante draining well to gravity, yellow urine. All needs met, safety precautions in check. call light within reach. Will continue to monitor.
[2021-10-25 15:30] VITALS: BP_SYST 120
--- NOTE | 2021-10-25 16:00 | NUR ---
PATIENT ROUNDS Patient laying in bed resting. No pain noted during this time, no sob, no distress. Patient is on vent to trach with saturations at 99%. Gtube feeding on at 40ml/hr, patietn tolerating well. IV site patent an infusion well. No distress noted. Escalante draining well to gravity, yellow urine. All needs met, safety precautions in check. call light within reach. Will continue to monitor.
--- NOTE | 2021-10-25 18:48 | NUR ---
CLOSING NOTE Patient laying in bed with eyes open, non-verbal. No pain noted during this time, no sob, no distress. Patient is on Vent to Trach. saturations at 99%. Patient placed on G-Tube Nephro at 40ml/hr. Zero residuals obtained during initial assessment. IV to R arm PICC patent. Patient has IJ Hussein Cath for dialysis. Dialysis done today and they removed 2 Liters. Head of bed elevated to 30 degrees, callaway in place draining to gravity. All needs met, safety precautions in check. call light within reach. Will endorse to nightshift nurse.
[2021-10-25 20:00] VITALS: BP_SYST 124
[2021-10-25] MEDS: CEFIDEROCOL SULFATE TOSYLATE 0.75 GM in NS 100 ML IV SCH (21:00)
[2021-10-26] VITALS: BP_SYST 118
[2021-10-26] MEDS: LevALBUTEROL HCL 1.25 MG/0.5 ML *CONC.* VIAL.NEB (XOPENEX CONC.) INH SCH ×6 (04:29→23:17)
[2021-10-26] MEDS: COLISTIMETHATE SODIUM 150 MG VIAL INH SCH ×2 (07:10→21:41)
[2021-10-26 08:00] VITALS: BP_SYST 123
[2021-10-26] MEDS: INSULIN REGULAR, HUMAN 100 UNITS/ML, 10 ML VIAL (humuLIN R) SUBCUT PRN ×2 (08:11→17:13)
[2021-10-26] MEDS: HEPARIN SODIUM,PORCINE 5,000 UNITS/ML VIAL SUBCUT SCH (08:51)
[2021-10-26] MEDS: FOLIC ACID 1 MG TABLET GT SCH (08:51)
[2021-10-26] MEDS: DOCUSATE SODIUM 100 MG/10 ML UDC PO SCH (08:51)
[2021-10-26] MEDS: PANTOPRAZOLE SODIUM 40 MG/VIAL (PROTONIX) IVP SCH (08:52)
[2021-10-26] MEDS: CEFIDEROCOL SULFATE TOSYLATE 0.75 GM in NS 100 ML IV SCH (08:54)
[2021-10-26] MEDS: levETIRAcetam 1,000 MG in NS 100 ML IV SCH ×2 (08:54→21:00)
[2021-10-26] MEDS: CHLORHEXIDINE GLUC 0.12% 15 ML MOUTHWASH UDC MM SCH (08:54)
[2021-10-26] MEDS: THEOPHYLLINE ANHYDROUS 80 MG/15 ML UDC GT SCH (08:57)
[2021-10-26 11:18] LABS: CALCIUM 8.3 mg/dL (8.4-11.0); CREATININE 1.52 mg/dL (0.55-1.30); GLUCOSE 191 mg/dL (70-99); UREA NITROGEN, BLOOD 24 mg/dL (8-21)
[2021-10-26 11:34] VITALS: BP_SYST 124
[2021-10-26 12:09] LABS: POTASSIUM 3.1 mmol/L (3.5-5.1); SODIUM SERUM 136 mmol/L (136-145)
[2021-10-26 12:10] LABS: CHLORIDE 103 mmol/L (98-107)
[2021-10-26] MEDS ORDERED: POTASSIUM CHLORIDE 20 MEQ/PKT PACKET GT ONE (14:15)
[2021-10-26] MEDS: BALSAM PERU/CASTOR OIL 56.7 GM OINT...G. TP SCH (14:47)
[2021-10-26 15:28] VITALS: BP_SYST 134
[2021-10-26] MEDS: EPOETIN ALFA-EPBX 4,000 UNITS/ML VIAL SUBCUT SCH (17:14)
[2021-10-26] MEDS: D5NS 1,000 ML IV SCH (17:15)
--- NOTE | 2021-10-26 17:59 | NUR ---
pt nonverbal,responds to light touch stimuli,has trach with ventilator at settings of AC 12,tidal volume 450,Fio2 30% and peep 5,sat 100%,fawn cath in left IJ in place and intact,IVF infusing via picc line in right upper arm.tube feeding nepro runs @ 40cc per hr via GT.pt tolerated GT,no residual aspirated. K level 3.1 per am lab today.replaced KCl 40meq x1 dose per GT per dr order.wound care done per order callaway catheter drains 100 ml rusty urine,HD for tomorrow 10/27/[address]hourly rounds made safety maintained.continue to monitor pt.
--- NOTE | 2021-10-26 19:30 | NUR ---
Initial notes Received update from day nurse. Pt appears comfortable and clean with clean gown and linens. IV fluids running, PICC is patent. GTube feeding is running at 40, incision site has some redness and is clean and port flushed and patent. Fall and safety measures initiated.
[2021-10-26 20:00] VITALS: BP_SYST 114
[2021-10-26] MEDS: INSULIN GLARGINE 100 UNITS/ML 10 ML VIAL SUBCUT SCH (21:00)
[2021-10-27] MEDS: THEOPHYLLINE ANHYDROUS 80 MG/15 ML UDC GT SCH ×3 (00:44→20:48)
[2021-10-27] MEDS: CHLORHEXIDINE GLUC 0.12% 15 ML MOUTHWASH UDC MM SCH ×3 (00:45→20:47)
[2021-10-27] MEDS: DOCUSATE SODIUM 100 MG/10 ML UDC PO SCH ×3 (00:45→20:32)
[2021-10-27 00:47] VITALS: BP_SYST 129
[2021-10-27] MEDS: CEFIDEROCOL SULFATE TOSYLATE 0.75 GM in NS 100 ML IV SCH ×3 (00:50→20:50)
[2021-10-27] MEDS: LevALBUTEROL HCL 1.25 MG/0.5 ML *CONC.* VIAL.NEB (XOPENEX CONC.) INH SCH ×5 (03:00→20:40)
--- NOTE | 2021-10-27 03:00 | NUR ---
Non-administration of medications Three medications due 10/26/21 at 2100 were not administered d/t being 4 hours overdue. Patient is stable.
[2021-10-27] MEDS: INSULIN REGULAR, HUMAN 100 UNITS/ML, 10 ML VIAL (humuLIN R) SUBCUT PRN ×2 (06:02→20:46)
[2021-10-27] MEDS: PANTOPRAZOLE SODIUM 40 MG/VIAL (PROTONIX) IVP SCH ×3 (08:00→20:32)
[2021-10-27] MEDS: HEPARIN SODIUM,PORCINE 5,000 UNITS/ML VIAL SUBCUT SCH ×3 (08:02→20:37)
[2021-10-27] MEDS: COLISTIMETHATE SODIUM 150 MG VIAL INH SCH ×2 (08:09→20:40)
[2021-10-27] MEDS: FOLIC ACID 1 MG TABLET GT SCH (08:36)
[2021-10-27] MEDS: levETIRAcetam 1,000 MG in NS 100 ML IV SCH ×2 (08:38→20:33)
[2021-10-27] MEDS: BALSAM PERU/CASTOR OIL 56.7 GM OINT...G. TP SCH (08:39)
--- NOTE | 2021-10-27 09:06 | NUR ---
Discharge Planning: [phone], BOOKERP spoke to Maddie alaniz accepted pending auth, SHIRLENE to confirm if patient would be DC'd with IV meds. BOOKERP made CM aware.
[2021-10-27] MEDS ORDERED: DIATR MEGLU/DIATRIZ SOD 30 ML SOLUTION PO ONE (10:07)
[2021-10-27] MEDS ORDERED: HEPARIN IV FLUSH 300 UNITS/3ML SYR INJ ONE (11:15)
[2021-10-27 11:25] VITALS: BP_SYST 144
[2021-10-27] MEDS ORDERED: HEPARIN SODIUM, PORCINE 10,000 UNITS/ 10 ML VIAL MC ONE (11:45)
[2021-10-27] MEDS: METOCLOPRAMIDE HCL 10 MG/2 ML VIAL IVP SCH ×2 (12:13→17:00)
[2021-10-27 15:29] VITALS: BP_SYST 139
--- NOTE | 2021-10-27 18:08 | NUR ---
AWAKE BUT DOES NOT ATTEMPT TO COMMUNICATE. O2 VIA TRACH TOLERATED CURRENT SETTING WELL NO S/S OF ANY ACUTE DISTRESS NOTED. UNABLE TO VERBALIZE NEEDS, WILL CONTINUE TO ASSESS NEEDS Q HOURLY AND PRN. ABDOMEN FIRM AND DISTENDED, HYPOACTIVE BOWEL SOUND X 4 NO N /V NOTED. G-TUBE FOR FEEDING TOLERATED WELL RESIDUAL < 20CC. WILL CONTINUE TO MONITOR PATIENT. CONTACTED DR. DE SANTIAGO REGARDING PATIENT ABDOMEN WITH NEW ORDER FOR CT OF ABDOMEN AND PELVIS WITH ORAL CONTRAST. FINDING ANASARCA AND SLIGHT INCREASE IN ASCITES. HD COMPLETED TOLERATED WELL W/O ANY ADVERSE REACTION NOTED.
[2021-10-27 19:08] LABS: ANION GAP 11 (5-15)
[2021-10-27 20:16] VITALS: BP_SYST 114
[2021-10-27] MEDS: INSULIN GLARGINE 100 UNITS/ML 10 ML VIAL SUBCUT SCH (20:41)
[2021-10-27] MEDS: D5NS 1,000 ML IV SCH (20:56)
--- NOTE | 2021-10-27 23:20 | NUR ---
RT NOTES CALLED TO BEDSIDE DUE TO VENT ALARMING. OBSERVED PT WITH LEAK IN THE TRACH CUFF. REPOSITIONED PT, SUCTIONED PT, LEAK STILL AUDIBLE. PT NOT RECEIVING ANY VOLUMES ON VENT. DR RUIZ NOTIFIED. CHANGED TRACH PER ORDER. SHILEY XLT 7.0 INSERTED WITH NO COMPLICATIONS. TRACH IS SECURE AND INTACT. LEAK IS NOT PRESENT. PT RECEIVING VOLUMES. EQUAL BILAT CHEST RISE OBSERVED.
[2021-10-28 00:17] VITALS: BP_SYST 136
[2021-10-28] MEDS: LevALBUTEROL HCL 1.25 MG/0.5 ML *CONC.* VIAL.NEB (XOPENEX CONC.) INH SCH ×6 (00:28→20:08)
[2021-10-28] MEDS: INSULIN REGULAR, HUMAN 100 UNITS/ML, 10 ML VIAL (humuLIN R) SUBCUT PRN ×3 (00:42→12:36)
[2021-10-28] MEDS: D5NS 1,000 ML IV SCH (06:06)
[2021-10-28] MEDS: METOCLOPRAMIDE HCL 10 MG/2 ML VIAL IVP SCH ×3 (06:36→16:38)
[2021-10-28] MEDS: CEFIDEROCOL SULFATE TOSYLATE 0.75 GM in NS 100 ML IV SCH ×2 (08:08→20:50)
[2021-10-28 08:09] LABS: BASOPHILS # (AUTO) 0.1 K/uL (0.0-0.2); BASOPHILS % (AUTO) 0.6 % (0.0-2.0); EOSINOPHILS # (AUTO) 0.1 K/uL (0.0-0.4); EOSINOPHILS % (AUTO) 0.8 % (0.0-4.0); HEMATOCRIT 28.7 % (36-48); HEMOGLOBIN 9.4 g/dL (12.0-16.0); LYMPHOCYTES # (AUTO) 1.5 K/uL (1.0-5.5); LYMPHOCYTES % (AUTO) 8.1 % (20.5-51.5); MEAN CORPUSCULAR HEMOGLOBIN 32 pg (27-31); MEAN CORPUSCULAR HGB CONC 33 % (32-36); MEAN CORPUSCULAR VOLUME 97 fL (79.0-98.0); MONOCYTES # (AUTO) 2.4 K/uL (0.0-1.0); MONOCYTES % (AUTO) 12.9 % (1.7-9.3); NEUTROPHILS # (AUTO) 14.2 K/uL (1.8-7.7); NEUTROPHILS % (AUTO) 77.6 % (40.0-70.0); PLATELET COUNT (AUTO) 174 K/uL (130-430); RED BLOOD CELL COUNT(AUTO) 2.95 MIL/uL (4.2-6.2); RED CELL DISTRIBUTION WIDTH 22.9 % (9.0-15.0); WHITE BLOOD COUNT (AUTO) 18.3 K/uL (4.8-10.8)
[2021-10-28] MEDS: FOLIC ACID 1 MG TABLET GT SCH (08:10)
[2021-10-28] MEDS: THEOPHYLLINE ANHYDROUS 80 MG/15 ML UDC GT SCH ×2 (08:10→20:50)
[2021-10-28] MEDS: CHLORHEXIDINE GLUC 0.12% 15 ML MOUTHWASH UDC MM SCH ×2 (08:11→20:50)
[2021-10-28] MEDS: DOCUSATE SODIUM 100 MG/10 ML UDC PO SCH ×2 (08:11→20:50)
[2021-10-28] MEDS: PANTOPRAZOLE SODIUM 40 MG/VIAL (PROTONIX) IVP SCH ×2 (08:11→20:50)
[2021-10-28] MEDS: HEPARIN SODIUM,PORCINE 5,000 UNITS/ML VIAL SUBCUT SCH ×2 (08:12→20:52)
[2021-10-28] MEDS: BALSAM PERU/CASTOR OIL 56.7 GM OINT...G. TP SCH (08:13)
[2021-10-28 08:49] LABS: ANION GAP 9 (5-15); CALCIUM 8.4 mg/dL (8.4-11.0); CHLORIDE 102 mmol/L (98-107); CREATININE 1.25 mg/dL (0.55-1.30); GLUCOSE 166 mg/dL (70-99); POTASSIUM 3.2 mmol/L (3.5-5.1); SODIUM SERUM 136 mmol/L (136-145); UREA NITROGEN, BLOOD 22 mg/dL (8-21)
[2021-10-28] MEDS: levETIRAcetam 1,000 MG in NS 100 ML IV SCH ×3 (09:00→20:56)
[2021-10-28 10:28] VITALS: BP_SYST 127
[2021-10-28] MEDS: COLISTIMETHATE SODIUM 150 MG VIAL INH SCH (11:20)
[2021-10-28 12:20] VITALS: BP_SYST 112
--- NOTE | 2021-10-28 13:29 | NUR ---
0800: AWAKE BUT NON-VERBAL, CHRONIC TRACH TO VENT WITH THESE SETTING: AC-12, TV-500, FIO2 30%, PEEP 5. TOLERATED WELL NO S/S OF ANY ACUTE DISTRESS NOTED. WILL CONTINUE TO ASSESS NEEDS Q HOURLY AND PRN. ABDOMEN FIRM AND DISTENDED, HYPOACTIVE BOWEL SOUND X 4 NO N/V OR DIARRHEA NOTED. SKIN WARM AND DRY WITH MULTIPLE WOUND AND PRESSURE INJURY ONGOING TREATMENT
[2021-10-28] MEDS: EPOETIN ALFA-EPBX 4,000 UNITS/ML VIAL SUBCUT SCH (16:39)
[2021-10-28 16:42] VITALS: BP_SYST 119
--- NOTE | 2021-10-28 17:33 | NUR ---
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 SARS-CoV-2 Ag (Rapid) Negative 09/14 Per Caustic Pump Operator note 09/16: 1. Right Sacral area: Unstageable pressure ulcer, present on admission. 2. Right Buttock, Inferior to Site 1: Unstageable pressure ulcer, present on admission. 3. Left Buttock: Stage III pressure ulcer, present on admission. 4. Intergluteal Cleft: Stage III pressure ulcer, present on admission. 5. Left Outer Buttock: Skin tear. 6. Left Anterior Medial Great Toe: Unstageable pressure ulcer, present on admission. 7. Right Posterior Medial Foot, Inferior to First Metatarsal Head: Unstageable pressure ulcer, present on admission. 8. Bilateral Upper Extremities and Hands: Sites have 4+ pitting edema with a moderate amount of weeping. 9. Bilateral Lower Extremities and Feet: Sites have 4+ pitting edema with a moderate amount of weeping. Subjective Information: Late Nutrition F/U note 05/05 high workload. Pt was seen by Jessi Jeffers, MPH, RD at bedside today. RD noted TF Nepro infusing at 40 ml/hr. Current TF order is set for TF to infuse at 35 ml/hr, however, after calculating current TF infusion, Nepro at 40 ml/hr is still appropriate to meet nutritional needs. Per EMR review, pt is waiting transfer to LTAC; continues unresponsive, trach to vent; s/p HD cath placement for renal failure' abd w/ mild distension; firm/rigid abd; LBM 10/27; 2+ generalized edema; receiving HD Q2-3 days; UO still poor; Cr scale: 11 -- multiple wounds noted, please refer to Caustic Pump Operator note 09/16. Current Diet Order/Nutrition Support: Nepro at 35 ml/hr (goal rate), Simon BID, Free Water Flush 225 ml Q6H x15 days Patient/Significant Other Unable To Verbalize Education Provided Not Indicated Pertinent Medications: Reviewed Pertinent Labs: Reviewed Height (Feet) 5 feet Height (Inches) 3.00 inches Weight (Pounds) 280 pounds - NEW WT: (09/20) 210#/95.51 kg - Initial wt was estimated by staff. - Stable since 09/20 Patient Weight 127.006 kg Body Mass Index 49.59 kg/m2 - NEW BMI: (09/20) 37.3 kg/m2 %IBW 243 [place]/Adjusted Body Weight 115#/52.3 kg. 156#/71 kg Recent Weight Change Unable to verify Weight Status Morbidly Obese Food Allergies Unable to verify Usual Diet At Home Unable to verify Estimated Energy Expenditure (kcals/day) *ONGOING 3185-5531 (30-35 kcal/kg IBW d/t morbid obesity, HD, sepsis) Estimated Protein Required (g/day) 52-78 (1.2-1.5 gm/kg IBW d/t morbid obesity, HD, sepsis) Estimated Fluid Required (l/day) Per physician d/t renal failure Problem/Etiology/Signs/Symptoms Increased nutritional needs R/T metabolic demands AEB estimated nutritional requirements for HD, sepsis and compromised skin integrity w/ Cr score 7 (*Ongoing) Altered nutrition-related labs R/T endocrine and renal dysfunction AEB abnormal BG/POC BG/BUN/CRE lab values. (*Ongoing) Malnutrition R/T morbid obesity AEB BMI: 49.59 kg/m2 and 243% of IBW. (*N/A - initial wt was estimated) Expected Outcomes/Goals - Monitor tolerance to EN support w/ goal of pt meeting >80% of estimated nutritional needs, labs trending WNL, normal GI function, and skin integrity/wt maintenance Dietitian Recommendations * Nepro at 40 ml/hr (goal rate), Simon BID, Free Water Flush: 225 ml Q6h (per physician) via GT Provides: 1908 kcal/day, 82 gm protein/day, and 1597 ml free water/day Meets: 104% of lower end of estimated caloric needs and 105% of upper end of estimated protein needs * Nursing please document Simon BID administration Follow Up Moderate Risk: F/U in 3-5 days Addendum: 10/28/21 at [address] CORRECTION: Reviewed Pertinent Medical/Surgical Hx Medical Record
--- NOTE | 2021-10-28 17:39 | NUR ---
Dietitian Recommendations * Nepro at 40 ml/hr (goal rate), Simon BID, Free Water Flush: 225 ml Q6h (per physician) via GT Provides: 1908 kcal/day, 82 gm protein/day, and 1597 ml free water/day Meets: 104% of lower end of estimated caloric needs and 105% of upper end of estimated protein needs * Nursing please document Simon BID administration LP, MS, RD Please refer to Nutrition F/U for details.
[2021-10-28 19:43] VITALS: BP_SYST 132
[2021-10-28] MEDS: INSULIN GLARGINE 100 UNITS/ML 10 ML VIAL SUBCUT SCH (21:09)
[2021-10-29] MEDS: INSULIN REGULAR, HUMAN 100 UNITS/ML, 10 ML VIAL (humuLIN R) SUBCUT PRN ×2 (00:20→06:25)
[2021-10-29 01:03] VITALS: BP_SYST 137
[2021-10-29] MEDS: D5NS 1,000 ML IV SCH (06:14)
[2021-10-29 06:31] LABS: BASOPHILS # (AUTO) 0.1 K/uL (0.0-0.2); BASOPHILS % (AUTO) 0.6 % (0.0-2.0); EOSINOPHILS # (AUTO) 0.2 K/uL (0.0-0.4); EOSINOPHILS % (AUTO) 1.2 % (0.0-4.0); HEMATOCRIT 29.1 % (36-48); HEMOGLOBIN 9.5 g/dL (12.0-16.0); LYMPHOCYTES # (AUTO) 1.4 K/uL (1.0-5.5); LYMPHOCYTES % (AUTO) 8.3 % (20.5-51.5); MEAN CORPUSCULAR HEMOGLOBIN 32 pg (27-31); MEAN CORPUSCULAR HGB CONC 33 % (32-36); MEAN CORPUSCULAR VOLUME 98 fL (79.0-98.0); MONOCYTES # (AUTO) 1.9 K/uL (0.0-1.0); MONOCYTES % (AUTO) 11.3 % (1.7-9.3); NEUTROPHILS # (AUTO) 12.9 K/uL (1.8-7.7); NEUTROPHILS % (AUTO) 78.6 % (40.0-70.0); PLATELET COUNT (AUTO) 189 K/uL (130-430); RED BLOOD CELL COUNT(AUTO) 2.99 MIL/uL (4.2-6.2); RED CELL DISTRIBUTION WIDTH 23.7 % (9.0-15.0); WHITE BLOOD COUNT (AUTO) 16.5 K/uL (4.8-10.8)
[2021-10-29 06:45] LABS: ANION GAP 7 (5-15); CALCIUM 8.5 mg/dL (8.4-11.0); CHLORIDE 102 mmol/L (98-107); GLUCOSE 187 mg/dL (70-99); POTASSIUM 4.3 mmol/L (3.5-5.1); SODIUM SERUM 136 mmol/L (136-145)
[2021-10-29 06:46] LABS: CREATININE 1.34 mg/dL (0.55-1.30); UREA NITROGEN, BLOOD 29 mg/dL (8-21)
[2021-10-29] MEDS: METOCLOPRAMIDE HCL 10 MG/2 ML VIAL IVP SCH ×3 (07:29→17:13)
[2021-10-29] MEDS: LevALBUTEROL HCL 1.25 MG/0.5 ML *CONC.* VIAL.NEB (XOPENEX CONC.) INH SCH ×5 (07:45→23:19)
[2021-10-29 08:00] VITALS: BP_SYST 138; BP_SYST 140
[2021-10-29] MEDS: CHLORHEXIDINE GLUC 0.12% 15 ML MOUTHWASH UDC MM SCH ×2 (09:00→20:19)
[2021-10-29] MEDS: HEPARIN SODIUM,PORCINE 5,000 UNITS/ML VIAL SUBCUT SCH ×2 (09:00→20:18)
[2021-10-29] MEDS: THEOPHYLLINE ANHYDROUS 80 MG/15 ML UDC GT SCH ×2 (09:00→20:16)
[2021-10-29] MEDS: FOLIC ACID 1 MG TABLET GT SCH (09:00)
[2021-10-29] MEDS: DOCUSATE SODIUM 100 MG/10 ML UDC PO SCH ×2 (09:00→20:19)
[2021-10-29 09:19] VITALS: BP_SYST 137
[2021-10-29] MEDS: PANTOPRAZOLE SODIUM 40 MG/VIAL (PROTONIX) IVP SCH ×2 (09:41→20:17)
[2021-10-29] MEDS: CEFIDEROCOL SULFATE TOSYLATE 0.75 GM in NS 100 ML IV SCH ×2 (09:41→21:22)
[2021-10-29] MEDS: levETIRAcetam 1,000 MG in NS 100 ML IV SCH ×2 (09:41→20:22)
[2021-10-29] MEDS: BALSAM PERU/CASTOR OIL 56.7 GM OINT...G. TP SCH (09:41)
[2021-10-29] MEDS: COLISTIMETHATE SODIUM 150 MG VIAL INH SCH ×2 (11:36→20:27)
[2021-10-29 12:00] VITALS: BP_SYST 92
[2021-10-29] MEDS: ALBUMIN HUMAN 25% 50 ML IV SCH (13:01)
[2021-10-29] MEDS: ALBUMIN HUMAN 25% 100 ML IV ONE ×2 (13:51→13:56)
[2021-10-29 16:00] VITALS: BP_SYST 120
[2021-10-29 20:00] VITALS: BP_SYST 122
[2021-10-29] MEDS: INSULIN GLARGINE 100 UNITS/ML 10 ML VIAL SUBCUT SCH (21:27)
[2021-10-30 00:36] VITALS: BP_SYST 136
--- NOTE | 2021-10-30 01:34 | NUR ---
Patient in bed. No acute distress noted. Turned repositioned q2. HOB elevated. Gtube patent and intact. Will continue to monitor.
[2021-10-30] MEDS: LevALBUTEROL HCL 1.25 MG/0.5 ML *CONC.* VIAL.NEB (XOPENEX CONC.) INH SCH ×6 (03:13→23:15)
[2021-10-30] MEDS: METOCLOPRAMIDE HCL 10 MG/2 ML VIAL IVP SCH (05:44)
[2021-10-30] MEDS: D5NS 1,000 ML IV SCH (06:11)
[2021-10-30] MEDS: DEXTROSE 50%-WATER 50 ML DISP.SYRIN IVP PRN ×2 (06:28→17:06)
[2021-10-30] MEDS: COLISTIMETHATE SODIUM 150 MG VIAL INH SCH ×2 (07:22→23:16)
[2021-10-30 08:00] VITALS: BP_SYST 98
[2021-10-30] MEDS: BALSAM PERU/CASTOR OIL 56.7 GM OINT...G. TP SCH (08:59)
[2021-10-30] MEDS: DOCUSATE SODIUM 100 MG/10 ML UDC PO SCH ×2 (08:59→21:21)
[2021-10-30] MEDS: FOLIC ACID 1 MG TABLET GT SCH (08:59)
[2021-10-30] MEDS: PANTOPRAZOLE SODIUM 40 MG/VIAL (PROTONIX) IVP SCH ×2 (09:00→21:21)
[2021-10-30] MEDS: THEOPHYLLINE ANHYDROUS 80 MG/15 ML UDC GT SCH ×2 (09:00→21:20)
[2021-10-30] MEDS: CHLORHEXIDINE GLUC 0.12% 15 ML MOUTHWASH UDC MM SCH ×2 (09:00→21:36)
[2021-10-30] MEDS: HEPARIN SODIUM,PORCINE 5,000 UNITS/ML VIAL SUBCUT SCH ×2 (09:02→21:30)
[2021-10-30 12:00] VITALS: BP_SYST 97
[2021-10-30] MEDS: levETIRAcetam 1,000 MG in NS 100 ML IV SCH ×2 (12:40→21:35)
[2021-10-30] MEDS: CEFIDEROCOL SULFATE TOSYLATE 0.75 GM in NS 100 ML IV SCH ×2 (16:10→21:21)
[2021-10-30 16:48] VITALS: BP_SYST 133
[2021-10-30 20:58] VITALS: BP_SYST 129
[2021-10-30] MEDS: INSULIN GLARGINE 100 UNITS/ML 10 ML VIAL SUBCUT SCH (21:27)
[2021-10-31 00:19] VITALS: BP_SYST 127
[2021-10-31] MEDS: LevALBUTEROL HCL 1.25 MG/0.5 ML *CONC.* VIAL.NEB (XOPENEX CONC.) INH SCH ×6 (03:19→23:27)
[2021-10-31] MEDS: INSULIN REGULAR, HUMAN 100 UNITS/ML, 10 ML VIAL (humuLIN R) SUBCUT PRN ×2 (06:25→17:35)
[2021-10-31] MEDS: D5NS 1,000 ML IV SCH ×2 (06:32→18:19)
--- NOTE | 2021-10-31 07:15 | NUR ---
OPENING NOTE RECEIVED SBAR FROM NIGHT NURSE. VENT RUNNING ORDERED.
[2021-10-31] MEDS: COLISTIMETHATE SODIUM 150 MG VIAL INH SCH ×2 (07:24→21:45)
[2021-10-31 08:00] VITALS: BP_SYST 105
--- NOTE | 2021-10-31 08:00 | NUR ---
ORAL CARE PROVIDED ORAL CARE. PT TOLERATED WELL.
[2021-10-31] MEDS: PANTOPRAZOLE SODIUM 40 MG/VIAL (PROTONIX) IVP SCH ×2 (08:36→21:17)
[2021-10-31] MEDS: DOCUSATE SODIUM 100 MG/10 ML UDC PO SCH ×2 (08:37→21:17)
[2021-10-31] MEDS: FOLIC ACID 1 MG TABLET GT SCH (08:37)
[2021-10-31] MEDS: CHLORHEXIDINE GLUC 0.12% 15 ML MOUTHWASH UDC MM SCH ×2 (08:37→20:46)
[2021-10-31] MEDS: levETIRAcetam 1,000 MG in NS 100 ML IV SCH ×2 (08:39→20:49)
[2021-10-31] MEDS: HEPARIN SODIUM,PORCINE 5,000 UNITS/ML VIAL SUBCUT SCH ×2 (08:42→21:19)
[2021-10-31] MEDS: BALSAM PERU/CASTOR OIL 56.7 GM OINT...G. TP SCH (08:43)
[2021-10-31] MEDS: THEOPHYLLINE ANHYDROUS 80 MG/15 ML UDC GT SCH ×2 (08:43→20:46)
[2021-10-31] MEDS: CEFIDEROCOL SULFATE TOSYLATE 0.75 GM in NS 100 ML IV SCH ×2 (10:56→20:49)
[2021-10-31 12:00] VITALS: BP_SYST 151
--- NOTE | 2021-10-31 12:00 | NUR ---
MD DR AMADOR BEDSIDE EXAMINING PATIENT
--- NOTE | 2021-10-31 12:00 | NUR ---
ORAL CARE PROVIDED ORAL CARE. PT TOLERATED WELL.
--- NOTE | 2021-10-31 13:03 | NUR ---
NURSE NOTE RT IN ROOM ATTEMPTING TO SUCTION. PATIENT IS FIGHTING SUCTION. WILL PROVIDE ANXIETY MEDICATION
[2021-10-31] MEDS: LORazepam 2 MG/ML VIAL IVP PRN ×2 (13:08→17:25)
[2021-10-31 16:00] VITALS: BP_SYST 137
--- NOTE | 2021-10-31 16:00 | NUR ---
ORAL CARE PROVIDED ORAL CARE. PT TOLERATED WELL.
[2021-10-31] MEDS: EPOETIN ALFA-EPBX 4,000 UNITS/ML VIAL SUBCUT SCH (17:26)
--- NOTE | 2021-10-31 18:23 | NUR ---
gtube 0 residual, flushed freely with 220 ml water and Simon. replaced gtube feeding bottle
--- NOTE | 2021-10-31 19:15 | NUR ---
CLOSING NOTE PROVIDED SBAR TO MEDICAL CENTER DIRECTOR NURSE PT IN BED. BED IS LOW AND LOCKED. FEEDING RUNNING ORDERED. IV RUNNING ORDERED. JAMES CARE PROVIDED. NO SIGNS OF PAIN/DISCOMFORT. ENDORSED CARE TO NIGHT RN.
[2021-10-31 20:08] VITALS: BP_SYST 136
[2021-10-31] MEDS: INSULIN GLARGINE 100 UNITS/ML 10 ML VIAL SUBCUT SCH (21:09)
[2021-11-01 00:13] VITALS: BP_SYST 130
[2021-11-01] MEDS: INSULIN REGULAR, HUMAN 100 UNITS/ML, 10 ML VIAL (humuLIN R) SUBCUT PRN ×2 (05:13→21:00)
[2021-11-01] MEDS: LevALBUTEROL HCL 1.25 MG/0.5 ML *CONC.* VIAL.NEB (XOPENEX CONC.) INH SCH ×5 (07:49→23:17)
[2021-11-01 08:16] VITALS: BP_SYST 114
[2021-11-01 08:52] LABS: HEMATOCRIT 29.8 % (36-48); HEMOGLOBIN 9.3 g/dL (12.0-16.0); MEAN CORPUSCULAR HEMOGLOBIN 32 pg (27-31); MEAN CORPUSCULAR HGB CONC 31 % (32-36); MEAN CORPUSCULAR VOLUME 102 fL (79.0-98.0); PLATELET COUNT (AUTO) 234 K/uL (130-430); RED BLOOD CELL COUNT(AUTO) 2.92 MIL/uL (4.2-6.2); RED CELL DISTRIBUTION WIDTH 24.1 % (9.0-15.0); WHITE BLOOD COUNT (AUTO) 25.1 K/uL (4.8-10.8)
[2021-11-01] MEDS: THEOPHYLLINE ANHYDROUS 80 MG/15 ML UDC GT SCH ×2 (09:06→21:03)
[2021-11-01] MEDS: CHLORHEXIDINE GLUC 0.12% 15 ML MOUTHWASH UDC MM SCH ×2 (09:06→21:03)
[2021-11-01] MEDS: FOLIC ACID 1 MG TABLET GT SCH (09:09)
[2021-11-01] MEDS: DOCUSATE SODIUM 100 MG/10 ML UDC PO SCH ×2 (09:10→21:03)
[2021-11-01] MEDS: PANTOPRAZOLE SODIUM 40 MG/VIAL (PROTONIX) IVP SCH ×2 (09:10→21:04)
[2021-11-01] MEDS: HEPARIN SODIUM,PORCINE 5,000 UNITS/ML VIAL SUBCUT SCH ×2 (09:12→21:01)
[2021-11-01] MEDS: levETIRAcetam 1,000 MG in NS 100 ML IV SCH ×2 (09:30→21:05)
[2021-11-01] MEDS: BALSAM PERU/CASTOR OIL 56.7 GM OINT...G. TP SCH (09:31)
[2021-11-01 09:38] LABS: ALANINE AMINOTRANSFERASE 5 U/L (12-78); ALBUMIN 1.6 g/dL (3.4-4.8); ANION GAP 12 (5-15); ASPARTATE AMINOTRANSFERASE 21 U/L (10-37); CALCIUM 8.7 mg/dL (8.4-11.0); CHLORIDE 104 mmol/L (98-107); CREATININE 1.48 mg/dL (0.55-1.30); GLUCOSE 158 mg/dL (70-99); POTASSIUM 3.3 mmol/L (3.5-5.1); SODIUM SERUM 140 mmol/L (136-145); TOTAL BILIRUBIN 0.5 mg/dL (0.0-1.0); UREA NITROGEN, BLOOD 29 mg/dL (8-21)
[2021-11-01] MEDS: CEFIDEROCOL SULFATE TOSYLATE 0.75 GM in NS 100 ML IV SCH ×2 (10:00→21:07)
[2021-11-01 11:05] VITALS: BP_SYST 128
[2021-11-01] MEDS: COLISTIMETHATE SODIUM 150 MG VIAL INH SCH ×2 (11:11→21:33)
[2021-11-01] MEDS ORDERED: HEPARIN SODIUM,PORCINE 5,000 UNITS/ML VIAL MC ONE ×2 (11:37→11:45)
[2021-11-01 13:42] VITALS: BP_SYST 87
[2021-11-01 13:58] LABS: BAND % (MANUAL) 11 % (0-6); LYMPHOCYTES % (MANUAL) 6 % (20-46)
[2021-11-01 13:59] LABS: BASOPHILS % (MANUAL) 0 % (0-2); EOSINOPHILS % (MANUAL) 0 % (0-7); MONOCYTES % (MANUAL) 6 % (0-11)
--- NOTE | 2021-11-01 17:51 | NUR ---
Nutrition Consult RD received nutrition consult 10/[address] recommendations remain adequate for TF * Nepro at 40 ml/hr (goal rate), Simon BID, Free Water Flush: 225 ml Q6h (per physician) via GT Provides: 1908 kcal/day, 82 gm protein/day, and 1597 ml free water/day Meets: 104% of lower end of estimated caloric needs and 105% of upper end of estimated protein needs * Nursing please document Simon BID administration New Recommendation for wound support: * Initiate wound care supplements: daily MVI, 500mg vitamin C BID, 220mg zincate BID x 14 days CC, MPH, RDN
[2021-11-01 20:00] VITALS: BP_SYST 132
--- NOTE | 2021-11-01 20:00 | NUR ---
RECEIVED PT IN BED TRACH TO VENT GTUBE PATENT PT PLAN OF CARE REVIEWED AND ASSESSMENT COMPLETED PT OBTUNDENT TURNED AND REPOSITIONED FOR COMFORT WITH PILLOWS PT CONDITION GUARDED AT THIS TIME WILL CONTINUE TO MONITOR AND ASSESS
[2021-11-01] MEDS: INSULIN GLARGINE 100 UNITS/ML 10 ML VIAL SUBCUT SCH (20:58)
[2021-11-02] VITALS: BP_SYST 110
--- NOTE | 2021-11-02 00:15 | NUR ---
PT NON VERBAL UNABLE TO MAKE NEEDS KNOWN TURNED AND REPOSITIONED SUCTIONED VIA TRACHEAL PRN WILL CONTINUE TO MONITOR AND ASSESS INCONTINENT OF BM WOUND CARE RENDERED
[2021-11-02 04:00] VITALS: BP_SYST 100
--- NOTE | 2021-11-02 05:32 | NUR ---
ALL NEEDS ANTICIPATED TURNED AND REPOSTIONED CONDITION GUARDED AT THIS TIME
[2021-11-02] MEDS: D5NS 1,000 ML IV SCH ×2 (06:05→20:45)
[2021-11-02] MEDS: LevALBUTEROL HCL 1.25 MG/0.5 ML *CONC.* VIAL.NEB (XOPENEX CONC.) INH SCH ×5 (08:06→23:01)
[2021-11-02 08:31] VITALS: BP_SYST 108
[2021-11-02 08:54] LABS: BASOPHILS # (AUTO) 0.1 K/uL (0.0-0.2); BASOPHILS % (AUTO) 0.5 % (0.0-2.0); EOSINOPHILS # (AUTO) 0.1 K/uL (0.0-0.4); EOSINOPHILS % (AUTO) 0.3 % (0.0-4.0); HEMOGLOBIN 8.7 g/dL (12.0-16.0); LYMPHOCYTES # (AUTO) 1.2 K/uL (1.0-5.5); LYMPHOCYTES % (AUTO) 5.1 % (20.5-51.5); MEAN CORPUSCULAR HEMOGLOBIN 31 pg (27-31); MEAN CORPUSCULAR HGB CONC 31 % (32-36); MEAN CORPUSCULAR VOLUME 102 fL (79.0-98.0); MONOCYTES # (AUTO) 1.8 K/uL (0.0-1.0); MONOCYTES % (AUTO) 7.6 % (1.7-9.3); NEUTROPHILS # (AUTO) 20.1 K/uL (1.8-7.7); NEUTROPHILS % (AUTO) 86.5 % (40.0-70.0); PLATELET COUNT (AUTO) 199 K/uL (130-430); RED BLOOD CELL COUNT(AUTO) 2.76 MIL/uL (4.2-6.2); RED CELL DISTRIBUTION WIDTH 23.3 % (9.0-15.0); WHITE BLOOD COUNT (AUTO) 23.3 K/uL (4.8-10.8)
[2021-11-02] MEDS: THEOPHYLLINE ANHYDROUS 80 MG/15 ML UDC GT SCH ×2 (09:22→20:33)
[2021-11-02] MEDS: FOLIC ACID 1 MG TABLET GT SCH (09:23)
[2021-11-02] MEDS: DOCUSATE SODIUM 100 MG/10 ML UDC PO SCH ×2 (09:23→20:31)
[2021-11-02] MEDS: HEPARIN SODIUM,PORCINE 5,000 UNITS/ML VIAL SUBCUT SCH (09:24)
[2021-11-02] MEDS: PANTOPRAZOLE SODIUM 40 MG/VIAL (PROTONIX) IVP SCH ×2 (09:24→20:31)
[2021-11-02] MEDS: BALSAM PERU/CASTOR OIL 56.7 GM OINT...G. TP SCH (09:27)
[2021-11-02] MEDS: CHLORHEXIDINE GLUC 0.12% 15 ML MOUTHWASH UDC MM SCH ×2 (09:27→20:33)
[2021-11-02] MEDS: levETIRAcetam 1,000 MG in NS 100 ML IV SCH ×2 (09:29→20:32)
[2021-11-02] MEDS: CEFIDEROCOL SULFATE TOSYLATE 0.75 GM in NS 100 ML IV SCH ×2 (10:43→20:31)
[2021-11-02 11:49] VITALS: BP_SYST 105
[2021-11-02] MEDS: INSULIN REGULAR, HUMAN 100 UNITS/ML, 10 ML VIAL (humuLIN R) SUBCUT PRN (16:30)
[2021-11-02] MEDS: EPOETIN ALFA-EPBX 4,000 UNITS/ML VIAL SUBCUT SCH (17:09)
--- NOTE | 2021-11-02 17:44 | NUR ---
0730 Pt. in bed, hob at 30 degrees, non responsive, vss, air mattress in use, trach to vent with rx'd settings will monitor. 1200 Vss, no distress, scant secretions noted with suction, hob at 30 degrees, feeding via gtube noted. 1600 Hold on gtube feeding due to large residual, skin care given, bath done, pt. tolerated welll
--- NOTE | 2021-11-02 18:24 | NUR ---
1800 Pt. needs met, turned, kept dry and clean. Dressings to all wounds in place, trach to vent with rx'd settings. Hob at 30 degrees.
[2021-11-02 18:25] VITALS: BP_SYST 117
[2021-11-02 20:00] VITALS: BP_SYST 104
--- NOTE | 2021-11-02 20:00 | NUR ---
RECEIVED IN BED ASSESSMENT COMPLETED PLAN OF CARE REVIEWED PT OBTUNDENT TRACH TO VENT GT IN PLACE PATENT TURNED AND REPOSITIONED WILL CONTINUE TO MONITOR AND ASSESS
[2021-11-02] MEDS: INSULIN GLARGINE 100 UNITS/ML 10 ML VIAL SUBCUT SCH (20:35)
[2021-11-03] VITALS (9 sets, daily range): BP systolic 90–117
--- NOTE | 2021-11-03 00:30 | NUR ---
TURNED AND REPOSITIONED UPON ROUNDING CONDITION GUARDED WILL CONTINUE TO MONITOR AND ASSESS
[2021-11-03] MEDS: LevALBUTEROL HCL 1.25 MG/0.5 ML *CONC.* VIAL.NEB (XOPENEX CONC.) INH SCH ×4 (04:17→22:22)
[2021-11-03] MEDS: COLISTIMETHATE SODIUM 150 MG VIAL INH SCH ×3 (04:18→22:23)
[2021-11-03] MEDS: BALSAM PERU/CASTOR OIL 56.7 GM OINT...G. TP SCH (09:00)
[2021-11-03] MEDS: THEOPHYLLINE ANHYDROUS 80 MG/15 ML UDC GT SCH ×2 (09:00→21:10)
[2021-11-03] MEDS: CHLORHEXIDINE GLUC 0.12% 15 ML MOUTHWASH UDC MM SCH ×2 (09:00→21:11)
[2021-11-03] MEDS: FOLIC ACID 1 MG TABLET GT SCH (09:28)
[2021-11-03] MEDS: PANTOPRAZOLE SODIUM 40 MG/VIAL (PROTONIX) IVP SCH ×2 (09:28→21:11)
[2021-11-03] MEDS: DOCUSATE SODIUM 100 MG/10 ML UDC PO SCH ×2 (09:28→21:12)
[2021-11-03] MEDS: levETIRAcetam 1,000 MG in NS 100 ML IV SCH ×2 (09:29→21:11)
[2021-11-03] MEDS: CEFIDEROCOL SULFATE TOSYLATE 0.75 GM in NS 100 ML IV SCH ×2 (11:34→21:11)
[2021-11-03] MEDS ORDERED: HEPARIN SODIUM,PORCINE 5,000 UNITS/ML VIAL MC ONE (14:00)
--- NOTE | 2021-11-03 17:38 | NUR ---
0730 Pt. in bed, hob at 30 degrees, vent to trach at rx'd settings, pox of 99%. NO distress noted, air mattress in use 1200 Pt. with no distress, vent to trach at same settings, gtube feeding in place with no residual. Start of dialysis, vss 1400 Tolerating dialysis, vss 1600 Dialysis done, vss, 2L off, pt. tolerated well, pt. given bedbath, wound care to coccyx done. Addendum: 11/03/21 at 1836 by [facility] clinical lab scientist 1800 Pt. with hob at 30 degrees, no residual of feeding, pt. is blind, and non responsive. Pt. is being kept comfortable and is on ventilator to trach at rx'd settings. Huge , odourous , draining wound to coccyx dressing change done, pt. tolerated well. No new orders from primary doctor. Pt. has had no family members call for updates on condition or has any family visited during my days of care of pt.
--- NOTE | 2021-11-03 20:00 | NUR ---
PT OBTUNDENT ASSESSMENT COMPLETED PLAN OF CARE REVIEWED WILL CONTINUE TO MONITOR AND ASSESS
[2021-11-03] MEDS: INSULIN GLARGINE 100 UNITS/ML 10 ML VIAL SUBCUT SCH (21:06)
[2021-11-04] VITALS (7 sets, daily range): BP systolic 101–121
[2021-11-04] MEDS: LevALBUTEROL HCL 1.25 MG/0.5 ML *CONC.* VIAL.NEB (XOPENEX CONC.) INH SCH ×4 (02:26→21:21)
--- NOTE | 2021-11-04 03:16 | NUR ---
PT RIGHT UPPER PICC LINE DRESSING CHANGED 11/01/2021 AMD MOPT DUE FOR CHANGE SITE DRY AND INTACT
--- NOTE | 2021-11-04 04:00 | NUR ---
ALL NEEDS ANTICIPATED AND MET CONDITION GUARDED
[2021-11-04] MEDS: D5NS 1,000 ML IV SCH (05:43)
[2021-11-04 08:21] LABS: BASOPHILS # (AUTO) 0.1 K/uL (0.0-0.2); BASOPHILS % (AUTO) 0.6 % (0.0-2.0); EOSINOPHILS # (AUTO) 0.2 K/uL (0.0-0.4); EOSINOPHILS % (AUTO) 1.4 % (0.0-4.0); HEMATOCRIT 26.9 % (36-48); HEMOGLOBIN 8.7 g/dL (12.0-16.0); LYMPHOCYTES % (AUTO) 7.3 % (20.5-51.5); MEAN CORPUSCULAR HEMOGLOBIN 32 pg (27-31); MEAN CORPUSCULAR HGB CONC 32 % (32-36); MEAN CORPUSCULAR VOLUME 99 fL (79.0-98.0); MONOCYTES # (AUTO) 1.8 K/uL (0.0-1.0); MONOCYTES % (AUTO) 12.9 % (1.7-9.3); NEUTROPHILS # (AUTO) 10.9 K/uL (1.8-7.7); NEUTROPHILS % (AUTO) 77.8 % (40.0-70.0); PLATELET COUNT (AUTO) 161 K/uL (130-430)
[2021-11-04] MEDS: PANTOPRAZOLE SODIUM 40 MG/VIAL (PROTONIX) IVP SCH ×2 (08:57→21:33)
[2021-11-04] MEDS: FOLIC ACID 1 MG TABLET GT SCH (08:58)
[2021-11-04] MEDS: levETIRAcetam 1,000 MG in NS 100 ML IV SCH ×2 (08:59→21:31)
[2021-11-04] MEDS: BALSAM PERU/CASTOR OIL 56.7 GM OINT...G. TP SCH (09:00)
[2021-11-04] MEDS: DOCUSATE SODIUM 100 MG/10 ML UDC PO SCH ×2 (09:00→21:33)
[2021-11-04] MEDS: CHLORHEXIDINE GLUC 0.12% 15 ML MOUTHWASH UDC MM SCH ×2 (13:36→21:33)
[2021-11-04] MEDS: THEOPHYLLINE ANHYDROUS 80 MG/15 ML UDC GT SCH ×2 (13:36→21:36)
[2021-11-04] MEDS: CEFIDEROCOL SULFATE TOSYLATE 0.75 GM in NS 100 ML IV SCH ×2 (13:37→21:37)
[2021-11-04] MEDS: EPOETIN ALFA-EPBX 4,000 UNITS/ML VIAL SUBCUT SCH (17:25)
[2021-11-04] MEDS: INSULIN GLARGINE 100 UNITS/ML 10 ML VIAL SUBCUT SCH (21:34)
--- NOTE | 2021-11-05 | NUR ---
NO CHANGES NOTED FROM PREVIOUS ASSESSMENT, REPOSITIONED PER COMFORT, WILL CONTINUE TO MONITOR.
[2021-11-05] MEDS: LevALBUTEROL HCL 1.25 MG/0.5 ML *CONC.* VIAL.NEB (XOPENEX CONC.) INH SCH ×7 (00:24→23:28)
[2021-11-05 00:49] VITALS: BP_SYST 119
[2021-11-05] MEDS: D5NS 1,000 ML IV SCH (05:31)
--- NOTE | 2021-11-05 06:00 | NUR ---
PT RESTING COMFORTABLE IN BED, NO S/S OF DISTRESS OR DISCOMFORT NOTED, AM CARE RENDERED TO PT, ORAL CARE DONE, TRACH SUCTIONED, CLEANED AND CHANGED, TUBE FEEDING STILL INFUSING AT ORDERED RATE, NO RESIDUAL NOTED THROUGHOUT THE SHIFT, PT TOLERATES FEEDING WELL, REPOSITIONED PER COMFORT, WILL CONTINUE TO MONITOR.
[2021-11-05 07:28] LABS: BASOPHILS # (AUTO) 0.1 K/uL (0.0-0.2); BASOPHILS % (AUTO) 0.8 % (0.0-2.0); EOSINOPHILS # (AUTO) 0.2 K/uL (0.0-0.4); EOSINOPHILS % (AUTO) 1.7 % (0.0-4.0); HEMATOCRIT 27.4 % (36-48); HEMOGLOBIN 9.1 g/dL (12.0-16.0); LYMPHOCYTES # (AUTO) 0.9 K/uL (1.0-5.5); LYMPHOCYTES % (AUTO) 7.6 % (20.5-51.5); MEAN CORPUSCULAR HEMOGLOBIN 33 pg (27-31); MEAN CORPUSCULAR HGB CONC 33 % (32-36); MEAN CORPUSCULAR VOLUME 99 fL (79.0-98.0); MONOCYTES # (AUTO) 1.1 K/uL (0.0-1.0); NEUTROPHILS # (AUTO) 9.2 K/uL (1.8-7.7); NEUTROPHILS % (AUTO) 79.9 % (40.0-70.0); PLATELET COUNT (AUTO) 171 K/uL (130-430); RED BLOOD CELL COUNT(AUTO) 2.78 MIL/uL (4.2-6.2); RED CELL DISTRIBUTION WIDTH 24.6 % (9.0-15.0); WHITE BLOOD COUNT (AUTO) 11.5 K/uL (4.8-10.8)
[2021-11-05 08:30] VITALS: BP_SYST 132
[2021-11-05] MEDS: levETIRAcetam 1,000 MG in NS 100 ML IV SCH ×2 (09:00→22:21)
[2021-11-05] MEDS: BALSAM PERU/CASTOR OIL 56.7 GM OINT...G. TP SCH (09:00)
[2021-11-05 09:47] LABS: ALANINE AMINOTRANSFERASE 10 U/L (12-78); ALBUMIN 1.3 g/dL (3.4-4.8); ANION GAP 12 (5-15); ASPARTATE AMINOTRANSFERASE 30 U/L (10-37); CALCIUM 8.5 mg/dL (8.4-11.0); CHLORIDE 102 mmol/L (98-107); CREATININE 1.15 mg/dL (0.55-1.30); GLUCOSE 148 mg/dL (70-99); POTASSIUM 3.5 mmol/L (3.5-5.1); SODIUM SERUM 138 mmol/L (136-145); TOTAL BILIRUBIN 0.2 mg/dL (0.0-1.0); UREA NITROGEN, BLOOD 28 mg/dL (8-21)
--- NOTE | 2021-11-05 10:30 | NUR ---
received report from Ember , per dr. mic wells pt npo for possible placement of permacath.
[2021-11-05] MEDS: CHLORHEXIDINE GLUC 0.12% 15 ML MOUTHWASH UDC MM SCH ×2 (10:41→21:53)
[2021-11-05] MEDS: FOLIC ACID 1 MG TABLET GT SCH (10:41)
[2021-11-05] MEDS: PANTOPRAZOLE SODIUM 40 MG/VIAL (PROTONIX) IVP SCH ×2 (10:42→21:54)
[2021-11-05] MEDS: THEOPHYLLINE ANHYDROUS 80 MG/15 ML UDC GT SCH ×2 (10:42→21:53)
[2021-11-05] MEDS: DOCUSATE SODIUM 100 MG/10 ML UDC PO SCH ×2 (10:42→21:53)
[2021-11-05] MEDS: CEFIDEROCOL SULFATE TOSYLATE 0.75 GM in NS 100 ML IV SCH ×2 (11:15→22:24)
[2021-11-05 12:50] VITALS: BP_SYST 137
[2021-11-05] MEDS ORDERED: HEPARIN SODIUM,PORCINE 5,000 UNITS/ML VIAL MC ONE (15:15)
[2021-11-05] MEDS ORDERED: ALBUMIN HUMAN 25% 100 ML IV ONE (15:45)
[2021-11-05] MEDS ORDERED: HEPARIN SODIUM,PORCINE 5,000 UNITS/ML VIAL ONE (15:45)
[2021-11-05 16:00] VITALS: BP_SYST 62
--- NOTE | 2021-11-05 17:02 | NUR ---
Nutrition F/U Admitting Diagnosis Septic shock Reviewed Pertinent Medical/Surgical Hx Medical Record Medical History Comment: PMH: HTN, DM, seizure disorder, stroke, chronic respiratory failure, and chronic anemia per physician notes Pt also found w/ acute on chronic renal failure per physician notes SARS-CoV-2 Ag (Rapid) Negative 09/14 Per Associate Editor note 09/16: 1. Right Sacral area: Unstageable pressure ulcer, present on admission. 2. Right Buttock, Inferior to Site 1: Unstageable pressure ulcer, present on admission. 3. Left Buttock: Stage III pressure ulcer, present on admission. 4. Intergluteal Cleft: Stage III pressure ulcer, present on admission. 5. Left Outer Buttock: Skin tear. 6. Left Anterior Medial Great Toe: Unstageable pressure ulcer, present on admission. 7. Right Posterior Medial Foot, Inferior to First Metatarsal Head: Unstageable pressure ulcer, present on admission. 8. Bilateral Upper Extremities and Hands: Sites have 4+ pitting edema with a moderate amount of weeping. 9. Bilateral Lower Extremities and Feet: Sites have 4+ pitting edema with a moderate amount of weeping. Subjective Information: RD bedside visit deferred d/t high workload. Per LOS meeting this morning, plans for tunneled HD permacath placement by Dr. Vasquez; pt placed on NPO today in anticipation for Sx; pt remains non-communicative on trach/vent; 3+ generalized edema noted; abd is distended/firm w/ active bowel sounds; LBM x3 8/; Nepro TF ran at 40 ml/hr 11/04; 0 ml GRV 11/04. Current Diet Order/Nutrition Support: Nepro at 35 ml/hr (goal rate), Simon BID, Free Water Flush 225 ml Q6H x15 days Patient/Significant Other Unable To Verbalize Education Provided Not Indicated Pertinent Medications: protonix IV, D5NS at 40 ml/hr (163 kcal/day), colace, lantus, folic acid, zofran, SSI Pertinent Labs: WBC 11.5 H, BUN 28 H, BG 148 H, POC BG 120 H, ALP 194 H, ALB 1.3 L Height (Feet) 5 feet Height (Inches) 3.00 inches Weight (Pounds) 280 pounds - NEW WT: (09/20) 210#/95.51 kg - Initial wt was estimated by staff. - Stable since 09/20 Patient Weight 127.006 kg Body Mass Index 49.59 kg/m2 - NEW BMI: (09/20) 37.3 kg/m2 %IBW 243 [place]/Adjusted Body Weight 115#/52.3 kg. 156#/71 kg Recent Weight Change Unable to verify Weight Status Morbidly Obese Food Allergies Unable to verify Usual Diet At Home Unable to verify Estimated Energy Expenditure (kcals/day) *ONGOING [id number] (30-35 kcal/kg IBW d/t morbid obesity, HD, sepsis) Estimated Protein Required (g/day) 52-78 (1.2-1.5 gm/kg IBW d/t morbid obesity, HD, sepsis) Estimated Fluid Required (l/day) Per physician d/t renal failure Problem/Etiology/Signs/Symptoms Increased nutritional needs R/T metabolic demands AEB estimated nutritional requirements for HD, sepsis and compromised skin integrity w/ Cr score 7 (*Ongoing) Altered nutrition-related labs R/T endocrine and renal dysfunction AEB abnormal BG/POC BG/BUN/CRE lab values. (*Ongoing) Malnutrition R/T morbid obesity AEB BMI: 49.59 kg/m2 and 243% of IBW. (*N/A - initial wt was estimated) Expected Outcomes/Goals - Monitor tolerance to EN support w/ goal of pt meeting >80% of estimated nutritional needs, labs trending WNL, normal GI function, and skin integrity/wt maintenance Dietitian Recommendations * Continue NPO for Sx * If/when medically appropriate, resume Nepro at 40 ml/hr (goal rate), Simon BID, Free Water Flush: 225 ml Q6h (per physician) via GT Provides: 1908 kcal/day, 82 gm protein/day, and 1597 ml free water/day Meets: 104% of lower end of estimated caloric needs and 105% of upper end of estimated protein needs * Nursing please document Simon BID administration Follow Up High Risk: F/U in 2-3 days
--- NOTE | 2021-11-05 17:09 | NUR ---
Dietitian Recommendations * Continue NPO for Sx * If/when medically appropriate, resume Nepro at 40 ml/hr (goal rate), Simon BID, Free Water Flush: 225 ml Q6h (per physician) via GT Provides: 1908 kcal/day, 82 gm protein/day, and 1597 ml free water/day Meets: 104% of lower end of estimated caloric needs and 105% of upper end of estimated protein needs * Nursing please document Simon BID administration LP, MS, RD Please refer to Nutrition F/U for details.
--- NOTE | 2021-11-05 18:00 | NUR ---
PATIENT DIALYZED , 0 OUTPUT, NO S/S OF DISTRESS, VITAL SIGN STABLE, AFEBRILE.
--- NOTE | 2021-11-05 19:22 | NUR ---
ENDORSEMENT REPORT GIVEN TO FRANKO ZULUAGA. PT SURGERY SCHEDULE TOMORROW 9 AM, 11/06/21. WITH DR. MCCLAIN. NPO POST MIDNIGHT. G-TUBE FEEDING 40ML/H. NO RESIDUAL NOTED.
--- NOTE | 2021-11-05 19:22 | NUR ---
RECEIVED REPORT ON PATIENT FROM DAYSHIFT RN, ASSUMED CARE, AND STARTED ASSESSMENT.
[2021-11-05 20:00] VITALS: BP_SYST 97
[2021-11-05] MEDS: HEPARIN SODIUM,PORCINE 5,000 UNITS/ML VIAL SUBCUT SCH (21:00)
[2021-11-05] MEDS: INSULIN GLARGINE 100 UNITS/ML 10 ML VIAL SUBCUT SCH (21:00)
[2021-11-05] MEDS ORDERED: LevETIRAcetam 500 MG/5 ML UDC ORAL LIQUID ONE (22:14)
[2021-11-06 00:02] VITALS: BP_SYST 109
--- NOTE | 2021-11-06 02:30 | NUR ---
COMPLETE BED BATH AND LINEN CHANGE GIVEN. DRESSINGS ON THE SACRUM AND BUTTOCKS WS CHANGED. WILL CONTINUE TO MONITOR AND ASSESS FOR SAFETY AND COMFORT.
[2021-11-06] MEDS: LevALBUTEROL HCL 1.25 MG/0.5 ML *CONC.* VIAL.NEB (XOPENEX CONC.) INH SCH ×6 (03:19→23:28)
[2021-11-06 05:21] LABS: BILIRUBIN,URINE 1+ (NEGATIVE); BLOOD, URINE 3+ (NEGATIVE); CLARITY/URINE SL CLOUDY (CLEAR); COLOR,URINE YELLOW (YELLOW); GLUCOSE,URINE NEGATIVE (NEGATIVE); KETONES,URINE TRACE (NEGATIVE); LEUKOCYTE ESTERASE ,URINE 2+ (NEGATIVE); NITRITE, URINE NEGATIVE (NEGATIVE); PROTEIN URINE 2+ (NEGATIVE); UROBILINOGEN,URINE 0.2 (0.2-1.0)
[2021-11-06] MEDS: D5NS 1,000 ML IV SCH (06:05)
[2021-11-06 06:56] LABS: BACTERIA,URINE None Seen /HPF (None Seen); MUCUS,URINE None Seen /LPF (None Seen); WBC,URINE 50-80 /HPF (0-3)
--- NOTE | 2021-11-06 06:57 | NUR ---
CHG BATH GIVEN, PRE-OP CHECKLIST COMPLETED, AND PT HAS BEEN NPO SINCE MIDNIGHT, AND THE SURGICAL CONSENT HAS BEEN SIGNED. PT IS READY FOR SURGERY.
[2021-11-06 08:00] VITALS: BP_SYST 110
[2021-11-06] MEDS ORDERED: METOCLOPRAMIDE HCL 10 MG/2 ML VIAL IVP PRN (08:30)
[2021-11-06] MEDS ORDERED: ONDANSETRON HCL 4 MG/2 ML VIAL IVP PRN (08:30)
[2021-11-06] MEDS ORDERED: fentaNYL CITRATE/PF 100 MCG/2 ML AMP IVP PRN ×2 (08:30)
[2021-11-06] MEDS: PANTOPRAZOLE SODIUM 40 MG/VIAL (PROTONIX) IVP SCH ×2 (08:34→22:05)
[2021-11-06] MEDS: levETIRAcetam 1,000 MG in NS 100 ML IV SCH ×2 (08:36→22:06)
[2021-11-06] MEDS: THEOPHYLLINE ANHYDROUS 80 MG/15 ML UDC GT SCH ×2 (09:00→22:05)
[2021-11-06] MEDS: CHLORHEXIDINE GLUC 0.12% 15 ML MOUTHWASH UDC MM SCH ×2 (09:00→22:05)
[2021-11-06] MEDS: DOCUSATE SODIUM 100 MG/10 ML UDC PO SCH ×2 (09:00→22:05)
[2021-11-06] MEDS: BALSAM PERU/CASTOR OIL 56.7 GM OINT...G. TP SCH (09:00)
[2021-11-06] MEDS: FOLIC ACID 1 MG TABLET GT SCH (09:00)
[2021-11-06] MEDS: HEPARIN SODIUM,PORCINE 5,000 UNITS/ML VIAL SUBCUT SCH ×2 (09:00→22:18)
[2021-11-06 12:38] VITALS: BP_SYST 103
[2021-11-06] MEDS: CEFIDEROCOL SULFATE TOSYLATE 0.75 GM in NS 100 ML IV SCH ×2 (13:16→22:33)
[2021-11-06] MEDS: DEXTROSE 50%-WATER 50 ML DISP.SYRIN IVP PRN (13:25)
--- NOTE | 2021-11-06 15:34 | NUR ---
PATIENT IS LYING IN BED QUIETLY. PT HAS TRACH TO VENT. NO S/S ACUTE DISTRESS NOTED. HOB ELEVATED SEMIFOWLER'S POSITION. ALL CONSENTS HAVE BEEN SIGNED IN PREPARATION FOR SURGICAL PROCEDURE TO PLACE A PERMACATH FOR HEMODIALYSIS. WILL CONTINUE TO MONITOR.
[2021-11-06 16:11] VITALS: BP_SYST 109
--- NOTE | 2021-11-06 17:50 | NUR ---
I PLACED A CALL TO DR. CRANDALL AND DR. ROBERTS TO UPDATE ON PT'S STATUS. DR. ROBERTS CALLED BACK AND STATED NOT TO CALL HIM, BECAUSE HE'S NOT CONTROL ROOM HELPER. I CALLED BACK TO REACH DR. ASIF AND I WAS TOLD THAT DR. ROBERTS IS CONTROL ROOM HELPER. I INDORMED CHARGE NURSE OF THIS. PT IS VERY SWOLLEN AND BP IS TRENDING DOWNWARD. PT IS A HEMODIALYSIS PT. PT REMAINS TRACH TO VENT. WILL CONTINUE TO MONITOR.
[2021-11-06 20:00] VITALS: BP_SYST 103
[2021-11-06] MEDS: INSULIN GLARGINE 100 UNITS/ML 10 ML VIAL SUBCUT SCH (21:00)
[2021-11-07 00:13] VITALS: BP_SYST 91
[2021-11-07] MEDS: LevALBUTEROL HCL 1.25 MG/0.5 ML *CONC.* VIAL.NEB (XOPENEX CONC.) INH SCH ×5 (03:49→19:13)
[2021-11-07] MEDS: D5NS 1,000 ML IV SCH (05:31)
[2021-11-07 07:21] VITALS: BP_SYST 110
--- NOTE | 2021-11-07 08:28 | NUR ---
I PLACED A CALL TO DR. NARANJO (IDENTIFICATION TECHNICIAN) TO INFORM HIM THAT PT IS VERY SWOLLEN WITH FLUID. HER STATUS APPEARS TO BE MORE UNSTABLE. HR DECREASING TO 30'S AT INTERVALS AND BACK UP TO 50-60'S AND PT HAVING S/S INCREASED RESPIRATORY DISTRESS. NEW ORDER NOTED. PT WILL HAVE HEMODIALYSIS TODAY. I SPOKE HD NURSE- STATED THAT SOMEONE WILL COME LATER TO PERFORM HEMODIALYSIS.
[2021-11-07] MEDS: HEPARIN SODIUM,PORCINE 5,000 UNITS/ML VIAL SUBCUT SCH ×2 (09:00→22:14)
[2021-11-07] MEDS: DOCUSATE SODIUM 100 MG/10 ML UDC PO SCH ×2 (09:00→22:06)
[2021-11-07] MEDS: FOLIC ACID 1 MG TABLET GT SCH (09:00)
[2021-11-07] MEDS: PANTOPRAZOLE SODIUM 40 MG/VIAL (PROTONIX) IVP SCH ×2 (09:19→22:06)
[2021-11-07] MEDS: THEOPHYLLINE ANHYDROUS 80 MG/15 ML UDC GT SCH ×2 (09:19→21:47)
[2021-11-07] MEDS: levETIRAcetam 1,000 MG in NS 100 ML IV SCH ×2 (09:21→21:48)
[2021-11-07] MEDS ORDERED: THEOPHYLLINE ANHYDROUS 200 MG TAB.SR.12H PO ONE (11:30)
[2021-11-07] MEDS ORDERED: ATROPINE SULFATE 1 MG/10 ML SYRINGE IVP PRN (11:30)
[2021-11-07] MEDS: CEFIDEROCOL SULFATE TOSYLATE 0.75 GM in NS 100 ML IV SCH ×2 (11:49→21:48)
[2021-11-07 12:34] VITALS: BP_SYST 101
[2021-11-07] MEDS: BALSAM PERU/CASTOR OIL 56.7 GM OINT...G. TP SCH (16:31)
[2021-11-07] MEDS: CHLORHEXIDINE GLUC 0.12% 15 ML MOUTHWASH UDC MM SCH ×2 (16:31→21:57)
[2021-11-07 16:50] VITALS: BP_SYST 99
--- NOTE | 2021-11-07 18:00 | NUR ---
PT IS LYING IN BED QUIETLY. MEDICATED X 1 THIS SHIFT WITH ATROPINE PER ORDERED FOR HR < 40. HR IN THE 60'S NOW. PT REMAINS TRACH TO VENT. SUCTIONED PRN TO MAINTAIN PATENT AIRWAY. HON ELEVATED SEMIFOWLER'S POSITION. WILL CONTINUE TO MONITOR.
--- NOTE | 2021-11-07 19:00 | NUR ---
HEMODIALYSIS NURSE AT BEDSIDE. HD IN PROGRESS AT THIS TIME.
[2021-11-07 20:00] VITALS: BP_SYST 116
[2021-11-07] MEDS ORDERED: HEPARIN SODIUM,PORCINE 5,000 UNITS/ML VIAL IVP ONE ×2 (20:00)
[2021-11-07] MEDS: EPOETIN ALFA-EPBX 4,000 UNITS/ML VIAL SUBCUT SCH (21:47)
[2021-11-07] MEDS: INSULIN GLARGINE 100 UNITS/ML 10 ML VIAL SUBCUT SCH (22:00)
[2021-11-08 00:40] VITALS: BP_SYST 105
[2021-11-08] MEDS: LevALBUTEROL HCL 1.25 MG/0.5 ML *CONC.* VIAL.NEB (XOPENEX CONC.) INH SCH ×6 (05:06→19:38)
--- NOTE | 2021-11-08 05:30 | NUR ---
TOTAL BED BATH AND WOUND DRESSINGS ALL REMOVED AND CHANGED. MARKED HEALING NOTED BY RECORDER WHEN COMPARED TO LAST TIME CARED FOR PT APPROX 3 WEEKS AGO. LEG WOUNDS ESPECIALLY FILLED IN AND MUCH LESS "WEEPY" IG GAME OPERATOR. COCCYX WOUND WITH NOTICEABLE SHRINKAGE FROM EDGES-INWARD. CENTER OF WOUND DEPTH APPEARS UNCHANGED. NOTICEABLE INCREASE IN B/P WHEN POSITIONED TO LEFT SIDE THIS TIME.SYTOLIC FROM 84 TO 115.
[2021-11-08] MEDS: D5NS 1,000 ML IV SCH ×2 (05:37→17:38)
[2021-11-08 07:15] LABS: BASOPHILS # (AUTO) 0.1 K/uL (0.0-0.2); BASOPHILS % (AUTO) 0.9 % (0.0-2.0); EOSINOPHILS % (AUTO) 0.3 % (0.0-4.0); HEMATOCRIT 26.4 % (36-48); HEMOGLOBIN 8.7 g/dL (12.0-16.0); LYMPHOCYTES % (AUTO) 8.9 % (20.5-51.5); MEAN CORPUSCULAR HEMOGLOBIN 33 pg (27-31); MEAN CORPUSCULAR HGB CONC 33 % (32-36); MEAN CORPUSCULAR VOLUME 101 fL (79.0-98.0); MONOCYTES # (AUTO) 0.9 K/uL (0.0-1.0); MONOCYTES % (AUTO) 8.1 % (1.7-9.3); NEUTROPHILS # (AUTO) 9.1 K/uL (1.8-7.7); NEUTROPHILS % (AUTO) 81.8 % (40.0-70.0); PLATELET COUNT (AUTO) 149 K/uL (130-430); RED BLOOD CELL COUNT(AUTO) 2.62 MIL/uL (4.2-6.2); RED CELL DISTRIBUTION WIDTH 25.2 % (9.0-15.0); WHITE BLOOD COUNT (AUTO) 11.1 K/uL (4.8-10.8)
--- NOTE | 2021-11-08 07:16 | NUR ---
OPENING NOTE RECEIVED SBAR FROM ACTING TEACHER RN. PT IN BED. VENT RUNNING ORDERED
[2021-11-08 08:00] VITALS: BP_SYST 132
--- NOTE | 2021-11-08 08:00 | NUR ---
CLARIFICATION OF ORDERS PAGED REGARDING PLACEMENT OF TUNNELED HEMODIALYSIS PERMACATHETER.
[2021-11-08 08:45] LABS: ANION GAP 9 (5-15); CALCIUM 9.1 mg/dL (8.4-11.0); CHLORIDE 103 mmol/L (98-107); CREATININE 1.02 mg/dL (0.55-1.30); GLUCOSE 98 mg/dL (70-99); POTASSIUM 3.9 mmol/L (3.5-5.1); SODIUM SERUM 136 mmol/L (136-145); UREA NITROGEN, BLOOD 20 mg/dL (8-21)
[2021-11-08] MEDS: THEOPHYLLINE ANHYDROUS 80 MG/15 ML UDC GT SCH (09:00)
[2021-11-08] MEDS: levETIRAcetam 1,000 MG in NS 100 ML IV SCH ×2 (11:02→21:00)
[2021-11-08] MEDS: CHLORHEXIDINE GLUC 0.12% 15 ML MOUTHWASH UDC MM SCH (11:15)
[2021-11-08] MEDS: BALSAM PERU/CASTOR OIL 56.7 GM OINT...G. TP SCH (11:17)
[2021-11-08 11:21] VITALS: BP_SYST 124
--- NOTE | 2021-11-08 11:22 | NUR ---
gtube feeding spoke with Dr Bobby regarding patient being npo x 2 days, due to permcath placement procedure being delayed Resume feedings per Dr Bobby
[2021-11-08] MEDS: PANTOPRAZOLE SODIUM 40 MG/VIAL (PROTONIX) IVP SCH ×2 (11:29→21:00)
[2021-11-08] MEDS: DOCUSATE SODIUM 100 MG/10 ML UDC PO SCH (11:29)
[2021-11-08] MEDS: HEPARIN SODIUM,PORCINE 5,000 UNITS/ML VIAL SUBCUT SCH (11:30)
[2021-11-08] MEDS: FOLIC ACID 1 MG TABLET GT SCH (11:31)
--- NOTE | 2021-11-08 16:00 | NUR ---
WOUND CARE PROVIDED WOUND CARE. SEE [facility] SHIFT ASSESSMENT
[2021-11-08 16:16] VITALS: BP_SYST 114
--- NOTE | 2021-11-08 16:44 | NUR ---
Nutrition F/U Admitting Diagnosis Septic shock Reviewed Pertinent Medical/Surgical Hx Medical Record Medical History Comment: PMH: per physician notes - HTN, DM, seizure disorder, stroke, chronic respiratory failure, and chronic anemia. Pt also found w/ acute on chronic renal failure. SARS-CoV-2 Ag (Rapid) Negative 09/14. Per Pediatric Social Worker note 09/16: 1. Right Sacral area: Unstageable pressure ulcer, present on admission. 2. Right Buttock, Inferior to Site 1: Unstageable pressure ulcer, present on admission. 3. Left Buttock: Stage III pressure ulcer, present on admission. 4. Intergluteal Cleft: Stage III pressure ulcer, present on admission. 5. Left Outer Buttock: Skin tear. 6. Left Anterior Medial Great Toe: Unstageable pressure ulcer, present on admission. 7. Right Posterior Medial Foot, Inferior to First Metatarsal Head: Unstageable pressure ulcer, present on admission. 8. Bilateral Upper Extremities and Hands: Sites have 4+ pitting edema with a moderate amount of weeping. 9. Bilateral Lower Extremities and Feet: Sites have 4+ pitting edema with a moderate amount of weeping. Subjective Information: RD bedside visit- pt seen with TF running at goal, GTF Nepro @40mL/hr. Pt tolerating TF with 0 mL GRV per EMR. RN seen in patient room. RD communicated to RN previous wound care supplement recs (renal MVI, vit C, zincate), which have not been prescribed as of yet. RN stated pt LBM today, 11/08 x 1. Pt was scheduled for permacath placement and therefore NPO x 2 days. Sx rescheduled, so TF resumed today. Pt is non-communicative, on trach/vent. BL generalized and BL ankle +2 edema noted per EMR 11/08. Patient is noted to have severe anemia (hgb & hct: 8.7 & 26.4). Per MD notes, HD today, 2L removed. Current Diet Order/Nutrition Support: Nepro @ 40 mL/hr (goal rate), Simon BID, Free Water Flush 225 mL Q6H x 2 days Patient/Significant Other Unable To Verbalize Education Provided Not Indicated Pertinent Medications: heparin, retacrit, protonix IV, D5NS at 40 ml/hr (163 kcal/day), colace, lantus, folic acid, zofran, SSI, ativan, dulcolax, atropine Pertinent Labs: RBC 2.6L, hgb/hct 8.7/26.4L, POC 104H, WNL: glu, Ca, Na, K, Cl, BUN, Cre Height (Feet) 5 feet Height (Inches) 3.00 inches Weight (Pounds) 280 pounds - NEW WT: (09/20) 210#/95.51 kg - Initial wt was estimated by staff. - Stable since 09/20 Patient Weight 127.006 kg Body Mass Index 49.59 kg/m2 - NEW BMI: (09/20) 37.3 kg/m2 %IBW 243 [place]/Adjusted Body Weight 115#/52.3 kg. 156#/71 kg Recent Weight Change Unable to verify Weight Status Morbidly Obese Food Allergies Unable to verify Usual Diet At Home Unable to verify Estimated Energy Expenditure (kcals/day) *ONGOING [id number] (30-35 kcal/kg IBW d/t morbid obesity, HD, sepsis) Estimated Protein Required (g/day) 52-78 (1.2-1.5 gm/kg IBW d/t morbid obesity, HD, sepsis) Estimated Fluid Required (l/day) Per physician d/t renal failure Problem/Etiology/Signs/Symptoms Increased nutritional needs R/T metabolic demands AEB estimated nutritional requirements for HD, sepsis and compromised skin integrity w/ Cr score 7 (*Ongoing) Altered nutrition-related labs R/T renal dysfunction, suspected blood loss in urine AEB abnormal RBC, hgb, and hct lab values. (*New) Malnutrition R/T morbid obesity AEB BMI: 49.59 kg/m2 and 243% of IBW. (*N/A - initial wt was estimated) Expected Outcomes/Goals - Monitor tolerance to EN support w/ goal of pt meeting >80% of estimated nutritional needs, labs trending WNL, improvement in anemia profile, normal GI function, and skin integrity/wt maintenance Dietitian Recommendations * Continue Nepro at 40 ml/hr (goal rate), Simon BID, Free Water Flush: 225 ml Q6h (per physician) via GT (Provides: 1908 kcal/day, 82 gm protein/day, and 1597 ml free water/day; Meets: 104% of lower end of estimated caloric needs and 105% of upper end of estimated protein needs) * Rec initiating wound care supplements: daily renavite, vit C 250mg, zincate 220mg BID x 14 days. * Nursing please document Simon BID administration * Nursing please obtain an updated weight, if/when possible Follow Up High Risk: F/U in 2-3 days 11/10-11/11
--- NOTE | 2021-11-08 16:52 | NUR ---
Dietitian Recommendations * Continue Nepro at 40 ml/hr (goal rate), Simon BID, Free Water Flush: 225 ml Q6h (per physician) via GT (Provides: 1908 kcal/day, 82 gm protein/day, and 1597 ml free water/day; Meets: 104% of lower end of estimated caloric needs and 105% of upper end of estimated protein needs) * Rec initiating wound care supplements: daily renavite, vit C 250mg, zincate 220mg BID x 14 days. * Nursing please document Simon BID administration * Nursing please obtain an updated weight, if/when possible Please see Nutritional f/u Assessment for details, thanks! CC, MPH, RDN
--- NOTE | 2021-11-08 17:45 | NUR ---
NURSE NOTE RT IN ROOM ATTEMPTING TO SUCTION. PATIENT IS FIGHTING SUCTION. WILL PROVIDE ANXIETY MEDICATION
[2021-11-08] MEDS: LORazepam 2 MG/ML VIAL IVP PRN (17:53)
--- NOTE | 2021-11-08 19:15 | NUR ---
CLOSING NOTE PROVIDED SBAR TO SECONDARY SCHOOL PRINCIPAL RN. PT IS IN BED, VENT SETTING DIRECTED. JAMES DRAINING BY GRAVITY. IV RUNNING ORDERED. G-TUBE FEEDING ORDERED. ENDORSED PICC LINE DRESSING CHANGE TO NIGHT FIT RN. ENDORSED WOUND CARE DRESSING CHANGE TO SECONDARY SCHOOL PRINCIPAL RN. ENDORSED SLY SUPPLEMENT TO SECONDARY SCHOOL PRINCIPAL RN. ENDORSED PT TO NOT HAVE NECK TO CHIN POSITION RT RECOMMENDED. ENDORSED CARE
[2021-11-08 20:00] VITALS: BP_SYST 94
[2021-11-09] VITALS (17 sets, daily range): BP systolic 46–124
[2021-11-09] MEDS: THEOPHYLLINE ANHYDROUS 80 MG/15 ML UDC GT SCH ×3 (01:01→21:00)
[2021-11-09] MEDS: DOCUSATE SODIUM 100 MG/10 ML UDC PO SCH ×3 (01:03→21:00)
[2021-11-09] MEDS: CHLORHEXIDINE GLUC 0.12% 15 ML MOUTHWASH UDC MM SCH ×3 (01:03→21:00)
[2021-11-09] MEDS: HEPARIN SODIUM,PORCINE 5,000 UNITS/ML VIAL SUBCUT SCH ×3 (01:11→21:00)
[2021-11-09] MEDS: INSULIN GLARGINE 100 UNITS/ML 10 ML VIAL SUBCUT SCH ×2 (01:27→21:00)
[2021-11-09] MEDS: INSULIN REGULAR, HUMAN 100 UNITS/ML, 10 ML VIAL (humuLIN R) SUBCUT PRN ×2 (01:36→06:16)
[2021-11-09] MEDS: LevALBUTEROL HCL 1.25 MG/0.5 ML *CONC.* VIAL.NEB (XOPENEX CONC.) INH SCH ×7 (03:06→23:31)
--- NOTE | 2021-11-09 06:30 | NUR ---
RESOURCE NURSE ASSISTING TO HOLD PT RIGHT ARM DOWN FOR PICC LINE DRESSING CHANGE BY THIS RECORDER. AUDIBLE "SNAP" HEARD. PHYSICAL ASSESSMENT SHOWS PT HOLDING ARM LESS TENSE AND SNUG TIGHT TO TORSO BFORE. ABLE TO FEEL A WIGGLE AND LOOSENESS IN UPPER RIGHT ARM. RUE ELEVATED ON PILLOW. FINGERS CONTINUE WARM, TAWANNA WELL WITH CAP REFILL<3SECONDS. PT PRESENTLY SHOWS NO FACIAL SIGNS OF PAIN. ON-COMING A.M CHARGE NURSE AND HOUSE SUPER NOTIFIED. CHARGE NURSE ASSESSED RUE AND ORDERED STAT XR OF RIGHT HUMERUS.
--- NOTE | 2021-11-09 07:30 | NUR ---
PM CLOSING NOTES HAND-OFF REPORT TO A.M NURSE ENDORSED POSSIBLE FX OF RUE. XRAY READ PENDING. PT CONTINUES WITH EYES OPEN IN FIXED STARE. FAMILY TO BE NOTIFIED XR POSITIVE FOR FX BY CHARGE NURSE. RELINQUISHING CARE OF PT AT THIS TIME.
--- NOTE | 2021-11-09 07:30 | NUR ---
PM CLOSING NOTES HAND-OFF REPORT TO A.M NURSE FOR CONTINUITY OF CARE. ENDORSED POSSIBLE FX.
--- NOTE | 2021-11-09 07:39 | NUR ---
dr shiv wilkerson md. waiting for callback
[2021-11-09] MEDS ORDERED: NS 250 ML IV ONE (09:00)
[2021-11-09] MEDS: PANTOPRAZOLE SODIUM 40 MG/VIAL (PROTONIX) IVP SCH ×2 (09:01→21:00)
[2021-11-09] MEDS: BALSAM PERU/CASTOR OIL 56.7 GM OINT...G. TP SCH (09:01)
[2021-11-09] MEDS: FOLIC ACID 1 MG TABLET GT SCH (09:04)
--- NOTE | 2021-11-09 09:44 | NUR ---
CONSULTATION PAGED/CALLED Reason for Consultation: [] fracture right humerus Person Who was Notified: []spoke with Dr. Mims for Nemesio Barragan Consulting Physician: [] Nemesio Barragan/ Dr. Mims Head Loader Specialty: []Ortho Ordering Physician: []Dr. Bobby
[2021-11-09] MEDS ORDERED: HEPARIN SODIUM,PORCINE 5,000 UNITS/ML VIAL IVP ONE (10:00)
[2021-11-09] MEDS ORDERED: ALBUMIN HUMAN 25% 100 ML IV ONE (10:00)
[2021-11-09] MEDS: levETIRAcetam 1,000 MG in NS 100 ML IV SCH (10:02)
--- NOTE | 2021-11-09 11:24 | NUR ---
xray results late entry due to pt care 09:30 - notifed Dr Bobby of Xray result 11:20- s/w Fernando Krause, patient's daughter and informed her of what happened early in the morning.
--- NOTE | 2021-11-09 12:14 | NUR ---
PM OPENING NOTES HAND-OFF REPORT RECEIVED FROM Gurpreet NURSE FOR CONTINUITY OF CARE. ENDORSED NO TIME TO COMPLETE PICC LINE DRESSING CHANGE ON DAY SHIFT. PT RECEIVED AWAKE IN BED WITH FIXED STARE. NO TRACKING BEFORE WHEN I HAD HER APPROX 3 WEEKS AGO. NEPRO@ 40ML/HR VIA [place] PUMP THRU GTUBE. JAMES TO GRAVITY FLOW MEDIUM SOPHIA COLORED URINE WITH SEDIMENTATION. LEFT IJ HD ACCESS DRESSING TO BE CHANGED ALSO. TRACHE TO VENT. AC 12, TV450, FIO2 30%, PEEP 5. HOB UP 45 DEGREES. ALL EXTREMITIES FLOATING ON PILLOWS WITH NOTED FRESHLY CHANGED DRESSINGS. ROOM HAS MILDLY FOUL ODOR FROM FLESH WOUNDS. CONT TO MONITOR AND PROVIDE COMFORT MEASURES AND MEDS ORDERED.
[2021-11-09] MEDS: HYDROcodone/ACETAMIN 5-325 MG TAB (NORCO/ VICODIN) GT PRN (15:40)
--- NOTE | 2021-11-09 16:00 | NUR ---
1546 CODE BLUE CALLED. CPR IN PROGRESS AND BAGGED PATIENT VIA TRACH WITH AMBU BAG 15LPM. 1557 ROSC. TRANSFERRED PATIENT TO ICU 2 VIA AMBU BAG. PLACED BACK ON VENT SETTINGS WITH AC12, VT 450, PEEP +5, FIO2 100. SPO2 100%, HR 87. VENT TO RED OUTLET AND ALARMS ARE AUDIBLE. WILL CONTINUE TO MONITOR PATIENT.
--- NOTE | 2021-11-09 16:04 | NUR ---
BAKERY SALES CLERK ACSW Tressa responded to ARIE MCCORD to provide Social Work Support as needed. ACSW contacted patient's daughter Fernando Krause to inform her of code and transfer to ICU. ACSW will continue to be available as needed
--- NOTE | 2021-11-09 16:44 | NUR ---
PATIENT BREATHING WITH DIFFICULTY @ AROUND 1515. CALLED RT. CALLED MD. AMADOR. RECEIVED AN ORDER OF NORCO 5MG PRN PAIN MEDICATION. GAVE NORCO 5 MG THROUGH G TUBE @ 1530. PATIENT VOMITED. PRIMARY RN PRESENT BY THE BEDSIDE. CALLED CHARGE NURSE. CALLED CODE SURI @1546. ROSC 1547. RESUSCITATION STARTED AND ENDED AT 1557. MD. AMADOR NOTIFIED @ 1630 AND FAMILY MEMBER NOTIFIED OF THE SITUATION @1550. 250ML NS BOLUS, PREPARED LEVOPHED 2MCG/KG/MIN BUT NOT GIVEN DUE TO BP WNL. PATIENT TRANSFERRED TO ICU @1620. REPORT GIVEN TO NOZZLE AND SLEEVE WORKERVÍCTOR.
[2021-11-09] MEDS ORDERED: EPINEPHrine HCL 10 MG in NS 240 ML IV PRN (17:00)
[2021-11-09 17:47] LABS: HEMATOCRIT 28.2 % (36-48); HEMOGLOBIN 8.8 g/dL (12.0-16.0); MEAN CORPUSCULAR HEMOGLOBIN 32 pg (27-31); MEAN CORPUSCULAR HGB CONC 31 % (32-36); MEAN CORPUSCULAR VOLUME 103 fL (79.0-98.0); PLATELET COUNT (AUTO) 90 K/uL (130-430); RED BLOOD CELL COUNT(AUTO) 2.74 MIL/uL (4.2-6.2); RED CELL DISTRIBUTION WIDTH 25.4 % (9.0-15.0); WHITE BLOOD COUNT (AUTO) 19.3 K/uL (4.8-10.8)
[2021-11-09 18:02] LABS: ANION GAP 7 (5-15); CALCIUM 8.4 mg/dL (8.4-11.0); CHLORIDE 105 mmol/L (98-107); CREATININE 0.93 mg/dL (0.55-1.30); GLUCOSE 115 mg/dL (70-99); POTASSIUM 3.1 mmol/L (3.5-5.1); SODIUM SERUM 137 mmol/L (136-145); UREA NITROGEN, BLOOD 18 mg/dL (8-21)
[2021-11-09 18:08] LABS: ALANINE AMINOTRANSFERASE 12 U/L (12-78); ASPARTATE AMINOTRANSFERASE 29 U/L (10-37); TOTAL BILIRUBIN 0.4 mg/dL (0.0-1.0)
[2021-11-09] MEDS ORDERED: NOREPINEPHRINE 4 MG/4 ML VIAL IV ONE ×2 (18:16→23:46)
[2021-11-09 18:20] LABS: BAND % (MANUAL) 11 % (0-6); BASOPHILS % (MANUAL) 0 % (0-2); EOSINOPHILS % (MANUAL) 0 % (0-7); LYMPHOCYTES % (MANUAL) 3 % (20-46); METAMYELOCYTES % 2 % (0-0); MONOCYTES % (MANUAL) 5 % (0-11); MYELOCYTES % 1 % (0-0)
[2021-11-09] MEDS ORDERED: NOREPINEPHRINE BITARTRATE 8 MG in D5W 242 ML IV PRN (18:45)
--- NOTE | 2021-11-09 19:00 | NUR ---
OPEN NOTE PT NOT RECOVERED FROM CODE BLUE. V/S REMAIN UNSTABLE BP IN THE 80'S AND SAT'S IN THE 80'S. PT TRACH AND VENTED. PT HAS R U/A PICC DOUBLE LUMEN. VASOPRESSOR ARE STARTED. PT HAS F/C NOT PRODUCING ANY URINE. PT HAS BEEN PLACED IN [place] TO ASSIST THE BP. TUBE FEEDING HAS BEEN STOPPED UNTIL ABLE TO STABILIZE PT. CALL WILL BE PLACED TO
[2021-11-09] MEDS: VASOPRESSIN 20 UNITS in NS 99 ML IV PRN (19:45)
[2021-11-09] MEDS ORDERED: POTASSIUM CHLORIDE 20 MEQ/PKT PACKET PO ONE (20:00)
[2021-11-09] MEDS ORDERED: VASOPRESSIN 20 UNITS/ML VIAL IV ONE (20:08)
[2021-11-09] MEDS ORDERED: D5NS 1,000 ML IV SCH (20:15)
[2021-11-09] MEDS ORDERED: MAGNESIUM SULFATE 1 GM/2 ML VIAL IVP ONE (20:15)
[2021-11-09] MEDS: ALBUMIN HUMAN 25% 100 ML IV PRN ×2 (20:15→23:30)
[2021-11-09] MEDS ORDERED: EPINEPHrine HCL 1 MG/ML VIAL ONE ×2 (20:25→23:45)
[2021-11-09] MEDS: EPINEPHrine HCL 5 MG in NS 245 ML IV PRN ×2 (20:30→22:43)
[2021-11-09] MEDS ORDERED: EPINEPHRINE HCL/PF 1 MG/ML AMP ONE (20:32)
--- NOTE | 2021-11-09 20:46 | NUR ---
DR. SARA HADDAD MADE AWARE OF ABG LAB RESULTS. NO NEW ORDERS RECEIVED REGARDING ABGS. NEW ORDERS RECEIVED FOR IV DRIPS NEEDED. WILL CONTINUE TO MONITOR PT.
[2021-11-09 22:34] LABS: HEMATOCRIT 27.5 % (36-48); HEMOGLOBIN 7.8 g/dL (12.0-16.0); MEAN CORPUSCULAR HEMOGLOBIN 32 pg (27-31); MEAN CORPUSCULAR HGB CONC 28 % (32-36); MEAN CORPUSCULAR VOLUME 113 fL (79.0-98.0); PLATELET COUNT (AUTO) 125 K/uL (130-430); RED BLOOD CELL COUNT(AUTO) 2.44 MIL/uL (4.2-6.2); WHITE BLOOD COUNT (AUTO) 16.6 K/uL (4.8-10.8)
[2021-11-09] MEDS: DOPamine PREMIX 250 ML IV PRN (22:45)
[2021-11-09 23:39] LABS: ALANINE AMINOTRANSFERASE 10 U/L (12-78); ALBUMIN 1.5 g/dL (3.4-4.8); ANION GAP 11 (5-15); ASPARTATE AMINOTRANSFERASE 25 U/L (10-37); CHLORIDE 91 mmol/L (98-107); CREATININE 1.05 mg/dL (0.55-1.30); PHOSPHORUS 3.2 mg/dL (2.7-4.5); POTASSIUM 3.3 mmol/L (3.5-5.1); TOTAL BILIRUBIN 0.5 mg/dL (0.0-1.0); UREA NITROGEN, BLOOD 15 mg/dL (8-21)
[2021-11-09] MEDS: NOREPINEPHRINE BITARTRATE 32 MG in D5W 218 ML IV PRN (23:45)
[2021-11-09 23:48] LABS: GLUCOSE 670 mg/dL (70-99); SODIUM SERUM 119 mmol/L (136-145)
[2021-11-09 23:49] LABS: CALCIUM 6.9 mg/dL (8.4-11.0)
--- NOTE | 2021-11-09 23:57 | NUR ---
DR. SARA HADDAD MADE AWARE OF CRITICAL LAB RESULTS. ORDERS RECEIVED AND WILL BE CARRIED OUT ORDERED.
[2021-11-10] VITALS (27 sets, daily range): BP systolic 43–72
[2021-11-10] MEDS: NACL 0.9% 1,000 ML IV SCH
[2021-11-10] MEDS: PHENYLEPHRINE HCL 100 MG in NS 240 ML IV PRN ×4 (00:02→12:51)
[2021-11-10] MEDS ORDERED: PHENYLEPHRINE HCL 10 MG/ML VIAL (NEOSYNEPHRINE) ONE ×2 (00:12→06:25)
[2021-11-10 01:04] LABS: BAND % (MANUAL) 1 % (0-6); LYMPHOCYTES % (MANUAL) 4 % (20-46)
[2021-11-10 01:05] LABS: BASOPHILS % (MANUAL) 0 % (0-2); EOSINOPHILS % (MANUAL) 0 % (0-7); MONOCYTES % (MANUAL) 3 % (0-11)
[2021-11-10] MEDS: levETIRAcetam 1,000 MG in NS 100 ML IV SCH ×2 (01:10→11:28)
[2021-11-10] MEDS: ALBUMIN HUMAN 25% 100 ML IV PRN ×2 (01:17→02:05)
[2021-11-10] MEDS: VASOPRESSIN 20 UNITS in NS 99 ML IV PRN ×2 (01:31→06:32)
[2021-11-10] MEDS ORDERED: EPINEPHrine HCL 1 MG/ML VIAL ONE ×4 (01:47→04:42)
[2021-11-10] MEDS ORDERED: NOREPINEPHRINE 4 MG/4 ML VIAL IV ONE ×2 (01:47→07:50)
[2021-11-10] MEDS: EPINEPHrine HCL 5 MG in NS 245 ML IV PRN ×3 (01:47→12:15)
[2021-11-10] MEDS: DOPamine PREMIX 250 ML IV PRN ×2 (03:05→12:14)
[2021-11-10] MEDS: LevALBUTEROL HCL 1.25 MG/0.5 ML *CONC.* VIAL.NEB (XOPENEX CONC.) INH SCH ×3 (03:08→11:11)
[2021-11-10] MEDS ORDERED: VASOPRESSIN 20 UNITS/ML VIAL IV ONE (06:35)
[2021-11-10 06:37] LABS: BASOPHILS # (AUTO) 0.2 K/uL (0.0-0.2); BASOPHILS % (AUTO) 0.8 % (0.0-2.0); EOSINOPHILS # (AUTO) 0.3 K/uL (0.0-0.4); EOSINOPHILS % (AUTO) 1.1 % (0.0-4.0); HEMATOCRIT 27.4 % (36-48); HEMOGLOBIN 8.1 g/dL (12.0-16.0); LYMPHOCYTES # (AUTO) 1.4 K/uL (1.0-5.5); LYMPHOCYTES % (AUTO) 5.5 % (20.5-51.5); MEAN CORPUSCULAR HEMOGLOBIN 33 pg (27-31); MEAN CORPUSCULAR HGB CONC 30 % (32-36); MEAN CORPUSCULAR VOLUME 110 fL (79.0-98.0); MONOCYTES # (AUTO) 0.8 K/uL (0.0-1.0); MONOCYTES % (AUTO) 3.1 % (1.7-9.3); NEUTROPHILS # (AUTO) 23.3 K/uL (1.8-7.7); NEUTROPHILS % (AUTO) 89.5 % (40.0-70.0); PLATELET COUNT (AUTO) 114 K/uL (130-430); RED CELL DISTRIBUTION WIDTH 25.4 % (9.0-15.0); WHITE BLOOD COUNT (AUTO) 26.1 K/uL (4.8-10.8)
[2021-11-10] MEDS ORDERED: LevALBUTEROL HCL 1.25 MG/0.5 ML *CONC.* VIAL.NEB (XOPENEX CONC.) INH ONE (07:00)
--- NOTE | 2021-11-10 08:00 | NUR ---
Received patient at bedside with multiple vasopressors on max doses. Vital signs unstable. Patient vented. I will continue to monitor and intervene as necessary per ACLS.
[2021-11-10] MEDS ORDERED: SODIUM BICARBONATE 8.4% JECT 100 MEQ in 0.45% NACL 1,000 ML IVP SCH (09:15)
[2021-11-10 09:32] LABS: ALANINE AMINOTRANSFERASE 37 U/L (12-78); ALBUMIN 3.2 g/dL (3.4-4.8); ANION GAP 20 (5-15); ASPARTATE AMINOTRANSFERASE 177 U/L (10-37); CALCIUM 8.5 mg/dL (8.4-11.0); CHLORIDE 99 mmol/L (98-107); CREATININE 1.27 mg/dL (0.55-1.30); GLUCOSE 101 mg/dL (70-99); PHOSPHORUS 4.2 mg/dL (2.7-4.5); POTASSIUM 3.6 mmol/L (3.5-5.1); SODIUM SERUM 133 mmol/L (136-145); UREA NITROGEN, BLOOD 18 mg/dL (8-21)
[2021-11-10] MEDS: PANTOPRAZOLE SODIUM 40 MG/VIAL (PROTONIX) IVP SCH (11:00)
[2021-11-10] MEDS: DEXTROSE 50%-WATER 50 ML DISP.SYRIN IVP PRN (11:57)
[2021-11-10] MEDS: NOREPINEPHRINE BITARTRATE 32 MG in D5W 218 ML IV PRN (12:18)
[2021-11-10] MEDS: HYDROcodone/ACETAMIN 5-325 MG TAB (NORCO/ VICODIN) GT PRN (12:37)
[2021-11-10] MEDS ORDERED: EPINEPHRINE HCL/PF 1 MG/ML AMP ONE (13:06)
[2021-11-10] MEDS ORDERED: NALOXONE HCL 0.4 MG/ML AMP (NARCAN) IVP PRN (14:00)
[2021-11-10] MEDS ORDERED: MEROPENEM 500 MG in NS 50 ML IV SCH (14:00)
[2021-11-10] MEDS ORDERED: MORPHINE 2 MG/ML INJ. SYRINGE IVP PRN (14:00)
[2021-11-10] MEDS ORDERED: MORPHINE 2 MG/ML INJ. SYRINGE ONE (14:05)
--- NOTE | 2021-11-10 14:12 | NUR ---
Patient presented asystole on the monitor. Per doppler on left groin reveals no pulse. Juli soto called in and initiated.
--- NOTE | 2021-11-10 14:15 | NUR ---
Dr Schuler arrives with the team. Epinephrine IV push given. No CPR per patient's family wishes observed. All Vasopressors continuously being provided for support.
--- NOTE | 2021-11-10 14:24 | NUR ---
rt notes 1410 (roughly) code blue was called. Pt on chem code status. 3 rounds epi was given by ZAN Veliz, no response seen. 1424 Time of pronounced by ER Sin.
--- NOTE | 2021-11-10 14:24 | NUR ---
Dr Schuler pronounces time of . I will call family and update doctor's regarding patient's demise.
== END 2021-11-10 14:45 | DRG 870 ==
LOC: SED 04:25 → SIC 05:55 → STU 10-21 14:05 → SIC 11-09 16:10
PROVIDERS: ADMIT Family Medicine; ATTEND Family Medicine
PROC: 5A1955Z Respiratory Ventilation, Greater than 96 Consecutive Hours (ICD-10-PCS; principal; 2021-09-14)
PROC: 02HV33Z Insertion of Infusion Device into Superior Vena Cava, Percutaneous Approach (ICD-10-PCS; 2021-09-14)
PROC: B548ZZA Ultrasonography of Superior Vena Cava, Guidance (ICD-10-PCS; 2021-09-14)
PROC: 02HV33Z Insertion of Infusion Device into Superior Vena Cava, Percutaneous Approach (ICD-10-PCS; 2021-09-15)
PROC: B548ZZA Ultrasonography of Superior Vena Cava, Guidance (ICD-10-PCS; 2021-09-15)
PROC: 5A1D70Z Performance of Urinary Filtration, Intermittent, Less than 6 Hours Per Day (ICD-10-PCS; 2021-09-15)
PROC: 5A1D70Z Performance of Urinary Filtration, Intermittent, Less than 6 Hours Per Day (ICD-10-PCS; 2021-09-16)
PROC: 5A1D70Z Performance of Urinary Filtration, Intermittent, Less than 6 Hours Per Day (ICD-10-PCS; 2021-09-17)
PROC: 5A1D70Z Performance of Urinary Filtration, Intermittent, Less than 6 Hours Per Day (ICD-10-PCS; 2021-09-18)
PROC: 5A1D70Z Performance of Urinary Filtration, Intermittent, Less than 6 Hours Per Day (ICD-10-PCS; 2021-09-20)
PROC: 5A1D70Z Performance of Urinary Filtration, Intermittent, Less than 6 Hours Per Day (ICD-10-PCS; 2021-09-21)
PROC: 5A1D70Z Performance of Urinary Filtration, Intermittent, Less than 6 Hours Per Day (ICD-10-PCS; 2021-09-22)
PROC: 5A1D70Z Performance of Urinary Filtration, Intermittent, Less than 6 Hours Per Day (ICD-10-PCS; 2021-09-23)
PROC: 5A1D70Z Performance of Urinary Filtration, Intermittent, Less than 6 Hours Per Day (ICD-10-PCS; 2021-09-25)
PROC: 5A1D70Z Performance of Urinary Filtration, Intermittent, Less than 6 Hours Per Day (ICD-10-PCS; 2021-09-28)
PROC: 5A1D70Z Performance of Urinary Filtration, Intermittent, Less than 6 Hours Per Day (ICD-10-PCS; 2021-09-29)
PROC: 5A1D70Z Performance of Urinary Filtration, Intermittent, Less than 6 Hours Per Day (ICD-10-PCS; 2021-10-01)
PROC: 5A1D70Z Performance of Urinary Filtration, Intermittent, Less than 6 Hours Per Day (ICD-10-PCS; 2021-10-04)
PROC: 30233N1 Transfusion of Nonautologous Red Blood Cells into Peripheral Vein, Percutaneous Approach (ICD-10-PCS; 2021-10-05)
PROC: 5A1D70Z Performance of Urinary Filtration, Intermittent, Less than 6 Hours Per Day (ICD-10-PCS; 2021-10-06)
PROC: 5A1D70Z Performance of Urinary Filtration, Intermittent, Less than 6 Hours Per Day (ICD-10-PCS; 2021-10-08)
PROC: 5A1D70Z Performance of Urinary Filtration, Intermittent, Less than 6 Hours Per Day (ICD-10-PCS; 2021-10-11)
PROC: 5A1D70Z Performance of Urinary Filtration, Intermittent, Less than 6 Hours Per Day (ICD-10-PCS; 2021-10-13)
PROC: 5A1D70Z Performance of Urinary Filtration, Intermittent, Less than 6 Hours Per Day (ICD-10-PCS; 2021-10-15)
PROC: 5A1D70Z Performance of Urinary Filtration, Intermittent, Less than 6 Hours Per Day (ICD-10-PCS; 2021-10-18)
PROC: 5A1D70Z Performance of Urinary Filtration, Intermittent, Less than 6 Hours Per Day (ICD-10-PCS; 2021-10-20)
PROC: 5A1D70Z Performance of Urinary Filtration, Intermittent, Less than 6 Hours Per Day (ICD-10-PCS; 2021-10-22)
PROC: 5A1D70Z Performance of Urinary Filtration, Intermittent, Less than 6 Hours Per Day (ICD-10-PCS; 2021-10-24)
PROC: 5A1D70Z Performance of Urinary Filtration, Intermittent, Less than 6 Hours Per Day (ICD-10-PCS; 2021-10-27)
PROC: 5A1D70Z Performance of Urinary Filtration, Intermittent, Less than 6 Hours Per Day (ICD-10-PCS; 2021-10-29)
PROC: 5A1D70Z Performance of Urinary Filtration, Intermittent, Less than 6 Hours Per Day (ICD-10-PCS; 2021-11-01)
PROC: 5A1D70Z Performance of Urinary Filtration, Intermittent, Less than 6 Hours Per Day (ICD-10-PCS; 2021-11-03)
PROC: 5A1D70Z Performance of Urinary Filtration, Intermittent, Less than 6 Hours Per Day (ICD-10-PCS; 2021-11-05)
PROC: 5A12012 Performance of Cardiac Output, Single, Manual (ICD-10-PCS; 2021-11-09)
PROC: 5A1D70Z Performance of Urinary Filtration, Intermittent, Less than 6 Hours Per Day (ICD-10-PCS; 2021-11-09)
DX: A41.9 Sepsis, unspecified organism (principal); R65.21 Severe sepsis with septic shock; G82.50 Quadriplegia, unspecified; J15.6 Pneumonia due to other Gram-negative bacteria; N18.6 End stage renal disease; S42.301A Unspecified fracture of shaft of humerus, right arm, initial encounter for closed fracture; K94.23 Gastrostomy malfunction; K31.6 Fistula of stomach and duodenum; N17.9 Acute kidney failure, unspecified; J44.0 Chronic obstructive pulmonary disease with (acute) lower respiratory infection; Z99.11 Dependence on respirator [ventilator] status; N39.0 Urinary tract infection, site not specified; J96.11 Chronic respiratory failure with hypoxia; G93.1 Anoxic brain damage, not elsewhere classified; I12.0 Hypertensive chronic kidney disease with stage 5 chronic kidney disease or end stage renal disease; R13.10 Dysphagia, unspecified; E11.649 Type 2 diabetes mellitus with hypoglycemia without coma; G40.909 Epilepsy, unspecified, not intractable, without status epilepticus; D69.6 Thrombocytopenia, unspecified; R00.1 Bradycardia, unspecified; Z20.822 Contact with and (suspected) exposure to COVID-19; I48.91 Unspecified atrial fibrillation; E87.70 Fluid overload, unspecified; E11.22 Type 2 diabetes mellitus with diabetic chronic kidney disease; I95.3 Hypotension of hemodialysis; D63.1 Anemia in chronic kidney disease; X58.XXXA Exposure to other specified factors, initial encounter; I46.9 Cardiac arrest, cause unspecified; Z88.6 Allergy status to analgesic agent; Z88.1 Allergy status to other antibiotic agents; Z88.2 Allergy status to sulfonamides; Z79.4 Long term (current) use of insulin; Z79.899 Other long term (current) drug therapy; Z99.2 Dependence on renal dialysis; Z98.2 Presence of cerebrospinal fluid drainage device; Z90.710 Acquired absence of both cervix and uterus; Z87.891 Personal history of nicotine dependence; Z87.440 Personal history of urinary (tract) infections; Z86.73 Personal history of transient ischemic attack (TIA), and cerebral infarction without residual deficits; Y93.89 Activity, other specified; Y92.89 Other specified places as the place of occurrence of the external cause; Y99.8 Other external cause status; I25.2 Old myocardial infarction; Z74.01 Bed confinement status
CPT/HCPCS: 36415; 36600; 71045; 73060-TC; 74018; 74240-TC; 76376; 76700-TC; 80048; 80053; 80074; 80164; 80198; 80202; 81000; 82607; 82728; 82746; 82803-TC; 82962; 83540; 83550; 83605; 83735; 83880; 84100; 84484; 85007; 85025; 85027; 85384; 85610-TC; 85730-TC; 86480; 86886; 86900; 86901; 86920; 87040; 87070-TC; 87081; 87086; 87205-TC; 90935; 90937; 92950; 93005; 93970; 94002; 94003; 94640; 94760; 96365; 96366; 96375; 99291; C9113; G0378; J0171; J0461; J0610; J0692; J0699; J0770; J1100; J1265; J1644; J1650; J1815; J1940; J1953; J1956; J2060; J2185; J2248; J2270; J2370; J2405; J2765; J2930; J2997; J3370; J3475; J3480; J3490; J7050; J7060; J7612; P9021; P9046; Q5106; Q9963; Q9964; Q9967